=== PATIENT | female | born 1935 | race Caucasian/White ===

== ENCOUNTER 2016-06-07 12:58 | Observation (INO) ==
[2016-06-07] MEDS ORDERED: ONDANSETRON 4 MG/2 ML VIAL IV PRN (13:47)
[2016-06-07] MEDS ORDERED: POTASSIUM CHLORIDE 20 MEQ PACKET PO PRN (13:47)
[2016-06-07] MEDS ORDERED: ACETAMINOPHEN 325 MG TABLET PO PRN (13:47)
[2016-06-07] MEDS ORDERED: MAGNESIUM SULFATE 2 GM/50 ML BAG IV PRN (13:47)
[2016-06-07] MEDS: FUROSEMIDE 40 MG/4 ML VIAL IV SCH ×2 (14:49→21:28)
[2016-06-07] MEDS: 0.9 % SODIUM CHLORIDE 10 ML SYRINGE IV SCH ×2 (14:50→21:29)
--- NOTE | 2016-06-07 15:00 | History and Physical Report ---
DATE OF ADMISSION: 06/07/2016 REASON FOR ADMISSION: Shortness of breath, congestive heart failure. HISTORY OF CHIEF COMPLAINT: The patient is an 80-year-old with known history of chronic kidney disease managed by donor recruitment manager, and history of diastolic heart failure with last known EF 61% and recurrent CHF who comes in to donor recruitment manager's office today with worsening shortness of breath with dyspnea on exertion along with orthopnea that has progressed over the last few days. She denies recent NSAID intake or changes in medications. She denies recent URI symptoms, diarrhea, dysuria and has not missed her regular home medications. She further denies chest pain, lightheadedness, dizziness, dysuria, abdominal pain, nausea. She endorses to lower extremity lymphedema which has progressed over the last couple of days. Initial workup in the donor recruitment manager's office with chest imaging revealed CHF with normal biochemical profile except for chronic kidney disease with creatinine at baseline 2.5. Hospitalist Service was consulted by Nephrology for direct admission. At the time of examination, the patient is alert, was able to provide most of the history. She is orthopneic and unable to talk in full sentences, but very cooperative and pleasant. I have known her from 2015 when I saw her for similar CHF exacerbation at [facility]. In the interim, the patient has been followed by Dr. Chilo Hassan and Dr. Rubén Galarza, Cardiology at [place]. REVIEW OF SYSTEMS: Ten-point review of system was performed and negative except the ones discussed above. PAST MEDICAL HISTORY: 1. History of atrial fibrillation. 2. Chronic interstitial lung disease. 3. Diastolic heart failure. 4. Coronary artery disease. 5. GERD. 6. Hypothyroidism. 7. History of Parkinson's disease. 8. Iron deficiency anemia, likely anemia of chronic disease. 9. Degenerative joint disease. 10. Hypothyroidism. 11. Hyperlipidemia. 12. Hypertension. 13. Reactive airway disease. 14. Interstitial lung disease. CURRENT MEDICATIONS: 1. Prednisone 5 mg. 2. Amlodipine 5 mg. 3. Tiotropium inhaled. 4. Pravastatin 20 mg. 5. Nitroglycerin 0.4 mg as needed. 6. Montelukast 10 mg. 7. Metoprolol 25 mg. 8. Magnesium 200 mg. 9. Levothyroxine 150. 10. Hydroxychloroquine 200 mg b.i.d. 11. Hydrocodone 5/325 mg q.6h. p.r.n. 12. Furosemide 20 mg daily. 13. Esomeprazole 40 mg b.i.d. 14. Aspirin 81 mg. 15. Allopurinol 150 mg. 16. Humira subq every 2 weeks. 17. 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 18. Obstructive sleep apnea. 19. Rheumatoid arthritis, currently on Humira and hydroxychloroquine. FAMILY HISTORY: Significant for father with congestive heart failure, sister with breast cancer, mother CVA. SOCIAL HISTORY: The patient is a former smoker. No history of alcoholism. The patient is and retired. FULL CODE STATUS. PHYSICAL EXAMINATION: GENERAL: The patient is alert and oriented. She denies distress except for shortness of breath. 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 Height 5 feet 5 inches. BMI 25. VITAL SIGNS: Blood pressure 182/83, respiration rate 20, temperature 96.2, pulse 82, sats 92% on room air. HEENT: Pupils symmetric and reactive. Oral cavity is dry. No ear or nose discharge. Head is normocephalic and atraumatic. NECK: No lymphadenopathy. CHEST: S1, S2 irregular rhythm. ESM grade 1. Diminished breath sounds at bases, late inspiratory crackles, bilateral posterior lower chest. ABDOMEN: Soft and nontender. LOWER EXTREMITIES: Minimal edema, but no cyanosis or clubbing. No joint swelling. SKIN: No suspicious lesions. PSYCHIATRIC: Alert, mild anxiety, but cooperative. NEURO: Nonfocal, moving all four extremities. LABS AND IMAGING: Prior echo 61% EF-await further records from Dr. Rubén Galarza's office. Echo as of July 2014 EF 50%, grade III diastolic dysfunction, moderate MR along with mild AST, elevated pulmonary artery pressure between 52 to 54 signifying moderate pulmonary hypertension. Hemoglobin 9, white count 6.8, platelets 179. ESR 25. Sodium 144, potassium 24.5, creatinine 2.5, and BUN 44. LFTs unremarkable. UA pending. Procalcitonin pending. X-ray chest: Congestive heart failure. ASSESSMENT AND PLAN: An 80-year-old with known history of chronic kidney disease admitted with acute decompensated heart failure, likely diastolic. 1. Acute decompensated heart failure. Repeat echocardiogram, start aggressive diuresis. Admit in telemetry, no exact precipitant, likely secondary to gradual fluid overload from underlying chronic kidney disease. 2. Chronic kidney disease, will be managed by Nephrology. 3. Anemia of chronic disease, will be managed by Nephrology. 5. Other prior medical issues, including : a. History of rheumatoid arthritis, on Humira and hydroxychloroquine. b. Hypothyroidism, on thyroxine. c. Hypertension/coronary artery disease, on metoprolol/amlodipine/aspirin. d. History of asthma/COPD. Continue fluticasone, salmeterol. e. Degenerative joint disease. Continue hydrocodone. 7. History of gout, continue allopurinol. 8. Hyperlipidemia. Continue statin. PLAN FOR TODAY: 1. Admit as observation. 2. Telemetry monitoring 3. Diuresis. 4. Nephrology consultation. 5. Preexisting medical condition management as above. AA:yeimy Job ID: [id number] Doc ID: [id number] Dennis Kitchen MD
[2016-06-07] MEDS ORDERED: HYDROcodone/APAP 5/325MG TABLET PO PRN (15:25)
[2016-06-07] MEDS ORDERED: NITROGLYCERIN 0.4 MG TAB.SUBL SL PRN (15:25)
[2016-06-07 15:49] LABS: Appearance,Urine CLEAR; Bacteria,Urine MANY /hpf (0); Bilirubin,Urine NEG (NEG); Color,Urine YELLOW; Glucose,Urine (UA) NEGATIVE (NEG); Leukocyte Esterase,Urine NEG /uL (NEG); Nitrate,Urine NEG (NEG); Protein,Urine 30 mg/dL (NEG); Specific Gravity,Urine 1.011 (1.000-1.035); Urine Blood NEG mg/dL (<0.03); Urine Hyaline Cast 7 /lpf (0-2); Urine RBC < 1 /hpf (0-1); Urine Squamous Epithelial Cell 1 /hpf (0-4); Urine WBC 5 /hpf (0-4); Urobilinogen,Urine NEG (NEG)
[2016-06-07] MEDS ORDERED: ESOMEPRAZOLE MAGNESIUM PO SCH (21:00)
[2016-06-07] MEDS: SODIUM BICARBONATE 650 MG TABLET PO SCH (21:24)
[2016-06-07] MEDS: MAGNESIUM OXIDE 400 MG TABLET PO SCH (21:25)
[2016-06-07] MEDS: DOCUSATE SODIUM 100 MG CAPSULE PO SCH (21:26)
[2016-06-07] MEDS: METOPROLOL TARTRATE 25 MG TABLET PO SCH (21:26)
[2016-06-07] MEDS: HYDROXYCHLOROQUINE 200 MG TABLET PO SCH (21:26)
[2016-06-07] MEDS: traZODone HCL 50 MG TABLET PO PRN (21:26)
[2016-06-07] MEDS: ASPIRIN 81 MG TAB.CHEW PO SCH (21:27)
[2016-06-07] MEDS: SENNOSIDES/DOCUSATE SODIUM 1 TAB TABLET PO SCH (21:27)
[2016-06-07] MEDS: SIMVASTATIN 10 MG TABLET PO SCH (21:28)
[2016-06-07] MEDS: HEPARIN 5,000 UNIT/ML VIAL SQ SCH (21:28)
[2016-06-08 06:28] LABS: Mean Cell Volume 101.5 fL (80.0-100.0); Mean Corpuscular HGB Conc 31.7 g/dL (31.0-36.0); Mean Corpuscular Hemoglobin 32.2 pg (26.0-34.0); Platelet Count 165 K/mcL (140-440); RBC 2.69 M/mcL (4.00-5.20); Red Cell Distribution Width 17.4 % (11.5-14.5)
[2016-06-08] MEDS: 0.9 % SODIUM CHLORIDE 10 ML SYRINGE IV SCH ×3 (06:55→22:02)
[2016-06-08] MEDS: PANTOPRAZOLE 40 MG TABLET PO SCH (07:18)
[2016-06-08] MEDS: LEVOTHYROXINE 150 MCG TABLET PO SCH (07:18)
[2016-06-08 07:26] LABS: Anisocytosis 1+ (NONE SEEN); Band Neutrophils % 2 % (0-10); Basophils % (Manual) 1 % (0-2); Eosinophils % (Manual) 4 % (0-7); Lymphocytes % 27 % (15-49); Macrocytosis 1+ (NONE SEEN); Monocytes % (Manual) 6 % (1-9); Platelet Estimate NORMAL (NORMAL); RBC Morphology ABNORM (NORMAL); Segmented Neutrophils % 60 % (38-78)
[2016-06-08 07:30] LABS: ALT/SGPT 12 U/l (0-40); Albumin 3.8 gm/dL (3.2-5.2); Albumin/Globulin Ratio 1.8 (1.0-2.3); Alkaline Phosphatase 54 U/L (39-117); Bilirubin,Direct < 0.2 mg/dL (0.0-0.3); Blood Urea Nitrogen 49 mg/dl (8-23); Gamma Glutamyl Transpeptidase 15 U/L (5-36); Magnesium 1.9 mg/dL (1.6-2.5); Uric Acid 7.5 mg/dL (2.5-8.0)
--- NOTE | 2016-06-08 07:50 | Echocardiogram Report ---
ECHOCARDIOGRAM: 2-D and M-mode echocardiography with cardiac Doppler and color flow imaging were performed with a [employer] MX. Indication is congestive heart failure. Both atria appeared mildly enlarged. RV and LV cavity size appeared normal. LV wall thickness appeared mildly increased. Systolic performance appeared normal. Estimated ejection fraction is 60%. Aortic root diameter appeared normal. The aortic valve appeared trileaflet and normal. There was no evidence for aortic stenosis by Doppler interrogation. Aortic regurgitation, probably mild (1+), was demonstrated. The mitral and tricuspid valves appeared unremarkable. Doppler interrogation of LV inflow disclosed the so-called restrictive pattern as can be seen with heart failure. Mitral regurgitation, probably moderate to moderately severe (2-3+), was demonstrated. Pulmonary venous interrogation disclosed ''d'' wave dominance indicating elevated pulmonary wedge pressure. The pulmonic valve showed absent ''a'' wave in the absence of AV synchrony. Pulmonary artery acceleration time appeared shortened. There was no evidence for pulmonic stenosis. Pulmonic regurgitation, probably moderate (2+), was demonstrated. Tricuspid regurgitation, probably moderate to moderately severe (2-3+) was noted. No intracardiac shunting was appreciated. There was no evidence for pericardial effusion. The IVC was dilated and did not vary with the respiratory cycle indicating raised CVP. Calculated estimated PA pressure is moderately to severely elevated at 60/35 mmHg. Atrial fibrillation with a moderate response was present. CONCLUSION:Aortic regurgitation, probably mild (1+). Mild concentric LVH with normal systolic performance. Mitral regurgitation, probably moderate to moderately severe, with mild LA enlargement, elevated pulmonary wedge pressure/moderate to severe and probably passive pulmonary hypertension, mild RA enlargement, and raised CVP. (See accompanying M-mode and Doppler reports for quantitation.) ECHOCARDIOGRAPHY M-MODE CALCULATIONS: HT: 65'' WT: 217 BSA: 2.05 m2 NORMALS AORTA: AORTIC ROOT 3.1 2.0-3.7 cm LEFT ATRIUM 4.4 1.9-4.0 cm MITRAL VALVE: EXCURSION 1.9 1.9-2.7 cm EPSS 0.2 <0.5 cm LT VENTRICLE: LVID (ED) 5.0 3.5-5.7 cm LVID (ES) 3.3 SEPTAL THICKNESS 1.2 0.6-1.1 cm SEPTAL EXCURSION 0.3 0.3-0.8 cm LVPW THICKNESS 1.2 0.6-1.1 cm LVPW EXCURSION 1.3 0.9-1.4 cm MINOR AXIS FS 3.4 25%-40% RT VENTRICLE: RVID (ED) 0.9 0.9-2.6 cm(up to 3cm if LLD) QUALITATIVE DOPPLER FLOW STUDIES MITRAL VALVE MR, probably moderate to moderately severe (2-3+). AORTIC VALVE AR, probably mild (1+) TRICUSPID VALVE TR, probably moderate to moderately severe (2-3+) PULMONIC VALVE GA, probably moderate (2+) QUANTITATIVE DOPPLER FLOW STUDIES SAMPLE SITES VELOCITIES PEAK PRESSURE VALVE AREA and/or VALVE WINDOW (PEAK,M/SEC) DROP (GRADIENT) PRESSURE HALF-TIME MV (Diastole) 1.5 -- -- MV (Systole) 6.5 -- -- AO (Diastole) 4.0 -- 518 msec AO (Systole) 1.3 -- -- TV (Systole) 3.2 -- -- PV (Systole) 1.1 -- -- PV (Diastole) 3.2 LWG:yeimy Job ID: [id number] Doc ID: [id number] Robert Garcia MD
[2016-06-08] MEDS: amLODIPine 5 MG TABLET PO SCH (09:00)
[2016-06-08] MEDS: HEPARIN 5,000 UNIT/ML VIAL SQ SCH ×2 (09:00→21:57)
[2016-06-08] MEDS: ALLOPURINOL 100 MG TABLET PO SCH (09:00)
[2016-06-08] MEDS: MAGNESIUM OXIDE 400 MG TABLET PO SCH ×2 (09:00→21:57)
[2016-06-08] MEDS: FUROSEMIDE 40 MG/4 ML VIAL IV SCH ×2 (09:00→15:43)
[2016-06-08] MEDS: HYDROXYCHLOROQUINE 200 MG TABLET PO SCH ×2 (09:01→21:57)
[2016-06-08] MEDS: MONTELUKAST 10 MG TABLET PO SCH (09:01)
[2016-06-08] MEDS: METOPROLOL TARTRATE 25 MG TABLET PO SCH ×2 (09:01→21:56)
[2016-06-08] MEDS: MULTIVIT,THER IRON,CA,FA & MIN 1 TABLET PO SCH (09:01)
[2016-06-08] MEDS: SODIUM BICARBONATE 650 MG TABLET PO SCH ×2 (09:01→22:01)
[2016-06-08] MEDS: CALCITRIOL 0.25 MCG CAPSULE PO SCH (09:01)
[2016-06-08] MEDS: predniSONE 5 MG TABLET PO SCH (09:02)
[2016-06-08] MEDS: DOCUSATE SODIUM 100 MG CAPSULE PO SCH ×2 (09:02→21:56)
--- NOTE | 2016-06-08 12:03 | Internal Med Progress Note ---
Medical - PN: Subj Patient information: Note initiated : 06/08/16 at 12:01 pm Service Date, if different from initiated Date: [] Patient: Kathy Carvalho 80 y/o F admitted on 06/07/16 for CHF, Chronic Renal Failure. Chief Complaint: [] Interval history: 06/07- 80-year-old with history of chronic kidney disease/diastolic heart failure admitted with severe shortness of breath/anasarca. Patient started on aggressive diuresis as per nephrology. admitted as observation 06/08- remarkable response to diuretics Over 1500 cc net negative diuresis over 24 hours. Improving orthopnea. Able to talk in full sentences. No overnight fever chills nausea vomiting or concerns per staff. Intermittent cramping. creatinine 2.6. Electrolytes stable. - Constitutional Vitals: Vital Signs Temp Pulse Resp BP Pulse Ox 97.6 F 60 18 147/80 94 06/08/16 07:23 06/08/16 07:23 06/08/16 07:23 06/08/16 07:23 06/08/16 08:03 Period Temp Pulse Resp BP Sys/Nova Pulse Ox Last 24 Hr 96.2 F-97.9 F 60-85 18-28 108-190/60-83 90-96 Intake and Output 06/07/16 06/08/16 06/08/16 21:59 05:59 13:59 Intake Total 480 / 480 800 / 800 1000 / 1000 Output Total 851 / 851 2100 / 2100 300 / 300 Balance -371 / -371 -1300 / -1300 700 / 700 Weight 158 lb 8 oz Intake & Output: Intake & Output 06/07/16 06/08/16 06/08/16 21:59 05:59 13:59 Intake Total 480 / 480 800 / 800 1000 / 1000 Output Total 851 / 851 2100 / 2100 300 / 300 Balance -371 / -371 -1300 / -1300 700 / 700 Weight 158 lb 8 oz Intake: Oral 480 / 480 800 / 800 1000 / 1000 Output: Urine Catheter Amount 650 / 650 1600 / 1600 300 / 300 Void Amount 200 / 200 # of times incontinent of 1 / 1 urine Stool 500 / 500 Other: Meal Dinner Breakfast Percent of Meal Consumed 100% 100% Feeding Ability Independent General appearance: cooperative, no acute distress Exam: mprove lymphedema Nonlabored breathing minimal anxiety nontender abdomen Medical - PN: Obj Da - Labs CBC & Chem 7: 06/08/16 04:10 06/08/16 04:10 Labs: Abnormal Lab Results 06/08/16 06/08/16 06/07/16 04:10 04:10 15:25 RBC 2.69 L Hgb 8.7 L Hct 27.3 L MCV 101.5 H RDW 17.4 H RBC Morphology Abnorm A Anisocytosis 1+ A Macrocytosis 1+ A Carbon Dioxide 21 L Anion Gap 19.0 H BUN 49 H Creatinine 2.6 H Globulin 2.1 L Triglycerides 165 H Urine Protein 30 A Urine WBC 5 H Urine Bacteria Many A Hyaline Casts 7 H Meds: Medications Acetaminophen (Tylenol) 650 mg PO Q4-6HP PRN PRN Reason: PAIN/FEVER > 101 Last Admin: 06/08/16 09:23 Dose: 650 mg Acetaminophen/Hydrocodone Bitart (Thorpe 5/325mg) 1 - 2 tab PO Q6HP PRN PRN Reason: Pain Allopurinol (Zyloprim) 150 mg PO QDAY REPLACED BY [facility] Last Admin: 06/08/16 09:00 Dose: 150 mg Amlodipine Besylate (Norvasc) 5 mg PO QDAY REPLACED BY [facility] Last Admin: 06/08/16 09:00 Dose: 5 mg Aspirin (Aspirin) 81 mg PO HS REPLACED BY [facility] Last Admin: 06/07/16 21:27 Dose: 81 mg Calcitriol (Rocaltrol) 0.25 mcg PO QDAY REPLACED BY [facility] Last Admin: 06/08/16 09:01 Dose: 0.25 mcg Docusate Sodium (Colace) 100 mg PO BID REPLACED BY [facility] Last Admin: 06/08/16 09:02 Dose: 100 mg Furosemide (Lasix) 40 mg IV BIDD REPLACED BY [facility] Last Admin: 06/08/16 09:00 Dose: 40 mg Heparin Sodium (Porcine) (Heparin) 5,000 unit SQ Q12 REPLACED BY [facility] Last Admin: 06/08/16 09:00 Dose: 5,000 unit Hydroxychloroquine Sulfate (Plaquenil) 200 mg PO BID REPLACED BY [facility] Last Admin: 06/08/16 09:01 Dose: 200 mg Magnesium Sulfate (Magnesium Sulfate) 2 gm in 50 mls @ 50 mls/hr IV UD PRN PRN Reason: MG = or < 1.7 Iron Carb/Multivit/[place]/Folic Acid (Multivitamin W/Minerals) 1 tab PO DAILY REPLACED BY [facility] Last Admin: 06/08/16 09:01 Dose: 1 tab Levothyroxine Sodium (Synthroid) 150 mcg PO ACB REPLACED BY [facility] Last Admin: 06/08/16 07:18 Dose: 150 mcg Magnesium Oxide (Magnesium Oxide) 400 mg PO BID REPLACED BY [facility] Last Admin: 06/08/16 09:00 Dose: 400 mg Metoprolol Tartrate (Lopressor) 50 mg PO BID REPLACED BY [facility] Last Admin: 06/08/16 09:01 Dose: 50 mg Montelukast Sodium (Singular) 10 mg PO QAM REPLACED BY [facility] Last Admin: 06/08/16 09:01 Dose: 10 mg Nitroglycerin (Nitrostat) 0.4 mg SL Q5-15MIN PRN PRN Reason: Chest Pain Ondansetron HCl (Zofran) 4 mg IV Q4-6HP PRN PRN Reason: Nausea And Vomiting Pantoprazole Sodium (Protonix) 40 mg PO QAMAC REPLACED BY [facility] Last Admin: 06/08/16 07:18 Dose: 40 mg Potassium Chloride (Klor-Con) 40 meq PO DAILYP PRN PRN Reason: K+ < 3.5 Prednisone (Prednisone) 5 mg PO QDAY REPLACED BY [facility] Last Admin: 06/08/16 09:02 Dose: 5 mg Senna/Docusate Sodium (Senna Plus Tablet) 1 tab PO HS REPLACED BY [facility] Last Admin: 06/07/16 21:27 Dose: 1 tab Simvastatin (Zocor) 10 mg PO HS REPLACED BY [facility] Last Admin: 06/07/16 21:28 Dose: 10 mg Sodium Bicarbonate (Sodium Bicarbonate) 325 mg PO BID REPLACED BY [facility] Last Admin: 06/08/16 09:01 Dose: 325 mg Sodium Chloride (Saline Flush) 10 ml IV Q8 REPLACED BY [facility] Last Admin: 06/08/16 06:55 Dose: 10 ml Trazodone HCl (Desyrel) 50 mg PO HSP PRN PRN Reason: Insomnia Last Admin: 06/07/16 21:26 Dose: 50 mg Medical - PN: A/P - Time Spent With Patient Total time spent is greater than 50% in coordination of care (as documented) at patient's floor/unit and/or counseling patient: 25 - 35 minutes (1) Acute decompensated heart failure Status: Acute Assessment and plan: * Acute decompensated heart failure- diastolic with preserved EF at 61%. Continue aggressive diuresis. responding adequately to treatment. * History of chronic kidney disease with anasarca-managed by nephrology * Hypertension on amlodipinemetoprolol * Hyperlipidemia on statin * History of arthritis on hydroxychloroquine/Prednisone and Humira as outpatient * Hypothyroidism on thyroxine * gERD on PPI * history of hyperuricemia on allopurinol * DVT prophylaxis on heparin Plan * Continue aggressive diuresis * renal function monitoring * Pre-existing medical condition management as above * possible discharge in 24 hours once clinically improved with outpatient follow -up with nephrology/cardiology Current Visit: No Medical - PN: Qual - VTE Deep Vein Thrombosis/Pulmonary Embolism Present on Admission: No
[2016-06-08] MEDS ORDERED: CYANOCOBALAMIN 1,000 MCG/ML VIAL IM ONE (13:42)
[2016-06-08] MEDS ORDERED: 0.9 % SODIUM CHLORIDE 250 ML IV SCH (13:45)
--- NOTE | 2016-06-08 15:19 | Nephrology Consult Note ---
History of Present Illness - Reason for Consult Patient information: Note initiated : 06/08/16 at 3:16 pm Service Date, if different from initiated Date: [] Patient: Kathy Carvalho 80 y/o F admitted on 06/07/16 for CHF, Chronic Renal Failure. Chief Complaint: [] Consult date: 06/08/16 chronic renal failure Requesting physician: Dennis Kitchen - Chief Complaint SOB - History of Present Illness Ms Carvalho is a 80 y/o pleasant white female with PMH of HTN, Afib, CKD, CHF, anemia and other medical issues who is hospitalised with CHF Patient presented to my clinic yesterday with c/o worsening SOB for a week, she denied orthopnea, she did c/o chest tightness She has no fever, cough She has no h/o LE edema She denies any GI symptoms Patient has h/o CHF with anemia, her Hb has been trending down recently She was evaluated in the clinic, work up significant for elevated BNP with CXR s /o pul edema and hence she was hospitalised She is feeling much better with IV diuretics Review of Systems All systems PM: reviewed and no additional remarkable complaints except as stated (as in HPI) Past History Past medical history: htn CKD stage IV/V Anemia recurrent UTI renal osteodystrophy Afib, CHF Dyslipidemia Past surgical history: h/o cholecystectomy, hysterectomy, intestinal bypass Past family history: father had h/o CHF, mother had h/o CVA Past social history: Lives alone former smoker, no h/o alcohol use Medications and Allergies Home Medications Medication Instructions Recorded Confirmed Type aspirin 81 mg tablet,delayed 81 mg PO HS tab 09/24/14 06/07/16 History release calcitriol 0.25 mcg capsule 0.25 mcg PO QDAY cap 09/24/14 06/07/16 History esomeprazole magnesium 40 mg 40 mg PO BID cap 09/24/14 06/07/16 History capsule,delayed release levothyroxine 150 mcg tablet 150 mcg PO QDAY tab 09/24/14 06/07/16 History montelukast 10 mg tablet 10 mg PO QAM tab 09/24/14 06/07/16 History pravastatin 20 mg tablet 20 mg PO HS tab 09/24/14 06/07/16 History coenzyme Q10 100 mg capsule 100 mg PO HS cap 11/29/14 06/07/16 History omega-3 fatty acids 1,000 mg 1,000 mg PO HS cap 11/29/14 06/07/16 History capsule cyanocobalamin (vit B-12) 1,000 1,000 mcg IM QMONTH ml 01/11/15 06/07/16 History mcg/mL injection solution ferrous sulfate 325 mg (65 mg 65 mg PO BID tab 06/15/15 06/07/16 History iron) tablet nitroglycerin 0.4 mg sublingual 0.4 mg SUBLINGUAL Q5-15MIN PRN 06/15/15 History tablet Ascorbic Acid [Vitamin C] 1,000 mg PO BID 07/13/15 06/07/16 History Cranberry Conc/Ascorbic Acid 4,200 mg PO QDAY 07/13/15 06/07/16 History [Cranberry 6,000 mg Softgel] Furosemide [Lasix] 20 mg PO DAILY 07/13/15 06/07/16 History HYDROcodone/APAP 5/325MG [[place] 1 - 2 tab PO Q6HP PRN #20 tab 07/14/15 06/07/16 Rx 5/325Mg] magnesium 200 mg tablet 200 mg PO BID 08/02/15 06/07/16 History metoprolol tartrate 25 mg tablet 50 mg PO BID tab 09/20/15 06/07/16 History amlodipine 5 mg tablet 5 mg PO QDAY 90 Days 03/05/16 06/07/16 History adalimumab 40 mg/0.8 mL 40 mg SUB-Q Q14D #1.6 ml 04/16/16 06/07/16 Rx subcutaneous syringe kit hydroxychloroquine 200 mg tablet 200 mg PO BID #60 tab 05/22/16 06/07/16 Rx prednisone 5 mg tablet 5 mg PO QDAY #90 tab 05/22/16 06/07/16 Rx allopurinol 100 mg tablet 150 mg PO QDAY #135 tab 05/24/16 06/07/16 Rx Calcium (Oyster Shell) [Oscal] 1 tab PO DAILY 06/07/16 06/07/16 History Sodium Bicarbonate 1 tab PO BID 06/07/16 06/07/16 History Allergies Allergy/AdvReac Type Severity Reaction Status Date / Time dofetilide [From Tikosyn] Allergy Mild Unknown Verified 06/07/16 15:20 Penicillins Allergy Unknown Hives Verified 06/07/16 11:02 Warfarin Allergy Unknown Unknown Verified 06/07/16 15:20 adhesive tape Allergy Rash Verified 06/07/16 14:11 Erythromycin Base AdvReac Itching Verified 06/07/16 14:11 doxycycline calcium Allergy Unknown Unknown Uncoded 06/07/16 15:20 Exam - Vital Signs Vital signs: Temp Pulse Resp BP Pulse Ox 98.0 F 61 20 146/65 96 06/08/16 12:00 06/08/16 12:00 06/08/16 12:00 06/08/16 12:00 06/08/16 12:00 - General Appearance General appearance: appears started age, obese EENT: mucous membranes moist Neck: JVD Respiratory: clear Cardiology: no rub, no edema, irregular rhythm Gastrointestinal: no tenderness, no guarding Integumentary: no rash, warm and dry Neurologic: alert and oriented x3 Musculoskeletal: no erythema, no cyanosis Psychiatric: mood/affect appropriate Results - Lab Results 06/08/16 04:10 06/08/16 04:10 Most recent lab results Calcium 8.9 mg/dl (8.6-10.4) 06/08/16 04:10 Phosphorus 4.0 mg/dL (2.7-4.5) 06/08/16 04:10 Magnesium 1.9 mg/dL (1.6-2.5) 06/08/16 04:10 Assessment and Plan (1) Anemia patient developed CHF with minimal anemia, given this will give one PRBC transfusion, she has received aranesp as Tsat was 22% and will also give b12 injection, she is mthly b12, her level was 266 Status: Acute (2) Acute decompensated heart failure ct IV diuresis for another day, much improved symptoms if continues to get better may discharge on lasix 40mg po daily Status: Acute (3) Chronic kidney disease, stage IV (severe) renal function worse as compared to recent baseline this is likely sec to cardiac issues will monitor no indication for dialysis Status: Chronic Comment: Most recent s.creatinine is 2.8 from 3.0 which equals to egfr of 17ml/min per MDRD equation (pt known to have a stable s.Creat of around 2.0 which suddenly increased this year to mid 3's) She has overt proteinuria on her UA She has h/o nephritis in the remote past and HTN and renal stones as risk factor for renal disease renal US does not show renal stones but does show medical renal disease renal function stable for now will monitor she has been educated in the past will pursue AVF if renal function gets any worse
[2016-06-08] MEDS: SIMVASTATIN 10 MG TABLET PO SCH (21:56)
[2016-06-08] MEDS: traZODone HCL 50 MG TABLET PO PRN (21:56)
[2016-06-08] MEDS: SENNOSIDES/DOCUSATE SODIUM 1 TAB TABLET PO SCH (21:56)
[2016-06-08] MEDS: ASPIRIN 81 MG TAB.CHEW PO SCH (21:58)
[2016-06-09] MEDS: 0.9 % SODIUM CHLORIDE 10 ML SYRINGE IV SCH ×2 (04:27→14:37)
[2016-06-09 05:08] LABS: Mean Corpuscular Hemoglobin 31.7 pg (26.0-34.0); Platelet Count 173 K/mcL (140-440)
[2016-06-09 05:31] LABS: ALT/SGPT 12 U/l (0-40); Albumin/Globulin Ratio 2.1 (1.0-2.3); Alkaline Phosphatase 58 U/L (39-117); Bilirubin,Direct < 0.2 mg/dL (0.0-0.3); Blood Urea Nitrogen 49 mg/dl (8-23); Gamma Glutamyl Transpeptidase 15 U/L (5-36); Magnesium 1.9 mg/dL (1.6-2.5); Phosphorous 4.9 mg/dL (2.7-4.5); Uric Acid 7.9 mg/dL (2.5-8.0)
[2016-06-09 07:23] LABS: Anisocytosis 1+ (NONE SEEN); Band Neutrophils % 2 % (0-10); Basophils % (Manual) 1 % (0-2); Eosinophils % (Manual) 7 % (0-7); Lymphocytes % 30 % (15-49); Monocytes % (Manual) 2 % (1-9); Platelet Estimate NORMAL (NORMAL); RBC Morphology ABNORM (NORMAL); Segmented Neutrophils % 58 % (38-78)
[2016-06-09] MEDS: LEVOTHYROXINE 150 MCG TABLET PO SCH (07:35)
[2016-06-09] MEDS: PANTOPRAZOLE 40 MG TABLET PO SCH (07:35)
--- NOTE | 2016-06-09 08:53 | XRay Report ---
HISTORY: Reason for Exam:Interval Change Cardiomegaly and congestive heart failure FINDINGS: The heart remains mildly enlarged. The pulmonary vascular congestion has improved since 06-22. There is minor blunting of the right costophrenic sulcus. No lobar consolidation is present. IMPRESSION: Improving congestive heart failure with stable cardiomegaly Interpreted and Authenticated by: Valentin Guan 06/09/16
[2016-06-09] MEDS: MULTIVIT,THER IRON,CA,FA & MIN 1 TABLET PO SCH (09:15)
[2016-06-09] MEDS: SODIUM BICARBONATE 650 MG TABLET PO SCH (09:16)
[2016-06-09] MEDS: amLODIPine 5 MG TABLET PO SCH (09:16)
[2016-06-09] MEDS: METOPROLOL TARTRATE 25 MG TABLET PO SCH (09:16)
[2016-06-09] MEDS: ALLOPURINOL 100 MG TABLET PO SCH (09:16)
[2016-06-09] MEDS: predniSONE 5 MG TABLET PO SCH (09:16)
[2016-06-09] MEDS: MONTELUKAST 10 MG TABLET PO SCH (09:17)
[2016-06-09] MEDS: CALCITRIOL 0.25 MCG CAPSULE PO SCH (09:17)
[2016-06-09] MEDS: DOCUSATE SODIUM 100 MG CAPSULE PO SCH ×2 (09:18→09:35)
[2016-06-09] MEDS: HEPARIN 5,000 UNIT/ML VIAL SQ SCH (09:18)
[2016-06-09] MEDS: FUROSEMIDE 40 MG/4 ML VIAL IV SCH ×2 (09:18→16:48)
[2016-06-09] MEDS: HYDROXYCHLOROQUINE 200 MG TABLET PO SCH (09:34)
[2016-06-09] MEDS: MAGNESIUM OXIDE 400 MG TABLET PO SCH (09:34)
[2016-06-09] MEDS ORDERED: cefTRIAXone 2 GM in DEXTROSE 5% IN WATER 50 ML IV ONE (10:00)
[2016-06-09] MEDS ORDERED: ERTAPENEM 1 GM in 0.9 % SODIUM CHLORIDE 50 ML IV SCH (11:00)
--- NOTE | 2016-06-09 11:38 | Discharge Plan ---
Discharge Plan - Patient/Caregiver Discharge Instructions Discharge Summary: DISCHARGE DIAGNOSIS * Acute decompensated heart failure- diastolic with preserved EF at 61%. adequate response to Lasix.discharging and advised to continue higher dose of Lasix as per nephrology-40 mg a day. * Enterobacter [id number]. However in light of patient the immunosuppressed very high risk for subsequent systemic infection and hence treatment started on Invanz. Continue additional 4 days IV Invanz followed by repeat UA to be coordinated by primary care physician. * History of chronic kidney disease with anasarca-managed by nephrology. Continue outpatient follow-up with nephrology as advised * Hypertension remained stable on amlodipine metoprolol * Hyperlipidemia on statin * History of rheumatoid arthritis on hydroxychloroquine/Prednisone and Humira as outpatient * Hypothyroidism on thyroxine * gERD on PPI * history of hyperuricemia on allopurinol * DVT prophylaxis on heparin BRIEF HOSPITAL COURSE 06/07- 80-year-old with history of chronic kidney disease/diastolic heart failure admitted with severe shortness of breath/anasarca. Patient started on aggressive diuresis as per nephrology. admitted as observation 06/08- remarkable response to diuretics Over 1500 cc net negative diuresis over 24 hours. Improving orthopnea. Able to talk in full sentences. No overnight fever chills nausea vomiting or concerns per staff. Intermittent cramping. creatinine 2.6. Electrolytes stable. 06/09- patient doing well. No overnight events. No concerns per staff. Adequate diuresis with resolution of shortness of breath. Ambulating and tolerating physical therapy. Nephrology recommends higher dose of Lasix at 40 mg a day. Asymptomatic bacteriuria with multidrug resistant Enterobacter. Given underlying rheumatoid arthritis on Humira with Immunosuppression, patient started on Invanz for total of 5 days to prevent subsequent systemic infection. Patient will need IV outpatient Invanz on discharge. Detailed discharge instructions as below Activity: as per physical therapy Diet: Renal/Consistent Carbs Additional Instructions: Follow-up PCP in 5 days follow-up with nephrology as outpatient I recommend primary care physician to check CBC BMP UA as a posthospital follow -up in 1 week Antibiotics for additional 4 days in light of multidrug-resistant Enterobacter bacteriuria continue increased dose of Lasix as per nephrology recommendation-40 mg daily Continue aggressive bowel regimen to prevent constipation Continue fall precautions daily weights measurements and take additional 40 mg Lasix for 3 days if weight gain over 4 pounds over baseline or worsening shortness of breath and call primary care physician/nephrology office if inadequate response to Lasix Return to ER if worsening generalized edema, shortness of breath Review risk and side effect profile of medications including antibiotics. Side effect may include mild to severe reaction including rash, diarrhea, cdiff and even which can be prevented by close follow-up with PCP and monitoring for side effects Continue renal diet and activity as advised Discussed importance of medication adherence Please review medication list with patient prior to discharge Please schedule follow-up with PCP/Providers prior to discharge and provide printouts CC- PCP Prescriptions: Ertapenem [Invanz] 1 gm IV DAILY #4 vial Furosemide [Lasix] 40 mg PO DAILY #30 tablet - Follow up Plan Disposition: Home, Self-Care Prognosis: Fair Rehab Potential: Good I certify that the patient requires SNF services.: No Overall status at discharge: patient is back to baseline
--- NOTE | 2016-06-09 15:18 | Nephrology Progress Note ---
Subjective Patient information: Note initiated : 06/09/16 at 3:16 pm Service Date, if different from initiated Date: [] Patient: Kathy Carvalho 80 y/o F admitted on 06/07/16 for CHF, Chronic Renal Failure. Chief Complaint: [] Principal diagnosis: CHF Interval history: No new issues been treated with ertapenem for cephalosporin resistant enterobacter UTI SOB much improved, CXR shows improving CHF patient did receive ne unit prbc, Hb now upto 9.8 will be discharged today Pertinent ROS: as above Objective - Vital Signs Vital signs: Vital Signs Temp Pulse Resp BP BP Pulse Ox 06/09/16 12:30 97.2 F L 65 18 127/61 96 06/09/16 07:54 62 16 97 06/09/16 07:39 97.5 F L 62 16 145/66 97 06/09/16 04:00 97.8 F 63 14 125/55 96 06/09/16 00:00 97.7 F 57 L 20 116/57 92 06/08/16 20:00 97.5 F L 88 20 163/79 93 06/08/16 16:30 71 06/08/16 16:00 97.0 F L 70 20 162/74 90 Intake and Output 06/09/16 06/09/16 06/09/16 05:59 13:59 21:59 Intake Total 1100 / 1100 990 / 990 Output Total 1100 / 1100 1350 / 1350 Balance 0 / 0 -360 / -360 Intake: IV 100 / 100 Sodium Chloride 0.9% 50 50 / 50 ml @ 100 mls/hr IV DAILY CASIE with INVanz 1 GM Rx#: [id number] Dextrose 5% in Water 50 50 / 50 ml @ 100 mls/hr IV ONCE ONE with Rocephin 2 gm Rx #:[id number] Oral 400 / 400 890 / 890 Blood Product 350 / 350 Packed Cells 350 / 350 Output: Urine Catheter Amount 1100 / 1100 1350 / 1350 Other: Meal Lunch Percent of Meal Consumed 100% Feeding Ability Independent # Bowel Movements 1 Intake & Output: Intake & Output 06/09/16 06/09/16 06/09/16 05:59 13:59 21:59 Intake Total 1100 / 1100 990 / 990 Output Total 1100 / 1100 1350 / 1350 Balance 0 / 0 -360 / -360 Intake: IV 100 / 100 Sodium Chloride 0.9% 50 50 / 50 ml @ 100 mls/hr IV DAILY ACSIE with INVanz 1 GM Rx#: [id number] Dextrose 5% in Water 50 50 / 50 ml @ 100 mls/hr IV ONCE ONE with Rocephin 2 gm Rx #:[id number] Oral 400 / 400 890 / 890 Blood Product 350 / 350 Packed Cells 350 / 350 Output: Urine Catheter Amount 1100 / 1100 1350 / 1350 Other: Meal Lunch Percent of Meal Consumed 100% Feeding Ability Independent # Bowel Movements 1 - General Appearance General appearance: appears started age, obese EENT: mucous membranes moist Neck: JVD Respiratory: clear Gastrointestinal: no tenderness Integumentary: no rash, warm and dry Neurologic: no focal deficit, alert and oriented x3 Musculoskeletal: no erythema, no cyanosis Psychiatric: mood/affect appropriate - Lab 06/09/16 03:30 06/09/16 03:30 Most recent lab results Calcium 8.9 mg/dl (8.6-10.4) 06/09/16 03:30 Phosphorus 4.9 mg/dL (2.7-4.5) H 06/09/16 03:30 Magnesium 1.9 mg/dL (1.6-2.5) 06/09/16 03:30 Assessment and Plan (1) Anemia hb improved to 9.8 received one unit of prbc transfusion will ct aranesp as outpt also pt needs to continue mthly b12 injections ct oral ferrous sulphate Status: Acute (2) Acute decompensated heart failure muh improved precipitated by anemia please discharge on lasix 40mg po daily she will take an additional 40mg for weight gain of 2-3lbs ct metoprolol also needs to follow with cardiology Status: Acute (3) Chronic kidney disease, stage IV (severe) renal function declinign again will monitor likely from acute events will follow as outpatient in 10 days Status: Chronic Comment: Most recent s.creatinine is 2.8 from 3.0 which equals to egfr of 17ml/min per MDRD equation (pt known to have a stable s.Creat of around 2.0 which suddenly increased this year to mid 3's) She has overt proteinuria on her UA She has h/o nephritis in the remote past and HTN and renal stones as risk factor for renal disease renal US does not show renal stones but does show medical renal disease renal function stable for now will monitor she has been educated in the past will pursue AVF if renal function gets any worse
== END 2016-06-09 17:05 | disposition home or self-care (01) ==
LOC: ICU
PROVIDERS: ADMIT Internal Medicine; ATTEND Internal Medicine

== ENCOUNTER 2017-03-25 06:04 | Observation (INO) ==
[2017-03-22 12:34] LABS: Basophils # (Auto) 0 K/mcL (0.0-0.3); Basophils % (Auto) 0.4 % (0.0-2.0); Eosinophils # (Auto) 0.2 K/mcL (0.0-0.7); Eosinophils % (Auto) 2.2 % (0.0-7.0); Granulocytes % (Auto) 55.7 % (38.0-78.0); Lymphocytes # (Auto) 3.5 K/mcL (1.5-4.8); Lymphocytes % (Auto) 35.9 % (15.5-49.0); Mean Cell Volume 92.1 fL (80.0-100.0); Mean Corpuscular HGB Conc 32.1 g/dL (31.0-36.0); Mean Corpuscular Hemoglobin 29.6 pg (26.0-34.0); Monocytes # (Auto) 0.6 K/mcL (0.1-0.9); Monocytes % (Auto) 5.8 % (1.0-12.0); Platelet Count 158 K/mcL (140-440); RBC 3.55 M/mcL (4.00-5.20); Red Cell Distribution Width 17.1 % (11.5-14.5)
[~2017-03-25 06:04] MED LIST: IPRATROPIUM/ALBUTEROL 3 ML AMPUL.NEB NEB PRN
[2017-03-25] MEDS ORDERED: CLINDAMYCIN 600 MG in DEXTROSE 5% IN WATER 50 ML IV SCH (06:30)
[2017-03-25] MEDS ORDERED: MIDAZOLAM 2 MG/2 ML VIAL IV ONE (08:00)
[2017-03-25] MEDS ORDERED: fentaNYL 100 MCG/2 ML VIAL IV ONE (08:00)
[2017-03-25] MEDS ORDERED: 0.9 % SODIUM CHLORIDE 10 ML SYRINGE IV ONE (08:28)
[2017-03-25] MEDS ORDERED: BUPIVACAINE 0.5% 50 ML VIAL IJ ONE (08:31)
[2017-03-25] MEDS ORDERED: LIDOCAINE W/EPI 2% 20 ML VIAL INJ ONE (08:32)
[2017-03-25] MEDS ORDERED: HEPARIN 10,000 UNIT/ML VIAL IR ONE (08:33)
[2017-03-25] MEDS ORDERED: FLUMAZENIL 0.1 MG/ML ML IV PRN (08:48)
[2017-03-25] MEDS ORDERED: fentaNYL 100 MCG/2 ML VIAL IV PRN (08:48)
[2017-03-25] MEDS ORDERED: LACTATED RINGERS 250 ML IV PRN (08:48)
[2017-03-25] MEDS ORDERED: PROMETHAZINE 25 MG/ML VIAL IV PRN (08:48)
[2017-03-25] MEDS ORDERED: IPRATROPIUM/ALBUTEROL 3 ML AMPUL.NEB NEB PRN (08:48)
[2017-03-25] MEDS ORDERED: ePHEDrine 50 MG/ML AMPUL IV PRN (08:48)
[2017-03-25] MEDS ORDERED: NALOXONE HCL 0.4 MG/ML VIAL IV PRN (08:48)
[2017-03-25] MEDS ORDERED: ONDANSETRON 4 MG/2 ML VIAL IV PRN ×2 (08:48→09:24)
[2017-03-25] MEDS ORDERED: LACTATED RINGERS 1,000 ML IV SCH (09:00)
[2017-03-25] MEDS ORDERED: traMADol 50 MG TABLET PO PRN (09:29)
--- NOTE | 2017-03-25 12:31 | XRay Report ---
CLINICAL INFORMATION: Post line placement COMPARISON: None. FINDINGS: ] Right IJ Double-lumen catheter tip overlies the SVC/ right atrial junction. No pneumothorax or other complication from line placement. The heart is mildly enlarged, but stable. Mediastinum and pulmonary vessels are normal. Lungs are clear. No effusions. IMPRESSION: Right IJ double-lumen catheter in satisfactory position. A combination line placement. No acute disease Interpreted and Authenticated by: Naldo Fitch 03/25/17
--- NOTE | 2017-03-25 12:31 | Brief Operative Note ---
Date of procedure: 03/25/17 Pre-op diagnosis: Need for Hemodialysis Post-op diagnosis: same Procedure: Right IJ tunneled hemodialysis catheter placement Grafts/Implants: Yes (Tunneled hemodialysis catheter.) Anesthesia: conscious sedation Complications: none Surgeon: Veda Pritchard Estimated blood loss (cc): 30 Specimens Removed/Pathology: none sent Condition: stable Disposition: PACU
--- NOTE | 2017-03-25 14:54 | Operative Note ---
DATE OF OPERATION: 03/25/2017 PREOPERATIVE DIAGNOSIS: Need for hemodialysis. POSTOPERATIVE DIAGNOSIS: Need for hemodialysis. PROCEDURE PERFORMED: Right IJ tunneled hemodialysis catheter. SURGEON: Veda Pritchard MD ANESTHETIC: Conscious sedation. INDICATIONS FOR PROCEDURE: The patient is an 81-year-old woman who had been followed by Dr. Ureña in Nephrology and is at a point in need of hemodialysis. She is in need of access for hemodialysis to be done. She presents today for catheter placement. DESCRIPTION OF PROCEDURE: After obtaining informed consent, the patient was taken to the operating room where a time-out was taken to confirm that she was here for the above-stated procedure. She was given antibiotics preoperatively and SCDs were placed for DVT prophylaxis. She was placed in the supine position on the operating table and conscious sedation was induced. The chest and neck were prepped and draped in sterile fashion bilaterally. Ultrasound guidance was used for locating the right internal jugular vein. The ultrasound probe was draped with a sterile drape and then using this probe the vein was identified. The vein was cannulated using a micropuncture needle kit and was cannulated on the first stick. Guidewire was placed into the vein and the needle removed after confirming the guidewire was in proper position using fluoroscopy. Next, a small incision was made in the skin at the entrance site of the guidewire and the guidewire was exchanged for a larger guidewire using the Seldinger technique and introducer catheters provided with the kit. Next, the pre-flushed hemodialysis catheter was tunneled subcutaneously from the chest wall skin at a site where it was thought to be appropriate to allow adequate length for the internal portion of the catheter. The skin incision at the neck was incised just a little bit more and then using the dilators provided with the kit the entrance site in the neck was dilated until the introducer sheath could be inserted into the vein. These maneuvers all done under visualization with the fluoroscope. The introducer sheath was left in the vein and the guidewire removed. The dialysis catheter was then inserted into the vein via the introducer sheath and the introducer sheath was removed from around the catheter while holding it in place. Fluoroscopy was performed to identify the tip of catheter. The tip of the catheter was further into the heart than initially estimated that it would be and it was pulled back. This resulted in exposure of the cuff on the chest wall. Due to the need to pull the catheter back some and exposure of the cuff, the chest wall was injected with local anesthetic in the area to be incised. An additional longitudinal incision was made along the distance of the tract where the catheter would need to go to maintain subcutaneous coverage and tunneling of the catheter. This incision was then made and subcutaneously dissected down with electrocautery. The catheter was inserted along into this tract and then the skin closed over the catheter including closure of skin over the area of the cuff of the catheter. Closure of the skin was performed in two layers with interrupted 4-0 Monocryl sutures followed by 4-0 Monocryl suture in a running intracuticular fashion. The catheter tip was rechecked with fluoroscopy and its position was found to be adequate as reported verbally from the radiologist. They catheter was tested for flow and found to be adequate on flushing and withdrawal. The ports were sealed with sterile saline. The catheter was then subsequently secured to the skin in 2 points, one at the exit site with Monocryl suture and additionally with 2 nylon sutures through the holes on the catheter flange. The entrance site at the base of the neck was closed with 4-0 Monocryl suture. Each of the catheter ports was then sealed with concentrated heparinized saline solution. Sterile dressings were applied. The patient tolerated the procedure well and there were no immediate complications. ESTIMATED BLOOD LOSS: 30 mL RC:sabrina Job ID: [id number] Doc ID: [id number] Veda Pritchard MD
[2017-03-25] MEDS ORDERED: NITROGLYCERIN 0.4 MG TAB.SUBL SL PRN (14:58)
[2017-03-25 16:01] LABS: Hepatitis B Surface Antibody NEGATIVE (NEGATIVE); Hepatitis B Surface Antigen NEGATIVE (NEGATIVE)
--- NOTE | 2017-03-25 17:54 | General Surgery Progress Note ---
Surgical - Auxillary Note - Subjective Patient Information: Note initiated : 03/25/17 at 5:53 pm Service Date, if different from initiated Date: [] Patient: Kathy Carvalho 81 y/o F admitted on for Hemodialysis Catheter Placement. Chief Complaint: [] POV Catheter site with bruising as expected. Wound intact and no active bleeding. No hematoma at entrance site on neck or along subcutaneous tract.
--- NOTE | 2017-03-25 18:49 | XRay Report ---
CLINICAL INFORMATION: HEMODIALYSIS CATHETER PLACEMENT COMPARISON: None. FINDINGS: Three digital images from the OR show right IJ double-lumen hemodialysis catheter tip overlies the SVC right atrial junction. No pneumothorax or other complication from line placement IMPRESSION: Dialysis catheter in satisfactory position Interpreted and Authenticated by: Naldo Fitch 03/25/17
[2017-03-25] MEDS: ACETAMINOPHEN 500 MG TABLET PO PRN (21:40)
[2017-03-25] MEDS: ASPIRIN 81 MG TAB.CHEW PO SCH (21:41)
[2017-03-25] MEDS: METOPROLOL TARTRATE 50 MG TABLET PO SCH (21:41)
[2017-03-25] MEDS: MONTELUKAST 10 MG TABLET PO SCH (21:41)
[2017-03-25] MEDS: FAMOTIDINE 20 MG TABLET PO SCH (21:41)
[2017-03-25] MEDS: SIMVASTATIN 10 MG TABLET PO SCH (21:41)
[2017-03-25] MEDS: PANTOPRAZOLE 40 MG TABLET PO SCH (21:41)
[2017-03-26] MEDS: FUROSEMIDE 80 MG TABLET PO SCH (08:46)
[2017-03-26] MEDS: ALLOPURINOL 300 MG TABLET PO SCH (08:46)
[2017-03-26] MEDS: FISH OIL 1,000 MG CAPSULE PO SCH (08:47)
[2017-03-26] MEDS: amLODIPine 5 MG TABLET PO SCH (08:47)
[2017-03-26] MEDS: METOPROLOL TARTRATE 50 MG TABLET PO SCH ×2 (08:47→20:54)
[2017-03-26] MEDS: ACETAMINOPHEN 500 MG TABLET PO PRN ×2 (10:10→17:03)
[2017-03-26 11:10] LABS: Basophils # (Auto) 0 K/mcL (0.0-0.3); Basophils % (Auto) 0.3 % (0.0-2.0); Eosinophils # (Auto) 0 K/mcL (0.0-0.7); Eosinophils % (Auto) 0.1 % (0.0-7.0); Granulocytes % (Auto) 85.5 % (38.0-78.0); Lymphocytes # (Auto) 1.6 K/mcL (1.5-4.8); Lymphocytes % (Auto) 11.7 % (15.5-49.0); Mean Cell Volume 92.4 fL (80.0-100.0); Mean Corpuscular HGB Conc 31.6 g/dL (31.0-36.0); Mean Corpuscular Hemoglobin 29.2 pg (26.0-34.0); Monocytes # (Auto) 0.3 K/mcL (0.1-0.9); Monocytes % (Auto) 2.4 % (1.0-12.0); Platelet Count 136 K/mcL (140-440); RBC 3.38 M/mcL (4.00-5.20); Red Cell Distribution Width 17.8 % (11.5-14.5)
[2017-03-26 11:32] LABS: ALT/SGPT < 5 U/l (0-40); Albumin 3.8 gm/dL (3.2-5.2); Alkaline Phosphatase 74 U/L (39-117); Blood Urea Nitrogen 27 mg/dl (8-23)
--- NOTE | 2017-03-26 16:36 | Nephrology History & Physical ---
History of Present Illness Patient information: Note initiated : 03/26/17 at 4:33 pm Service Date, if different from initiated Date: [] Patient: Kathy Carvalho a 81 y/o F admitted on 03/26/17 for Hemodialysis Catheter Placement. Chief Complaint: [diarrhea, chills, fever HPI: Ms. Carvalho is a 81 year old F with PMH of HTN, AFib, CHF, CKD stage V, RA and other multiple medical issues who was in extended recovery post TCC placement for initiation of dialysis Patient his morning c/o diarrhea multiple episodes, watery with subjective chills and nausea She was weak and unable to move around, c/o dizziness on and off no vomiting also c/o cloudy urine denies LE edema, SOB continues to have poor appetite no other concerns she also had a fall at home and is c/o pain right lower rib cage, CXR was negative but we will obtain rib xray to r/o fracture Given patient's general medical condition with severe MR, CHF, ESRD and general condition and given that she was somewhat dehydrated patient was admitted for observation until we could diagnosed and treat her diarrhea and dizziness improved Review of Systems All systems PM: reviewed and no additional remarkable complaints except as stated (as in HPI) Past History Past medical history: CKD stage V, now on dialysis HTN CHF, Afib, severe MR, planned for cardiac interventions next week anemia of CKD renal osteodystrophy RA on plaquenil and adalimumab metabolic acidosis recurrent UTI Parkinson's disease hypothyroidism Past surgical history: s/p hip surgery s/p TCC placement Gets botox shots for vocal palsy Past family history: not pertinent Past social history: lives alone, no current addictions Medications and Allergies Home Medications Medication Instructions Recorded Confirmed Type aspirin 81 mg tablet,delayed 81 mg PO HS tab 09/24/14 03/22/17 History release levothyroxine 150 mcg tablet 150 mcg PO QDAY tab 09/24/14 03/22/17 History montelukast 10 mg tablet 10 mg PO QAM tab 09/24/14 03/22/17 History pravastatin 20 mg tablet 20 mg PO HS tab 09/24/14 03/22/17 History coenzyme Q10 100 mg capsule 100 mg PO HS cap 11/29/14 03/22/17 History omega-3 fatty acids 1,000 mg 1,000 mg PO HS cap 11/29/14 03/22/17 History capsule cyanocobalamin (vit B-12) 1,000 1,000 mcg IM QMONTH ml 01/11/15 03/22/17 History mcg/mL injection solution ferrous sulfate 325 mg (65 mg 65 mg PO BID tab 06/15/15 03/22/17 History iron) tablet nitroglycerin 0.4 mg sublingual 0.4 mg SUBLINGUAL Q5-15MIN PRN 06/15/15 History tablet RX: Ascorbic Acid [Vitamin C] 1,000 mg PO BID 07/13/15 03/22/17 History RX: Cranberry Conc/Ascorbic Acid 4,200 mg PO QDAY 07/13/15 03/22/17 History [Cranberry 6,000 mg Softgel] RX: HYDROcodone/APAP 5/325MG 1 - 2 tab PO Q6HP PRN #20 tab 07/14/15 03/22/17 Rx [[place] 5/325Mg] magnesium 200 mg tablet 200 mg PO BID 08/02/15 03/22/17 History metoprolol tartrate 25 mg tablet 50 mg PO BID tab 09/20/15 03/22/17 History RX: Calcium (Oyster Shell) [Oscal] 1 tab PO DAILY 06/07/16 03/22/17 History RX: Sodium Bicarbonate 1 tab PO BID 06/07/16 03/22/17 History carbidopa ER 50 mg-levodopa 200 mg 1 tab PO BID 90 Days #270 tab 09/11/16 History tablet,extended release allopurinol 100 mg tablet 150 mg PO QDAY #135 tab 12/19/16 03/22/17 Rx adalimumab 40 mg/0.8 mL 40 mg SUB-Q Q14D #3.2 ml 01/14/17 03/22/17 Rx subcutaneous syringe kit cimetidine 1 tab PO DAILY 01/14/17 03/22/17 History hydralazine 10 mg tablet 20 mg PO QDAY 90 Days #180 tab 01/14/17 03/22/17 History metolazone 2.5 mg tablet 2.5 mg PO QOD PRN #20 tab 01/17/17 03/22/17 Rx pantoprazole 40 mg tablet,delayed 40 mg PO QDAY 01/17/17 03/22/17 History release hydroxychloroquine 200 mg tablet 200 mg PO BID #180 tab 01/21/17 03/22/17 Rx amlodipine 5 mg tablet 2.5 mg PO QDAY 90 Days #45 tab 02/11/17 03/22/17 History calcitriol 1 tab PO DAILY 03/15/17 03/22/17 History furosemide 40 mg tablet 60 mg PO QDAY tab 03/15/17 03/22/17 History ciprofloxacin 250 mg tablet 250 mg PO Q24H #7 tab 03/19/17 03/22/17 Rx Allergies Allergy/AdvReac Type Severity Reaction Status Date / Time dofetilide [From Tikosyn] Allergy Mild Unknown Verified 03/22/17 08:42 Penicillins Allergy Unknown Hives Verified 03/22/17 08:42 Warfarin Allergy Unknown Unknown Verified 03/22/17 08:42 adhesive tape Allergy Rash Verified 03/22/17 08:42 Erythromycin Base AdvReac Itching Verified 03/22/17 08:42 doxycycline calcium Allergy Unknown Unknown Uncoded 03/22/17 08:42 Exam - Vital Signs Vital signs: Temp Pulse Resp BP Pulse Ox 100 F H 62 20 139/77 93 03/26/17 15:51 03/26/17 04:58 03/26/17 15:51 03/26/17 15:51 03/26/17 15:51 - General Appearance General appearance: appears started age, frail EENT: mucous membranes dry Neck: no JVD Respiratory: clear Cardiology: no rub, no edema, irregular rhythm Gastrointestinal: no tenderness, no guarding Integumentary: no rash, warm and dry Neurologic: no focal deficit (tremors ) Musculoskeletal: no erythema, no cyanosis Psychiatric: mood/affect appropriate Results - Lab Results 03/26/17 10:23 03/26/17 10:23 Most recent lab results Calcium 8.5 mg/dl (8.6-10.4) L 03/26/17 10:23 Phosphorus 3.5 mg/dL (2.7-4.5) 03/26/17 10:23 Assessment and Plan (1) Diarrhea elevated white count, fever, chills, patient too weak to be discharged home, would be very unsafe discharge given her age and medical issues and ongoing profuse diarrhea so admitted for observation c diff test pending will empirically start on metronidazole will follow the test she may need IV fluids but given cardiac issues will monitor, may give fluids with HD tomorrow s/p TCC placement on empiric antibiotics to prevent surgical site infection per surgery ESRD HD tomorrow anemia of CKD will continue aranesp on dialysis home meds continued DVT prophylaxis with heparin will follow along appreciate Dr Pritchard help with cath placement Status: Acute (2) Chronic kidney disease (CKD), stage V Status: Chronic
[2017-03-26] MEDS: HEPARIN 5,000 UNIT/ML VIAL SQ SCH (20:54)
[2017-03-26] MEDS: metroNIDAZOLE 500 MG TABLET PO SCH (20:55)
[2017-03-26] MEDS: PANTOPRAZOLE 40 MG TABLET PO SCH (20:55)
[2017-03-26] MEDS: FAMOTIDINE 20 MG TABLET PO SCH (20:55)
[2017-03-26] MEDS: CARBIDOPA/LEVODOPA CR 25/100 TABLET PO SCH (20:55)
[2017-03-26] MEDS: ASPIRIN 81 MG TAB.CHEW PO SCH (20:56)
[2017-03-26] MEDS: SIMVASTATIN 10 MG TABLET PO SCH (20:56)
[2017-03-26] MEDS: MONTELUKAST 10 MG TABLET PO SCH (20:56)
[2017-03-27] MEDS: metroNIDAZOLE 500 MG TABLET PO SCH ×2 (05:54→14:50)
[2017-03-27] MEDS: ACETAMINOPHEN 500 MG TABLET PO PRN (05:58)
[2017-03-27] MEDS ORDERED: LEVOTHYROXINE 150 MCG TABLET PO SCH (07:30)
[2017-03-27] MEDS ORDERED: SULFAMETHOXAZOLE/TRIMETHOPRIM 1 TABLET PO SCH (09:00)
[2017-03-27 09:21] LABS: Basophils # (Auto) 0 K/mcL (0.0-0.3); Basophils % (Auto) 0.3 % (0.0-2.0); Eosinophils # (Auto) 0 K/mcL (0.0-0.7); Eosinophils % (Auto) 0 % (0.0-7.0); Granulocytes % (Auto) 76.3 % (38.0-78.0); Lymphocytes # (Auto) 2.7 K/mcL (1.5-4.8); Lymphocytes % (Auto) 19.7 % (15.5-49.0); Mean Cell Volume 91.5 fL (80.0-100.0); Mean Corpuscular HGB Conc 32.1 g/dL (31.0-36.0); Mean Corpuscular Hemoglobin 29.4 pg (26.0-34.0); Monocytes # (Auto) 0.5 K/mcL (0.1-0.9); Monocytes % (Auto) 3.7 % (1.0-12.0); Platelet Count 113 K/mcL (140-440); RBC 3.12 M/mcL (4.00-5.20); Red Cell Distribution Width 17.6 % (11.5-14.5)
[2017-03-27] MEDS: FISH OIL 1,000 MG CAPSULE PO SCH (09:47)
[2017-03-27] MEDS: ALLOPURINOL 300 MG TABLET PO SCH (09:47)
[2017-03-27] MEDS: CARBIDOPA/LEVODOPA CR 25/100 TABLET PO SCH (09:47)
[2017-03-27] MEDS: amLODIPine 5 MG TABLET PO SCH (09:47)
[2017-03-27] MEDS: VANCOMYCIN ORAL SOL 1,000 MG/10 ML BOTTLE PO SCH ×2 (09:48→14:24)
[2017-03-27] MEDS: METOPROLOL TARTRATE 50 MG TABLET PO SCH (09:48)
[2017-03-27] MEDS: FUROSEMIDE 80 MG TABLET PO SCH (09:48)
[2017-03-27] MEDS: HEPARIN 5,000 UNIT/ML VIAL SQ SCH (09:48)
[2017-03-27 09:49] LABS: ALT/SGPT < 5 U/l (0-40); Albumin 3.4 gm/dL (3.2-5.2); Albumin/Globulin Ratio 1.6 (1.0-2.3); Alkaline Phosphatase 70 U/L (39-117); Bilirubin,Direct < 0.2 mg/dL (0.0-0.3); Blood Urea Nitrogen 13 mg/dl (8-23); Gamma Glutamyl Transpeptidase 12 U/L (5-36); Magnesium 1.6 mg/dL (1.6-2.5); Uric Acid 1.6 mg/dL (2.5-8.0)
[2017-03-27] MEDS ORDERED: POTASSIUM CHLORIDE 10 MEQ TABLET PO ONE (10:31)
--- NOTE | 2017-03-27 11:44 | General Surgery Progress Note ---
Surgical - Auxillary Note - Subjective Patient Information: Note initiated : 03/27/17 at 11:33 am Service Date, if different from initiated Date: [] Patient: Kathy Carvalho 81 y/o F admitted on 03/26/17 for Hemodialysis Catheter Placement. Chief Complaint: [] Patient seen while receiving dialysis. Nurse reports catheter working well for dialysis. Patient reports soreness at catheter site on chest wall. Vital Signs Temp Pulse Resp BP Pulse Ox 97.6 F 56 L 16 125/70 93 03/27/17 09:40 03/27/17 04:00 03/27/17 09:40 03/27/17 09:40 03/27/17 04:00 Period Temp Pulse Resp BP Sys/Nova Pulse Ox Last 24 Hr 97.6 F-100.2 F 56-91 16-20 94-139/40-77 91-93 Intake and Output 03/26/17 03/27/17 03/27/17 21:59 05:59 13:59 Intake Total 300 / 300 100 / 100 Output Total 300 / 300 50 / 50 150 / 150 Balance 0 / 0 50 / 50 -150 / -150 Weight 179 lb PE: Right chest wall with bruising along the course of the catheter but no hematoma. Incision intact without drainage. Catheter secure in place. No hematoma or bruising at neck entrance site. A/P: s/p hemodialysis catheter placement Catheter functioning well. recommend Bactrim for 5 days total from insertion then stop
[2017-03-27 13:04] LABS: Appearance,Urine HAZY; Bacteria,Urine FEW /hpf (0); Bilirubin,Urine NEG (NEG); Color,Urine YELLOW; Glucose,Urine (UA) NEGATIVE (NEG); Leukocyte Esterase,Urine NEG /uL (NEG); Mucus,Urine FEW /hpf (0); Nitrate,Urine NEG (NEG); Protein,Urine NEG (NEG); Urine Blood 0.03 mg/dL (<0.03); Urine Hyaline Cast 1 /lpf (0-2); Urine RBC 1 /hpf (0-1); Urine Squamous Epithelial Cell 9 /hpf (0-4); Urine WBC 4 /hpf (0-4); Urobilinogen,Urine NEG (NEG)
--- NOTE | 2017-03-27 14:10 | XRay Report ---
CLINICAL INFORMATION: Chest pain - trauma COMPARISON: Chest x-ray from 03/25/2017 FINDINGS: Moderate cardiomegaly is unchanged. Right IJ double-lumen catheter stable satisfactory position. Mediastinum and pulmonary vessels are normal. Minor scattered scarring both lungs similar to previous study. There is no evidence of pneumo or hemothorax. Right ribs are unremarkable IMPRESSION: Moderate cardiomegaly - stable. No acute disease. No rib fracture identified Interpreted and Authenticated by: Naldo Fitch 03/27/17
--- NOTE | 2017-03-27 14:53 | Discharge Summary ---
Providers - Providers Patient information: Note initiated : 03/27/17 at 2:47 pm Service Date, if different from initiated Date: [] Patient: Kathy Carvalho 81 y/o F admitted on 03/26/17 for Hemodialysis Catheter Placement. Chief Complaint: [] Date of admission: 03/26/17 Discharge date: 03/27/17 Attending physician: Sury Ureña Primary care physician: Chilo Hassan Hospitalization Hospital course: Patient was in extended recovery in the hospital s/p TCC placement for initiation of dialysis after she had recent worsening of her renal function in the setting of CHF She did fine with dialysis, no issues tolerating the same,. She does have a rather big incision at the TCC insertion site and she will be discharged on prophylactic antibiotic per surgery recommendation Patient developed acute onset profuse watery diarrhea and abdominal pain, subjective fever and chills. Given she was on antibiotic for UTI as outpt, stool was checked for C diff infection and it did come back positive Given her age and fact she is immunosuppressed as she is on humira I am treating her with oral vancomycin and metronidazole her diarrhea improved somewhat the next day she was eating well with resolution of her nausea and did not have any dizziness , hence she was discharged home per her request However given her age and multiple medical issues I have and so has case management and her kids requested she start living in assisted living facility Patient will continue her home meds, I have stopped her calcitriol, sodium bicarb at this time She will continue outpatient dialysis MWF, she will receive aranesp in the dialysis unit I have requested she follow with Dr Hassan I will continue to follow her on dialysis Discharge diagnosis: c diff diarrhea Reason for admission: Diarrhea, dehydration Procedures: she had TCC for dialysis but pre admission Pertinent studies/significant findings: xray done to r/o rib fracture was negative stool test for positive for C diff Complications: none Exam - Vital Signs Vital signs: Temp Pulse Resp BP Pulse Ox 98.5 F 56 L 16 115/68 95 03/27/17 12:00 03/27/17 04:00 03/27/17 12:00 03/27/17 12:00 03/27/17 12:00 - General Appearance General appearance: appears started age, chronically ill EENT: mucous membranes moist Neck: no JVD Respiratory: clear Cardiology: no rub, no edema, irregular rhythm Gastrointestinal: no tenderness, no guarding Integumentary: no rash, warm and dry Neurologic: no asterixis, alert and oriented x3 Musculoskeletal: no erythema, no cyanosis Psychiatric: mood/affect appropriate Discharge Plan - Patient/Caregiver Discharge Instructions Activity: ambulate only with your walker Diet: Renal Additional Instructions: Your next hemodialysis treatment will be Saturday with an on-time of 6: 50 am. Please arrive 10-15 minutes early. You are being sent home with 3 different antibiotics. You will need to pick them up at [facility]. Take the full course of antibiotics. - Follow up Plan Follow up with: Veda Pritchard MD [Physician] - Chilo Hassan MD [Primary Care Provider] - Disposition: Home, Self-Care Prognosis: Fair Rehab Potential: Good I certify that the patient requires SNF services.: No (she is stable and will go home ) Pending Studies Diet Renal Diet Start SatMar 25 1449 Acetaminophen (Tylenol) 500 mg PO Q6HP PRN PRN Reason: PAIN/FEVER > 101 Last Admin: 03/27/17 05:58 Dose: 500 mg Admin: 03/26/17 17:03 Dose: 500 mg Admin: 03/26/17 10:10 Dose: 500 mg Admin: 03/25/17 21:40 Dose: 500 mg Allopurinol (Zylopriim) 150 mg PO DAILY [facility] Last Admin: 03/27/17 09:47 Dose: 150 mg Admin: 03/26/17 08:46 Dose: 150 mg Amlodipine Besylate (Norvasc) 2.5 mg PO DAILY [facility] Last Admin: 03/27/17 09:47 Dose: 2.5 mg Admin: 03/26/17 08:47 Dose: 2.5 mg Aspirin (Aspirin) 81 mg PO HS [facility] Last Admin: 03/26/17 20:56 Dose: 81 mg Admin: 03/25/17 21:41 Dose: 81 mg Carbidopa/Levodopa (Sinemet Cr 25/100) 2 tab PO BID [facility] Last Admin: 03/27/17 09:47 Dose: 2 tab Admin: 03/26/17 20:55 Dose: 2 tab Famotidine (Pepcid) 20 mg PO HS [facility] Last Admin: 03/26/17 20:55 Dose: 20 mg Admin: 03/25/17 21:41 Dose: 20 mg Fish Oil (Fish Oil) 1,000 mg PO DAILY [facility] Last Admin: 03/27/17 09:47 Dose: 1,000 mg Admin: 03/26/17 08:47 Dose: 1,000 mg Furosemide (Lasix) 80 mg PO DAILY [facility] Last Admin: 03/27/17 09:48 Dose: 80 mg Admin: 03/26/17 08:46 Dose: 80 mg Heparin Sodium (Porcine) (Heparin) 5,000 unit SQ Q12 [facility] Last Admin: 03/27/17 09:48 Dose: 5,000 unit Admin: 03/26/17 20:54 Dose: 5,000 unit Levothyroxine Sodium (Synthroid) 150 mcg PO QAMAC [facility] Last Admin: 03/27/17 09:55 Dose: 150 mcg Metoprolol Tartrate (Lopressor) 50 mg PO BID [facility] Last Admin: 03/27/17 09:48 Dose: 50 mg Admin: 03/26/17 20:54 Dose: 50 mg Admin: 03/26/17 08:47 Dose: 50 mg Admin: 03/25/17 21:41 Dose: 50 mg Metronidazole (Flagyl) 500 mg PO Q8 [facility] Last Admin: 03/27/17 05:54 Dose: 500 mg Admin: 03/26/17 20:55 Dose: 500 mg Montelukast Sodium (Singular) 10 mg PO HS [facility] Last Admin: 03/26/17 20:56 Dose: 10 mg Admin: 03/25/17 21:41 Dose: 10 mg Pantoprazole Sodium (Protonix) 40 mg PO HS [facility] Last Admin: 03/26/17 20:55 Dose: 40 mg Admin: 03/25/17 21:41 Dose: 40 mg Simvastatin (Zocor) 10 mg PO HS [facility] Last Admin: 03/26/17 20:56 Dose: 10 mg Admin: 03/25/17 21:41 Dose: 10 mg Trimethoprim/Sulfamethoxazole (Bactrim Ds) 0.5 tab PO DAILY [facility] Last Admin: 03/27/17 09:46 Dose: 0.5 tab Vancomycin HCl (Vancomycin Oral Fern) 125 mg PO QID [facility] Last Admin: 03/27/17 14:24 Dose: 125 mg Admin: 03/27/17 09:48 Dose: 125 mg Shift Summary 03/27/17 03:55 Shift Summary by Susana Winters Patient slept most of the night. She did not c/o pain and none was noted. She did have a slight temp, but refuses to remove her blankest. She has positive C Diff and on contact precautions. She did not have an AEs related to her Flagyl. Patient is able to ambulate without difficulty. Her dialysis port dressing is clean, dry and intact. Initialized on 03/27/17 03:55 - END OF NOTE
== END 2017-03-27 14:55 | disposition home or self-care (01) ==
LOC: SUR 06:04 → MEDSUR 06:04
PROVIDERS: ADMIT Surgery; ATTEND Internal Medicine Nephrology

== ENCOUNTER 2017-06-04 11:07 | Observation (INO) ==
[2017-06-04 12:03] LABS: Basophils # (Auto) 0 K/mcL (0.0-0.3); Basophils % (Auto) 0.3 % (0.0-2.0); Eosinophils # (Auto) 0.4 K/mcL (0.0-0.7); Eosinophils % (Auto) 3.7 % (0.0-7.0); Granulocytes % (Auto) 58.7 % (38.0-78.0); Lymphocytes % (Auto) 30.7 % (15.5-49.0); Mean Cell Volume 93.2 fL (80.0-100.0); Mean Corpuscular HGB Conc 32.9 g/dL (31.0-36.0); Mean Corpuscular Hemoglobin 30.6 pg (26.0-34.0); Monocytes # (Auto) 0.6 K/mcL (0.1-0.9); Monocytes % (Auto) 6.6 % (1.0-12.0); Platelet Count 229 K/mcL (140-440); RBC 2.66 M/mcL (4.00-5.20); Red Cell Distribution Width 18.2 % (11.5-14.5)
--- NOTE | 2017-06-04 12:15 | XRay Report ---
CLINICAL INFORMATION: Trauma shortness of breath COMPARISON: 03/27/2017 FINDINGS: Moderate cardiomegaly is stable. Sternotomy changes again noted. Mediastinum and pulmonary vessels are normal for technique. Right IJ double-lumen catheter tip overlies the right atrium. Lungs are clear. No evidence of pneumo or hemothorax. Acute minimally displaced lateral left fifth sixth seventh and eighth ninth rib fractures noted IMPRESSION: Acute, minimally displaced left fifth through ninth rib fractures. Moderate cardiomegaly - stable Interpreted and Authenticated by: Naldo Fitch 06/04/17
--- NOTE | 2017-06-04 12:20 | XRay Report ---
CLINICAL INFORMATION: Trauma COMPARISON: None. FINDINGS: No fracture identified. 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 Mild diffuse soft tissue pulmonary appreciated IMPRESSION: No evidence of fracture Moderate patellofemoral and tibiofemoral degenerative change Interpreted and Authenticated by: Naldo Fitch 06/04/17
[2017-06-04 12:22] LABS: ALT/SGPT < 5 U/l (0-40); Albumin 3.7 gm/dL (3.2-5.2); Albumin/Globulin Ratio 1.9 (1.0-2.3); Alkaline Phosphatase 87 U/L (39-117); Blood Urea Nitrogen 18 mg/dl (8-23)
--- NOTE | 2017-06-04 12:23 | XRay Report ---
CLINICAL INFORMATION: Trauma COMPARISON: None. FINDINGS: There is an 8 mm ossification adjacent to the medial malleolus which may represent an avulsion fracture. There are also small avulsion fracture, age-indeterminate, off the lateral process of the talus. There is thickening of the dorsal cortex of the talar neck which predispose to anterior impingement on dorsiflexion. Moderate ossification of the Achilles and plantar tendon insertion on the calcaneus. Ankle mortise and talocalcaneal joints are normal in width and alignment. IMPRESSION: 1. No definite acute fracture. Small remote avulsion fractures off the medial malleolus and the lateral process of the talus. 2. Enlargement of the dorsal cortex of the talar neck predisposing to anterior impingement on ankle dorsiflexion Interpreted and Authenticated by: Naldo Fitch 06/04/17
[2017-06-04] MEDS: HYDROmorphone 2 MG/ML VIAL IV PRN ×2 (12:41→13:52)
--- NOTE | 2017-06-04 12:51 | Emergency Department Note ---
SOB HPI - General Chief Complaint: Shortness of Breath/Dyspnea Stated Complaint: Shortness of breath Time Seen by Provider: 06/04/17 11:17 Source: patient Mode of arrival: wheelchair Limitations: no limitations - History of Present Illness 81-year-old female presents with shortness of breath, left-sided rib pain, left knee pain, and left ankle pain. States yesterday she tripped over something and fell. She did not hit her head. No loss of consciousness. No head, neck, or back pain. [facility] to [facility] to be evaluated this morning and they sent her here for further evaluation. States she feels short of breath when she tries to take a deep breath but really cannot take a deep breath due to the pain in the left-sided anterior ribs. States she landed on the left anterior chest. Is very tender to touch or move at all. She also has swelling and tenderness to left knee and left ankle. She can walk on it but it is extremely painful so she has been trying not to. No nausea, vomiting, or diarrhea. No cough. She is a dialysis patient in follow-up after dialysis yesterday after tripping on something on the ground. She does tell me that she was just discharged about a week ago from [facility] after having ischemic colitis. They did put her back on her blood thinners. She feels much weaker and is pale compared to normal. - Related Data Home Medications Medication Instructions Recorded Confirmed pravastatin 20 mg tablet 20 mg PO HS tab 09/24/14 06/04/17 nitroglycerin 0.4 mg sublingual 0.4 mg SUBLINGUAL Q5-15MIN PRN 06/15/15 06/04/17 tablet magnesium 200 mg tablet 200 mg PO BID 08/02/15 06/04/17 pantoprazole 40 mg tablet,delayed 40 mg PO QDAY 01/17/17 06/04/17 release ascorbic acid (vitamin C) 1,000 mg 500 mg PO QDAY tab 05/31/17 06/04/17 tablet carbidopa ER 50 mg-levodopa 200 mg 1 tab PO TID 90 Days #270 tab 05/31/17 tablet,extended release coenzyme Q10 100 mg capsule 300 mg PO HS cap 05/31/17 06/04/17 cranberry extract 300 mg tablet 300 mg PO QDAY 05/31/17 06/04/17 ferrous sulfate 325 mg (65 mg 325 mg PO QDAY tab 05/31/17 06/04/17 iron) tablet furosemide 40 mg tablet 100 mg PO QDAY tab 05/31/17 06/04/17 warfarin 2.5 mg tablet 2.5 mg PO .COMPLEX 05/31/17 06/04/17 Previous Rx's Medication Instructions Recorded Acetaminophen [Tylenol] 500 mg PO Q6HP PRN tab 03/27/17 Allopurinol [Zylopriim] 150 mg PO DAILY tab 03/27/17 Aspirin 81 mg PO HS tab.chew 03/27/17 Levothyroxine [Synthroid] 150 mcg PO QAMAC tab 03/27/17 Metoprolol Tartrate [Lopressor] 50 mg PO BID tab 03/27/17 Montelukast [Singular] 10 mg PO HS tab 03/27/17 Nitroglycerin [Nitrostat] 0.4 mg SL ONCE PRN tab.subl 03/27/17 adalimumab 40 mg/0.8 mL 40 mg SUB-Q Q14D #3.2 ml 05/15/17 subcutaneous syringe kit hydroxychloroquine 200 mg tablet 200 mg PO BID #180 tab 05/15/17 sevelamer carbonate 800 mg tablet 800 mg PO TID #90 tab 05/28/17 Allergies Allergy/AdvReac Type Severity Reaction Status Date / Time Penicillins Allergy Mild Hives Verified 06/04/17 11:10 dofetilide [From Tikosyn] Allergy Unknown Unknown Verified 06/04/17 11:10 doxycycline Allergy Unknown Unknown Verified 06/04/17 11:10 adhesive tape AdvReac Mild Rash Verified 06/04/17 11:10 Erythromycin Base AdvReac Mild Itching Verified 06/04/17 11:10 Review of Systems All systems ED: reviewed and negative except as stated. Past Medical History - Past Medical History [facility] Narrative: Medical History (Last Reviewed 05/15/17 @ 15:32 by Cheryl Dupree RN) Anemia (Acute) Multiple skin nodules (Chronic) Elevated C-reactive protein (CRP) (Chronic) Encounter for long-term (current) use of high-risk medication (Chronic) Rheumatoid arthritis (Chronic) Fibromyalgia (Chronic) Thrombocytopenia (Acute) Long-term current use of steroids (Chronic) Long-term use of immunosuppressant medication (Chronic) Neck Pain (Chronic) Hyperuricemia (Chronic) Inflammatory arthritis (Chronic) Hyperparathyroidism due to renal insufficiency (Chronic) Chronic kidney disease (CKD), stage V (Chronic) Gout (Chronic) Overactive bladder (Chronic) Recurrent urinary tract infection (Chronic) Hypomagnesemia (Acute) Anemia in chronic renal disease (Chronic) Hypertensive renal disease (Chronic) Proteinuria (Chronic) Secondary hyperparathyroidism of renal origin (Chronic) Calcium nephrolithiasis (Chronic) Metabolic acidosis (Chronic) Chronic kidney disease, stage IV (severe) (Chronic) Vitamin B 12 deficiency (Acute) History of urinary tract infection (Acute) Urinary incontinence (Acute) Sleep apnea (Acute) Shortness of breath (Acute) Short bowel syndrome (Acute) Renal insufficiency (Acute) Reactive airway disease (Acute) Parkinson's disease (Acute) Neuropathy (Acute) Mitral regurgitation (Acute) Chronic interstitial lung disease (Acute) Hypothyroidism (Acute) GERD (gastroesophageal reflux disease) (Acute) Gastrointestinal bleed (Chronic) Dysphonia (Acute) Degenerative joint disease (Chronic) Coronary artery disease (Acute) Chronic kidney disease, stage III (moderate) (Acute) Cardiomegaly (Acute) Atrial fibrillation (Acute) Anemia (Chronic) Acute decompensated heart failure (Acute) Past Surgical History (Last Reviewed 05/15/17 @ 15:32 by Cheryl Dupree RN) Status post wrist surgery (Acute) History of shoulder surgery (Acute) History of knee surgery (Acute) History of intestinal bypass (Acute) History of hysterectomy (Acute) History of cholecystectomy (Acute) Medical history: Reports: atrial fibrillation, GERD, renal disease (dialysis) Psychiatric history: Reports: no psych history 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 Absent: conjunctival injection ENT: normal exam, normal oropharynx, mucous membranes moist, normal external ear exam Neck: Present: normal inspection, full ROM, trachea midline. Absent: tenderness , lymphadenopathy Chest: Present: normal inspection, symmetric chest wall rise, tenderness ( Tender over the left anterior chest wall. No crepitus or deformity.). Absent: rash (Rash. No edema or ecchymosis) Respiratory: Present: other (Lung sounds diminished bases bilaterally otherwise clear throughout). Absent: respiratory distress, wheezes, accessory muscle use Cardiovascular: Present: regular rate, normal heart sounds Extremities: Present: normal capillary refill. Absent: normal inspection (The left knee has diffuse edema in his very tender diffusely anterior. Negative bulge sign. Sensation intact. Greatly limited active range of motion the left knee related to pain. The left ankle over the lateral malleolus has diffuse edema and tenderness. Decreased active range of motion left ankle related pain. Sensation intact) Back: Present: normal inspection. Absent: tenderness Neurological: Present: alert, oriented X3. Absent: motor sensory deficit Psychiatric: Present: normal affect, normal mood Skin: Present: warm, dry, intact, normal color. Absent: rash, cyanosis, diaphoresis, erythema Course Course Narrative: Spoke with Dr. Good, hospitalist who agreed to admit the patient at 1250. Vital Signs Temperature 97.9 F 06/04/17 11:07 Pulse Rate 96 H 06/04/17 11:07 Respiratory Rate 18 06/04/17 11:07 Blood Pressure 123/78 06/04/17 11:07 Pulse Oximetry (%) 96 06/04/17 11:07 Temperature 97.9 F 06/04/17 11:07 Pulse Rate 82 06/04/17 13:01 Respiratory Rate 14 06/04/17 13:01 Blood Pressure 137/56 06/04/17 13:01 Pulse Oximetry (%) 100 06/04/17 13:01 Shortness of Breath/Dyspnea - Lab Data Lab results reviewed: Yes I reviewed the patient's lab results. Result diagrams: 06/04/17 11:27 06/04/17 11:27 Lab Results 06/04/17 06/04/17 06/04/17 Range/Units 11:27 11:27 11:27 WBC 9.8 (4.5-11.0) K/mcL RBC 2.66 L (4.00-5.20) M/mcL Hgb 8.2 L (12.0-15.0) g/dL Hct 24.8 L (36.0-48.0) % POC Hct 24.0 L (36.0-48.0) % MCV 93.2 (80.0-100.0) fL MCH 30.6 (26.0-34.0) pg MCHC 32.9 (31.0-36.0) g/dL RDW 18.2 H (11.5-14.5) % Plt Count 229 (140-440) K/mcL MPV 8.0 (7.4-10.4) fL Gran % 58.7 (38.0-78.0) % Lymph % (Auto) 30.7 (15.5-49.0) % [place] % (Auto) 6.6 (1.0-12.0) % Eos % (Auto) 3.7 (0.0-7.0) % Baso % (Auto) 0.3 (0.0-2.0) % Gran # 5.7 (1.8-8.0) K/mcL Lymph # (Auto) 3.0 (1.5-4.8) K/mcL [place] # (Auto) 0.6 (0.1-0.9) K/mcL Eos # (Auto) 0.4 (0.0-0.7) K/mcL Baso # (Auto) 0 (0.0-0.3) K/mcL PT 22.2 H (11.9-14.5) sec INR 1.9 H (0.9-1.1) POC Sodium 136 (133-145) mmol/L Sodium 137 (133-145) mmol/L POC Potassium 3.5 (3.3-5.1) mmol/L Potassium 3.7 (3.3-5.1) mmol/L POC Chloride 96 (96-108) mmol/L Chloride 97 (96-108) mmol/L Carbon Dioxide 27 (22-30) mmol/L POC Total CO2 29 (22-30) mmol/L Anion Gap 13.0 (8-16) POC BUN 18 (8-23) mg/dl BUN 18 (8-23) mg/dl Creatinine 2.3 H (0.6-1.1) mg/dl POC Creatinine 2.6 H (0.6-1.1) mg/dl GFR Calculation 19 Glucose 85 (70-105) mg/dL POC Glucose 84 (70-105) mg/dL Calcium 8.1 L (8.6-10.4) mg/dl POC WB Ioniz Calcium 1.05 L (1.16-1.32) mmol/L Total Bilirubin 0.3 (0.0-1.0) mg/dL AST 13 (0-37) U/l ALT < 5 (0-40) U/l Alkaline Phosphatase 87 (39-117) U/L Total Protein 5.6 L (5.9-8.4) gm/dL Albumin 3.7 (3.2-5.2) gm/dL Globulin 1.9 L (2.2-3.7) gm/dL Albumin/Globulin Ratio 1.9 (1.0-2.3) - Radiology Data Radiology results reviewed: Yes I reviewed the patient's radiology results. Disposition Pt seen by STEEPING PRESS TENDER/PA only: No Clinical Impression: Multiple rib fractures, SOB (shortness of breath), Avulsion fracture of ankle, Fall, Anemia, Stool guaiac positive Disposition: Xfer As Inpt ([facility]) Condition: Fair Referrals: Chilo Hassan MD [Primary Care Provider] - Sury Ureña MD [Physician] - Time of Disposition: 13:07
--- NOTE | 2017-06-04 12:57 | Emergency Department Note ---
ED Note Addendum Note Addendum: Patient was referred over from [facility] and I have evaluated the patient with Leticia and agree with the diagnosis of rib fractures and ankle fracture. She is scheduled for dialysis tomorrow. Patient admitted for pain control. She was recently started on a blood thinner. Globin is running in the eights. Previously was 9. stools are guaiac positive
[2017-06-04] MEDS ORDERED: MAGNESIUM HYDROXIDE 30 ML ORAL.SUSP PO PRN ×2 (13:42→15:34)
[2017-06-04] MEDS ORDERED: ONDANSETRON 4 MG/2 ML VIAL IV PRN ×2 (13:42→15:34)
[2017-06-04] MEDS ORDERED: ACETAMINOPHEN 325 MG TABLET PO PRN (13:42)
[2017-06-04] MEDS ORDERED: HYDROmorphone 2 MG/ML VIAL IV PRN ×2 (13:42→15:34)
[2017-06-04] MEDS ORDERED: oxyCODONE HCL 5 MG TABLET PO PRN (13:54)
[2017-06-04] MEDS ORDERED: 0.9 % SODIUM CHLORIDE 10 ML SYRINGE IV SCH (14:00)
--- NOTE | 2017-06-04 15:25 | Internal Med History&Physical ---
Medical - H&P: HPI Patient information: Note initiated : 06/04/17 at 3:14 pm Service Date, if different from initiated Date: [] Patient: Kathy Carvalho a 81 y/o F admitted on for Shortness of breath. Chief Complaint: pain left chest wall, falling History of present illness: Ms. Carvalho is a 81 year old F, with pmh of ESRD, ischemic colitis, and Parkinson disease, who presented to the ED with left-sided rib cage pain following a fall yesterday morning. Patient fell yesterday after she got up from the chair and 'walked too fast', causing her to trip over her feet. Patient is a resident of [facility] and lives alone. She ambulates with a walker. This is her second fall within the last two months. After her fall yesterday, she was able to get up with help and go the her hemodialysis appointment. No heparin was given due to the recent fall and a ' blood clot' was noted in the tubing. Patient was concerned that she would develop other clots causing her to have a stroke. Patient was recently (05/26) discharged from [facility] where she was diagnosed with ischemic colitis due to clots. She has a known history of chronic atrial fibrillation, but was not on anticoagulation. She is now on Coumadin 2.5 mg daily. Patient denies any lost of consciousness, or lightheadedness. Following the fall she c/o left sided chest wall pain and left ankle pain and swelling. - Constitutional Constitutional: Present: other (falls due to tripping. Twice in 2 months) - Cardiovascular Cardiovascular: Absent: chest pain, dyspnea, dyspnea on exertion, orthopnea, rapid heart rate, slow heart rate - Respiratory Respiratory: Absent: cough, dyspnea - Gastrointestinal Gastrointestinal: Present: abdominal pain. Absent: bloating, change in bowel habits, dysphagia, melena - Genitourinary Genitourinary: Absent: dysuria - Musculoskeletal Musculoskeletal: Present: joint swelling (left ankle) - Integumentary Integumentary: Absent: rash - Neurological Neurological: Present: frequent falls, weakness. 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) Chronic kidney disease (CKD), stage V (Chronic) started on dialysis for uremic symptoms and also in preparation for cardiac interventions tolerated dialysis with no issues continue dialysis MWF stop oral sodium bicarb, home dose of calcitriol Gout (Chronic) Uric acid is at 7.1 tolerating allopurinol with no issues increase allopurinol to 150mg po daily, to see if this helps achieve level less than 6.0 Overactive bladder (Chronic) was on myrbetriq - CI in GFR < 15, so has been d/c currently not on any meds Recurrent urinary tract infection (Chronic) start probiotic and cranberry extract if continues to have recurrent UTI, will start cipro in prophylactic dose to prevent recurrent UTI Hypomagnesemia (Acute) Mg was down to 1.3 and pt was started on Mg supplement 250 mg 2 tabs bid Ma on recent labs is 2.5 Pt will hold supplement until (3 days) and restart at 1 tab daily there on monitor levels Anemia in chronic renal disease (Chronic) Hypertensive renal disease (Chronic) Proteinuria (Chronic) UPCR was 665mg/dl cannot use ACEI/ARB given considerable decline in renal function hepatitis panel and serum Immunofixation are negative monitor Secondary hyperparathyroidism of renal origin (Chronic) Ca at goal iPTH is 105- at goal and Vit D [address] ct calcitriol 4 times a week will monitor Calcium nephrolithiasis (Chronic) states that she was told she had renal stones on renal imaging in the past Hx of jejunal bypass is possible risk factor no renal stones identified on renal US Metabolic acidosis (Chronic) Chronic kidney disease, stage IV (severe) (Chronic) Vitamin B 12 deficiency (Acute) History of urinary tract infection (Acute) Urinary incontinence (Acute) Sleep apnea (Acute) Shortness of breath (Acute) Short bowel syndrome (Acute) Renal insufficiency (Acute) Reactive airway disease (Acute) Parkinson's disease (Acute) Primary Neuropathy (Acute) Mitral regurgitation (Acute) Chronic interstitial lung disease (Acute) Hypothyroidism (Acute) GERD (gastroesophageal reflux disease) (Acute) Gastrointestinal bleed (Chronic) Dysphonia (Acute) Degenerative joint disease (Chronic) Coronary artery disease (Acute) Chronic kidney disease, stage III (moderate) (Acute) Cardiomegaly (Acute) Atrial fibrillation (Acute) Anemia (Chronic) Acute decompensated heart failure (Acute)Ane Surgical history: CABG Status post wrist surgery (Acute) History of shoulder surgery (Acute) History of knee surgery (Acute) Multiple History of intestinal bypass (Acute) 1970's With a short bowel syndrome History of hysterectomy (Acute) History of cholecystectomy (Acute) Social history: Lives alone. Daughter Lorena is POC Functional capacity: uses cane/walker Smoking status: Former smoker Have you smoked in the last 12 months: No Drug use: none Alcohol use: none Medical - H&P: Meds Home Medications Medication Instructions Recorded Confirmed Type pravastatin 20 mg tablet 20 mg PO HS tab 09/24/14 06/04/17 History nitroglycerin 0.4 mg sublingual 0.4 mg SUBLINGUAL Q5-15MIN PRN 06/15/15 History tablet magnesium 200 mg tablet 200 mg PO BID 08/02/15 06/04/17 History pantoprazole 40 mg tablet,delayed 40 mg PO HS 01/17/17 06/04/17 History release Acetaminophen [Tylenol] 500 mg PO Q6HP PRN tab 03/27/17 06/04/17 Rx Allopurinol [Zylopriim] 150 mg PO DAILY tab 03/27/17 06/04/17 Rx Aspirin 81 mg PO HS tab.chew 03/27/17 06/04/17 Rx Levothyroxine [Synthroid] 150 mcg PO QAMAC tab 03/27/17 06/04/17 Rx Metoprolol Tartrate [Lopressor] 50 mg PO BID tab 03/27/17 06/04/17 Rx Montelukast [Singular] 10 mg PO HS tab 03/27/17 06/04/17 Rx Nitroglycerin [Nitrostat] 0.4 mg SL ONCE PRN tab.subl 03/27/17 06/04/17 Rx hydroxychloroquine 200 mg tablet 200 mg PO BID #180 tab 05/15/17 06/04/17 Rx sevelamer carbonate 800 mg tablet 800 mg PO TID #90 tab 05/28/17 06/04/17 Rx ascorbic acid (vitamin C) 1,000 mg 1,000 mg PO BID tab 05/31/17 06/04/17 History tablet carbidopa ER 50 mg-levodopa 200 mg 1 tab PO BID 90 Days #270 tab 05/31/17 History tablet,extended release coenzyme Q10 100 mg capsule 100 mg PO HS cap 05/31/17 06/04/17 History ferrous sulfate 325 mg (65 mg 325 mg PO BID tab 05/31/17 06/04/17 History iron) tablet furosemide 40 mg tablet 80 mg PO QDAY tab 05/31/17 06/04/17 History warfarin 2.5 mg tablet 2.5 mg PO .COMPLEX 05/31/17 06/04/17 History Adalimumab [Humira] 40 mg SQ Q2W 06/04/17 06/04/17 History Calcium Carbonate [Tums] 500 mg CHEWED DAILY 06/04/17 06/04/17 History Cranberry Conc/Ascorbic Acid 1 each PO DAILY 06/04/17 06/04/17 History [Cranberry Urinary Comf Sftg] Cyanocobalamin [Vitamin B12] 1,000 mcg IM MONTHLY 06/04/17 06/04/17 History Famotidine [Pepcid] 20 mg PO HS 06/04/17 06/04/17 History Fish Oil 1,000 mg PO DAILY 06/04/17 06/04/17 History amLODIPine [Norvasc] 2.5 mg PO DAILY 06/04/17 06/04/17 History Allergies Allergy/AdvReac Type Severity Reaction Status Date / Time Penicillins Allergy Mild Hives Verified 06/04/17 11:10 dofetilide [From Tikosyn] Allergy Unknown Unknown Verified 06/04/17 11:10 doxycycline Allergy Unknown Unknown Verified 06/04/17 11:10 adhesive tape AdvReac Mild Rash Verified 06/04/17 11:10 Erythromycin Base AdvReac Mild Itching Verified 06/04/17 11:10 Medical - H&P: Exam - Constitutional Vitals: Temp Pulse Resp BP Pulse Ox 97.9 F 74 18 122/45 100 06/04/17 11:07 06/04/17 15:02 06/04/17 15:02 06/04/17 15:02 06/04/17 15:02 General appearance: average body habitus, no acute distress - Head Head exam: Present: atraumatic - Eye Eye exam: Present: EOMI, PERRL - Neck Neck exam: Present: full ROM, normal inspection - Respiratory Respiratory exam: Present: normal respiratory exam - Cardiovascular Cardiovascular exam: Present: irregular rhythm, systolic murmur - GI/Abdominal GI/Abdominal exam: Present: normal bowel sounds, soft - Rectal Rectal exam: Present: deferred - Expanded Lower Extremities Exam Ankle exam: Present: swelling (Left ankle) - Neurological Exam Neurological exam: Present: alert, CN II-XII intact, oriented X3 - Skin Skin exam: Present: intact Medical - H&P: Reslt - Labs CBC & Chem 7: 06/04/17 11:27 06/04/17 11:27 Labs: Short CBC 06/04/17 Range/Units 11:27 WBC 9.8 (4.5-11.0) K/mcL Hgb 8.2 L (12.0-15.0) g/dL Hct 24.8 L (36.0-48.0) % Plt Count 229 (140-440) K/mcL BMP 06/04/17 11:27 Sodium 137 Potassium 3.7 Chloride 97 Carbon Dioxide 27 BUN 18 Creatinine 2.3 H Glucose 85 Calcium 8.1 L Liver Function 06/04/17 Range/Units 11:27 Total Bilirubin 0.3 (0.0-1.0) mg/dL AST 13 (0-37) U/l ALT < 5 (0-40) U/l Alkaline Phosphatase 87 (39-117) U/L Albumin 3.7 (3.2-5.2) gm/dL - Imaging and Cardiology Chest x-ray Additional comments: CLINICAL INFORMATION: Trauma shortness of breath COMPARISON: 03/27/2017 FINDINGS: Moderate cardiomegaly is stable. Sternotomy changes again noted. Mediastinum and pulmonary vessels are normal for technique. Right IJ double-lumen catheter tip overlies the right atrium. Lungs are clear. No evidence of pneumo or hemothorax. Acute minimally displaced lateral left fifth sixth seventh and eighth ninth rib fractures noted IMPRESSION: Acute, minimally displaced left fifth through ninth rib fractures. Moderate cardiomegaly - stable Interpreted and Authenticated by: Naldo Fitch 06/04/17 Medical - H&P: A/P - Narrative A/P Narrative: 81-year-old female, presented 06/04 with following problems: + History of mechanical falls, due to tripping over feet. Has history of Parkinson's disease. Ambulating with walker. No known history of CVA. + Rib fractures, left, minimally displaced 5 thru 9 th. due to fall 06/03 Admitted for pain control + Left small avulsion fracture left ankle (probably old) + Ischemic colitis (recent diagnosis). probably due to embolic disease Will obtain records from [facility]. + Chronic atrial fibrillation Continue coumadin + ESRD, on HD x 2 months Last treatment 06/03 Continue + Anemia of chronic disease Last RBC about one month ago + CAD history of CABG Stable + Hs of CHF Known with MR had recent ECHo done at [facility]. Will obtain result PLAN: Pain control Physical therapy Code status: full code. D/w patient at bedside Time spent: 50 min, of which more than 50% on [id number] encounter and physical exam, coordination of care and review of studies and record.
[2017-06-04] MEDS ORDERED: ACETAMINOPHEN 500 MG TABLET PO PRN (17:19)
[2017-06-04] MEDS ORDERED: NITROGLYCERIN 0.4 MG TAB.SUBL SL PRN (17:19)
[2017-06-04] MEDS ORDERED: METOLAZONE 2.5 MG TABLET PO PRN (18:07)
[2017-06-04] MEDS ORDERED: WARFARIN 2.5 MG TABLET PO ONE (19:00)
[2017-06-04] MEDS: ASPIRIN 81 MG TAB.CHEW PO SCH (20:06)
[2017-06-04] MEDS: PANTOPRAZOLE 40 MG TABLET PO SCH (20:06)
[2017-06-04] MEDS: CARBIDOPA/LEVODOPA CR 25/100 TABLET PO SCH (20:06)
[2017-06-04] MEDS: SIMVASTATIN 20 MG TABLET PO SCH (20:06)
[2017-06-04] MEDS: FERROUS SULFATE 325 MG TABLET PO SCH (20:06)
[2017-06-04] MEDS: SENNOSIDES 1 TABLET PO SCH (20:06)
[2017-06-04] MEDS: HYDROXYCHLOROQUINE 200 MG TABLET PO SCH (20:07)
[2017-06-04] MEDS: 0.9 % SODIUM CHLORIDE 10 ML SYRINGE IV SCH (20:07)
[2017-06-04] MEDS: METOPROLOL TARTRATE 50 MG TABLET PO SCH (20:13)
[2017-06-04] MEDS: oxyCODONE HCL 5 MG TABLET PO PRN (20:36)
[2017-06-04] MEDS ORDERED: SENNOSIDES 1 TABLET PO SCH (21:00)
[2017-06-04] MEDS: hydrALAZINE 10 MG TABLET PO SCH (22:16)
[2017-06-05] MEDS: oxyCODONE HCL 5 MG TABLET PO PRN ×4 (05:36→21:47)
[2017-06-05] MEDS: 0.9 % SODIUM CHLORIDE 10 ML SYRINGE IV SCH ×3 (05:36→21:38)
[2017-06-05 06:54] LABS: Albumin 2.9 gm/dL (3.2-5.2)
[2017-06-05] MEDS: LEVOTHYROXINE 150 MCG TABLET PO SCH (07:29)
[2017-06-05] MEDS: amLODIPine 5 MG TABLET PO SCH (07:31)
[2017-06-05] MEDS: FISH OIL 1,000 MG CAPSULE PO SCH (08:47)
[2017-06-05] MEDS: FUROSEMIDE 40 MG TABLET PO SCH (08:47)
[2017-06-05] MEDS: POTASSIUM CHLORIDE 10 MEQ TABLET PO SCH (08:47)
[2017-06-05] MEDS: ALLOPURINOL 300 MG TABLET PO SCH (08:47)
[2017-06-05] MEDS: HYDROXYCHLOROQUINE 200 MG TABLET PO SCH ×2 (08:47→21:36)
[2017-06-05] MEDS: CARBIDOPA/LEVODOPA CR 25/100 TABLET PO SCH ×2 (08:48→21:37)
[2017-06-05] MEDS: FERROUS SULFATE 325 MG TABLET PO SCH ×2 (08:48→19:34)
[2017-06-05] MEDS: SEVELAMER 800 MG TABLET PO SCH ×3 (08:48→19:34)
[2017-06-05] MEDS: ACETAMINOPHEN 325 MG TABLET PO PRN (08:48)
[2017-06-05] MEDS: CALCIUM CARBONATE 500 MG TAB.CHEW CHEWED SCH (08:48)
[2017-06-05] MEDS: METOPROLOL TARTRATE 50 MG TABLET PO SCH ×2 (08:49→21:35)
[2017-06-05] MEDS ORDERED: CYANOCOBALAMIN 1,000 MCG/ML VIAL IM SCH (09:00)
[2017-06-05] MEDS: hydrALAZINE 10 MG TABLET PO SCH ×2 (09:01→21:35)
[2017-06-05] MEDS ORDERED: WARFARIN 2.5 MG TABLET PO ONE (14:00)
--- NOTE | 2017-06-05 15:06 | Internal Med Progress Note ---
Medical - PN: Subj Patient information: Note initiated : 06/05/17 at 3:02 pm Service Date, if different from initiated Date: [] Patient: Kathy Carvalho a 81 y/o F admitted on 06/04/17 for SOB/Rib Fractures , Lt Ankle Fracture, Fall. Chief Complaint: left chest wall pain Interval history: 06/04: Ms. Carvalho is a 81 year old F, with pmh of ESRD, ischemic colitis, and Parkinson disease, who presented to the ED with left-sided rib cage pain following a fall yesterday morning. Patient fell yesterday after she got up from the chair and 'walked too fast', causing her to trip over her feet. Patient is a resident of [facility] and lives alone. She ambulates with a walker. This is her second fall within the last two months. After her fall yesterday, she was able to get up with help and go the her hemodialysis appointment. No heparin was given due to the recent fall and a ' blood clot' was noted in the tubing. Patient was concerned that she would develop other clots causing her to have a stroke. Patient was recently (05/26) discharged from [facility] where she was diagnosed with ischemic colitis due to clots. She has a known history of chronic atrial fibrillation, but was not on anticoagulation. She is now on Coumadin 2.5 mg daily. Patient denies any lost of consciousness, or lightheadedness. Following the fall she c/o left sided chest wall pain and left ankle pain and swelling. Admitted for pain control following fall during which patient sustained multiple rib fx on L. Also, at high risk for falling and sustaining more and serious injuries. 06/05: States pain not well controlled on current regimen. Requesting slightly higher dose of oxycodone. - Constitutional Vitals: Vital Signs Temp Pulse Resp BP Pulse Ox 97.3 F 97 H 16 129/69 92 06/05/17 07:56 06/05/17 07:56 06/05/17 07:56 06/05/17 07:56 06/05/17 07:56 Period Temp Pulse Resp BP Sys/Nova Pulse Ox Last 24 Hr 96.8 F-97.8 F 68-97 14-20 114-129/45-71 92-100 Intake and Output 06/05/17 06/05/1718 05:59 13:59 21:59 Intake Total 0 / 0 1200 / 1200 Output Total 250 / 250 300 / 300 Balance -250 / -250 900 / 900 Weight 174 lb Patient Weight 06/06/17 05:59 Weight 174 lb Intake & Output: Intake & Output 06/05/17 06/05/17 06/05/17 05:59 13:59 21:59 Intake Total 0 / 0 1200 / 1200 Output Total 250 / 250 300 / 300 Balance -250 / -250 900 / 900 Weight 174 lb Intake: Oral 0 / 0 1200 / 1200 Output: Void Amount 250 / 250 300 / 300 Other: Meal Breakfast Percent of Meal Consumed 100% # Voids 1 # Bowel Movements 2 General appearance: average body habitus, no acute distress - Respiratory Respiratory exam: Present: decreased breath sounds. Absent: accessory muscle use - Cardiovascular Cardiovascular exam: Present: irregular rhythm - GI/Abdominal GI/Abdominal exam: Present: normal bowel sounds - Extremities Exam Extremities exam: Present: normal inspection Medical - PN: Obj Da - Labs CBC & Chem 7: 06/04/17 11:27 06/05/17 05:00 Labs: Abnormal Lab Results 06/05/17 06/05/17 06/04/17 05:00 05:00 11:27 RBC Hgb Hct POC Hct RDW PT 22.2 H 22.2 H INR 1.9 H 1.9 H BUN 25 H Creatinine 2.9 H POC Creatinine Glucose 68 L Calcium 8.1 L POC WB Ioniz Calcium Total Protein Globulin Albumin 2.9 L 06/04/17 06/04/17 11:27 11:27 RBC 2.66 L Hgb 8.2 L Hct 24.8 L POC Hct 24.0 L RDW 18.2 H PT INR BUN Creatinine 2.3 H POC Creatinine 2.6 H Glucose Calcium 8.1 L POC WB Ioniz Calcium 1.05 L Total Protein 5.6 L Globulin 1.9 L Albumin Meds: Medications Acetaminophen (Tylenol) 650 mg PO Q6HP PRN PRN Reason: PAIN/FEVER > 101 Last Admin: 06/05/17 08:48 Dose: 650 mg Allopurinol (Zylopriim) 150 mg PO DAILY [facility] Last Admin: 06/05/17 08:47 Dose: 150 mg Amlodipine Besylate (Norvasc) 2.5 mg PO DAILY [facility] Last Admin: 06/05/17 07:31 Dose: Not Given Aspirin (Aspirin) 81 mg PO HS [facility] Last Admin: 06/04/17 20:06 Dose: 81 mg Calcium Carbonate/Glycine (Tums) 500 mg CHEWED DAILY [facility] Last Admin: 06/05/17 08:48 Dose: 500 mg Carbidopa/Levodopa (Sinemet Cr 25/100) 2 tab PO BID [facility] Last Admin: 06/05/17 08:48 Dose: 2 tab Ferrous Sulfate (Ferrous Sulfate) 325 mg PO BIDCC [facility] Last Admin: 06/05/17 08:48 Dose: 325 mg Fish Oil (Fish Oil) 1,000 mg PO DAILY [facility] Last Admin: 06/05/17 08:47 Dose: 1,000 mg Furosemide (Lasix) 80 mg PO QDAY [facility] Last Admin: 06/05/17 08:47 Dose: 80 mg Hydralazine HCl (Apresoline) 10 mg PO BID [facility] Last Admin: 06/05/17 09:01 Dose: Not Given Hydromorphone HCl (Dilaudid) 0.5 mg IV Q6HP PRN PRN Reason: PAIN LEVEL > 6 Last Admin: 06/05/17 14:33 Dose: 0.5 mg Hydroxychloroquine Sulfate (Plaquenil) 200 mg PO BID [facility] Last Admin: 06/05/17 08:47 Dose: 200 mg Levothyroxine Sodium (Synthroid) 150 mcg PO QAMAC [facility] Last Admin: 06/05/17 07:29 Dose: 150 mcg Magnesium Hydroxide (Milk Of Magnesia) 30 ml PO DAILYP PRN PRN Reason: Constipation Metolazone (Zaroxolyn) 2.5 mg PO DAILYP PRN PRN Reason: SOB/Edema Metoprolol Tartrate (Lopressor) 50 mg PO BID [facility] Last Admin: 06/05/17 08:49 Dose: 50 mg Nitroglycerin (Nitrostat) 0.4 mg SL Q5M PRN PRN Reason: CHEST PAIN Ondansetron HCl (Zofran) 4 mg IV Q6HP PRN PRN Reason: Nausea And Vomiting Last Admin: 06/05/17 14:41 Dose: 4 mg Oxycodone HCl (Roxicodone) 10 mg PO Q4HP PRN PRN Reason: PAIN LEVEL 3-6 Last Admin: 06/05/17 13:18 Dose: 10 mg Pantoprazole Sodium (Protonix) 40 mg PO [facility] Last Admin: 06/04/17 20:06 Dose: 40 mg Potassium Chloride (Kdur) 10 meq PO QAMCC [facility] Last Admin: 06/05/17 08:47 Dose: 10 meq Senna (Senokot) 2 tab PO [facility] Last Admin: 06/04/17 20:06 Dose: 2 tab Sevelamer Carbonate (Renvela) 800 mg PO TIDCC [facility] Last Admin: 06/05/17 12:21 Dose: 800 mg Simvastatin (Zocor) 20 mg PO [facility] Last Admin: 06/04/17 20:06 Dose: 20 mg Sodium Chloride (Saline Flush) 10 ml IV Q8 [facility] Last Admin: 06/05/17 14:27 Dose: 10 ml Warfarin Sodium (Coumadin Per Pharmacy) 1 order PO [facility] Medical - PN: A/P - Time Spent With Patient Total time spent is greater than 50% in coordination of care (as documented) at patient's floor/unit and/or counseling patient: less than 15 minutes - Narrative A/P Narrative: 81-year-old female, presented 06/04 with following problems: + History of mechanical falls, due to tripping over feet. Has history of Parkinson's disease. Ambulating with walker. No known history of CVA. + Rib fractures, left, minimally displaced 5 thru 9 th. due to fall 06/03 Admitted for pain control + Left small avulsion fracture left ankle (probably old) + Ischemic colitis (recent diagnosis). probably due to embolic disease Will obtain records from [facility]. + Chronic atrial fibrillation Continue coumadin + ESRD, on HD x 2 months Last treatment 06/03 Continue + Anemia of chronic disease Last RBC about one month ago + CAD history of CABG Stable + Hs of CHF Known with MR had recent ECHo done at [facility]. Will obtain result Plan: Tx to observation status. Cont pain control regimen. Needs PT eval and treat. Medical - PN: Qual - VTE Deep Vein Thrombosis/Pulmonary Embolism Present on Admission: No
--- NOTE | 2017-06-05 16:47 | Nephrology Progress Note ---
Subjective Patient information: Note initiated : 06/05/17 at 4:44 pm Service Date, if different from initiated Date: [] Patient: Kathy Carvalho 81 y/o F admitted on 06/04/17 for SOB/Rib Fractures , Lt Ankle Fracture, Fall. Chief Complaint: [] Principal diagnosis: fall, rib fracture Interval history: Patent follows with me for dialysis needs she had a fall saturday morning she presented to ER on Saturday with c./o severe pain, multiple xrays taken show rib fracture and avulsion fracture of ankle she i hospitalised for pain management pain control fair with dilaudid no SOB, CP, dizziness denae freya did PT this am due for HD today Pertinent ROS: as above Objective - Vital Signs Vital signs: Vital Signs Temp Pulse Resp BP Pulse Ox 06/05/17 12:00 98.5 F 85 124/65 92 06/05/17 07:56 97.3 F 97 H 16 129/69 92 06/05/17 04:00 97.7 F 76 14 116/71 96 06/05/17 00:00 97.8 F 68 14 122/60 98 06/04/17 20:00 97.8 F 89 14 123/66 97 Intake and Output 06/05/17 06/05/17 06/05/17 05:59 13:59 21:59 Intake Total 0 / 0 1400 / 1400 Output Total 250 / 250 300 / 300 Balance -250 / -250 1100 / 1100 Intake: Oral 0 / 0 1400 / 1400 Output: Void Amount 250 / 250 300 / 300 Other: Meal Lunch Percent of Meal Consumed 100% # Voids 1 # Bowel Movements 1 Weight 174 lb Patient Weight 06/06/17 05:59 Weight 174 lb Intake & Output: Intake & Output 06/05/17 06/05/17 06/05/17 05:59 13:59 21:59 Intake Total 0 / 0 1400 / 1400 Output Total 250 / 250 300 / 300 Balance -250 / -250 1100 / 1100 Weight 174 lb Intake: Oral 0 / 0 1400 / 1400 Output: Void Amount 250 / 250 300 / 300 Other: Meal Lunch Percent of Meal Consumed 100% # Voids 1 # Bowel Movements 1 - General Appearance General appearance: appears started age, chronically ill EENT: mucous membranes moist Neck: no JVD Respiratory: clear Cardiology: no edema, irregular rhythm Gastrointestinal: no tenderness, no guarding Integumentary: no rash, warm and dry Neurologic: alert and oriented x3 - Lab 06/04/17 11:27 06/05/17 05:00 Most recent lab results Calcium 8.1 mg/dl (8.6-10.4) L 06/05/17 05:00 Phosphorus 4.5 mg/dL (2.7-4.5) 06/05/17 05:00 Magnesium 2.1 mg/dL (1.6-2.5) 06/05/17 05:00 Assessment and Plan (1) ESRD (end stage renal disease) on dialysis Patient will be dialysed today for 3 hrs with her chronic outpt prescription she will get aranesp as well given anemia she has recurrent falls and she is in need of PT,will benefit from outpt PT anemia as above rib fracture: on pain meds, spirometry will follow appreciate hospitalist help in managing this pt Status: Acute
[2017-06-05] MEDS: ASPIRIN 81 MG TAB.CHEW PO SCH (21:35)
[2017-06-05] MEDS: PANTOPRAZOLE 40 MG TABLET PO SCH (21:36)
[2017-06-05] MEDS: SENNOSIDES 1 TABLET PO SCH (21:37)
[2017-06-05] MEDS: SIMVASTATIN 20 MG TABLET PO SCH (21:37)
[2017-06-06] MEDS: 0.9 % SODIUM CHLORIDE 10 ML SYRINGE IV SCH (04:56)
[2017-06-06 05:50] LABS: Appearance,Urine CLEAR; Bacteria,Urine FEW /hpf (0); Bilirubin,Urine NEG (NEG); Color,Urine YELLOW; Glucose,Urine (UA) NEGATIVE (NEG); Leukocyte Esterase,Urine 250 /uL (NEG); Mucus,Urine FEW /hpf (0); Protein,Urine NEG (NEG); Specific Gravity,Urine 1.006 (1.000-1.035); Urine Blood NEG mg/dL (<0.03); Urine RBC < 1 /hpf (0-1); Urine Squamous Epithelial Cell 2 /hpf (0-4); Urine WBC 31 /hpf (0-4); Urobilinogen,Urine NEG (NEG)
[2017-06-06] MEDS: LEVOTHYROXINE 150 MCG TABLET PO SCH (07:03)
[2017-06-06] MEDS: POTASSIUM CHLORIDE 10 MEQ TABLET PO SCH (08:22)
[2017-06-06] MEDS: FERROUS SULFATE 325 MG TABLET PO SCH (08:22)
[2017-06-06] MEDS: HYDROXYCHLOROQUINE 200 MG TABLET PO SCH (08:22)
[2017-06-06] MEDS: FUROSEMIDE 40 MG TABLET PO SCH (08:22)
[2017-06-06] MEDS: ALLOPURINOL 300 MG TABLET PO SCH (08:22)
[2017-06-06] MEDS: METOPROLOL TARTRATE 50 MG TABLET PO SCH (08:22)
[2017-06-06] MEDS: CARBIDOPA/LEVODOPA CR 25/100 TABLET PO SCH (08:22)
[2017-06-06] MEDS: CALCIUM CARBONATE 500 MG TAB.CHEW CHEWED SCH (08:23)
[2017-06-06] MEDS: FISH OIL 1,000 MG CAPSULE PO SCH (08:23)
[2017-06-06] MEDS: SEVELAMER 800 MG TABLET PO SCH ×2 (08:23→12:06)
[2017-06-06] MEDS: amLODIPine 5 MG TABLET PO SCH (08:26)
[2017-06-06] MEDS: hydrALAZINE 10 MG TABLET PO SCH (08:26)
[2017-06-06] MEDS: oxyCODONE HCL 5 MG TABLET PO PRN (08:30)
[2017-06-06] MEDS: ACETAMINOPHEN 325 MG TABLET PO PRN (08:30)
[2017-06-06] MEDS ORDERED: LIDOCAINE PATCH TOPICAL SCH ×2 (10:00→22:00)
--- NOTE | 2017-06-06 11:27 | Discharge Summary ---
Medical - DS: Prov Patient information: Note initiated : 06/06/17 at 11:15 am Service Date, if different from initiated Date: [] Patient: Kathy Carvalho 81 y/o F admitted on 06/04/17 for SOB/Rib Fractures , Lt Ankle Fracture, Fall. Chief Complaint: [] Date of admission: 06/04/17 15:21 Discharge date: 06/06/17 Primary care physician: Chilo Hassan Consults: 06/04/17 12:41 Consult to Physician [CONS] Stat Comment: mult rib fx, hemodialysis Consulting Provider: Agnes Silverman Reason For Exam: Physician to Consult 06/04/17 13:35 Consult to Physician [CONS] Stat Comment: Consulting Provider: Alisson Good Reason For Exam: Physician to Consult Medical - DS: Meds - Discharge Medications Prescriptions: Lidocaine [Lidoderm] 1 patch TOPICAL DAILY@1000 30 Days #30 patch oxyCODONE HCL [Roxicodone] 10 mg PO Q4HP PRN #60 tab PRN Reason: Pain Level 3-6 Active and Home Medications: Home Medications nitroglycerin 0.4 mg sublingual tablet 0.4 mg SUBLINGUAL Q5-15MIN PRN 06/15/15 [ History Confirmed 06/04/17 Last Taken Unknown] magnesium 200 mg tablet 200 mg PO BID 08/02/15 [History Confirmed 06/04/17 Last Taken 06/07/16] pantoprazole 40 mg tablet,delayed release 40 mg PO HS 01/17/17 [History Confirmed 06/04/17 Last Taken Unknown] Acetaminophen [Tylenol] 500 mg PO Q6HP PRN tab 03/27/17 [Rx Confirmed 06/04/17 Last Taken Unknown] Allopurinol [Zylopriim] 150 mg PO DAILY tab 03/27/17 [Rx Confirmed 06/04/17 Last Taken Unknown] Aspirin 81 mg PO HS tab.chew 03/27/17 [Rx Confirmed 06/04/17 Last Taken Unknown ] Levothyroxine [Synthroid] 150 mcg PO QAMAC tab 03/27/17 [Rx Confirmed 06/04/17 Last Taken Unknown] Montelukast [Singular] 10 mg PO HS tab 03/27/17 [Rx Confirmed 06/04/17 Last Taken Unknown] hydroxychloroquine 200 mg tablet 200 mg PO BID #180 tab 05/15/17 [Rx Confirmed 06/04/17 Last Taken Unknown] ascorbic acid (vitamin C) 1,000 mg tablet 1,000 mg PO BID tab 05/31/17 [ History Confirmed 06/04/17 Last Taken Unknown] carbidopa ER 50 mg-levodopa 200 mg tablet,extended release 1 tab PO BID 90 Days #270 tab 05/31/17 [History Confirmed 06/04/17 Last Taken Unknown] coenzyme Q10 100 mg capsule 100 mg PO HS cap 05/31/17 [History Confirmed Last Taken Unknown] ferrous sulfate 325 mg (65 mg iron) tablet 325 mg PO BIDCC tab 05/31/17 [ History Confirmed 06/04/17 Last Taken Unknown] furosemide 40 mg tablet 80 mg PO QDAY tab 05/31/17 [History Confirmed 06/04/17 Last Taken Unknown] warfarin 2.5 mg tablet 2.5 mg PO Q48H 05/31/17 [History Confirmed 06/04/17 Last Taken Unknown] Adalimumab [Humira] 40 mg SQ Q2W 06/04/17 [History Confirmed 06/04/17 Last Taken Unknown] Calcium Carbonate [Tums] 500 mg CHEWED DAILY 06/04/17 [History Confirmed Last Taken Unknown] Cranberry Conc/Ascorbic Acid [Cranberry Urinary Comf Sftg] 1 cap PO DAILY [History Confirmed 06/04/17 Last Taken Unknown] Cyanocobalamin [Vitamin B12] 1,000 mcg IM MONTHLY 06/04/17 [History Confirmed Last Taken Unknown] Famotidine [Pepcid] 20 mg PO HS 06/04/17 [History Confirmed 06/04/17 Last Taken Unknown] Fish Oil 1,000 mg PO DAILY 06/04/17 [History Confirmed 06/04/17 Last Taken Unknown] Metolazone [Zaroxolyn] 2.5 mg PO DAILYP PRN 06/04/17 [History Confirmed Last Taken Unknown] Metoprolol Succinate [Toprol Xl] 50 mg PO BID 06/04/17 [History Confirmed Last Taken Unknown] Potassium Chloride [Kdur] 10 meq PO QAMCC 06/04/17 [History Confirmed 06/04/17 Last Taken Unknown] Sevelamer Carbonate 800 mg PO TIDCC 06/04/17 [History Confirmed 06/04/17 Last Taken Unknown] Simvastatin [Zocor] 20 mg PO HS 06/04/17 [History Confirmed 06/04/17 Last Taken Unknown] Warfarin [Coumadin] 1.25 mg PO Q48H 06/04/17 [History Confirmed 06/04/17 Last Taken Unknown] amLODIPine [Norvasc] 2.5 mg PO DAILY 06/04/17 [History Confirmed 06/04/17 Last Taken Unknown] hydrALAZINE [Apresoline] 10 mg PO BID 06/04/17 [History Confirmed 06/04/17 Last Taken Unknown] Medical - DS: Hosp Hospital course: Patient: Kathy Carvalho a 81 y/o F admitted on 06/04/17 for SOB/Rib Fractures , Lt Ankle Fracture, Fall. Chief Complaint: left chest wall pain Interval history: 06/04: Ms. Carvalho is a 81 year old F, with pmh of ESRD, ischemic colitis, and Parkinson disease, who presented to the ED with left-sided rib cage pain following a fall yesterday morning. Patient fell yesterday after she got up from the chair and 'walked too fast', causing her to trip over her feet. Patient is a resident of [facility] and lives alone. She ambulates with a walker. This is her second fall within the last two months. After her fall yesterday, she was able to get up with help and go the her hemodialysis appointment. No heparin was given due to the recent fall and a ' blood clot' was noted in the tubing. Patient was concerned that she would develop other clots causing her to have a stroke. Patient was recently (05/26) discharged from [facility] where she was diagnosed with ischemic colitis due to clots. She has a known history of chronic atrial fibrillation, but was not on anticoagulation. She is now on Coumadin 2.5 mg daily. Patient denies any lost of consciousness, or lightheadedness. Following the fall she c/o left sided chest wall pain and left ankle pain and swelling. Admitted for pain control following fall during which patient sustained multiple rib fx on L. Also, at high risk for falling and sustaining more and serious injuries. 06/05: States pain not well controlled on current regimen. Requesting slightly higher dose of oxycodone. 06/06: Pain controlled. For tx to facility for rehab Discharge diagnosis: Rib fracture, falls Secondary discharge diagnosis: ESRD, ischemic colitis, and Parkinson disease Reason for admission: Pain chest wall, falls Pertinent studies/significant findings: XR-ribs: Acute, minimally displaced left fifth through ninth rib fractures. Complications: none - Time Spent with Patient Total time spent providing and/or coordinating discharge services: Less than 30 minutes Medical - DS: Exam - Constitutional Vitals: Vital Signs Temp Pulse Resp BP Pulse Ox 06/06/17 07:14 97.6 F 76 100 06/06/17 07:07 20 124/68 06/06/17 04:39 97.9 F 78 12 132/76 96 06/06/17 00:00 97.8 F 75 12 100/56 93 06/05/17 19:17 97.2 F 73 12 111/58 97 06/05/17 12:00 98.5 F 85 124/65 92 Intake and Output 06/05/17 06/06/17 06/06/17 21:59 05:59 13:59 Intake Total 450 / 450 800 / 800 Output Total 250 / 250 150 / 150 200 / 200 Balance 200 / 200 -150 / -150 600 / 600 Intake: Oral 450 / 450 800 / 800 Output: Void Amount 250 / 250 150 / 150 200 / 200 Other: Meal Applesauce and tanesha crackers Breakfast Percent of Meal Consumed 100% 75% Feeding Ability Independent # Voids 1 Weight 171 lb 8 oz Medical - DS: Data Labs on day of discharge: Labs from last 24 hours 06/06/17 06/05/17 05:16 21:50 PT 22.3 H INR 1.9 H Urine Color Yellow Urine Appearance Clear Urine pH 6.0 Ur Specific [place] 1.006 Urine Protein Neg Urine Glucose (UA) Negative Urine Ketones Neg Urine Occult Blood Neg Urine Nitrate Neg Urine Bilirubin Neg Urine Urobilinogen Neg Ur Leukocyte Esterase 250 A Urine RBC < 1 Urine WBC 31 H Ur Squamous Epith Cells 2 Urine Bacteria Few A Urine Mucus Few Ur Culture Indicated? Yes Medical - DS: A/P - Patient/Caregiver Discharge Instructions Activity: as per physical therapy, increase activity as tolerated Diet: Renal - Follow up Plan Follow up with: Sury Ureña MD [Physician] - Chilo Hassan MD [Primary Care Provider] - Disposition: Xfer Other Prognosis: Fair Rehab Potential: Fair I certify that the patient requires SNF services: Yes Overall status at discharge: patient is progressing back to baseline Medical - DS: Qual - VTE Deep Vein Thrombosis/Pulmonary Embolism Present on Admission: No
[2017-06-06] MEDS ORDERED: WARFARIN 4 MG TABLET PO ONE (14:00)
[2017-06-18] MEDS ORDERED: ADALIMUMAB 40 MG SQ SCH (09:00)
== END 2017-06-06 12:36 | disposition other institution (70) ==
LOC: ED 11:07 → MEDSUR 15:20 → INTOOBSV 15:21
PROVIDERS: ADMIT Specialist; ATTEND Specialist

== ENCOUNTER 2017-08-22 08:12 | Inpatient (IN) ==
--- NOTE | 2017-08-22 08:36 | Emergency Department Note ---
GI Bleed HPI - General Chief complaint: Rectal Bleed Stated complaint: Rectal bleeding Time Seen by Provider: 08/22/17 08:30 Source: patient Mode of arrival: wheelchair Limitations: no limitations - History of Present Illness HPI Narrative: 81-year-old female with 3 episodes of rectal bleeding last night. Dark red blood. She is on Coumadin for atrial fibrillation and history of thrombosis. Recently had blood transfusion on Saturday for anemia secondary to chronic kidney disease and hemoglobin below 8. Has had bleeding before secondary to Coumadin. Currently on bronchitis antibiotic medicine from Dr. Ureña, kidney doctor - Related Data Home Medications Medication Instructions Recorded Confirmed nitroglycerin 0.4 mg sublingual 0.4 mg SUBLINGUAL Q5-15MIN PRN 06/15/15 06/04/17 tablet magnesium 200 mg tablet 200 mg PO BID 08/02/15 06/04/17 pantoprazole 40 mg tablet,delayed 40 mg PO HS 01/17/17 06/04/17 release ascorbic acid (vitamin C) 1,000 mg 1,000 mg PO BID tab 05/31/17 06/04/17 tablet carbidopa ER 50 mg-levodopa 200 mg 1 tab PO BID 90 Days #270 tab 05/31/17 tablet,extended release coenzyme Q10 100 mg capsule 100 mg PO HS cap 05/31/17 06/04/17 ferrous sulfate 325 mg (65 mg 325 mg PO BIDCC tab 05/31/17 06/04/17 iron) tablet furosemide 40 mg tablet 80 mg PO QDAY tab 05/31/17 06/04/17 warfarin 2.5 mg tablet 2.5 mg PO Q48H 05/31/17 06/04/17 Adalimumab [Humira] 40 mg SQ Q2W 06/04/17 06/04/17 Calcium Carbonate [Tums] 500 mg CHEWED DAILY 06/04/17 06/04/17 Cranberry Conc/Ascorbic Acid 1 cap PO DAILY 06/04/17 06/04/17 [Cranberry Urinary Comfort Sfgl] Cyanocobalamin [Vitamin B12] 1,000 mcg IM MONTHLY 06/04/17 06/04/17 Famotidine [Pepcid] 20 mg PO HS 06/04/17 06/04/17 Fish Oil 1,000 mg PO DAILY 06/04/17 06/04/17 Metolazone [Zaroxolyn] 2.5 mg PO DAILYP PRN 06/04/17 06/04/17 Metoprolol Succinate [Toprol Xl] 50 mg PO BID 06/04/17 06/04/17 Potassium Chloride [Kdur] 10 meq PO QAMCC 06/04/17 06/04/17 Sevelamer Carbonate 800 mg PO TIDCC 06/04/17 06/04/17 Simvastatin [Zocor] 20 mg PO HS 06/04/17 06/04/17 Previous Rx's Medication Instructions Recorded Allopurinol [Zylopriim] 150 mg PO DAILY tab 03/27/17 Aspirin 81 mg PO HS tab.chew 03/27/17 Levothyroxine [Synthroid] 150 mcg PO QAMAC tab 03/27/17 Montelukast [Singular] 10 mg PO HS tab 03/27/17 hydroxychloroquine 200 mg tablet 200 mg PO BID #180 tab 05/15/17 Acetaminophen [Tylenol] 650 mg PO Q6HP PRN tablet 06/06/17 Lidocaine [Lidoderm] 1 patch TOPICAL DAILY@1000 30 Days 06/06/17 #30 patch oxyCODONE HCL [Roxicodone] 10 mg PO Q4HP PRN #60 tab 06/06/17 ciprofloxacin 250 mg tablet 250 mg PO QDAY #7 tab 06/27/17 cephalexin 250 mg capsule 250 mg PO BID #14 cap 08/02/17 cefpodoxime 200 mg tablet See Label Instructions PO ONCE #5 08/21/17 tab vitamin B complex-vitamin C 100 1 tab PO QDAY #90 tab 08/21/17 mg-folic acid 1 mg tablet Allergies Allergy/AdvReac Type Severity Reaction Status Date / Time Penicillins Allergy Mild Hives Verified 08/22/17 08:17 dofetilide [From Tikosyn] Allergy Unknown Unknown Verified 08/22/17 08:17 doxycycline Allergy Unknown Unknown Verified 08/22/17 08:17 adhesive tape AdvReac Mild Rash Verified 08/22/17 08:17 Erythromycin Base AdvReac Mild Itching Verified 08/22/17 08:17 Review of Systems All systems ED: reviewed and negative except as stated. Past Medical History - Past Medical History Attestation: Yes: The following information was validated with the patient. Medical history: Reports: arthritis (Rheumatoid), atrial fibrillation, COPD, coronary artery disease, GERD, hyperlipidemia, hypertension, kidney stones, renal disease (dialysis), thyroid disease, other (Gout, C. 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 Able to answer questions appropriately. Normocephalic atraumatic. Conjunctive are clear sclerae nonicteric. No nasal discharge or congestion. Oropharynx is pink and moist. Edentulous. Neck is supple without lymphadenopathy or thyromegaly. Heart is irregularly irregular rhythm no murmur appreciated. Lungs with rales and wheezes in all ricardo. Abdomen is soft nontender nondistended. No peritoneal signs or guarding. No pedal edema. I note that she is got some significant purpura on her arms secondary to warfarin usage. Alert and oriented Limitations: no limitations Course Vital Signs Temperature 96.9 F L 08/22/17 08:13 Pulse Rate 110 H 08/22/17 08:13 Respiratory Rate 22 08/22/17 08:13 Blood Pressure 108/48 08/22/17 08:13 Pulse Oximetry (%) 97 08/22/17 08:13 Temperature 96.9 F L 08/22/17 08:13 Pulse Rate 110 H 08/22/17 08:13 Respiratory Rate 22 08/22/17 08:13 Blood Pressure 108/48 08/22/17 08:13 Pulse Oximetry (%) 97 08/22/17 08:13 GI Bleed - EKG Data EKG attestation: Yes I reviewed and interpreted this EKG. EKG results narrative: EKG shows atrial fibrillation with a rate of 109 ST depression is seen in V3 nonspecific. Long QT. Disposition Pt seen by COMMUNITY SPECIALIST/PA only: No Summary: Workup initiated after interview and exam, with laboratory and imaging. Small amount of IV fluids started with concern for kidney function. I did not do her rectal exam as I ran out of time shift change is coming up. CARE will be turned over to Dr. Cricket perea at shift change Disposition: Still a Patient Referrals: Chilo Hassan MD [Primary Care Provider] -
[2017-08-22] MEDS ORDERED: 0.9 % SODIUM CHLORIDE 500 ML IV ONE (08:39)
[2017-08-22 09:39] LABS: Basophils # (Auto) 0 K/mcL (0.0-0.3); Basophils % (Auto) 0.3 % (0.0-2.0); Eosinophils # (Auto) 0 K/mcL (0.0-0.7); Eosinophils % (Auto) 0.2 % (0.0-7.0); Granulocytes % (Auto) 67.2 % (38.0-78.0); Lymphocytes # (Auto) 2.9 K/mcL (1.5-4.8); Lymphocytes % (Auto) 27.7 % (15.5-49.0); Mean Cell Volume 94.9 fL (80.0-100.0); Mean Corpuscular HGB Conc 33.7 g/dL (31.0-36.0); Monocytes # (Auto) 0.5 K/mcL (0.1-0.9); Monocytes % (Auto) 4.6 % (1.0-12.0); Platelet Count 195 K/mcL (140-440); RBC 2.22 M/mcL (4.00-5.20); Red Cell Distribution Width 17.2 % (11.5-14.5)
--- NOTE | 2017-08-22 09:59 | XRay Report ---
INDICATION: Cough TECHNIQUE: AP and lateral upright chest x-ray COMPARISON: 08/16/2017 03/25/2017 01/10/2017 FINDINGS:Previous median sternotomy. No change in large caliber right central venous catheter position. No acute pulmonary parenchymal infiltrate. No focal mass. Lungs are negative. Mild cardiomegaly is stable. No pulmonary edema or pulmonary congestion. No pleural effusion. IMPRESSION: 1. Mild cardiomegaly. No pulmonary edema 2. No acute infiltrate. No interval change Interpreted and Authenticated by: Naldo Light 08/22/17
--- NOTE | 2017-08-22 10:01 | XRay Report ---
CLINICAL INFORMATION: Rectal bleeding TECHNIQUE: Supine and left lateral decubitus abdomen COMPARISON: CT scan dated 04/03/2015 FINDINGS: Multiple surgical sutures in the lower abdomen. There are surgical clips in the right upper abdominal quadrant and at the thoracic abdominal junction. Bowel gas pattern is unremarkable. There is gas within the colon. No dilatation. No dilated gas-filled small bowel. No air-fluid levels. No pneumoperitoneum. No biliary or portal venous gas. No pneumatosis. IMPRESSION: 1. Unremarkable bowel gas pattern 2. No acute or focal abnormality. Interpreted and Authenticated by: Naldo Light 08/22/17
[2017-08-22 10:10] LABS: ALT/SGPT < 5 U/l (0-40); Albumin 3.1 gm/dL (3.2-5.2); Albumin/Globulin Ratio 1.6 (1.0-2.3); Alkaline Phosphatase 82 U/L (39-117); Blood Urea Nitrogen 50 mg/dl (8-23)
[2017-08-22] MEDS ORDERED: PHYTONADIONE 1 MG in 0.9 % SODIUM CHLORIDE 50 ML PO ONE ×2 (10:17→12:00)
[2017-08-22] MEDS ORDERED: 0.9 % SODIUM CHLORIDE 250 ML IV SCH ×2 (10:30→11:50)
[2017-08-22] MEDS ORDERED: ONDANSETRON 4 MG/2 ML VIAL IV PRN (11:50)
[2017-08-22] MEDS: LEVOFLOXACIN 250 MG/50 ML BAG IV SCH (14:11)
[2017-08-22] MEDS: 0.9 % SODIUM CHLORIDE 10 ML SYRINGE IV SCH ×2 (14:14→22:26)
[2017-08-22] MEDS: methylPREDNISolone SOD SUCC 125 MG/2 ML VIAL IV SCH ×3 (15:00→22:25)
[2017-08-22] MEDS ORDERED: FUROSEMIDE 40 MG/4 ML VIAL IV ONE ×3 (15:15→21:00)
[2017-08-22] MEDS: IPRATROPIUM/ALBUTEROL 3 ML AMPUL.NEB NEB SCH ×3 (15:34→23:32)
[2017-08-22] MEDS: CARBIDOPA/LEVODOPA CR 25/100 TABLET PO SCH ×2 (16:42→22:26)
--- NOTE | 2017-08-22 17:19 | Nephrology Consult Note ---
History of Present Illness - Reason for Consult Patient information: Note initiated : 08/22/17 at 5:16 pm Service Date, if different from initiated Date: [] Patient: Kathy Carvalho 81 y/o F admitted on 08/22/17 for Rectal Bleed. Chief Complaint: [] Consult date: 08/22/17 chronic renal failure Requesting physician: Cricket Bingham - Chief Complaint rectal bleeding - History of Present Illness Ms Carvalho is a 81 y/o pleasant white female with PMH of HTN, Afib, esrd on HD and other medical issues who present to the ER with 3 episodes of rectal bleeding over night Patient is noted to have decline in Hb recently despite use of aranesp, she was given prbc transfusion on saturday, she denied any GI bleed or scooby then and before we could check stool for occult blood (she was out of town for cardiology appointment) she presented to ER with 3 episodes of rectal bleeding over night she was on evaluation found to have elevated INR at 8.0 she c/o fatigue, feels very weak she also has been having acute bronchitis with progressive worsening of symptoms , and was started on vantin she denies LE edema she does have SOB related to her bronchitis she denies CP no dizziness no other issues Review of Systems All systems PM: reviewed and no additional remarkable complaints except as stated (as in HPI) Past History Past medical history: esrd on HD HTN anemia secondary hyperparathyroidism RA recurrent UTI GERD dysphonia Afib, H/O ISCHEMIC colitis recently, coumadin resumed, now with GI bleed from elevated INR CHF, severe MR, intervention planned for end of August oa Past surgical history: Status post wrist surgery Acute History of shoulder surgery Acute History of knee surgery Acute History of intestinal bypass Acute History of hysterectomy Acute History of cholecystectomy Past family history: father had CHF and mother had CVA Past social history: LIVES IN assisted living facility, former smoker does not drink alcohol Medications and Allergies Home Medications Medication Instructions Recorded Confirmed Type Adalimumab [Humira] 40 mg SQ MONTHLY 08/22/17 08/22/17 History Albuterol Sulfate [Ventolin] 1 puff INH Q4HP PRN 08/22/17 08/22/17 History Allopurinol [Zyloprim] 100 mg PO DAILY 08/22/17 08/22/17 History Aspirin [Jayme Chewable Aspirin] 81 mg PO DAILY 08/22/17 08/22/17 History Carbidopa/Levodopa Cr 50/200 1 tab PO TID 08/22/17 08/22/17 History [Sinemet Cr 50/200] Fluticasone/Salmeterol [Advair Hfa 0 gm IH PRN PRN 08/22/17 08/22/17 History 115-21 Mcg Inhaler] Furosemide [Lasix] 80 mg PO DAILY 08/22/17 08/22/17 History Hydroxychloroquine [Plaquenil] 200 mg PO BID 08/22/17 08/22/17 History Metoprolol Tartrate [Lopressor] 50 mg PO HS 08/22/17 08/22/17 History Montelukast [Singular] 10 mg PO HS 08/22/17 08/22/17 History Pantoprazole [Protonix] 40 mg PO QAMAC 08/22/17 08/22/17 History Pravastatin [Pravachol] 20 mg PO HS 08/22/17 08/22/17 History RX: Cranberry Fruit Extract 1 gm MC DAILY 08/22/17 08/22/17 History [Cranberry Extract] RX: Ferrous Sulfate 325 mg PO QAMCC 08/22/17 08/22/17 History RX: Magnesium 250 mg PO DAILY 08/22/17 08/22/17 History RX: Metoprolol Tartrate 75 mg PO AC 08/22/17 08/22/17 History Sevelamer [Renvela] 800 mg PO TIDCC 08/22/17 08/22/17 History Tiotropium [place] [Spiriva] 18 mcg INH PRN PRN 08/22/17 08/22/17 History Ubidecarenone [Coq-10] 100 mg PO DAILY 08/22/17 08/22/17 History Warfarin [Coumadin] 0 mg PO DAILY 08/22/17 08/22/17 History Allergies Allergy/AdvReac Type Severity Reaction Status Date / Time Penicillins Allergy Mild Hives Verified 08/22/17 08:17 dofetilide [From Tikosyn] Allergy Unknown Unknown Verified 08/22/17 08:17 doxycycline Allergy Unknown Unknown Verified 08/22/17 08:17 adhesive tape AdvReac Mild Rash Verified 08/22/17 08:17 Erythromycin Base AdvReac Mild Itching Verified 08/22/17 08:17 Exam - Vital Signs Vital signs: Temp Pulse Resp BP Pulse Ox 99.5 F H 96 H 20 134/47 91 08/22/17 14:00 08/22/17 15:36 08/22/17 15:36 08/22/17 14:00 08/22/17 15:36 - General Appearance General appearance: appears started age, chronically ill, frail EENT: mucous membranes moist Neck: no JVD Respiratory: wheezing, rales Cardiology: holosystolic murmur, no rub, no edema, irregular rhythm Gastrointestinal: no tenderness, no guarding Integumentary: warm and dry Neurologic: alert and oriented x3 Musculoskeletal: no erythema, no cyanosis Psychiatric: mood/affect appropriate Results - Lab Results 08/22/17 08:50 08/22/17 08:50 Most recent lab results Calcium 8.1 mg/dl (8.6-10.4) L 08/22/17 08:50 Magnesium 1.9 mg/dL (1.6-2.5) 08/22/17 08:50 Assessment and Plan (1) Anemia Status: Acute (2) ESRD (end stage renal disease) on dialysis no emergent need for dialysis she has some renal reserve and makes urine so will give IV lasix 40mg bid if any concern of fluid excess please call will dialyse will plan for dialysis tomorrow management of anemia, gi bleed and elevated INR per hospitalist, appreciate his help Status: Acute
[2017-08-22] MEDS: SEVELAMER 800 MG TABLET PO SCH (17:51)
--- NOTE | 2017-08-22 19:15 | Internal Med History&Physical ---
Medical - H&P: HPI Patient information: Note initiated : 08/22/17 at 7:12 pm Service Date, if different from initiated Date: [] Patient: Kathy Carvalho a 81 y/o F admitted on 08/22/17 for Rectal Bleed. Chief Complaint: [] History of present illness: Ms. Carvalho is a 81 year old F with h/o afib on coumadin, h/o ischemic colitis in 05/26, presents to the ER this AM with complaints of fatigue and bright red blood in the stools multiple times since morning. She denies any abdominal pain. carlos stools mixed with blood is intermittently present. The patient had no other complaints, she denied any chest pain palpitations nausea vomiting diarrhea. She denied any headache difficulty in swallowing any bleeding anywhere else. She is on Coumadin for atrial fibrillation. She has had a history of GI bleed in the past, with an unknown source, she was recently diagnosed with ischemic colitis which was thought to be embolic in nature secondary to atrial fibrillation and therefore Coumadin was resumed. The patient has not been feeling well for the last 2 weeks. She has been struggling with cough shortness of breath and wheezing. She was started on antibiotics yesterday by her outpatient physician. The patient was seen in the ED, was tired and fatigued, hemodynamically stable. Hemoglobin was 7.1, hematocrit 21, WC count 10 platelet 195, INR was 8.4, lactic acid 1.2, sodium 139 potassium 4.0, BUN 50 creatinine 2.2 glucose 88. Chest x-ray showed mild cardiomegaly no pulmonary edema no infiltrate. X-ray abdomen interpreted as unremarkable bowel gas pattern. EKG showed atrial fibrillation with nonspecific ST-T wave changes in the anterior leads GI was consulted, 2 units of PRBC ordered by the ER physician and patient was admitted to the hospital for further management. I ordered 2 units of FFP as well as vitamin K in addition. Patient will be admitted to PCU status for intense monitoring. Recycling Specialist also consulted All systems: reviewed and no additional remarkable complaints except as stated ( 10 point ROS done negative except as per HPI) Medical - H&P: PMH Medical history: Medical History (Last Reviewed 05/15/17 @ 15:32 by Cheryl Dupree RN) Anemia (Acute) Multiple skin nodules (Chronic) Elevated C-reactive protein (CRP) (Chronic) Encounter for long-term (current) use of high-risk medication (Chronic) Rheumatoid arthritis (Chronic) Fibromyalgia (Chronic) Thrombocytopenia (Acute) Long-term current use of steroids (Chronic) Long-term use of immunosuppressant medication (Chronic) Neck Pain (Chronic) Hyperuricemia (Chronic) Inflammatory arthritis (Chronic) Hyperparathyroidism due to renal insufficiency (Chronic) Chronic kidney disease (CKD), stage V (Chronic) Gout (Chronic) Overactive bladder (Chronic) Recurrent urinary tract infection (Chronic) Hypomagnesemia (Acute) Anemia in chronic renal disease (Chronic) Hypertensive renal disease (Chronic) Proteinuria (Chronic) Secondary hyperparathyroidism of renal origin (Chronic) Calcium nephrolithiasis (Chronic) Metabolic acidosis (Chronic) Chronic kidney disease, stage IV (severe) (Chronic) Vitamin B 12 deficiency (Acute) History of urinary tract infection (Acute) Urinary incontinence (Acute) Sleep apnea (Acute) Shortness of breath (Acute) Short bowel syndrome (Acute) Renal insufficiency (Acute) Reactive airway disease (Acute) Parkinson's disease (Acute) Neuropathy (Acute) Mitral regurgitation (Acute) Chronic interstitial lung disease (Acute) Hypothyroidism (Acute) GERD (gastroesophageal reflux disease) (Acute) Gastrointestinal bleed (Chronic) Dysphonia (Acute) Degenerative joint disease (Chronic) Coronary artery disease (Acute) Chronic kidney disease, stage III (moderate) (Acute) Cardiomegaly (Acute) Atrial fibrillation (Acute) Anemia (Chronic) Acute decompensated heart failure (Acute) Surgical history: Past Surgical History (Last Reviewed 05/15/17 @ 15:32 by Cheryl Dupree RN) Status post wrist surgery (Acute) History of shoulder surgery (Acute) History of knee surgery (Acute) History of intestinal bypass (Acute) History of hysterectomy (Acute) History of cholecystectomy (Acute) Pertinent family history: Family History (Last Reviewed 05/15/17 @ 15:32 by Cheryl Dupree RN) Father Congestive heart failure Sister Family history of malignant neoplasm of breast Mother Cerebrovascular accident Medical - H&P: Meds Home Medications Medication Instructions Recorded Confirmed Type Adalimumab [Humira] 40 mg SQ MONTHLY 08/22/17 08/22/17 History Albuterol Sulfate [Ventolin] 1 puff INH Q4HP PRN 08/22/17 08/22/17 History Allopurinol [Zyloprim] 100 mg PO DAILY 08/22/17 08/22/17 History Aspirin [Jayme Chewable Aspirin] 81 mg PO DAILY 08/22/17 08/22/17 History Carbidopa/Levodopa Cr 50/200 1 tab PO TID 08/22/17 08/22/17 History [Sinemet Cr 50/200] Cranberry Fruit Extract [Cranberry 1 gm MC DAILY 08/22/17 08/22/17 History Extract] Ferrous Sulfate 325 mg PO QAMCC 08/22/17 08/22/17 History Fluticasone/Salmeterol [Advair Hfa 0 gm IH PRN PRN 08/22/17 08/22/17 History 115-21 Mcg Inhaler] Furosemide [Lasix] 80 mg PO DAILY 08/22/17 08/22/17 History Hydroxychloroquine [Plaquenil] 200 mg PO BID 08/22/17 08/22/17 History Magnesium 250 mg PO DAILY 08/22/17 08/22/17 History Metoprolol Tartrate 75 mg PO AC 08/22/17 08/22/17 History Metoprolol Tartrate [Lopressor] 50 mg PO HS 08/22/17 08/22/17 History Montelukast [Singular] 10 mg PO HS 08/22/17 08/22/17 History Pantoprazole [Protonix] 40 mg PO QAMAC 08/22/17 08/22/17 History Pravastatin [Pravachol] 20 mg PO HS 08/22/17 08/22/17 History Sevelamer [Renvela] 800 mg PO TIDCC 08/22/17 08/22/17 History Tiotropium Ephraim [Spiriva] 18 mcg INH PRN PRN 08/22/17 08/22/17 History Ubidecarenone [Coq-10] 100 mg PO DAILY 08/22/17 08/22/17 History Warfarin [Coumadin] 0 mg PO DAILY 08/22/17 08/22/17 History Allergies Allergy/AdvReac Type Severity Reaction Status Date / Time Penicillins Allergy Mild Hives Verified 08/22/17 08:17 dofetilide [From Tikosyn] Allergy Unknown Unknown Verified 08/22/17 08:17 doxycycline Allergy Unknown Unknown Verified 08/22/17 08:17 adhesive tape AdvReac Mild Rash Verified 08/22/17 08:17 Erythromycin Base AdvReac Mild Itching Verified 08/22/17 08:17 Medical - H&P: Exam - Constitutional Vitals: Temp Pulse Resp BP Pulse Ox 99.0 F H 96 H 18 136/57 100 08/22/17 15:53 08/22/17 15:36 08/22/17 17:54 08/22/17 17:29 08/22/17 15:53 Exam: GENERAL: The patient is a well-developed, well-nourished in no apparent distress. Is alert and oriented x2. VITAL SIGNS: Reviewed and as noted elsewhere. HEENT: Head is normocephalic and atraumatic. Extraocular muscles are intact. Pupils are equal, round, and reactive to light. Nares appeared normal. Mouth appears any without lesions. Mucous membranes are moist. NECK: Normal to inspection, Supple, No lymphadenopathy or thyromegaly. LUNGS: Air entry equal on both sides, no wheezing, crackles or rhonchi noted. No accessory muscles of respiration HEART: Regular rate and rhythm irregular S1 and S2 heard, no Gallop, S3 or Rub Noted, systolic murmur, mitral region ABDOMEN: Soft, nontender, and nondistended. Positive bowel sounds. No hepatosplenomegaly was noted. EXTREMITIES: No cyanosis, clubbing, rash, lesions or edema. NEUROLOGIC: Cranial nerves II through XII are grossly intact. Motor and Sensory System Grossly Intact PSYCHIATRIC: Normal affect, Normal Mood. Appropriate Behavior. SKIN: No ulceration or wounds noted, No jaundice, No rash noted. Medical - H&P: Reslt - Labs CBC & Chem 7: 08/22/17 08:50 08/22/17 08:50 Labs: Short CBC 08/22/17 Range/Units 08:50 WBC 10.6 (4.5-11.0) K/mcL Hgb 7.1 L (12.0-15.0) g/dL Hct 21.1 L (36.0-48.0) % Plt Count 195 (140-440) K/mcL BMP 08/22/17 08:50 Sodium 139 Potassium 4.0 Chloride 97 Carbon Dioxide 29 BUN 50 H Creatinine 2.2 H Glucose 88 Calcium 8.1 L Liver Function 08/22/17 Range/Units 08:50 Total Bilirubin 0.6 (0.0-1.0) mg/dL AST < 5 (0-37) U/l ALT < 5 (0-40) U/l Alkaline Phosphatase 82 (39-117) U/L Albumin 3.1 L (3.2-5.2) gm/dL Medical - H&P: A/P - Narrative A/P Narrative: a/p Acute GI bleed Supratherapeutic INR/ warfarin induced coagulopathy Acute blood loss Anemia Chronic renal failure/ ESRD on HD atrial fibrillation Congestive heart failure Fibromyalgia Diverticulosis h/o ischemic colitis Infalmmatory arthritis, CAD HTN HLD Parkinsons Plan Admit to pcu status monitor closely 2 units ffp, 2 units prbc and 1mg vit k to reverse coagulopathy GI consult for GI bleed, Nephrology for esrd HOld bp meds for now IV lasix during xfusion to avoid fluid overload hold asa for now continue carbidopa, levodopa, DVT SCD FULL code NPO diet. Medical - H&P: Qual - Stroke Symptom Onset Unknown: No - VTE Deep Vein Thrombosis/Pulmonary Embolism Present on Admission: No Social History - Tobacco smoking status: Former smoker - Alcohol alcohol intake frequency: does not drink
[2017-08-22 19:37] LABS: Basophils # (Auto) 0 K/mcL (0.0-0.3); Basophils % (Auto) 0.1 % (0.0-2.0); Eosinophils # (Auto) 0 K/mcL (0.0-0.7); Eosinophils % (Auto) 0.1 % (0.0-7.0); Granulocytes % (Auto) 88.2 % (38.0-78.0); Lymphocytes # (Auto) 0.7 K/mcL (1.5-4.8); Lymphocytes % (Auto) 10.3 % (15.5-49.0); Mean Cell Volume 93.4 fL (80.0-100.0); Mean Corpuscular HGB Conc 33.9 g/dL (31.0-36.0); Mean Corpuscular Hemoglobin 31.6 pg (26.0-34.0); Monocytes # (Auto) 0.1 K/mcL (0.1-0.9); Monocytes % (Auto) 1.3 % (1.0-12.0); Platelet Count 165 K/mcL (140-440); RBC 2.74 M/mcL (4.00-5.20)
[2017-08-22] MEDS ORDERED: PROPOFOL 20 ML IV ONE (20:44)
[2017-08-22] MEDS ORDERED: KETAMINE 10 MG/ML ML IV PRN (20:44)
[2017-08-22] MEDS ORDERED: PROPOFOL 0 ML IV ONE (20:44)
[2017-08-22] MEDS ORDERED: MIDAZOLAM 2 MG/2 ML VIAL ONE (20:44)
[2017-08-22] MEDS ORDERED: MIDAZOLAM 2 MG/2 ML VIAL IV SCH (20:45)
[2017-08-22] MEDS ORDERED: PROPOFOL 200 MG/20 ML VIAL IV SCH (20:45)
[2017-08-22] MEDS: SIMVASTATIN 10 MG TABLET PO SCH (22:26)
[2017-08-22] MEDS: HYDROXYCHLOROQUINE 200 MG TABLET PO SCH (22:26)
[2017-08-23] MEDS: IPRATROPIUM/ALBUTEROL 3 ML AMPUL.NEB NEB SCH ×6 (02:57→23:47)
--- NOTE | 2017-08-23 07:12 | Nephrology Progress Note ---
Subjective Patient information: Note initiated : 08/23/17 at 7:11 am Kathy Carvalho is an [id number] female with end stage renal disease on chronic hemodialysis (through tunneled hemodialysis catheter, at [facility], on MWF, followed by Dr Ureña), chronic anemia due to chronic kidney disease, secondary hyperparathyroidism, coronary artery disease, chronic atrial fibrillation on Coumadin anticoagulation (Echo on 06/07/16: LVEF 60%, no segmental wall motion abnormalities), history of ischemic colitis, hypertension, hyperlipidemia, hypothyroidism, history of CVA with residual right hemiparesis, Parkinson disease, admitted on 08/22/17. Chief Complaint: Weakness. Principal diagnosis: End Stage Renal Disease Interval history: EGD did not show active bleeding on 08/22/17. Dark red diarrhea overnight. Pertinent ROS: Diarrhea. Weakness. Objective - Vital Signs Vital signs: Vital Signs Temp Pulse Pulse Resp BP BP BP 08/23/17 06:02 13 108/50 08/23/17 05:36 99 H 12 08/23/17 05:01 101 H 12 116/50 08/23/17 04:27 104 H 14 08/23/17 04:01 97.1 F 109 H 18 131/51 08/23/17 03:02 14 120/69 08/23/17 02:01 18 134/55 08/23/17 01:01 16 125/48 08/23/17 00:40 116 H 17 08/23/17 00:02 97.1 F 110 H 13 124/54 08/23/17 00:00 08/22/17 23:36 24 H 08/22/17 23:32 102 H 24 H 08/22/17 23:01 18 113/94 08/22/17 22:32 17 117/64 08/22/17 22:16 23 H 123/108 08/22/17 22:15 17 131/62 08/22/17 22:01 15 120/55 08/22/17 21:54 19 120/55 08/22/17 21:43 113 H 14 130/45 08/22/17 21:42 112 H 14 130/45 08/22/17 21:37 109 H 14 118/46 08/22/17 21:32 114 H 14 117/41 08/22/17 21:27 110 H 14 145/63 05/17/18 21:02 112 H 16 123/54 0518 20:14 102 H 13 18 20:01 14 118/55 0518 20:00 97.3 F 102 H 18 118/55 0518 19:02 14 131/60 05/18 18:30 0518 18:01 20 139/59 0518 17:54 18 0518 17:29 18 136/57 05 17:00 99.5 F H 100 H 18 123/106 05 15:53 99.0 F H 26 H 123/106 18 15:46 21 109/71 08/22/17 15:36 96 H 20 08/22/17 15:32 20 135/62 08/22/17 15:16 19 139/57 18 15:04 19 124/85 08/22/17 15:01 20 152/122 08/22/17 14:46 18 139/90 08/22/17 14:42 19 131/57 18 14:31 20 131/59 18 14:17 15 131/54 18 14:01 21 130/47 08/22/17 14:00 99.5 F H 100 H 16 134/47 08/22/17 13:52 17 119/74 08/22/17 13:46 18 128/74 18 13:32 20 128/54 18 13:16 19 128/98 08/22/17 13:15 98.2 F 97 H 20 121/62 125/48 08/22/17 13:09 18 125/48 08/22/17 13:02 24 H 08/22/17 11:46 22 129/43 08/22/17 11:35 98.2 F 103 H 20 132/71 08/22/17 11:31 96.9 F L 90 16 108/48 08/22/17 11:22 96.9 F L 97 H 16 125/48 08/22/17 11:12 90 16 124/90 08/22/17 09:27 100/52 05 08:13 96.9 F L 110 H 22 108/48 Pulse Ox 08/23/17 06:02 96 05/18/18 05:36 95 05/18/18 05:01 94 05/18/18 04:27 92 05/18/18 04:01 95 05/18/18 03:02 100 05/18/18 02:01 91 05/18/18 01:01 93 05/18/18 00:40 95 05/18/18 00:02 95 05/18/18 00:00 98 05/17/18 23:36 100 05/17/18 23:32 98 05/17/18 23:01 96 05/17/18 22:32 96 05/17/18 22:16 94 05/17/18 22:15 95 05/17/18 22:01 93 05/17/18 21:54 96 05/17/18 21:43 98 05/17/18 21:42 98 05/17/18 21:37 97 05/17/18 21:32 96 05/17/18 21:27 98 05/17/18 21:02 96 0517/18 20:14 97 0517/18 20:01 0517/18 20:00 96 0517/18 19:02 96 05/17/18 18:30 98 05/17/18 18:01 95 0517/18 17:54 05/17/18 17:29 0517/18 17:00 93 0517/18 15:53 100 05/17/18 15:46 05/17/18 15:36 91 0517/18 15:32 05/17/18 15:16 05/17/18 15:04 0517/18 15:01 05/17/18 14:46 05/17/18 14:42 05/17/18 14:31 05/17/18 14:17 05/17/18 14:01 05/17/18 14:00 93 05/17/18 13:52 05/17/18 13:46 05/17/18 13:32 05/17/18 13:16 05/17/18 13:15 98 05/17/18 13:09 05/17/18 13:02 0517/18 11:46 05/17/18 11:35 98 05/17/18 11:31 95 05/17/18 11:22 95 05/17/18 11:12 95 05/17/18 09:27 96 08/22/17 08:13 97 Intake and Output 08/22/17 08/23/17 08/23/17 21:59 05:59 13:59 Intake Total 1082 / 1082 560 / 560 Output Total 776 / 776 101 / 101 250 / 250 Balance 306 / 306 459 / 459 -250 / -250 Intake: Oral 0 / 0 560 / 560 Blood Product 1082 / 1082 Output: Void Amount 525 / 525 # of times incontinent of urine Urine/Stool Mix 250 / 250 250 / 250 Stool 100 / 100 Other: Meal jello Percent of Meal Consumed 100% Feeding Ability Independent Stool Size Small Stool Color Dark Red Blood Dark Red Blood Dark Red Blood Stool Consistency Liquid Liquid Liquid # Bowel Movements 1 Weight 162 lb 6.4 oz Intake & Output: Intake & Output 08/22/17 08/23/17 08/23/17 21:59 05:59 13:59 Intake Total 1082 / 1082 560 / 560 Output Total 776 / 776 101 / 101 250 / 250 Balance 306 / 306 459 / 459 -250 / -250 Weight 162 lb 6.4 oz Intake: Oral 0 / 0 560 / 560 Blood Product 1082 / 1082 Output: Void Amount 525 / 525 # of times incontinent of urine Urine/Stool Mix 250 / 250 250 / 250 Stool 100 / 100 Other: Meal jello Percent of Meal Consumed 100% Feeding Ability Independent Stool Size Small Stool Color Dark Red Blood Dark Red Blood Dark Red Blood Stool Consistency Liquid Liquid Liquid # Bowel Movements 1 - General Appearance General appearance: appears started age, frail EENT: mucous membranes dry Neck: supple Respiratory: clear Cardiology: no edema Gastrointestinal: no tenderness Integumentary: warm and dry Neurologic: alert and oriented x3 Musculoskeletal: no erythema Psychiatric: mood/affect appropriate, cooperative - Lab 08/23/17 07:00 08/23/17 07:00 Most recent lab results Calcium 8.1 mg/dl (8.6-10.4) L 08/22/17 08:50 Magnesium 1.9 mg/dL (1.6-2.5) 08/22/17 08:50 Assessment and Plan (1) ESRD (end stage renal disease) on dialysis Plan: Hemodialysis today and MWF. The patient seen and evaluated during dialysis at 10:30. Status: Chronic Priority: Medium (2) Anemia due to blood loss, acute 2 units PRBC to be given during hemodialysis. Status: Acute Priority: High (3) Anemia due to end stage renal disease Status: Chronic Priority: Medium
--- NOTE | 2017-08-23 07:23 | Operative Note ---
DATE OF OPERATION: 08/22/2017 PREOPERATIVE DIAGNOSIS: Melena occurring in a patient who has been over anticoagulated with Coumadin, presenting with an INR of 8.4. POSTOPERATIVE DIAGNOSIS: Normal EGD. DECORATOR MANNEQUIN AND NOZZLEMAN: Naldo Warren MD ANESTHETIC USED: Versed 1 mg IV, propofol 70 mg IV. INFORMED CONSENT: Prior to the procedure the patient provided her own informed consent. The patient was evaluated and considered medically fit for endoscopy. DESCRIPTION OF PROCEDURE: With the patient in the left lateral decubitus position, a gastroscope was advanced via the mouth to the esophagus under direct vision. The esophagus appears normal throughout its length without ulcer, stricture, mass, or hiatal hernia. Stomach was endoscopically normal including retroflexed view. No gastric or esophageal varices seen. No blood or clot seen anywhere in the upper GI tract. Exam was completed to the third portion of the duodenum which appears endoscopically normal. COMPLICATIONS: None immediate. RECOMMENDATIONS AND FOLLOWUP: I would recommend bringing the INR into the therapeutic range. I have reviewed the patient's records maintained in our GI office. Specifically, I reviewed Dr. Sharpe's records from 2013. According to those records, the patient has had problems with intermittent gross rectal bleeding going back to about 2004. Workup has included EGD and colonoscopies back in 2013 and also earlier in 2018 in [place]. It seems most likely that the patient's bleeding is from small bowel, possibly from small bowel varices. In 1976 she underwent a jejunoileal bypass surgery. This surgery is no longer performed since about 1979 because it was found to be complicated by renal failure and cirrhosis. Dr. Sharpe's workup included EGD and colonoscopy showing a normal EGD and only a few diverticula in the colon. A pill camera study was done and unfortunately the pill camera did not carry all the way through the small bowel to the colon. However, when it reached the anastomosis from the jejunoileal bypass, there was an extensive vascular lesions seen just beyond the anastomosis with the pill camera. Dr. Sharpe speculated that that was the source of the recurring bleeding. A referral was made to the [facility] in [place] for consideration of surgery to reverse the jejunoileal bypass and/or at least to perform balloon enteroscopy. However, around that time the patient tells me that she was taken off Coumadin and she had no further bleeding. More recently as of, I believe about 2 months ago, the patient had ischemic colitis possibly thought to be on the basis of atrial fibrillation with embolization, if I understand correctly. At that point she was resumed on Coumadin as of about 6 or 8 weeks ago. She presented this morning with rectal bleeding and INR of 8.4. She has received some reversal of the Coumadin and as of this evening the INR is down to 1.9. At this point, any further workup would have to be through the tertiary facility such as [facility]. Of course simply keeping the INR within the therapeutic range would be helpful so as to avoid the supratherapeutic INRs. JCM:sabrina Job ID: [id number] Doc ID: [id number] Naldo Garcia MD
[2017-08-23] MEDS: PANTOPRAZOLE 40 MG TABLET PO SCH (07:51)
[2017-08-23] MEDS: methylPREDNISolone SOD SUCC 125 MG/2 ML VIAL IV SCH ×3 (07:51→20:31)
[2017-08-23] MEDS: 0.9 % SODIUM CHLORIDE 10 ML SYRINGE IV SCH ×3 (07:52→21:22)
[2017-08-23] MEDS: SEVELAMER 800 MG TABLET PO SCH ×3 (07:53→17:41)
--- NOTE | 2017-08-23 08:00 | Emergency Department Note ---
GI Bleed HPI - General Chief complaint: Rectal Bleed Stated complaint: Rectal bleeding Time Seen by Provider: 08/22/17 08:30 Source: patient Mode of arrival: wheelchair Limitations: no limitations - Related Data Home Medications Medication Instructions Recorded Confirmed Adalimumab [Humira] 40 mg SQ MONTHLY 08/22/17 08/22/17 Albuterol Sulfate [Ventolin] 1 puff INH Q4HP PRN 08/22/17 08/22/17 Allopurinol [Zyloprim] 100 mg PO DAILY 08/22/17 08/22/17 Aspirin [Jayme Chewable Aspirin] 81 mg PO DAILY 08/22/17 08/22/17 Carbidopa/Levodopa Cr 50/200 1 tab PO TID 08/22/17 08/22/17 [Sinemet Cr 50/200] Cranberry Fruit Extract [Cranberry 1 gm MC DAILY 08/22/17 08/22/17 Extract] Ferrous Sulfate 325 mg PO QAMCC 08/22/17 08/22/17 Fluticasone/Salmeterol [Advair Hfa 0 gm IH PRN PRN 08/22/17 08/22/17 115-21 Mcg Inhaler] Furosemide [Lasix] 80 mg PO DAILY 08/22/17 08/22/17 Hydroxychloroquine [Plaquenil] 200 mg PO BID 08/22/17 08/22/17 Magnesium 250 mg PO DAILY 08/22/17 08/22/17 Metoprolol Tartrate 75 mg PO AC 08/22/17 08/22/17 Metoprolol Tartrate [Lopressor] 50 mg PO HS 08/22/17 08/22/17 Montelukast [Singular] 10 mg PO HS 08/22/17 08/22/17 Pantoprazole [Protonix] 40 mg PO QAMAC 08/22/17 08/22/17 Pravastatin [Pravachol] 20 mg PO HS 08/22/17 08/22/17 Sevelamer [Renvela] 800 mg PO TIDCC 08/22/17 08/22/17 Tiotropium [place] [Spiriva] 18 mcg INH PRN PRN 08/22/17 08/22/17 Ubidecarenone [Coq-10] 100 mg PO DAILY 08/22/17 08/22/17 Warfarin [Coumadin] 0 mg PO DAILY 08/22/17 08/22/17 Allergies Allergy/AdvReac Type Severity Reaction Status Date / Time Penicillins Allergy Mild Hives Verified 08/22/17 08:17 dofetilide [From Tikosyn] Allergy Unknown Unknown Verified 08/22/17 08:17 doxycycline Allergy Unknown Unknown Verified 08/22/17 08:17 adhesive tape AdvReac Mild Rash Verified 08/22/17 08:17 Erythromycin Base AdvReac Mild Itching Verified 08/22/17 08:17 Past Medical History - Past Medical History Medical history: Reports: arthritis (Rheumatoid), atrial fibrillation, COPD, coronary artery disease, GERD, hyperlipidemia, hypertension, kidney stones, renal disease (dialysis), thyroid disease, other (Gout, C. 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: non-contributory Surgical history ED: Reports: cholecystectomy, hysterectomy, orthopedic, other ( Knee, shoulder), vascular surgery - Social History smoking status: Former smoker Alcohol use: Reports: None Drug use: Reports: none Physical Exam Limitations: no limitations Course Vital Signs Temperature 96.9 F L 08/22/17 08:13 Pulse Rate 110 H 08/22/17 08:13 Respiratory Rate 22 08/22/17 08:13 Blood Pressure 108/48 08/22/17 08:13 Pulse Oximetry (%) 97 08/22/17 08:13 Temperature 97.6 F 08/23/17 07:32 Pulse Rate 97 H 08/23/17 07:28 Respiratory Rate 17 08/23/17 07:32 Blood Pressure 125/52 08/23/17 07:32 Pulse Oximetry (%) 96 08/23/17 07:32 GI Bleed - [facility] Narrative Medical decision making narrative: This patient's INR was 8.4 rectal exam shows some blackish maroon stool. Patient will be admitted to the hospital by Dr. Silverman and I did consult with Dr. Adrian. - Lab Data Lab results reviewed: Yes I reviewed the patient's lab results. Result diagrams: 08/22/17 18:58 08/22/17 08:50 Lab Results 08/22/17 08/22/17 08/22/17 Range/Units 08:50 08:50 08:50 WBC 10.6 (4.5-11.0) K/mcL RBC 2.22 L (4.00-5.20) M/mcL Hgb 7.1 L (12.0-15.0) g/dL Hct 21.1 L (36.0-48.0) % POC Hct 17.0 L* (36.0-48.0) % MCV 94.9 (80.0-100.0) fL MCH 32.0 (26.0-34.0) pg MCHC 33.7 (31.0-36.0) g/dL RDW 17.2 H (11.5-14.5) % Plt Count 195 (140-440) K/mcL MPV 8.5 (7.4-10.4) fL Gran % 67.2 (38.0-78.0) % Lymph % (Auto) 27.7 (15.5-49.0) % Barber % (Auto) 4.6 (1.0-12.0) % Eos % (Auto) 0.2 (0.0-7.0) % Baso % (Auto) 0.3 (0.0-2.0) % Gran # 7.1 (1.8-8.0) K/mcL Lymph # (Auto) 2.9 (1.5-4.8) K/mcL Barber # (Auto) 0.5 (0.1-0.9) K/mcL Eos # (Auto) 0 (0.0-0.7) K/mcL Baso # (Auto) 0 (0.0-0.3) K/mcL POC PT PT (11.9-14.5) sec POC INR INR (0.9-1.1) VBG Lactic Acid 1.2 (0.5-2.2) mmol/L POC Sodium 136 (133-145) mmol/L Sodium 139 (133-145) mmol/L POC Potassium 3.8 (3.3-5.1) mmol/L Potassium 4.0 (3.3-5.1) mmol/L POC Chloride 96 (96-108) mmol/L Chloride 97 (96-108) mmol/L Carbon Dioxide 29 (22-30) mmol/L POC Total CO2 29 (22-30) mmol/L Anion Gap 13.0 (8-16) POC BUN 45 H (8-23) mg/dl BUN 50 H (8-23) mg/dl Creatinine 2.2 H (0.6-1.1) mg/dl POC Creatinine 2.5 H (0.6-1.1) mg/dl GFR Calculation 20 Glucose 88 (70-105) mg/dL POC Glucose 88 (70-105) mg/dL Calcium 8.1 L (8.6-10.4) mg/dl POC WB Ioniz Calcium 1.07 L (1.16-1.32) mmol/L Magnesium 1.9 (1.6-2.5) mg/dL Total Bilirubin 0.6 (0.0-1.0) mg/dL AST < 5 (0-37) U/l ALT < 5 (0-40) U/l Alkaline Phosphatase 82 (39-117) U/L Total Protein 5.1 L (5.9-8.4) gm/dL Albumin 3.1 L (3.2-5.2) gm/dL Globulin 2.0 L (2.2-3.7) gm/dL Albumin/Globulin Ratio 1.6 (1.0-2.3) 08/22/17 08/22/17 Range/Units 08:51 08:51 WBC (4.5-11.0) K/mcL RBC (4.00-5.20) M/mcL Hgb (12.0-15.0) g/dL Hct (36.0-48.0) % POC Hct (36.0-48.0) % MCV (80.0-100.0) fL MCH (26.0-34.0) pg MCHC (31.0-36.0) g/dL RDW (11.5-14.5) % Plt Count (140-440) K/mcL MPV (7.4-10.4) fL Gran % (38.0-78.0) % Lymph % (Auto) (15.5-49.0) % Barber % (Auto) (1.0-12.0) % Eos % (Auto) (0.0-7.0) % Baso % (Auto) (0.0-2.0) % Gran # (1.8-8.0) K/mcL Lymph # (Auto) (1.5-4.8) K/mcL Barber # (Auto) (0.1-0.9) K/mcL Eos # (Auto) (0.0-0.7) K/mcL Baso # (Auto) (0.0-0.3) K/mcL POC PT TNP PT 71.3 H (11.9-14.5) sec POC INR TNP INR 8.4 H* (0.9-1.1) VBG Lactic Acid (0.5-2.2) mmol/L POC Sodium (133-145) mmol/L Sodium (133-145) mmol/L POC Potassium (3.3-5.1) mmol/L Potassium (3.3-5.1) mmol/L POC Chloride (96-108) mmol/L Chloride (96-108) mmol/L Carbon Dioxide (22-30) mmol/L POC Total CO2 (22-30) mmol/L Anion Gap (8-16) POC BUN (8-23) mg/dl BUN (8-23) mg/dl Creatinine (0.6-1.1) mg/dl POC Creatinine (0.6-1.1) mg/dl GFR Calculation Glucose (70-105) mg/dL POC Glucose (70-105) mg/dL Calcium (8.6-10.4) mg/dl POC WB Ioniz Calcium (1.16-1.32) mmol/L Magnesium (1.6-2.5) mg/dL Total Bilirubin (0.0-1.0) mg/dL AST (0-37) U/l ALT (0-40) U/l Alkaline Phosphatase (39-117) U/L Total Protein (5.9-8.4) gm/dL Albumin (3.2-5.2) gm/dL Globulin (2.2-3.7) gm/dL Albumin/Globulin Ratio (1.0-2.3) Disposition Pt seen by DIRECTOR OF SALES MARKETING/PA only: No Clinical Impression: Lower gastrointestinal hemorrhage Disposition: Xfer As Inpt ([facility])
[2017-08-23] MEDS ORDERED: TIOTROPIUM BROMIDE 18 MCG INHALANT INH PRN (08:16)
[2017-08-23 08:21] LABS: Basophils # (Auto) 0 K/mcL (0.0-0.3); Basophils % (Auto) 0 % (0.0-2.0); Eosinophils # (Auto) 0 K/mcL (0.0-0.7); Eosinophils % (Auto) 0 % (0.0-7.0); Granulocytes % (Auto) 88.1 % (38.0-78.0); Lymphocytes # (Auto) 0.8 K/mcL (1.5-4.8); Lymphocytes % (Auto) 10.5 % (15.5-49.0); Mean Cell Volume 96.8 fL (80.0-100.0); Mean Corpuscular HGB Conc 35.2 g/dL (31.0-36.0); Mean Corpuscular Hemoglobin 34.1 pg (26.0-34.0); Monocytes # (Auto) 0.1 K/mcL (0.1-0.9); Monocytes % (Auto) 1.4 % (1.0-12.0); Platelet Count 187 K/mcL (140-440); RBC 2.38 M/mcL (4.00-5.20); Red Cell Distribution Width 16.1 % (11.5-14.5)
[2017-08-23 08:45] LABS: ALT/SGPT < 5 U/l (0-40); Albumin 3.3 gm/dL (3.2-5.2); Albumin/Globulin Ratio 1.5 (1.0-2.3); Alkaline Phosphatase 81 U/L (39-117); Bilirubin,Direct < 0.2 mg/dL (0.0-0.3); Blood Urea Nitrogen 62 mg/dl (8-23); Gamma Glutamyl Transpeptidase 14 U/L (5-36); Uric Acid 4.9 mg/dL (2.5-8.0)
[2017-08-23] MEDS: UBIDECARENONE 100 MG PO SCH (08:49)
[2017-08-23] MEDS ORDERED: CARBIDOPA/LEVODOPA CR 50/200 TABLET PO SCH (09:00)
[2017-08-23] MEDS ORDERED: 0.9 % SODIUM CHLORIDE 250 ML IV SCH (09:30)
[2017-08-23] MEDS ORDERED: SEVELAMER 800 MG TABLET PO SCH (12:00)
--- NOTE | 2017-08-23 13:32 | Internal Med Progress Note ---
Medical - PN: Subj Patient information: Note initiated : 08/23/17 at 1:27 pm Service Date, if different from initiated Date: [] Patient: Kathy Carvalho a 81 y/o F admitted on 08/22/17 for Rectal Bleed. Chief Complaint: [] Interval history: Ms. Carvalho is a 81 year old F with h/o afib on coumadin, h/o ischemic colitis in 05/26, presents to the ER this AM with complaints of fatigue and bright red blood in the stools multiple times since morning. She denies any abdominal pain. carlos stools mixed with blood is intermittently present. The patient had no other complaints, she denied any chest pain palpitations nausea vomiting diarrhea. She denied any headache difficulty in swallowing any bleeding anywhere else. She is on Coumadin for atrial fibrillation. She has had a history of GI bleed in the past, with an unknown source, she was recently diagnosed with ischemic colitis which was thought to be embolic in nature secondary to atrial fibrillation and therefore Coumadin was resumed. The patient has not been feeling well for the last 2 weeks. She has been struggling with cough shortness of breath and wheezing. She was started on antibiotics yesterday by her outpatient physician. The patient was seen in the ED, was tired and fatigued, hemodynamically stable. Hemoglobin was 7.1, hematocrit 21, WC count 10 platelet 195, INR was 8.4, lactic acid 1.2, sodium 139 potassium 4.0, BUN 50 creatinine 2.2 glucose 88. Chest x-ray showed mild cardiomegaly no pulmonary edema no infiltrate. X-ray abdomen interpreted as unremarkable bowel gas pattern. EKG showed atrial fibrillation with nonspecific ST-T wave changes in the anterior leads GI was consulted, 2 units of PRBC ordered by the ER physician and patient was admitted to the hospital for further management. I ordered 2 units of FFP as well as vitamin K in addition. Patient will be admitted to PCU status for intense monitoring. Handicraft Or Hobby Shop Manager also consulted 08/23 Pt seen examined, no acute overnight events, pt had neg egd, GI consult appreciated, if pt experinces ongoing blood loss, she needs to be at a tertiary facility, presnlty she still has blood in the stools, not sure if this is new bleeding or just old which is clearing up, hb is low, will transfuse 2 units today GI has cleared using coumadin, but they want it to be in the therapeutic levl and avoid over anticoagulation. today INR is 1.7, she is not yet back on coumadin, as today her blood still was mixed with red stools. if the stools appear normal, she can be started back on coumadin and her hb and stools monitored. if she does well, we could continue coumadin with very close monitoring of her therapeutic range. Should she continue to bleed, then she will need alternatives to coumadin. Its my understanding that DR espino her heat treat technician in [place] is considering placement of a watchmans device after mitral valve replacement. Pertinent ROS: Denies headache, dizziness Denies chest pain, palpitations Denies cough or shortness of breath Denies abdominal pain, nausea or vomiting. - Constitutional Vitals: Vital Signs Temp Pulse Resp BP Pulse Ox 97.6 F 94 H 18 138/65 97 08/23/17 12:40 08/23/17 12:40 08/23/17 13:13 08/23/17 13:13 08/23/17 12:08 Period Temp Pulse Resp BP Sys/Nova Pulse Ox Last 24 Hr 97.1 F-99.5 F 92-116 12-26 108-152/41-122 91-100 Intake and Output 08/22/17 08/23/17 08/23/17 21:59 05:59 13:59 Intake Total 1132 / 1132 560 / 560 0 / 0 Output Total 776 / 776 101 / 101 250 / 250 Balance 356 / 356 459 / 459 -250 / -250 Weight 162 lb 6.4 oz Intake & Output: Intake & Output 08/22/17 08/23/17 08/23/17 21:59 05:59 13:59 Intake Total 1132 / 1132 560 / 560 0 / 0 Output Total 776 / 776 101 / 101 250 / 250 Balance 356 / 356 459 / 459 -250 / -250 Weight 162 lb 6.4 oz Intake: IV 50 / 50 Oral 0 / 0 560 / 560 0 / 0 Blood Product 1082 / 1082 Output: Void Amount 525 / 525 0 / 0 # of times incontinent of urine 1 / 1 1 / 1 Urine/Stool Mix 250 / 250 250 / 250 Stool 100 / 100 Other: Meal jello Breakfast Percent of Meal Consumed 100% 100% Feeding Ability Independent Stool Size Small Stool Color Dark Red Blood Dark Red Blood Dark Red Blood Stool Consistency Liquid Liquid Liquid # Bowel Movements 1 Exam: Constitutional; Afebrile, cooperative, alert, not in distress. Eyes- No icterus, , No periorbital swelling Ears- Ext ear normal, hearing normal to conversation. Neck- Midline trachea, supple Respiratory system: Air Entry equal on both sides, No crackles or wheezing, no rhonchi. CVS- Rate tachycardic rhythm irregular, S1,S2 heard, no gallop, no rub. significant systolic murmur Abdomen- Soft nontender abdomen, no organomegaly, no tenderness, no guarding or rigidity, MANAGER CHANGE- AOOx3, moving all extremities, no gross focal deficit noted. Medical - PN: Obj Da - Labs CBC & Chem 7: 08/23/17 07:00 08/23/17 07:00 Labs: Abnormal Lab Results 08/23/17 08/23/17 08/23/17 07:00 07:00 07:00 RBC 2.38 L Hgb 8.1 L Hct 23.0 L POC Hct MCH 34.1 H RDW 16.1 H Gran % 88.1 H Lymph % (Auto) 10.5 L Lymph # (Auto) 0.8 L PT 19.8 H INR 1.7 H Potassium 3.1 L Anion Gap 20.0 H POC BUN BUN 62 H Creatinine 2.8 H POC Creatinine Glucose 141 H Calcium 8.2 L POC WB Ioniz Calcium Total Protein 5.5 L Albumin Globulin 08/22/17 08/22/17 08/22/17 18:58 17:33 08:51 RBC 2.74 L Hgb 8.7 L Hct 25.6 L POC Hct MCH RDW 16.0 H Gran % 88.2 H Lymph % (Auto) 10.3 L Lymph # (Auto) 0.7 L PT 22.3 H 71.3 H INR 1.9 H 8.4 H* Potassium Anion Gap POC BUN BUN Creatinine POC Creatinine Glucose Calcium POC WB Ioniz Calcium Total Protein Albumin Globulin 08/22/17 08/22/17 08:50 08:50 RBC 2.22 L Hgb 7.1 L Hct 21.1 L POC Hct 17.0 L* MCH RDW 17.2 H Gran % Lymph % (Auto) Lymph # (Auto) PT INR Potassium Anion Gap POC BUN 45 H BUN 50 H Creatinine 2.2 H POC Creatinine 2.5 H Glucose Calcium 8.1 L POC WB Ioniz Calcium 1.07 L Total Protein 5.1 L Albumin 3.1 L Globulin 2.0 L Meds: Medications Acetaminophen (Tylenol) 650 mg PO Q4-6HP PRN PRN Reason: PAIN/FEVER > 101 Albuterol/Ipratropium (Duoneb) 3 ml NEB Q4HRT [facility] Last Admin: 08/23/17 12:23 Dose: Not Given Allopurinol (Zyloprim) 100 mg PO DAILY [facility] Carbidopa/Levodopa (Sinemet Cr 25/100) 2 tab PO TID [facility] Last Admin: 08/22/17 22:26 Dose: 2 tab Ferrous Sulfate (Ferrous Sulfate) 325 mg PO QAMCC [facility] Furosemide (Lasix) 80 mg PO DAILY [facility] Hydroxychloroquine Sulfate (Plaquenil) 200 mg PO BID [facility] Last Admin: 08/22/17 22:26 Dose: 200 mg Levofloxacin (Levaquin) 250 mg in 50 mls @ 50 mls/hr IV Q24H [facility] Last Infusion: 08/22/17 15:15 Dose: Infused Sodium Chloride (Sodium Chloride 0.9%) 250 mls @ 20 mls/hr IV .[id number] [facility] Stop: 08/23/17 21:59 Last Admin: 08/23/17 11:05 Dose: 20 mls/hr Magnesium Oxide (Magnesium Oxide) 400 mg PO DAILY [facility] Methylprednisolone Sodium Succinate (Solu-Medrol) 62.5 mg IV Q8 [facility] Last Admin: 08/23/17 07:51 Dose: 62.5 mg Metoprolol Tartrate (Lopressor) 75 mg PO DAILY [facility] Metoprolol Tartrate (Lopressor) 50 mg PO HS [facility] Montelukast Sodium (Singular) 10 mg PO DAILY [facility] Ondansetron HCl (Zofran) 4 mg IV Q4-6HP PRN PRN Reason: Nausea And Vomiting Pantoprazole Sodium (Protonix) 40 mg PO QAMAC [facility] Last Admin: 08/23/17 07:51 Dose: 40 mg Ubidecarenone [Coq- (10] 100 Mg Cap) 1 dose PO DAILY [facility] Last Admin: 08/23/17 08:49 Dose: Not Given Sevelamer Carbonate (Renvela) 800 mg PO TIDCC [facility] Last Admin: 08/23/17 07:53 Dose: Not Given Simvastatin (Zocor) 10 mg PO HS [facility] Last Admin: 08/22/17 22:26 Dose: 10 mg Sodium Chloride (Saline Flush) 10 ml IV Q8 [facility] Last Admin: 08/23/17 07:52 Dose: Not Given Tiotropium [place] (Spiriva) 18 mcg INH DAILYP PRN PRN Reason: Wheezing Medical - PN: A/P - Time Spent With Patient Total time spent is greater than 50% in coordination of care (as documented) at patient's floor/unit and/or counseling patient: - Narrative A/P Narrative: a/p Acute GI bleed: due to vascular lesino in the small bowel, if pt continues to bleed, she may need to go to a higher center. should her bleeding stop, then she can be resumed on coumadin with very close monitoring of her INR. 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 Supratherapeutic INR/ warfarin induced coagulopathy: Improved INR is 1.7 today monitor Acute blood loss Anemia: xfuse hb, 2 units today, given her cardiovascular status, and past history of decompensation, will try to keep hb around 9-10 Chronic renal failure/ ESRD on HD: management as per nephrology atrial fibrillation: tachyhcardic, resume beta blockers, montor heart rate Congestive heart failure/ severe mitral reguritation : no e/o same, continue home meds monitor, planned procedure for MR in a couple of weeks Fibromyalgia: continue home meds, stable no complaints h/o ischemic colitis: in 05/26, stable now, thought as a complication of afib Infalmmatory arthritis, on humira, hold for now, CAD: no cp, sob, mointor. HTN: stable resume home meds Parkinsons: continue carbidopa, levodopa. DVT SCD FULL code Medical - PN: Qual - Stroke Symptom Onset Unknown: No - VTE Deep Vein Thrombosis/Pulmonary Embolism Present on Admission: No
[2017-08-23] MEDS: HYDROXYCHLOROQUINE 200 MG TABLET PO SCH ×2 (14:45→20:32)
[2017-08-23] MEDS: FUROSEMIDE 80 MG TABLET PO SCH (14:45)
[2017-08-23] MEDS: ALLOPURINOL 100 MG TABLET PO SCH (14:46)
[2017-08-23] MEDS: FERROUS SULFATE 325 MG TABLET PO SCH (14:46)
[2017-08-23] MEDS: MAGNESIUM OXIDE 400 MG TABLET PO SCH (14:47)
[2017-08-23] MEDS: MONTELUKAST 10 MG TABLET PO SCH (14:47)
[2017-08-23] MEDS: ACETAMINOPHEN 325 MG TABLET PO PRN ×2 (14:47→21:24)
[2017-08-23] MEDS: METOPROLOL TARTRATE 50 MG TABLET PO SCH (14:52)
[2017-08-23] MEDS: LEVOFLOXACIN 250 MG/50 ML BAG IV SCH (14:54)
[2017-08-23] MEDS: CARBIDOPA/LEVODOPA CR 25/100 TABLET PO SCH ×3 (14:57→20:32)
[2017-08-23] MEDS ORDERED: POTASSIUM CHLORIDE 20 MEQ TABLET PO SCH (17:30)
[2017-08-23] MEDS: POTASSIUM CHLORIDE 20 MEQ PACKET PO SCH (17:46)
[2017-08-23] MEDS: SIMVASTATIN 10 MG TABLET PO SCH (20:32)
[2017-08-23] MEDS ORDERED: METOPROLOL TARTRATE 50 MG TABLET PO SCH (21:00)
[2017-08-24] MEDS: IPRATROPIUM/ALBUTEROL 3 ML AMPUL.NEB NEB SCH ×4 (04:54→16:32)
[2017-08-24] MEDS: 0.9 % SODIUM CHLORIDE 10 ML SYRINGE IV SCH ×3 (05:38→22:00)
[2017-08-24] MEDS: methylPREDNISolone SOD SUCC 125 MG/2 ML VIAL IV SCH (05:38)
[2017-08-24] MEDS: ACETAMINOPHEN 325 MG TABLET PO PRN ×4 (07:06→21:36)
[2017-08-24] MEDS: PANTOPRAZOLE 40 MG TABLET PO SCH (07:06)
[2017-08-24 07:41] LABS: Basophils # (Auto) 0 K/mcL (0.0-0.3); Basophils % (Auto) 0 % (0.0-2.0); Eosinophils # (Auto) 0 K/mcL (0.0-0.7); Eosinophils % (Auto) 0 % (0.0-7.0); Granulocytes % (Auto) 87.6 % (38.0-78.0); Lymphocytes # (Auto) 1.2 K/mcL (1.5-4.8); Lymphocytes % (Auto) 8.8 % (15.5-49.0); Mean Cell Volume 93.7 fL (80.0-100.0); Mean Corpuscular HGB Conc 34.2 g/dL (31.0-36.0); Monocytes # (Auto) 0.5 K/mcL (0.1-0.9); Monocytes % (Auto) 3.6 % (1.0-12.0); Platelet Count 193 K/mcL (140-440); RBC 3.52 M/mcL (4.00-5.20); Red Cell Distribution Width 15.7 % (11.5-14.5)
[2017-08-24 08:28] LABS: ALT/SGPT < 5 U/l (0-40); Albumin 3.5 gm/dL (3.2-5.2); Albumin/Globulin Ratio 1.5 (1.0-2.3); Alkaline Phosphatase 95 U/L (39-117); Bilirubin,Direct < 0.2 mg/dL (0.0-0.3); Blood Urea Nitrogen 28 mg/dl (8-23); Gamma Glutamyl Transpeptidase 16 U/L (5-36); Uric Acid 2.7 mg/dL (2.5-8.0)
--- NOTE | 2017-08-24 08:32 | Internal Med Progress Note ---
Medical - PN: Subj Patient information: Note initiated : 08/24/17 at 8:18 am Service Date, if different from initiated Date: [] Patient: Kathy Carvalho 81 y/o F admitted on 08/22/17 for Rectal Bleed. Chief Complaint: Patient feels weak. Patient denies SOB or cough. - Constitutional Vitals: Vital Signs Temp Pulse Resp BP Pulse Ox 97.3 F 88 20 121/63 94 08/24/17 07:24 08/24/17 07:00 08/24/17 07:24 08/24/17 07:24 08/24/17 07:24 Period Temp Pulse Resp BP Sys/Nova Pulse Ox Last 24 Hr 97.3 F-98.7 F 64-109 11-22 103-138/44-98 90-100 Intake and Output 08/23/17 08/24/17 08/24/17 21:59 05:59 13:59 Intake Total 570 / 570 100 / 100 Output Total 350 / 350 Balance 570 / 570 -250 / -250 Weight 162 lb 6.4 oz 159 lb 6.4 oz Intake & Output: Intake & Output 08/23/17 08/24/17 08/24/17 21:59 05:59 13:59 Intake Total 570 / 570 100 / 100 Output Total 350 / 350 Balance 570 / 570 -250 / -250 Weight 162 lb 6.4 oz 159 lb 6.4 oz Intake: IV 50 / 50 Oral 520 / 520 GI Tube Flush 100 / 100 Output: Urine/Stool Mix 350 / 350 Other: Meal Dinner Percent of Meal Consumed 50% Feeding Ability Assist with Tray Set Up Stool Size Small Smear Stool Color Dark Red Blood Brown Stool Consistency Liquid # Voids 1 # Bowel Movements 1 General appearance: average body habitus, no acute distress, thin - Respiratory Respiratory exam: Present: normal respiratory exam - Cardiovascular Cardiovascular exam: Present: irregular rhythm - GI/Abdominal GI/Abdominal exam: Present: normal bowel sounds - Neurological Exam Neurological exam: Present: alert, oriented X3 - Skin Skin exam: Present: warm Medical - PN: Obj Da - Labs CBC & Chem 7: 08/24/17 04:00 08/23/17 07:00 Labs: Abnormal Lab Results 08/24/17 08/24/17 08/23/17 04:00 04:00 07:00 WBC 13.3 H RBC 3.52 L Hgb 11.3 L Hct 33.0 L POC Hct MCH RDW 15.7 H Gran % 87.6 H Lymph % (Auto) 8.8 L Gran # 11.7 H Lymph # (Auto) 1.2 L PT 22.9 H INR 2.0 H Potassium 3.1 L Anion Gap 20.0 H POC BUN BUN 62 H Creatinine 2.8 H POC Creatinine Glucose 141 H Calcium 8.2 L POC WB Ioniz Calcium Total Protein 5.5 L Albumin Globulin 08/23/17 08/23/17 08/22/17 07:00 07:00 18:58 WBC RBC 2.38 L 2.74 L Hgb 8.1 L 8.7 L Hct 23.0 L 25.6 L POC Hct MCH 34.1 H RDW 16.1 H 16.0 H Gran % 88.1 H 88.2 H Lymph % (Auto) 10.5 L 10.3 L Gran # Lymph # (Auto) 0.8 L 0.7 L PT 19.8 H INR 1.7 H Potassium Anion Gap POC BUN BUN Creatinine POC Creatinine Glucose Calcium POC WB Ioniz Calcium Total Protein Albumin Globulin 08/22/17 08/22/17 08/22/17 17:33 08:51 08:50 WBC RBC Hgb Hct POC Hct 17.0 L* MCH RDW Gran % Lymph % (Auto) Gran # Lymph # (Auto) PT 22.3 H 71.3 H INR 1.9 H 8.4 H* Potassium Anion Gap POC BUN 45 H BUN 50 H Creatinine 2.2 H POC Creatinine 2.5 H Glucose Calcium 8.1 L POC WB Ioniz Calcium 1.07 L Total Protein 5.1 L Albumin 3.1 L Globulin 2.0 L 08/22/17 08:50 WBC RBC 2.22 L Hgb 7.1 L Hct 21.1 L POC Hct MCH RDW 17.2 H Gran % Lymph % (Auto) Gran # Lymph # (Auto) PT INR Potassium Anion Gap POC BUN BUN Creatinine POC Creatinine Glucose Calcium POC WB Ioniz Calcium Total Protein Albumin Globulin Meds: Medications Acetaminophen (Tylenol) 650 mg PO Q4-6HP PRN PRN Reason: PAIN/FEVER > 101 Last Admin: 08/24/17 07:06 Dose: 650 mg Albuterol/Ipratropium (Duoneb) 3 ml NEB Q4HRT [facility] Last Admin: 08/24/17 07:00 Dose: 3 ml Allopurinol (Zyloprim) 100 mg PO DAILY [facility] Last Admin: 08/23/17 14:46 Dose: 100 mg Carbidopa/Levodopa (Sinemet Cr 25/100) 2 tab PO TID [facility] Last Admin: 08/23/17 20:32 Dose: 2 tab Ferrous Sulfate (Ferrous Sulfate) 325 mg PO [facility] Last Admin: 08/23/17 14:46 Dose: 325 mg Furosemide (Lasix) 80 mg PO DAILY [facility] Last Admin: 08/23/17 14:45 Dose: 80 mg Hydroxychloroquine Sulfate (Plaquenil) 200 mg PO BID [facility] Last Admin: 08/23/17 20:32 Dose: 200 mg Magnesium Oxide (Magnesium Oxide) 400 mg PO DAILY [facility] Last Admin: 08/23/17 14:47 Dose: 400 mg Metoprolol Tartrate (Lopressor) 75 mg PO DAILY [facility] Last Admin: 08/23/17 14:52 Dose: 75 mg Metoprolol Tartrate (Lopressor) 50 mg PO [facility] Last Admin: 08/23/17 20:33 Dose: 50 mg Montelukast Sodium (Singular) 10 mg PO DAILY [facility] Last Admin: 08/23/17 14:47 Dose: 10 mg Pantoprazole [facility] ([facility]ix) [facility] Last Admin: 08/24/17 07:06 Dose: 40 mg Ubidecarenone [Coq- (10] 100 Mg Cap) 1 dose PO DAILY [facility] Last Admin: 08/23/17 08:49 Dose: Not Given Potassium Chloride (Klor-Con) 20 meq PO [facility] Last Admin: 08/23/17 17:46 Dose: 20 meq Prednisone (Prednisone) 20 mg PO [facility] Se[facility]amer [facility] ([facility]a) [facility] Last Admin: 08/23/17 17:41 Dose: Not Given Simvastatin (Zocor) 10 mg PO [facility] Last Admin: 08/23/17 20:32 Dose: 10 mg Sodium Chloride (Saline Flush) 10 ml IV Q8 [facility] Last Admin: 08/24/17 05:38 Dose: Not Given Tiotropium [place] (Spiriva) 18 mcg INH DAILYP PRN PRN Reason: Wheezing Medical - PN: A/P - Time Spent With Patient Total time spent is greater than 50% in coordination of care (as documented) at patient's floor/unit and/or counseling patient: - Narrative A/P Narrative: Acute gastrointestinal bleed complicating coumadin toxicity, ESRD, recent pneumonia?, RA and MVR with planned valvuloplasty - Transfer to Med/Surg status - Stop antibiotics - PO steroids - Trend labs - Home post HD 08/26/17? Medical - PN: Qual - Stroke Symptom Onset Unknown: No - VTE Deep Vein Thrombosis/Pulmonary Embolism Present on Admission: No
[2017-08-24] MEDS: SEVELAMER 800 MG TABLET PO SCH ×3 (09:41→17:35)
[2017-08-24] MEDS: FERROUS SULFATE 325 MG TABLET PO SCH (10:02)
[2017-08-24] MEDS: MAGNESIUM OXIDE 400 MG TABLET PO SCH (10:02)
[2017-08-24] MEDS: POTASSIUM CHLORIDE 20 MEQ PACKET PO SCH ×3 (10:03→17:34)
[2017-08-24] MEDS: METOPROLOL TARTRATE 50 MG TABLET PO SCH ×2 (10:03→21:00)
[2017-08-24] MEDS: ALLOPURINOL 100 MG TABLET PO SCH (10:03)
[2017-08-24] MEDS: MONTELUKAST 10 MG TABLET PO SCH (10:03)
[2017-08-24] MEDS: UBIDECARENONE 100 MG PO SCH (10:04)
[2017-08-24] MEDS: FUROSEMIDE 80 MG TABLET PO SCH (10:08)
[2017-08-24] MEDS: HYDROXYCHLOROQUINE 200 MG TABLET PO SCH ×2 (10:08→21:00)
[2017-08-24] MEDS: CARBIDOPA/LEVODOPA CR 25/100 TABLET PO SCH ×3 (10:08→21:00)
[2017-08-24] MEDS ORDERED: TIOTROPIUM BROMIDE 18 MCG INHALANT INH PRN (10:11)
--- NOTE | 2017-08-24 12:30 | Nephrology Progress Note ---
Subjective Patient information: Note initiated : 08/24/17 at 12:28 pm Kathy Carvalho is an 88-zhvny-acl female with end stage renal disease on chronic hemodialysis (through tunneled hemodialysis catheter, at [facility], on MWF, followed by Dr Ureña), chronic anemia due to chronic kidney disease, secondary hyperparathyroidism, coronary artery disease, chronic atrial fibrillation on Coumadin anticoagulation (Echo on 06/07/16: LVEF 60%, no segmental wall motion abnormalities), history of ischemic colitis, hypertension, hyperlipidemia, hypothyroidism, history of CVA with residual right hemiparesis, Parkinson disease, admitted on 08/22/17. Chief Complaint: Weakness. Principal diagnosis: End Stage Renal Disease Interval history: No symptom or sign of active bleeding. Pertinent ROS: Brown colored diarrhea. Weakness. No edema. Objective - Vital Signs Vital signs: Vital Signs Temp Pulse Pulse Resp BP Pulse Ox 08/24/17 11:35 98.1 F 90 18 132/65 96 08/24/17 11:14 132/65 08/24/17 08:00 101 H 18 114/66 96 08/24/17 07:24 97.3 F 20 121/63 94 08/24/17 07:00 98.1 F 88 13 141/63 100 08/24/17 06:44 20 121/63 97 08/24/17 06:01 15 134/72 100 08/24/17 05:42 80 16 100 08/24/17 05:01 79 15 130/61 100 08/24/17 04:29 79 15 97 08/24/17 04:01 98.1 F 80 15 124/54 97 08/24/17 03:40 69 11 L 99 08/24/17 03:01 81 13 103/84 98 08/24/17 02:17 14 90 08/24/17 02:02 73 13 122/44 99 08/24/17 01:01 64 11 L 118/51 98 08/24/17 00:02 78 13 109/52 94 08/24/17 00:01 98.3 F 79 13 109/52 94 08/23/17 23:47 87 17 08/23/17 23:33 80 13 100 08/23/17 23:02 82 16 126/62 98 08/23/17 22:07 77 12 95 08/23/17 22:02 72 12 124/50 95 08/23/17 21:02 88 14 130/65 97 08/23/17 21:01 87 16 98 08/23/17 20:47 98.0 F 79 18 130/56 98 08/23/17 19:17 78 100 08/23/17 19:09 79 17 120/49 97 08/23/17 17:58 85 19 99 08/23/17 17:01 22 104/66 95 08/23/17 16:01 98.0 F 18 133/57 98 08/23/17 15:36 98.7 F 14 129/51 97 08/23/17 15:28 96 H 18 08/23/17 15:01 20 129/51 100 08/23/17 14:11 15 115/54 95 08/23/17 14:02 18 92 08/23/17 14:00 106 H 18 92 08/23/17 13:29 97.3 F 99 H 138/65 08/23/17 13:13 18 138/65 08/23/17 13:02 16 135/59 08/23/17 12:40 97.6 F 94 H 122/98 08/23/17 12:38 19 122/98 Intake and Output 08/23/17 08/24/17 08/24/17 21:59 05:59 13:59 Intake Total 570 / 570 100 / 100 120 / 120 Output Total 350 / 350 400 / 400 Balance 570 / 570 -250 / -250 -280 / -280 Intake: IV 50 / 50 Oral 520 / 520 120 / 120 GI Tube Flush 100 / 100 Output: Void Amount 200 / 200 # of times incontinent of urine 0 / 0 Urine/Stool Mix 350 / 350 Stool 200 / 200 Other: Meal Dinner Breakfast Percent of Meal Consumed 50% 25% Feeding Ability Assist with Tray Set Up Assist with Tray Set Up Stool Size Small Smear Moderate Stool Color Dark Red Blood Brown Brown Stool Consistency Liquid Liquid # Voids 1 1 # Bowel Movements 1 1 # of times incontinent of 0 Bowels Weight 162 lb 6.4 oz 159 lb 6.4 oz Intake & Output: Intake & Output 08/23/17 08/24/17 08/24/17 21:59 05:59 13:59 Intake Total 570 / 570 100 / 100 120 / 120 Output Total 350 / 350 400 / 400 Balance 570 / 570 -250 / -250 -280 / -280 Weight 162 lb 6.4 oz 159 lb 6.4 oz Intake: IV 50 / 50 Oral 520 / 520 120 / 120 GI Tube Flush 100 / 100 Output: Void Amount 200 / 200 # of times incontinent of urine 0 / 0 Urine/Stool Mix 350 / 350 Stool 200 / 200 Other: Meal Dinner Breakfast Percent of Meal Consumed 50% 25% Feeding Ability Assist with Tray Set Up Assist with Tray Set Up Stool Size Small Smear Moderate Stool Color Dark Red Blood Brown Brown Stool Consistency Liquid Liquid # Voids 1 1 # Bowel Movements 1 1 # of times incontinent of 0 Bowels - General Appearance General appearance: appears started age, frail EENT: mucous membranes moist Neck: supple Respiratory: clear Cardiology: no edema Gastrointestinal: no tenderness Integumentary: ecchymotic Neurologic: alert and oriented x3 Musculoskeletal: no erythema Psychiatric: mood/affect appropriate, cooperative - Lab 08/24/17 04:00 08/24/17 04:00 Most recent lab results Calcium 8.5 mg/dl (8.6-10.4) L 08/24/17 04:00 Phosphorus 3.4 mg/dL (2.7-4.5) 08/24/17 04:00 Magnesium 1.8 mg/dL (1.6-2.5) 08/24/17 04:00 Assessment and Plan (1) ESRD (end stage renal disease) on dialysis Plan: Hemodialysis today and MW. Status: Chronic Priority: Medium (2) Anemia due to blood loss, acute 2 units PRBC to be given during hemodialysis on 08/23/17. Status: Acute Priority: High (3) Anemia due to end stage renal disease Status: Chronic Priority: Medium
[2017-08-24] MEDS ORDERED: ONDANSETRON (PP) 4 MG TABLET SL PRN (17:30)
[2017-08-24] MEDS ORDERED: ONDANSETRON ODT 4 MG TABLET ONE (17:44)
[2017-08-24] MEDS ORDERED: ONDANSETRON ODT 4 MG TABLET SL PRN (18:45)
[2017-08-24] MEDS: SIMVASTATIN 10 MG TABLET PO SCH (21:00)
[2017-08-25] MEDS: 0.9 % SODIUM CHLORIDE 10 ML SYRINGE IV SCH ×5 (06:00→22:00)
[2017-08-25] MEDS ORDERED: predniSONE 20 MG TABLET PO SCH (08:00)
[2017-08-25] MEDS: MONTELUKAST 10 MG TABLET PO SCH (11:17)
[2017-08-25] MEDS: FUROSEMIDE 80 MG TABLET PO SCH (11:17)
[2017-08-25] MEDS: METOPROLOL TARTRATE 50 MG TABLET PO SCH ×2 (11:17→20:07)
[2017-08-25] MEDS: predniSONE 20 MG TABLET PO SCH (11:18)
[2017-08-25] MEDS: CARBIDOPA/LEVODOPA CR 25/100 TABLET PO SCH ×3 (11:18→20:07)
[2017-08-25] MEDS: PANTOPRAZOLE 40 MG TABLET PO SCH (11:18)
[2017-08-25] MEDS: HYDROXYCHLOROQUINE 200 MG TABLET PO SCH ×2 (11:18→20:07)
[2017-08-25] MEDS: UBIDECARENONE 100 MG PO SCH (11:19)
[2017-08-25] MEDS: SEVELAMER 800 MG TABLET PO SCH ×3 (11:19→16:34)
[2017-08-25] MEDS: MAGNESIUM OXIDE 400 MG TABLET PO SCH (11:19)
[2017-08-25] MEDS: ALLOPURINOL 100 MG TABLET PO SCH (11:19)
[2017-08-25] MEDS: FERROUS SULFATE 325 MG TABLET PO SCH (11:19)
[2017-08-25] MEDS: POTASSIUM CHLORIDE 20 MEQ PACKET PO SCH ×2 (11:20→13:31)
--- NOTE | 2017-08-25 13:41 | Internal Med Progress Note ---
Medical - PN: Subj Patient information: Note initiated : 08/25/17 at 11:30 am Service Date, if different from initiated Date: [] Patient: Kathy Carvalho 81 y/o F admitted on 08/22/17 for Rectal Bleed. Chief Complaint: Patient is frustrated by her diet texture and flavor. Patient denies fever or chills and has no respiratory complaints. - Constitutional Vitals: Vital Signs Temp Pulse Resp BP Pulse Ox 98.4 F 85 16 119/58 94 08/24/17 18:50 08/24/17 18:37 08/24/17 18:50 08/24/17 18:50 08/24/17 18:50 Period Temp Pulse Resp BP Sys/Nova Pulse Ox Last 24 Hr 98.1 F-98.4 F 74-90 16-18 119-132/58-65 93-96 Intake and Output 08/24/17 08/25/17 08/25/17 21:59 05:59 13:59 Output Total 50 / 50 Balance -50 / -50 Weight 160 lb 14.4 oz Intake & Output: Intake & Output 08/24/17 08/25/17 08/25/17 21:59 05:59 13:59 Output Total 50 / 50 Balance -50 / -50 Weight 160 lb 14.4 oz Output: Void Amount 50 / 50 General appearance: average body habitus, no acute distress - Respiratory Respiratory exam: Present: decreased breath sounds - Cardiovascular Cardiovascular exam: Present: irregular rhythm - GI/Abdominal GI/Abdominal exam: Present: normal bowel sounds - Neurological Exam Neurological exam: Present: alert, oriented X3 - Skin Skin exam: Present: dry Medical - PN: Obj Da - Labs CBC & Chem 7: 08/24/17 04:00 08/24/17 04:00 Labs: Abnormal Lab Results 08/24/17 08/24/17 08/24/17 04:00 04:00 04:00 WBC 13.3 H RBC 3.52 L Hgb 11.3 L Hct 33.0 L MCH RDW 15.7 H Gran % 87.6 H Lymph % (Auto) 8.8 L Gran # 11.7 H Lymph # (Auto) 1.2 L PT 22.9 H INR 2.0 H Potassium Chloride 93 L Anion Gap BUN 28 H Creatinine 2.1 H Glucose 113 H Calcium 8.5 L Lactate Dehydrogenase 280 H Total Protein 08/23/17 08/23/17 08/23/17 07:00 07:00 07:00 WBC RBC 2.38 L Hgb 8.1 L Hct 23.0 L MCH 34.1 H RDW 16.1 H Gran % 88.1 H Lymph % (Auto) 10.5 L Gran # Lymph # (Auto) 0.8 L PT 19.8 H INR 1.7 H Potassium 3.1 L Chloride Anion Gap 20.0 H BUN 62 H Creatinine 2.8 H Glucose 141 H Calcium 8.2 L Lactate Dehydrogenase Total Protein 5.5 L 08/22/17 08/22/17 18:58 17:33 WBC RBC 2.74 L Hgb 8.7 L Hct 25.6 L MCH RDW 16.0 H Gran % 88.2 H Lymph % (Auto) 10.3 L Gran # Lymph # (Auto) 0.7 L PT 22.3 H INR 1.9 H Potassium Chloride Anion Gap BUN Creatinine Glucose Calcium Lactate Dehydrogenase Total Protein Meds: Medications Acetaminophen (Tylenol) 650 mg PO Q4-6HP PRN PRN Reason: PAIN/FEVER > 101 Last Admin: 08/24/17 16:08 Dose: 650 mg Allopurinol (Zyloprim) 100 mg PO DAILY [facility] Last Admin: 08/25/17 11:19 Dose: 100 mg Carbidopa/Levodopa (Sinemet Cr 25/100) 2 tab PO TID [facility] Last Admin: 08/25/17 11:18 Dose: 2 tab Ferrous Sulfate (Ferrous Sulfate) 325 mg PO [facility] Last Admin: 08/25/17 11:19 Dose: 325 mg Furosemide (Lasix) 80 mg PO DAILY [facility] Last Admin: 08/25/17 11:17 Dose: 80 mg Hydroxychloroquine Sulfate (Plaquenil) 200 mg PO BID [facility] Last Admin: 08/25/17 11:18 Dose: 200 mg Magnesium Oxide (Magnesium Oxide) 400 mg PO DAILY [facility] Last Admin: 08/25/17 11:19 Dose: 400 mg Metoprolol Tartrate (Lopressor) 75 mg PO DAILY [facility] Last Admin: 08/25/17 11:17 Dose: 75 mg Metoprolol Tartrate (Lopressor) 50 mg PO [facility] Montelukast Sodium (Singular) 10 mg PO DAILY [facility] Last Admin: 08/25/17 11:17 Dose: 10 mg Ondansetron HCl (Zofran Odt) 4 mg SL Q4HP PRN PRN Reason: Nausea Pantoprazole Sodium (Protonix) 40 mg PO QAMAC [facility] Last Admin: 08/25/17 11:18 Dose: 40 mg Ubidecarenone [Coq- (10] 100 Mg Cap) 1 dose PO DAILY [facility] Last Admin: 08/25/17 11:19 Dose: Not Given Potassium Chloride (Klor-Con) 20 meq PO TIDCC [facility] Last Admin: 08/25/17 11:20 Dose: Not Given Prednisone (Prednisone) 20 mg PO QAC [facility] Last Admin: 08/25/17 11:18 Dose: 20 mg Sevelamer Carbonate (Renvela) 800 mg PO TIDCC [facility] Last Admin: 08/25/17 11:22 Dose: Not Given Simvastatin (Zocor) 10 mg PO [facility] Sodium Chloride (Saline Flush) 10 ml IV Q8 [facility] Last Admin: 08/25/17 11:22 Dose: Not Given Tiotropium [place] (Spiriva) 18 mcg INH DAILYP PRN PRN Reason: Wheezing Medical - PN: A/P - Time Spent With Patient Total time spent is greater than 50% in coordination of care (as documented) at patient's floor/unit and/or counseling patient: - Narrative A/P Narrative: Acute blood loss anemia secondary to coumadin toxicity (recurrent) s/p transfusion therapy and negative EGD. Patient has increasing wbc count but negative CXR. - Restart oral antibiotics (diagnosed with pneumonia prehospital) - Trend labs - Hold coumadin until antibiotics are complete - Discharge to home post HD 08/26/17? - Outpt follow up to restart coumadin and with [facility] for possible [facility] Medical - PN: Qual - Stroke Symptom Onset Unknown: No - VTE Deep Vein Thrombosis/Pulmonary Embolism Present on Admission: No
[2017-08-25] MEDS: ACETAMINOPHEN 325 MG TABLET PO PRN (19:13)
[2017-08-25] MEDS: SIMVASTATIN 10 MG TABLET PO SCH (20:07)
[2017-08-26] MEDS: ACETAMINOPHEN 325 MG TABLET PO PRN ×2 (02:07→10:15)
[2017-08-26] MEDS: 0.9 % SODIUM CHLORIDE 10 ML SYRINGE IV SCH ×2 (06:00→14:43)
[2017-08-26 06:06] LABS: Basophils # (Auto) 0 K/mcL (0.0-0.3); Basophils % (Auto) 0.1 % (0.0-2.0); Eosinophils # (Auto) 0 K/mcL (0.0-0.7); Eosinophils % (Auto) 0 % (0.0-7.0); Granulocytes % (Auto) 78.3 % (38.0-78.0); Lymphocytes # (Auto) 2.6 K/mcL (1.5-4.8); Lymphocytes % (Auto) 15.8 % (15.5-49.0); Mean Cell Volume 96.5 fL (80.0-100.0); Mean Corpuscular Hemoglobin 32.8 pg (26.0-34.0); Monocytes # (Auto) 0.9 K/mcL (0.1-0.9); Monocytes % (Auto) 5.8 % (1.0-12.0); Platelet Count 229 K/mcL (140-440); Red Cell Distribution Width 15.5 % (11.5-14.5)
[2017-08-26 06:15] LABS: ALT/SGPT < 5 U/l (0-40); Albumin 3.2 gm/dL (3.2-5.2); Albumin/Globulin Ratio 1.5 (1.0-2.3); Alkaline Phosphatase 91 U/L (39-117); Bilirubin,Direct < 0.2 mg/dL (0.0-0.3); Blood Urea Nitrogen 48 mg/dl (8-23); Gamma Glutamyl Transpeptidase 14 U/L (5-36); Uric Acid 4.7 mg/dL (2.5-8.0)
--- NOTE | 2017-08-26 08:21 | Nephrology Progress Note ---
Subjective Patient information: Note initiated : 08/26/17 at 8:19 am Service Date, if different from initiated Date: 08/25/17. Kathy Carvalho is an [id number] female with end stage renal disease on chronic hemodialysis (through tunneled hemodialysis catheter, at [facility], on MWF, followed by Dr Ureña), chronic anemia due to chronic kidney disease, secondary hyperparathyroidism, coronary artery disease, chronic atrial fibrillation on Coumadin anticoagulation (Echo on 06/07/16: LVEF 60%, no segmental wall motion abnormalities), history of ischemic colitis, hypertension, hyperlipidemia, hypothyroidism, history of CVA with residual right hemiparesis, Parkinson disease, admitted on 08/22/17. Chief Complaint: Weakness. Principal diagnosis: End Stage Renal Disease Interval history: No active bleeding. Pertinent ROS: Weakness. No shortness of breath. Objective - Vital Signs Vital signs: Vital Signs Temp Resp BP Pulse Ox 08/26/17 04:00 98.8 F 16 119/60 93 08/26/17 00:00 97.6 F 16 126/57 96 08/25/17 19:30 92 08/25/17 18:41 97.5 F 16 123/68 93 08/25/17 15:44 97.1 F 16 116/97 96 08/25/17 12:00 97.2 F 16 133/66 98 Intake and Output 08/25/17 08/26/17 08/26/17 21:59 05:59 13:59 Intake Total 170 / 170 250 / 250 Output Total 250 / 250 525 / 525 450 / 450 Balance -80 / -80 -275 / -275 -450 / -450 Intake: Oral 170 / 170 250 / 250 Output: Void Amount 250 / 250 525 / 525 450 / 450 Other: Meal Dinner Percent of Meal Consumed 50% Feeding Ability Independent # Voids 1 Weight 161 lb 12.8 oz Intake & Output: Intake & Output 08/25/17 08/26/17 08/26/17 21:59 05:59 13:59 Intake Total 170 / 170 250 / 250 Output Total 250 / 250 525 / 525 450 / 450 Balance -80 / -80 -275 / -275 -450 / -450 Weight 161 lb 12.8 oz Intake: Oral 170 / 170 250 / 250 Output: Void Amount 250 / 250 525 / 525 450 / 450 Other: Meal Dinner Percent of Meal Consumed 50% Feeding Ability Independent # Voids 1 - General Appearance General appearance: appears started age, frail EENT: mucous membranes moist Neck: no JVD, supple Respiratory: clear Cardiology: no murmurs Gastrointestinal: no tenderness Integumentary: no rash, ecchymotic Neurologic: no focal deficit, alert and oriented x3 Musculoskeletal: no erythema Psychiatric: mood/affect appropriate, cooperative - Lab 08/26/17 03:53 08/26/17 03:53 Most recent lab results Calcium 8.2 mg/dl (8.6-10.4) L 08/26/17 03:53 Phosphorus 3.2 mg/dL (2.7-4.5) 08/26/17 03:53 Magnesium 2.0 mg/dL (1.6-2.5) 08/26/17 03:53 Assessment and Plan (1) ESRD (end stage renal disease) on dialysis Plan: Hemodialysis on [facility]. Status: Chronic Priority: Medium (2) Anemia due to blood loss, acute 2 units PRBC to be given during hemodialysis on 08/23/17. Status: Acute Priority: High (3) Anemia due to end stage renal disease Status: Chronic Priority: Medium
--- NOTE | 2017-08-26 08:24 | Nephrology Progress Note ---
Subjective Patient information: Note initiated : 08/26/17 at 8:22 am Kathy Carvalho is an [id number] female with end stage renal disease on chronic hemodialysis (through tunneled hemodialysis catheter, at [facility], on MWF, followed by Dr Ureña), chronic anemia due to chronic kidney disease, secondary hyperparathyroidism, coronary artery disease, chronic atrial fibrillation on Coumadin anticoagulation (Echo on 06/07/16: LVEF 60%, no segmental wall motion abnormalities), history of ischemic colitis, hypertension, hyperlipidemia, hypothyroidism, history of CVA with residual right hemiparesis, Parkinson disease, admitted on 08/22/17. Chief Complaint: Weakness. Principal diagnosis: End Stage Renal Disease Interval history: No active bleeding. Pertinent ROS: Weakness. Diarrhea. Objective - Vital Signs Vital signs: Vital Signs Temp Resp BP Pulse Ox 08/26/17 04:00 98.8 F 16 119/60 93 08/26/17 00:00 97.6 F 16 126/57 96 08/25/17 19:30 92 08/25/17 18:41 97.5 F 16 123/68 93 08/25/17 15:44 97.1 F 16 116/97 96 08/25/17 12:00 97.2 F 16 133/66 98 Intake and Output 08/25/17 08/26/17 08/26/17 21:59 05:59 13:59 Intake Total 170 / 170 250 / 250 Output Total 250 / 250 525 / 525 450 / 450 Balance -80 / -80 -275 / -275 -450 / -450 Intake: Oral 170 / 170 250 / 250 Output: Void Amount 250 / 250 525 / 525 450 / 450 Other: Meal Dinner Percent of Meal Consumed 50% Feeding Ability Independent # Voids 1 Weight 161 lb 12.8 oz Intake & Output: Intake & Output 08/25/17 08/26/17 08/26/17 21:59 05:59 13:59 Intake Total 170 / 170 250 / 250 Output Total 250 / 250 525 / 525 450 / 450 Balance -80 / -80 -275 / -275 -450 / -450 Weight 161 lb 12.8 oz Intake: Oral 170 / 170 250 / 250 Output: Void Amount 250 / 250 525 / 525 450 / 450 Other: Meal Dinner Percent of Meal Consumed 50% Feeding Ability Independent # Voids 1 - General Appearance General appearance: appears started age, frail EENT: mucous membranes moist Neck: supple Respiratory: clear Cardiology: no murmurs Gastrointestinal: normoactive bowel sounds Integumentary: warm and dry, ecchymotic Neurologic: no focal deficit, alert and oriented x3 Musculoskeletal: no erythema Psychiatric: mood/affect appropriate, cooperative - Lab 08/26/17 03:53 08/26/17 03:53 Most recent lab results Calcium 8.2 mg/dl (8.6-10.4) L 08/26/17 03:53 Phosphorus 3.2 mg/dL (2.7-4.5) 08/26/17 03:53 Magnesium 2.0 mg/dL (1.6-2.5) 08/26/17 03:53 Assessment and Plan (1) ESRD (end stage renal disease) on dialysis Plan: Hemodialysis today without IV Heparin and continue on MWF. The patient seen and evaluated during dialysis at 15:45. Status: Chronic Priority: Medium (2) Anemia due to blood loss, acute 2 units PRBC to be given during hemodialysis on 08/23/17. Stable. Status: Acute Priority: High (3) Anemia due to end stage renal disease Status: Chronic Priority: Medium
[2017-08-26] MEDS ORDERED: AZITHROMYCIN 250 MG TABLET PO SCH (09:00)
--- NOTE | 2017-08-26 09:29 | Discharge Summary ---
Medical - DS: Prov Patient information: Note initiated : 08/26/17 at 9:27 am Service Date, if different from initiated Date: [] Patient: Kathy Carvalho 81 y/o F admitted on 08/22/17 for Rectal Bleed. Chief Complaint: Patient is without complaints and is up ambulating and taking PO nutrition. Patient denies dyspnea, cough or dysuria. Patient does make a modest amount of urine. Patient anticipates discharge to home today post HD and wants to follow up with her PCP tomorrow. Date of admission: 08/22/17 11:22 Discharge date: 08/26/17 Primary care physician: Chilo Hassan Consults: 08/22/17 10:06 Consult to Physician [CONS] Stat Comment: Consulting Provider: Sury Ureña Reason For Exam: Physician to Consult 08/22/17 10:09 Consult to Physician [CONS] Stat Comment: Consulting Provider: Agnes Silverman Reason For Exam: Physician to Consult 08/22/17 19:18 Consult to Physician [CONS] Routine Comment: Consulting Provider: Naldo Warren Reason For Exam: Physician to Consult Medical - DS: Meds - Discharge Medications Active and Home Medications: Home Medications Adalimumab [Humira] 40 mg SQ MONTHLY 08/22/17 [History Confirmed 08/22/17 Last Taken Unknown] Albuterol Sulfate [Ventolin] 1 puff INH Q4HP PRN 08/22/17 [History Confirmed Last Taken Unknown] Allopurinol [Zyloprim] 100 mg PO DAILY 08/22/17 [History Confirmed 08/22/17 Last Taken Unknown] Aspirin [Jayme Chewable Aspirin] 81 mg PO DAILY 08/22/17 [History Confirmed Last Taken Unknown] Carbidopa/Levodopa Cr 50/200 [Sinemet Cr 50/200] 1 tab PO TID 08/22/17 [History Confirmed 08/22/17 Last Taken Unknown] Cranberry Fruit Extract [Cranberry Extract] 1 gm MC DAILY 08/22/17 [History Confirmed 08/22/17 Last Taken Unknown] Ferrous Sulfate 325 mg PO QAMCC 08/22/17 [History Confirmed 08/22/17 Last Taken Unknown] Fluticasone/Salmeterol [Advair Hfa 115-21 Mcg Inhaler] 0 gm IH PRN PRN 08/22/17 [History Confirmed 08/22/17 Last Taken Unknown] Furosemide [Lasix] 80 mg PO DAILY 08/22/17 [History Confirmed 08/22/17 Last Taken Unknown] Hydroxychloroquine [Plaquenil] 200 mg PO BID 08/22/17 [History Confirmed Last Taken Unknown] Magnesium 250 mg PO DAILY 08/22/17 [History Confirmed 08/22/17 Last Taken Unknown] Metoprolol Tartrate 75 mg PO AC 08/22/17 [History Confirmed 08/22/17 Last Taken Unknown] Metoprolol Tartrate [Lopressor] 50 mg PO HS 08/22/17 [History Confirmed Last Taken Unknown] Montelukast [Singular] 10 mg PO HS 08/22/17 [History Confirmed 08/22/17 Last Taken Unknown] Pantoprazole [Protonix] 40 mg PO QAMAC 08/22/17 [History Confirmed 08/22/17 Last Taken Unknown] Pravastatin [Pravachol] 20 mg PO HS 08/22/17 [History Confirmed 08/22/17 Last Taken Unknown] Sevelamer [Renvela] 800 mg PO TIDCC 08/22/17 [History Confirmed 08/22/17 Last Taken Unknown] Tiotropium [place] [Spiriva] 18 mcg INH PRN PRN 08/22/17 [History Confirmed Last Taken Unknown] Ubidecarenone [Coq-10] 100 mg PO DAILY 08/22/17 [History Confirmed 08/22/17 Last Taken Unknown] Warfarin [Coumadin] 0 mg PO DAILY 08/22/17 [History Confirmed 08/22/17 Last Taken Unknown] Medical - DS: Hosp Hospital course: Mr. Carvalho is a 81 year old F admitted with acute blood loss anemia secondary to coumadin toxicity. Patient required transfusion therapy. Patient had negative EGD. Patient's blood loss resolved with discontinuance of coumadin. Patient was treated with empiric antibiotics for prehospital diagnosed pneumonia. Patient had no pulmonary symptoms. Patient's cultures were negative and leukocytosis worsened. Patient received HD serially during her hospital stay , including on the day of discharge. Patient is being discharged to home with plans to follow up with her PCP the day post discharge. Patient will follow up with cardiology and cardiovascular surgery as scheduled. Patient is not on coumadin (and did not receive coumadin during her stay) at the point of discharge with a therapeutic INR of 2.9. Discharge diagnosis: Acute blood loss anemia - Time Spent with Patient Total time spent providing and/or coordinating discharge services: Medical - DS: Exam - Constitutional Vitals: Vital Signs Temp Pulse Resp BP Pulse Ox 08/26/17 08:00 98.1 F 72 17 121/72 97 08/26/17 04:00 98.8 F 16 119/60 93 08/26/17 00:00 97.6 F 16 126/57 96 08/25/17 19:30 92 08/25/17 18:41 97.5 F 16 123/68 93 08/25/17 15:44 97.1 F 16 116/97 96 08/25/17 12:00 97.2 F 16 133/66 98 Intake and Output 08/25/17 08/26/17 08/26/17 21:59 05:59 13:59 Intake Total 170 / 170 250 / 250 Output Total 250 / 250 525 / 525 450 / 450 Balance -80 / -80 -275 / -275 -450 / -450 Intake: Oral 170 / 170 250 / 250 Output: Void Amount 250 / 250 525 / 525 450 / 450 Other: Meal Dinner Percent of Meal Consumed 50% Feeding Ability Independent Stool Size Moderate Stool Color Brown Stool Consistency Loose # Voids 1 Weight 161 lb 12.8 oz General appearance: average body habitus, no acute distress - Respiratory Respiratory exam: Present: normal respiratory exam Additional comments: Right chest wall port is clean and dry - Cardiovascular Cardiovascular exam: Present: normal rate and rhythm - GI/Abdominal GI/Abdominal exam: Present: normal bowel sounds - Extremities Exam Extremities exam: Present: normal capillary refill - Neurological Exam Neurological exam: Present: alert, oriented X3 Medical - DS: Data Labs on day of discharge: Labs from last 24 hours 08/26/17 08/26/17 08/26/17 03:53 03:53 03:53 WBC 16.4 H RBC 3.40 L Hgb 11.1 L Hct 32.8 L MCV 96.5 MCH 32.8 MCHC 34.0 RDW 15.5 H Plt Count 229 MPV 8.7 Gran % 78.3 H Lymph % (Auto) 15.8 [place] % (Auto) 5.8 Eos % (Auto) 0 Baso % (Auto) 0.1 Gran # 12.8 H Lymph # (Auto) 2.6 [place] # (Auto) 0.9 Eos # (Auto) 0 Baso # (Auto) 0 PT 30.8 H INR 2.9 H Sodium 133 Potassium 4.9 Chloride 93 L Carbon Dioxide 27 Anion Gap 13.0 BUN 48 H Creatinine 3.2 H GFR Calculation 13 Glucose 81 Uric Acid 4.7 Calcium 8.2 L Phosphorus 3.2 Magnesium 2.0 Total Bilirubin 0.5 Direct Bilirubin < 0.2 GGT 14 AST < 5 ALT < 5 Alkaline Phosphatase 91 Lactate Dehydrogenase 214 Total Protein 5.4 L Albumin 3.2 Globulin 2.2 Albumin/Globulin Ratio 1.5 Triglycerides 109 08/25/17 08/25/17 08/25/17 04:00 04:00 04:00 WBC Pending RBC Pending Hgb Pending Hct Pending MCV Pending MCH Pending MCHC Pending RDW Pending Plt Count Pending MPV Pending Gran % Lymph % (Auto) [place] % (Auto) Eos % (Auto) Baso % (Auto) Gran # Lymph # (Auto) [place] # (Auto) Eos # (Auto) Baso # (Auto) PT Pending INR Pending Sodium Pending Potassium Pending Chloride Pending Carbon Dioxide Pending Anion Gap Pending BUN Pending Creatinine Pending GFR Calculation Pending Glucose Pending Uric Acid Pending Calcium Pending Phosphorus Pending Magnesium Pending Total Bilirubin Pending Direct Bilirubin Pending GGT Pending AST Pending ALT Pending Alkaline Phosphatase Pending Lactate Dehydrogenase Pending Total Protein Pending Albumin Pending Globulin Pending Albumin/Globulin Ratio Pending Triglycerides Pending Medical - DS: A/P - Patient/Caregiver Discharge Instructions Activity: increase activity as tolerated Diet: Low Sodium (2gm) - Follow up Plan Follow up with: Chilo Hassan MD [Primary Care Provider] - Disposition: Home, Self-Care Prognosis: Fair Rehab Potential: Undetermined I certify that the patient requires SNF services: No Overall status at discharge: patient is progressing back to baseline Medical - DS: Qual - VTE Deep Vein Thrombosis/Pulmonary Embolism Present on Admission: No
[2017-08-26] MEDS: ALLOPURINOL 100 MG TABLET PO SCH (10:13)
[2017-08-26] MEDS: MAGNESIUM OXIDE 400 MG TABLET PO SCH (10:14)
[2017-08-26] MEDS: PANTOPRAZOLE 40 MG TABLET PO SCH (10:14)
[2017-08-26] MEDS: SEVELAMER 800 MG TABLET PO SCH ×3 (10:14→18:33)
[2017-08-26] MEDS: predniSONE 20 MG TABLET PO SCH (10:14)
[2017-08-26] MEDS: FERROUS SULFATE 325 MG TABLET PO SCH (10:14)
[2017-08-26] MEDS: HYDROXYCHLOROQUINE 200 MG TABLET PO SCH (10:14)
[2017-08-26] MEDS: FUROSEMIDE 80 MG TABLET PO SCH (10:14)
[2017-08-26] MEDS: MONTELUKAST 10 MG TABLET PO SCH (10:15)
[2017-08-26] MEDS: METOPROLOL TARTRATE 50 MG TABLET PO SCH (10:15)
[2017-08-26] MEDS: CARBIDOPA/LEVODOPA CR 25/100 TABLET PO SCH ×2 (10:15→14:43)
[2017-08-26] MEDS: UBIDECARENONE 100 MG PO SCH (10:22)
[2017-08-26 13:45] LABS: Appearance,Urine CLEAR; Bacteria,Urine 0 /hpf (0); Bilirubin,Urine NEG (NEG); Color,Urine STRAW; Glucose,Urine (UA) NEGATIVE (NEG); Leukocyte Esterase,Urine NEG /uL (NEG); Mucus,Urine FEW /hpf (0); Protein,Urine NEG (NEG); Specific Gravity,Urine 1.009 (1.000-1.035); Urine Blood NEG mg/dL (<0.03); Urine RBC 0 /hpf (0-1); Urine Squamous Epithelial Cell 2 /hpf (0-4); Urine WBC 1 /hpf (0-4); Urobilinogen,Urine NEG (NEG)
[2017-08-27 14:58] LABS: ALT/SGPT < 5; Bilirubin,Direct < 0.2; Blood Urea Nitrogen 39; Gamma Glutamyl Transpeptidase 14; Uric Acid 3.9
[2017-08-27 14:59] LABS: Albumin 3.3; Albumin/Globulin Ratio 1.5; Alkaline Phosphatase 90 U/L
[2017-08-27 15:05] LABS: Basophils % (Auto) 0.1; Eosinophils # (Auto) 0; Eosinophils % (Auto) 0; Granulocytes % (Auto) 82.4; Lymphocytes % (Auto) 12.9; Mean Cell Volume 94.6; Mean Corpuscular HGB Conc 34.4; Mean Corpuscular Hemoglobin 32.6; Monocytes # (Auto) 0.7; Monocytes % (Auto) 4.6; Platelet Count 215; Red Cell Distribution Width 15.7
[2017-08-27 15:06] LABS: Basophils # (Auto) 0
== END 2017-08-26 19:58 | disposition home or self-care (01) | DRG 813 ==
LOC: ED 08:12 → ICU 11:22 → MEDSUR 08-26 08:26
PROVIDERS: ADMIT Internal Medicine; ATTEND Internal Medicine

== ENCOUNTER 2017-08-28 09:09 | Inpatient (IN) ==
[2017-08-28] MEDS ORDERED: BISACODYL 10 MG SUPP.RECT PR PRN (12:41)
--- NOTE | 2017-08-28 15:59 | Internal Med History&Physical ---
Medical - H&P: [facility] Patient information: Note initiated : 08/28/17 at 3:47 pm Service Date, if different from initiated Date: [] Patient: Kathy Carvalho a 81 y/o F admitted on 08/28/17 for Weakness. Chief Complaint: [] Chief complaint: weakness, swing bed admission History of present illness: Ms. Carvalho is a 81 year old F with h/o afib on coumadin, h/o ischemic colitis in 05/26, was admitted on 08/22 for rectal bleed. She takes Coumadin for atrial fibrillation. Patient was discharged 08/26 after she was managed with blood transfusion, upper endoscopy along with reversal of Coumadin with FFP and vitamin K. Post discharge patient was started on Coumadin by primary care physician in light of recent ischemic colitis secondary to embolism. Goal is to maintain patient in narrow therapeutic zone to prevent future incidence of bleeding while she will remain high risk clot. Patient since discharge to home has been feeling weak and concerns were raised by patient, her family and her home economist consumer service about severe deconditioning and scheduled Mitral valve repair on the at [place]. Patient would likely benefit from aggressive rehabilitation in preparation for valve repair along with close monitoring of INR due to recent GI bleed and anemia. After discussion with family and patient was felt by home economist consumer service that the patient would benefit from swing bed admission. Hospitalist service was subsequently requested for admission to facilitate close INR monitoring along with rehab. The time of evaluation patient is accompanied with her daughter. She is able to answer most of the questions. She endorses to generalized weakness along with degenerative knee and elbow pain. She denies fever or palpitation, headache, lightheadedness or dizziness. She denies loss of appetite or diarrhea. She undergoes hemodialysis 3 times a week. She follows up with primary care physician Chilo Hassan at [facility] Review of systems 10 point review of system was performed and is negative except for what is discussed above Medical - H&P: [facility] Medical history: Anemia (Acute) Multiple skin nodules (Chronic) Elevated C-reactive protein (CRP) (Chronic) Encounter for long-term (current) use of high-risk medication (Chronic) Rheumatoid arthritis (Chronic) Fibromyalgia (Chronic) Thrombocytopenia (Acute) Long-term current use of steroids (Chronic) Long-term use of immunosuppressant medication (Chronic) Neck Pain (Chronic) Hyperuricemia (Chronic) Inflammatory arthritis (Chronic) Hyperparathyroidism due to renal insufficiency (Chronic) Chronic kidney disease (CKD), stage V (Chronic) Gout (Chronic) Overactive bladder (Chronic) Recurrent urinary tract infection (Chronic) Hypomagnesemia (Acute) Anemia in chronic renal disease (Chronic) Hypertensive renal disease (Chronic) Proteinuria (Chronic) Secondary hyperparathyroidism of renal origin (Chronic) Calcium nephrolithiasis (Chronic) Metabolic acidosis (Chronic) Chronic kidney disease, stage IV (severe) (Chronic) Vitamin B 12 deficiency (Acute) History of urinary tract infection (Acute) Urinary incontinence (Acute) Sleep apnea (Acute) Shortness of breath (Acute) Short bowel syndrome (Acute) Renal insufficiency (Acute) Reactive airway disease (Acute) Parkinson's disease (Acute) Neuropathy (Acute) Mitral regurgitation (Acute) Chronic interstitial lung disease (Acute) Hypothyroidism (Acute) GERD (gastroesophageal reflux disease) (Acute) Gastrointestinal bleed (Chronic) Dysphonia (Acute) Degenerative joint disease (Chronic) Coronary artery disease (Acute) Chronic kidney disease, stage III (moderate) (Acute) Cardiomegaly (Acute) Atrial fibrillation (Acute) Anemia (Chronic) Acute decompensated heart failure (Acute) Surgical history: Status post wrist surgery (Acute) History of shoulder surgery (Acute) History of knee surgery (Acute) History of intestinal bypass (Acute) History of hysterectomy (Acute) History of cholecystectomy (Acute) Pertinent family history: Family History (Last Reviewed 05/15/17 @ 15:32 by Cheryl Dupree RN) Father Congestive heart failure Sister Family history of malignant neoplasm of breast Mother Cerebrovascular accident Social history: No history smoking alcoholism Former smoker Retired Medical - H&P: Meds Home Medications Medication Instructions Recorded Confirmed Type Adalimumab [Humira] 40 mg SQ MONTHLY 08/22/17 08/28/17 History Allopurinol [Zyloprim] 100 mg PO DAILY 08/22/17 08/28/17 History Aspirin [Jayme Chewable Aspirin] 81 mg PO DAILY 08/22/17 08/28/17 History Cranberry Fruit Extract [Cranberry 1 gm MC DAILY 08/22/17 08/28/17 History Extract] Ferrous Sulfate 325 mg PO QAMCC 08/22/17 08/28/17 History Furosemide [Lasix] 80 mg PO DAILY 08/22/17 08/28/17 History Hydroxychloroquine [Plaquenil] 200 mg PO BID 08/22/17 08/28/17 History Metoprolol Tartrate 75 mg PO DAILY 08/22/17 08/28/17 History Metoprolol Tartrate [Lopressor] 50 mg PO HS 08/22/17 08/28/17 History Montelukast [Singular] 10 mg PO HS 08/22/17 08/28/17 History Pantoprazole [Protonix] 40 mg PO QAMAC 08/22/17 08/28/17 History Ubidecarenone [Coq-10] 100 mg PO DAILY 08/22/17 08/28/17 History Acetaminophen [Tylenol] 650 mg PO Q4-6HP PRN tablet 08/26/17 08/28/17 Rx Carbidopa/Levodopa Cr 25/100 2 tab PO TID tab.sr.12h 08/26/17 08/28/17 Rx [Sinemet Cr 25/100] Folic Acid/Vit Bcomp,C [Dialyvite 1 tab PO DAILY 08/28/17 08/28/17 History Tablet] Simvastatin [Zocor] 10 mg PO HS 08/28/17 08/28/17 History Warfarin [Coumadin] 5 mg PO DAILY 08/28/17 08/28/17 History Allergies Allergy/AdvReac Type Severity Reaction Status Date / Time Penicillins Allergy Mild Hives Verified 08/22/17 08:17 dofetilide [From Tikosyn] Allergy Unknown Unknown Verified 08/22/17 08:17 doxycycline Allergy Unknown Unknown Verified 08/22/17 08:17 adhesive tape AdvReac Mild Rash Verified 08/22/17 08:17 Erythromycin Base AdvReac Mild Itching Verified 08/22/17 08:17 Medical - H&P: Exam - Constitutional Vitals: Temp Pulse BP Pulse Ox 97.4 F 92 H 110/70 98 08/28/17 12:49 08/28/17 12:49 08/28/17 12:49 08/28/17 12:49 General appearance: average body habitus, no acute distress Exam: Alert oriented No anxiety Pupils symmetric Oral cavity dry no ear discharge Head normocephalic Neck no lymphadenopathy S1 and S2 irregular ESM grade 1 Diminished breath sounds bases Abdomen soft Lower extremity brawny induration no lymphedema Degenerative joint change Skin no suspicious lesion Psych alert cooperative Neuro nonfocal Medical - H&P: Reslt - Labs CBC & Chem 7: 08/29/17 04:12 Medical - H&P: A/P - Narrative A/P Narrative: * Recent GI bleed with blood loss anemia status post transfusion during hemodialysis. Continue monitoring hemoglobin * Anticoagulation on Coumadin -continue daily dosing based on INR * Deconditioning after recent hospitalization-continue aggressive PT OT * Severe MR-due for catheter valve repair September 03 at [facility]. * ESRD on HD management per nephrology * History of atrial fibrillation currently rate controlled * History of ischemic colitis-on Coumadin. * History of Parkinson's disease continue levodopa carbidopa * Hypertension on metoprolol * History of gout on allopurinol * Hyperlipidemia statin * Inflammatory arthritis on prednisone/hydroxychloroquine * Full code Plan * Swing bed admission for aggressive rehabilitation * Daily INR/Coumadin dosing * Nephrology consult for hemodialysis * Pre-existing medical condition management as above
[2017-08-28] MEDS: SEVELAMER 800 MG TABLET PO SCH (16:15)
[2017-08-28] MEDS: ACETAMINOPHEN 325 MG TABLET PO PRN (16:16)
[2017-08-28] MEDS: PANTOPRAZOLE 40 MG TABLET PO SCH (16:18)
[2017-08-28] MEDS: CARBIDOPA/LEVODOPA CR 25/100 TABLET PO SCH ×2 (16:18→21:57)
[2017-08-28] MEDS: FUROSEMIDE 80 MG TABLET PO SCH (16:18)
[2017-08-28] MEDS: ASPIRIN 81 MG TAB.CHEW PO SCH (16:18)
[2017-08-28] MEDS: 0.9 % SODIUM CHLORIDE 10 ML SYRINGE IV SCH ×2 (16:19→21:59)
[2017-08-28] MEDS: HYDROXYCHLOROQUINE 200 MG TABLET PO SCH ×2 (16:19→21:57)
[2017-08-28] MEDS: METOPROLOL TARTRATE 50 MG TABLET PO SCH ×2 (16:19→21:58)
[2017-08-28] MEDS: ALLOPURINOL 100 MG TABLET PO SCH (16:19)
[2017-08-28] MEDS: predniSONE 20 MG TABLET PO SCH (16:19)
[2017-08-28] MEDS ORDERED: WARFARIN 2 MG TABLET PO ONE (18:00)
[2017-08-28] MEDS ORDERED: HEPARIN 5,000 UNIT/ML VIAL SQ SCH (21:00)
[2017-08-28] MEDS: DOCUSATE SODIUM 100 MG CAPSULE PO SCH (21:57)
[2017-08-28] MEDS: MONTELUKAST 10 MG TABLET PO SCH (21:57)
[2017-08-28] MEDS: SIMVASTATIN 10 MG TABLET PO SCH (21:57)
[2017-08-29] MEDS: 0.9 % SODIUM CHLORIDE 10 ML SYRINGE IV SCH ×4 (05:18→21:27)
[2017-08-29 06:12] LABS: ALT/SGPT < 5 U/l (0-40); Albumin 2.7 gm/dL (3.2-5.2); Alkaline Phosphatase 115 U/L (39-117); Bilirubin,Direct < 0.2 mg/dL (0.0-0.3); Blood Urea Nitrogen 19 mg/dl (8-23); Gamma Glutamyl Transpeptidase 15 U/L (5-36); Uric Acid 2.6 mg/dL (2.5-8.0)
[2017-08-29] MEDS: SEVELAMER 800 MG TABLET PO SCH ×3 (08:26→17:02)
[2017-08-29] MEDS: METOPROLOL TARTRATE 50 MG TABLET PO SCH ×2 (08:26→21:25)
[2017-08-29] MEDS: PANTOPRAZOLE 40 MG TABLET PO SCH (08:26)
[2017-08-29] MEDS: DOCUSATE SODIUM 100 MG CAPSULE PO SCH (08:27)
[2017-08-29] MEDS: FOLIC ACID/VITAMIN B COMP W-C 1 TAB TABLET PO SCH (08:27)
[2017-08-29] MEDS: predniSONE 20 MG TABLET PO SCH (08:27)
[2017-08-29] MEDS: FUROSEMIDE 80 MG TABLET PO SCH (08:27)
[2017-08-29] MEDS: HYDROXYCHLOROQUINE 200 MG TABLET PO SCH ×2 (08:28→21:25)
[2017-08-29] MEDS: FERROUS SULFATE 325 MG TABLET PO SCH (08:28)
[2017-08-29] MEDS: ALLOPURINOL 100 MG TABLET PO SCH (08:28)
[2017-08-29] MEDS: ASPIRIN 81 MG TAB.CHEW PO SCH (08:28)
[2017-08-29] MEDS: CARBIDOPA/LEVODOPA CR 25/100 TABLET PO SCH ×3 (08:32→21:25)
[2017-08-29] MEDS: ACETAMINOPHEN 325 MG TABLET PO PRN ×3 (08:55→21:48)
[2017-08-29] MEDS ORDERED: ADALIMUMAB 40 MG SQ SCH (09:00)
[2017-08-29] MEDS: UBIDECARENONE 100 MG PO SCH (11:00)
--- NOTE | 2017-08-29 14:43 | Internal Med Progress Note ---
Medical - PN: Subj Patient information: Note initiated : 08/29/17 at 2:41 pm Service Date, if different from initiated Date: [] Patient: Kathy Carvalho a 81 y/o F admitted on 08/28/17 for Weakness/GI Bleed. Chief Complaint: [] Interval history: Ms. Carvalho is a 81 year old F with h/o afib on coumadin, h/o ischemic colitis in 05/26, was admitted on 08/22 for rectal bleed. She takes Coumadin for atrial fibrillation. Patient was discharged 08/26 after she was managed with blood transfusion, upper endoscopy along with reversal of Coumadin with FFP and vitamin K. Post discharge patient was started on Coumadin by primary care physician in light of recent ischemic colitis secondary to embolism. Goal is to maintain patient in narrow therapeutic zone to prevent future incidence of bleeding while she will remain high risk clot. Patient since discharge to home has been feeling weak and concerns were raised by patient, her family and her director digital strategy about severe deconditioning and scheduled Mitral valve repair on the at [place]. Patient would likely benefit from aggressive rehabilitation in preparation for valve repair along with close monitoring of INR due to recent GI bleed and anemia. After discussion with family and patient was felt by director digital strategy that the patient would benefit from swing bed admission. Hospitalist service was subsequently requested for admission to facilitate close INR monitoring along with rehab. The time of evaluation patient is accompanied with her daughter. She is able to answer most of the questions. She endorses to generalized weakness along with degenerative knee and elbow pain. She denies fever or palpitation, headache, lightheadedness or dizziness. She denies loss of appetite or diarrhea. She undergoes hemodialysis 3 times a week. She follows up with primary care physician Chilo Hassan at [facility] 08/29-no overnight events. Patient alert oriented and underwent physical therapy. INR 2.9. Creatinine 2.1. Continue Coumadin dosing/physical therapy. Discharge date anticipated 09/02 - Constitutional Vitals: Vital Signs Temp Pulse Resp BP Pulse Ox 97.3 F 74 16 121/70 95 08/29/17 07:36 08/29/17 07:36 08/29/17 07:36 08/29/17 07:36 08/29/17 07:36 Period Temp Pulse Resp BP Sys/Nova Pulse Ox Last 24 Hr 97.3 F-98.0 F 74-88 16-16 108-121/65-70 95-95 Intake and Output 08/29/17 08/29/17 08/29/17 05:59 13:59 21:59 Intake Total 150 / 150 480 / 480 Output Total 300 / 300 400 / 400 Balance -150 / -150 80 / 80 Intake & Output: Intake & Output 08/29/17 08/29/17 08/29/17 05:59 13:59 21:59 Intake Total 150 / 150 480 / 480 Output Total 300 / 300 400 / 400 Balance -150 / -150 80 / 80 Intake: Oral 150 / 150 480 / 480 Output: Void Amount 300 / 300 400 / 400 Other: Meal Lunch Percent of Meal Consumed 100% Feeding Ability Independent Stool Size Small Moderate Stool Color Brown Green Green Stool Consistency Loose Loose # Bowel Movements 1 General appearance: no acute distress Exam: Alert oriented nonlabored breathing Nondistended abdomen No anxiety Medical - PN: Obj Da - Labs CBC & Chem 7: 08/29/17 04:12 Labs: Abnormal Lab Results 08/29/17 08/29/17 08/28/17 04:12 04:12 16:22 PT 30.6 H 28.5 H INR 2.9 H 2.6 H Chloride 95 L Creatinine 2.1 H Calcium 8.1 L Total Protein 5.4 L Albumin 2.7 L Meds: Medications Acetaminophen (Tylenol) 650 mg PO Q4-6HP PRN PRN Reason: PAIN/FEVER > 101 Last Admin: 08/29/17 08:55 Dose: 650 mg Allopurinol (Zyloprim) 100 mg PO DAILY [facility] Last Admin: 08/29/17 08:28 Dose: 100 mg Aspirin (Aspirin) 81 mg PO DAILY [facility] Last Admin: 08/29/17 08:28 Dose: 81 mg Bisacodyl (Dulcolax) 10 mg [place] Q2-3DAYS PRN PRN Reason: Constipation Carbidopa/Levodopa (Sinemet Cr 25/100) 2 tab PO TID [facility] Last Admin: 08/29/17 08:32 Dose: 2 tab Docusate Sodium (Colace) 100 mg PO BID [facility] Last Admin: 08/29/17 08:27 Dose: 100 mg Ferrous Sulfate (Ferrous Sulfate) 325 mg PO [facility] Last Admin: 08/29/17 08:28 Dose: 325 mg Furosemide (Lasix) 80 mg PO DAILY [facility] Last Admin: 08/29/17 08:27 Dose: 80 mg Hydroxychloroquine Sulfate (Plaquenil) 200 mg PO BID [facility] Last Admin: 08/29/17 08:28 Dose: 200 mg Metoprolol Tartrate (Lopressor) 75 mg PO DAILY [facility] Last Admin: 08/29/17 08:26 Dose: 75 mg Metoprolol Tartrate (Lopressor) 50 mg PO [facility] Last Admin: 08/28/17 21:58 Dose: 50 mg Montelukast Sodium (Singular) 10 mg PO [facility] Last Admin: 08/28/17 21:57 Dose: 10 mg Multivit/Ca Carb/B Cmplx/FA/Prenat (Diatx) 1 tab PO DAILY [facility] Last Admin: 08/29/17 08:27 Dose: 1 tab Pantoprazole Sodium (Protonix) 40 mg PO [facility] Last Admin: 08/29/17 08:26 Dose: 40 mg Ubidecarenone [Coq- (10] 100 Mg Cap) 1 dose PO DAILY [facility] Last Admin: 08/29/17 11:00 Dose: Not Given [facility] Last Admin: 08/29/17 08:27 Dose: 20 mg Sevelamer Carbonate (Renvela) [facility] Last Admin: 08/29/17 13:00 Dose: Not Given Simvastatin (Zocor) 10 mg PO [facility] Last Admin: 08/28/17 21:57 Dose: 10 mg Sodium Chloride (Saline Flush) 10 ml IV Q8 [facility] Last Admin: 08/29/17 05:18 Dose: Not Given Warfarin Sodium (Coumadin Per Pharmacy) 1 order PO [facility] Medical - PN: A/P - Time Spent With Patient Total time spent is greater than 50% in coordination of care (as documented) at patient's floor/unit and/or counseling patient: 15 - 24 minutes - Narrative A/P Narrative: * Deconditioning after recent ongoing PT OT * Severe MR-due for catheter valve repair September 03 at [facility]. * ESRD on HD continue per nephrology * History of atrial fibrillation - rate controlled * History of ischemic colitis-on Coumadin. INR 2.9 * Recent GI bleed with blood loss anemia secondary to supratherapeutic INR. Stable * Anticoagulation on Coumadin -continue daily dosing based on INR * History of Parkinson's disease continue levodopa carbidopa * Hypertension on metoprolol * History of gout on allopurinol * Hyperlipidemia statin * Inflammatory arthritis on prednisone/hydroxychloroquine * Full code Plan * Continue physical therapy * Continue Daily INR/Coumadin dosing * HD per nephrology * Pre-existing medical condition management as above Medical - PN: Qual - VTE Deep Vein Thrombosis/Pulmonary Embolism Present on Admission: No
[2017-08-29] MEDS ORDERED: DOCUSATE SODIUM 100 MG CAPSULE PO PRN (17:44)
[2017-08-29] MEDS: SIMVASTATIN 10 MG TABLET PO SCH (21:26)
[2017-08-29] MEDS: MONTELUKAST 10 MG TABLET PO SCH (21:26)
[2017-08-30] MEDS: ACETAMINOPHEN 325 MG TABLET PO PRN ×2 (02:48→19:53)
[2017-08-30] MEDS: 0.9 % SODIUM CHLORIDE 10 ML SYRINGE IV SCH ×3 (05:39→20:25)
[2017-08-30] MEDS: SEVELAMER 800 MG TABLET PO SCH ×3 (06:22→16:28)
[2017-08-30 07:03] LABS: Basophils # (Auto) 0 K/mcL (0.0-0.3); Basophils % (Auto) 0.2 % (0.0-2.0); Eosinophils # (Auto) 0.1 K/mcL (0.0-0.7); Eosinophils % (Auto) 0.4 % (0.0-7.0); Granulocytes % (Auto) 82.1 % (38.0-78.0); Lymphocytes # (Auto) 2.9 K/mcL (1.5-4.8); Lymphocytes % (Auto) 14.4 % (15.5-49.0); Mean Cell Volume 90.6 fL (80.0-100.0); Mean Corpuscular HGB Conc 32.9 g/dL (31.0-36.0); Mean Corpuscular Hemoglobin 29.8 pg (26.0-34.0); Monocytes # (Auto) 0.6 K/mcL (0.1-0.9); Monocytes % (Auto) 2.9 % (1.0-12.0); Platelet Count 265 K/mcL (140-440); RBC 3.55 M/mcL (4.00-5.20); Red Cell Distribution Width 15.1 % (11.5-14.5)
[2017-08-30] MEDS: PANTOPRAZOLE 40 MG TABLET PO SCH (07:07)
--- NOTE | 2017-08-30 09:13 | Internal Med Progress Note ---
Medical - PN: Subj Patient information: Note initiated : 08/30/17 at 9:09 am Service Date, if different from initiated Date: [] Patient: Kathy Carvalho a 81 y/o F admitted on 08/28/17 for Weakness/GI Bleed. Chief Complaint: [] Interval history: Ms. Carvalho is a 81 year old F with h/o afib on coumadin, h/o ischemic colitis in 05/26, was admitted on 08/22 for rectal bleed. She takes Coumadin for atrial fibrillation. Patient was discharged 08/26 after she was managed with blood transfusion, upper endoscopy along with reversal of Coumadin with FFP and vitamin K. Post discharge patient was started on Coumadin by primary care physician in light of recent ischemic colitis secondary to embolism. Goal is to maintain patient in narrow therapeutic zone to prevent future incidence of bleeding while she will remain high risk clot. Patient since discharge to home has been feeling weak and concerns were raised by patient, her family and her supervisor slate splitting about severe deconditioning and scheduled Mitral valve repair on the at [place]. Patient would likely benefit from aggressive rehabilitation in preparation for valve repair along with close monitoring of INR due to recent GI bleed and anemia. After discussion with family and patient was felt by supervisor slate splitting that the patient would benefit from swing bed admission. Hospitalist service was subsequently requested for admission to facilitate close INR monitoring along with rehab. The time of evaluation patient is accompanied with her daughter. She is able to answer most of the questions. She endorses to generalized weakness along with degenerative knee and elbow pain. She denies fever or palpitation, headache, lightheadedness or dizziness. She denies loss of appetite or diarrhea. She undergoes hemodialysis 3 times a week. She follows up with primary care physician Chilo Hassan at [facility] 08/29-no overnight events. Patient alert oriented and underwent physical therapy. INR 2.9. Creatinine 2.1. Continue Coumadin dosing/physical therapy. Discharge date anticipated 09/02 08/30 - Pt doing well. No overnight events. Ongoing hemodialysis. Stable hemodynamics. No concerns expressed by patient or staff. White count elevated at 20.6. However no overt signs of infection including fever or diarrhea dysuria headache photophobia. Patient denies shortness of breath or cough. Await pro-calcitonin/UA/manual differential/blood cultures. It will be prudent to rule out infectious process prior to valve repair - Constitutional Vitals: Vital Signs Temp Pulse Resp BP Pulse Ox 98.5 F 78 16 109/67 96 08/30/17 07:02 08/29/17 20:00 08/30/17 07:02 08/30/17 07:02 08/30/17 07:02 Period Temp Pulse Resp BP Sys/Nova Pulse Ox Last 24 Hr 97.3 F-98.5 F 78 16-16 109-115/67-72 95-96 Intake and Output 08/29/17 08/30/17 08/30/17 21:59 05:59 13:59 Intake Total 720 / 720 150 / 150 Output Total 150 / 150 326 / 326 Balance 570 / 570 -176 / -176 Weight 159 lb Intake & Output: Intake & Output 08/29/17 08/30/17 08/30/17 21:59 05:59 13:59 Intake Total 720 / 720 150 / 150 Output Total 150 / 150 326 / 326 Balance 570 / 570 -176 / -176 Weight 159 lb Intake: Oral 720 / 720 150 / 150 Output: Void Amount 150 / 150 325 / 325 # of times incontinent of urine Other: Meal Dinner Percent of Meal Consumed 50% Stool Size Small Stool Color Brown Stool Consistency Loose # Bowel Movements 1 # of times incontinent of 1 Bowels General appearance: no acute distress Exam: Alert oriented nonlabored breathing No anxiety No dyspnea Medical - PN: Obj Da - Labs CBC & Chem 7: 08/30/17 04:42 08/29/17 04:12 Labs: Abnormal Lab Results 08/30/17 08/30/17 08/29/17 04:42 04:42 04:12 WBC 20.4 H RBC 3.55 L Hgb 10.6 L Hct 32.2 L RDW 15.1 H Gran % 82.1 H Lymph % (Auto) 14.4 L Gran # 16.7 H PT 31.9 H 30.6 H INR 3.0 H 2.9 H Chloride Creatinine Calcium Total Protein Albumin 08/29/17 08/28/17 04:12 16:22 WBC RBC Hgb Hct RDW Gran % Lymph % (Auto) Gran # PT 28.5 H INR 2.6 H Chloride 95 L Creatinine 2.1 H Calcium 8.1 L Total Protein 5.4 L Albumin 2.7 L Meds: Medications Acetaminophen (Tylenol) 650 mg PO Q4-6HP PRN PRN Reason: PAIN/FEVER > 101 Last Admin: 08/30/17 02:48 Dose: 650 mg Allopurinol (Zyloprim) 100 mg PO DAILY [facility] Last Admin: 08/29/17 08:28 Dose: 100 mg Aspirin (Aspirin) 81 mg PO DAILY [facility] Last Admin: 08/29/17 08:28 Dose: 81 mg Bisacodyl (Dulcolax) 10 mg [place] Q2-3DAYS PRN PRN Reason: Constipation Carbidopa/Levodopa (Sinemet Cr 25/100) 2 tab PO TID [facility] Last Admin: 08/29/17 21:25 Dose: 2 tab Docusate Sodium (Colace) 100 mg PO BIDP PRN PRN Reason: Constipation Ferrous Sulfate ([facility]ous Sulfate) [facility] Last Admin: 08/29/17 08:28 Dose: 325 mg Furosemide (Lasix) 80 mg PO DAILY [facility] Last Admin: 08/29/17 08:27 Dose: 80 mg Hydroxychloroquine Sulfate (Plaquenil) 200 mg PO BID [facility] Last Admin: 08/29/17 21:25 Dose: 200 mg Metoprolol Tartrate (Lopressor) 75 mg PO DAILY [facility] Last Admin: 08/29/17 08:26 Dose: 75 mg Metoprolol Tartrate (Lopressor) [address] [facility] Last Admin: 08/29/17 21:25 Dose: 50 mg Montelukast Sodium (Singular) [address] [facility] Last Admin: 08/29/17 21:26 Dose: 10 mg Multivit/Ca Carb/B Cmplx/FA/Prenat (Diatx) 1 tab PO DAILY [facility] Last Admin: 08/29/17 08:27 Dose: 1 tab [facility]op[facility]ole [facility]) [facility] Last Admin: 08/30/17 07:07 Dose: 40 mg Ubidecarenone [Coq- (10] 100 Mg Cap) 1 dose PO DAILY [facility] Last Admin: 08/29/17 11:00 Dose: Not Given Pred[facility]one (Prednisone) [facility] Last Admin: 08/29/17 08:27 Dose: 20 mg Sevelamer Carbonate (Renvela) 800 mg PO TIDCC [facility] Last Admin: 08/30/17 06:22 Dose: Not Given Simvastatin (Zocor) 10 mg PO HS [facility] Last Admin: 08/29/17 21:26 Dose: 10 mg Sodium Chloride (Saline Flush) 10 ml IV Q8 [facility] Last Admin: 08/30/17 05:39 Dose: Not Given Warfarin Sodium (Coumadin Per Pharmacy) 1 order PO UD [facility] Medical - PN: A/P - Time Spent With Patient Total time spent is greater than 50% in coordination of care (as documented) at patient's floor/unit and/or counseling patient: 15 - 24 minutes - Narrative A/P Narrative: * Deconditioning after recent hospitalization -continue daily PT OT * Leukocytosis-at 20.6. Previous white count 15,000 on 08/26 and discharge. No fever, shortness of breath, obvious source of infection. Check blood cultures/ pro calcitonin/manual differential. No diarrhea. Check UA * Severe MR-due for catheter valve repair September 03 at [facility]. * ESRD on HD continue per nephrology * History of atrial fibrillation - rate controlled * History of ischemic colitis-on Coumadin. INR 3 * Recent GI bleed with blood loss anemia secondary to supratherapeutic INR. Stable * Anticoagulation on Coumadin -continue daily dosing based on INR * History of Parkinson's disease continue levodopa carbidopa * Hypertension on metoprolol * History of gout on allopurinol * Hyperlipidemia statin * Inflammatory arthritis on prednisone/hydroxychloroquine * Full code Plan * Blood cultures/manual differential/pro calcitonin * Continue physical therapy * Continue Daily INR/Coumadin dosing * HD per nephrology * Pre-existing medical condition management as above Medical - PN: Qual - VTE Deep Vein Thrombosis/Pulmonary Embolism Present on Admission: No
[2017-08-30 09:47] LABS: Band Neutrophils % 1 % (0-10); Eosinophils % (Manual) 2 % (0-7); Lymphocytes % 25 % (15-49); Metamyelocytes % 1 % (0-0); Monocytes % (Manual) 3 % (1-12); Platelet Estimate NORMAL (NORMAL); RBC Morphology NORMAL (NORMAL); Segmented Neutrophils % 68 % (38-78)
[2017-08-30] MEDS: FUROSEMIDE 80 MG TABLET PO SCH (11:35)
[2017-08-30] MEDS: ALLOPURINOL 100 MG TABLET PO SCH (11:36)
[2017-08-30] MEDS: FOLIC ACID/VITAMIN B COMP W-C 1 TAB TABLET PO SCH (11:36)
[2017-08-30] MEDS: HYDROXYCHLOROQUINE 200 MG TABLET PO SCH ×2 (11:36→20:24)
[2017-08-30] MEDS: ASPIRIN 81 MG TAB.CHEW PO SCH (11:36)
[2017-08-30] MEDS: CARBIDOPA/LEVODOPA CR 25/100 TABLET PO SCH ×3 (11:36→20:24)
[2017-08-30] MEDS: FERROUS SULFATE 325 MG TABLET PO SCH (11:36)
[2017-08-30] MEDS: METOPROLOL TARTRATE 50 MG TABLET PO SCH ×2 (11:36→23:19)
[2017-08-30] MEDS: predniSONE 20 MG TABLET PO SCH (11:36)
[2017-08-30] MEDS: UBIDECARENONE 100 MG PO SCH (11:37)
[2017-08-30 12:27] LABS: Appearance,Urine HAZY; Bacteria,Urine MOD /hpf (0); Bilirubin,Urine NEG (NEG); Color,Urine YELLOW; Glucose,Urine (UA) NEGATIVE (NEG); Leukocyte Esterase,Urine NEG /uL (NEG); Mucus,Urine FEW /hpf (0); Protein,Urine NEG (NEG); Urine Blood NEG mg/dL (<0.03); Urine RBC < 1 /hpf (0-1); Urine Squamous Epithelial Cell 16 /hpf (0-4); Urine WBC 2 /hpf (0-4); Urobilinogen,Urine NEG (NEG)
--- NOTE | 2017-08-30 12:53 | Internal Med Progress Note ---
Medical - PN: Subj Patient information: Note initiated : 08/30/17 at 12:50 pm Service Date, if different from initiated Date: [] Patient: Kathy Carvalho 81 y/o F admitted on 08/28/17 for Weakness/GI Bleed. Chief Complaint: [Asked to follow up on elevated white count from this AM Patient also expresses concerns regarding mitral valve repair on the given new lab findings this AM. She denies any focal complaints; right shoulder pain is chronic, sometimes feels like she has a sore throat which she needs to clear - also not new.] Interval history: Reviewed all recent labs. Patient white count has been trending up since 24 August ; had been recently started on prednisone at time of pna dx. Nephrology stated prednisone should have been dc'd at last hospital discharge. Appears was restarted on 28 August with this admission. - Constitutional Vitals: Vital Signs Temp Pulse Resp BP Pulse Ox 98.5 F 78 16 109/67 96 08/30/17 07:02 08/29/17 20:00 08/30/17 07:02 08/30/17 07:02 08/30/17 07:02 Period Temp Pulse Resp BP Sys/Nova Pulse Ox Last 24 Hr 97.3 F-98.5 F 78 16-16 109-115/67-72 95-96 Intake and Output 08/29/17 08/30/17 08/30/17 21:59 05:59 13:59 Intake Total 720 / 720 150 / 150 Output Total 150 / 150 326 / 326 Balance 570 / 570 -176 / -176 Weight 159 lb Intake & Output: Intake & Output 08/29/17 08/30/17 08/30/17 21:59 05:59 13:59 Intake Total 720 / 720 150 / 150 Output Total 150 / 150 326 / 326 Balance 570 / 570 -176 / -176 Weight 159 lb Intake: Oral 720 / 720 150 / 150 Output: Void Amount 150 / 150 325 / 325 # of times incontinent of urine Other: Meal Dinner Percent of Meal Consumed 50% Stool Size Small Stool Color Brown Stool Consistency Loose # Bowel Movements 1 # of times incontinent of 1 Bowels Exam: Bright affect, no acute distress. Sometimes clears throat before speaking. Medical - PN: Obj Da - Labs CBC & Chem 7: 08/30/17 04:42 08/29/17 04:12 Labs: Abnormal Lab Results 08/30/17 08/30/17 08/30/17 11:15 04:42 04:42 WBC RBC Hgb Hct RDW Gran % Lymph % (Auto) Gran # Metamyelocytes % 1 H PT 31.9 H INR 3.0 H Chloride Creatinine Calcium Total Protein Albumin Ur Squamous Epith Cells 16 H Urine Bacteria Mod A 08/30/17 08/29/17 08/29/17 04:42 04:12 04:12 WBC 20.4 H RBC 3.55 L Hgb 10.6 L Hct 32.2 L RDW 15.1 H Gran % 82.1 H Lymph % (Auto) 14.4 L Gran # 16.7 H Metamyelocytes % PT 30.6 H INR 2.9 H Chloride 95 L Creatinine 2.1 H Calcium 8.1 L Total Protein 5.4 L Albumin 2.7 L Ur Squamous Epith Cells Urine Bacteria 08/28/17 16:22 WBC RBC Hgb Hct RDW Gran % Lymph % (Auto) Gran # Metamyelocytes % PT 28.5 H INR 2.6 H Chloride Creatinine Calcium Total Protein Albumin Ur Squamous Epith Cells Urine Bacteria Meds: Medications Acetaminophen (Tylenol) 650 mg PO Q4-6HP PRN PRN Reason: PAIN/FEVER > 101 Last Admin: 08/30/17 02:48 Dose: 650 mg Allopurinol (Zyloprim) 100 mg PO DAILY [facility] Last Admin: 08/30/17 11:36 Dose: 100 mg Aspirin (Aspirin) 81 mg PO DAILY [facility] Last Admin: 08/30/17 11:36 Dose: 81 mg Bisacodyl (Dulcolax) 10 mg [place] Q2-3DAYS PRN PRN Reason: Constipation Carbidopa/Levodopa (Sinemet Cr 25/100) 2 tab PO TID [facility] Last Admin: 08/30/17 11:36 Dose: 2 tab Docusate Sodium (Colace) 100 mg PO BIDP PRN PRN Reason: Constipation [facility]) [facility] Last Admin: 08/30/17 11:36 Dose: 325 mg Furosemide (Lasix) 80 mg PO DAILY [facility] Last Admin: 08/30/17 11:35 Dose: 80 mg Hydroxychloroquine Sulfate (Plaquenil) 200 mg PO BID [facility] Last Admin: 08/30/17 11:36 Dose: 200 mg Metoprolol Tartrate (Lopressor) 75 mg PO DAILY [facility] Last Admin: 08/30/17 11:36 Dose: 75 mg Metoprolol Tartrate (Lopressor) [address] [facility] Last Admin: 08/29/17 21:25 Dose: 50 mg Montelukast Sodium (Singular) 10 mg PO HS [facility] Last Admin: 08/29/17 21:26 Dose: 10 mg Multivit/Ca Carb/B Cmplx/FA/Prenat (Diatx) 1 tab PO DAILY [facility] Last Admin: 08/30/17 11:36 Dose: 1 tab Pantoprazole Sodium (Protonix) 40 mg PO QAMAC [facility] Last Admin: 08/30/17 07:07 Dose: 40 mg Ubidecarenone [Coq- (10] 100 Mg Cap) 1 dose PO DAILY [facility] Last Admin: 08/30/17 11:37 Dose: Not Given Sevelamer Carbonate (Renvela) 800 mg PO TIDCC [facility] Last Admin: 08/30/17 11:58 Dose: Not Given Simvastatin (Zocor) [address] [facility] Last Admin: 08/29/17 21:26 Dose: 10 mg Sodium Chloride (Saline Flush) 10 ml IV Q8 [facility] Last Admin: 08/30/17 05:39 Dose: Not Given Warfarin Sodium (Coumadin Per Pharmacy) 1 order PO UD [facility] Medical - PN: A/P - Time Spent With Patient Total time spent is greater than 50% in coordination of care (as documented) at patient's floor/unit and/or counseling patient: 15 minutes with patient; 25 minutes following up on labwork, reviewing chart, discussion with Dr. Cardona. less than 15 minutes - Narrative A/P Narrative: 1) Elevated white count: No significant left shift on manual diff. No fever. Looks good, vital signs okay. UA not suggestive of infection. White count has been trending up since 24 August; suspect may be related to prednisone. Discussed with Dr. Cardona who knows the patient; he states the prednisone should have been discontinued. Will d/c now; and continue to observe patient. I do not think she requires acute admission at this point for a lab value. 2) Elevated procalcitonin: No recent for comparison. 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 Will recheck tomorrow to see if trend or if stable. Will check lactate level to help support decision making. 3) Discussed with Dr Cardona - agrees with no antibiotics at present. Suspect lab findings may be combined prednisone, ESKD. I am available for any change in patient status. Medical - PN: Qual - VTE Deep Vein Thrombosis/Pulmonary Embolism Present on Admission: No
[2017-08-30] MEDS: MONTELUKAST 10 MG TABLET PO SCH (20:24)
[2017-08-30] MEDS: SIMVASTATIN 10 MG TABLET PO SCH (20:24)
[2017-08-31] MEDS: 0.9 % SODIUM CHLORIDE 10 ML SYRINGE IV SCH ×3 (05:28→21:04)
[2017-08-31] MEDS: ACETAMINOPHEN 325 MG TABLET PO PRN ×3 (06:34→21:03)
[2017-08-31] MEDS: PANTOPRAZOLE 40 MG TABLET PO SCH (06:34)
[2017-08-31 07:17] LABS: ALT/SGPT < 5 U/l (0-40); Albumin 2.7 gm/dL (3.2-5.2); Alkaline Phosphatase 115 U/L (39-117); Bilirubin,Direct < 0.2 mg/dL (0.0-0.3); Blood Urea Nitrogen 17 mg/dl (8-23); Gamma Glutamyl Transpeptidase 17 U/L (5-36); Uric Acid 2.8 mg/dL (2.5-8.0)
[2017-08-31 07:29] LABS: Basophils # (Auto) 0.1 K/mcL (0.0-0.3); Basophils % (Auto) 0.6 % (0.0-2.0); Eosinophils # (Auto) 0.1 K/mcL (0.0-0.7); Eosinophils % (Auto) 0.6 % (0.0-7.0); Lymphocytes # (Auto) 3.1 K/mcL (1.5-4.8); Lymphocytes % (Auto) 16.4 % (15.5-49.0); Mean Cell Volume 89.3 fL (80.0-100.0); Mean Corpuscular HGB Conc 33.5 g/dL (31.0-36.0); Mean Corpuscular Hemoglobin 29.9 pg (26.0-34.0); Monocytes # (Auto) 0.6 K/mcL (0.1-0.9); Monocytes % (Auto) 3.4 % (1.0-12.0); Platelet Count 301 K/mcL (140-440); RBC 3.58 M/mcL (4.00-5.20); Red Cell Distribution Width 14.1 % (11.5-14.5)
[2017-08-31] MEDS: SEVELAMER 800 MG TABLET PO SCH ×3 (07:54→17:01)
[2017-08-31] MEDS: UBIDECARENONE 100 MG PO SCH (07:55)
[2017-08-31] MEDS: FUROSEMIDE 80 MG TABLET PO SCH (08:20)
[2017-08-31] MEDS: HYDROXYCHLOROQUINE 200 MG TABLET PO SCH ×2 (08:20→21:03)
[2017-08-31] MEDS: FERROUS SULFATE 325 MG TABLET PO SCH (08:20)
[2017-08-31] MEDS: FOLIC ACID/VITAMIN B COMP W-C 1 TAB TABLET PO SCH (08:20)
[2017-08-31] MEDS: METOPROLOL TARTRATE 50 MG TABLET PO SCH ×2 (08:20→23:39)
[2017-08-31] MEDS: ALLOPURINOL 100 MG TABLET PO SCH (08:20)
[2017-08-31] MEDS: CARBIDOPA/LEVODOPA CR 25/100 TABLET PO SCH ×3 (08:20→17:37)
[2017-08-31] MEDS: ASPIRIN 81 MG TAB.CHEW PO SCH (08:20)
--- NOTE | 2017-08-31 11:07 | Internal Med Progress Note ---
Medical - PN: Subj Patient information: Note initiated : 08/31/17 at 11:05 am Service Date, if different from initiated Date: [] Patient: Kathy Carvalho 81 y/o F admitted on 08/28/17 for Weakness/GI Bleed. Interval history: 08/30: Reviewed all recent labs. Patient white count has been trending up since 24 August; had been recently started on prednisone at time of pna dx. Nephrology stated prednisone should have been dc'd at last hospital discharge. Appears was restarted on 28 August with this admission. 08/31: Patient without complaints. No fevers, no chills, no nighttime sweats. Denies cough. Feels little more energetic than yesterday. Ate breakfast, has some questions about discharge plan after her procedure in [place]. - Constitutional Vitals: Vital Signs Temp Pulse Resp BP Pulse Ox 97.6 F 68 18 119/72 97 08/31/17 06:30 08/30/17 23:12 08/31/17 06:30 08/31/17 06:30 08/31/17 06:30 Period Temp Pulse Resp BP Sys/Nova Pulse Ox Last 24 Hr 97.6 F-98.0 F 68-70 16-18 112-120/62-72 97-98 Intake and Output 08/30/17 08/31/17 08/31/17 21:59 05:59 13:59 Intake Total 360 / 360 120 / 120 Output Total 150 / 150 Balance 210 / 210 120 / 120 Weight 157 lb 8 oz Intake & Output: Intake & Output 08/30/17 08/31/17 08/31/17 21:59 05:59 13:59 Intake Total 360 / 360 120 / 120 Output Total 150 / 150 Balance 210 / 210 120 / 120 Weight 157 lb 8 oz Intake: Oral 360 / 360 120 / 120 Output: Void Amount 150 / 150 Other: Meal Breakfast Percent of Meal Consumed 100% Exam: Bright interactive affect, no distress. - Respiratory Additional comments: Air entry to the bases bilaterally no wheezes crackles or focally diminished breath sounds. - Cardiovascular Additional comments: Regular rate and rhythm, I do not appreciate her murmur. - Extremities Exam Additional comments: No edema, warm. - Skin Additional comments: No rashes, areas of erythema, or epithelial disruption. Medical - PN: Obj Da - Labs CBC & Chem 7: 08/31/17 04:27 08/31/17 04:27 Labs: Abnormal Lab Results 08/31/17 08/31/17 08/31/17 04:27 04:27 04:27 WBC 19.1 H RBC 3.58 L Hgb 10.7 L Hct 32.0 L RDW Gran % 79.0 H Lymph % (Auto) Gran # 15.2 H Metamyelocytes % PT 31.2 H INR 3.0 H Chloride 93 L Creatinine 2.0 H Calcium 8.2 L Total Protein 5.5 L Albumin 2.7 L Ur Squamous Epith Cells Urine Bacteria 08/30/17 08/30/17 08/30/17 11:15 04:42 04:42 WBC RBC Hgb Hct RDW Gran % Lymph % (Auto) Gran # Metamyelocytes % 1 H PT 31.9 H INR 3.0 H Chloride Creatinine Calcium Total Protein Albumin Ur Squamous Epith Cells 16 H Urine Bacteria Mod A 08/30/17 08/29/17 08/29/17 04:42 04:12 04:12 WBC 20.4 H RBC 3.55 L Hgb 10.6 L Hct 32.2 L RDW 15.1 H Gran % 82.1 H Lymph % (Auto) 14.4 L Gran # 16.7 H Metamyelocytes % PT 30.6 H INR 2.9 H Chloride 95 L Creatinine 2.1 H Calcium 8.1 L Total Protein 5.4 L Albumin 2.7 L Ur Squamous Epith Cells Urine Bacteria 08/28/17 16:22 WBC RBC Hgb Hct RDW Gran % Lymph % (Auto) Gran # Metamyelocytes % PT 28.5 H INR 2.6 H Chloride Creatinine Calcium Total Protein Albumin Ur Squamous Epith Cells Urine Bacteria Meds: Medications Acetaminophen (Tylenol) 650 mg PO Q4-6HP PRN PRN Reason: PAIN/FEVER > 101 Last Admin: 08/31/17 06:34 Dose: 650 mg Allopurinol (Zyloprim) 100 mg PO DAILY [facility] Last Admin: 08/31/17 08:20 Dose: 100 mg Aspirin (Aspirin) 81 mg PO DAILY [facility] Last Admin: 08/31/17 08:20 Dose: 81 mg Bisacodyl (Dulcolax) 10 mg [place] Q2-3DAYS PRN PRN Reason: Constipation Carbidopa/Levodopa (Sinemet Cr 25/100) 2 tab PO TID [facility] Last Admin: 08/31/17 08:20 Dose: 2 tab Docusate Sodium (Colace) 100 mg PO BIDP PRN PRN Reason: Constipation Ferrous Sulfate (Ferrous Sulfate) 325 mg PO QAMCC [facility] Last Admin: 08/31/17 08:20 Dose: 325 mg Furosemide (Lasix) 80 mg PO DAILY [facility] Last Admin: 08/31/17 08:20 Dose: 80 mg Hydroxychloroquine Sulfate (Plaquenil) 200 mg PO BID [facility] Last Admin: 08/31/17 08:20 Dose: 200 mg Metoprolol Tartrate (Lopressor) 75 mg PO DAILY [facility] Last Admin: 08/31/17 08:20 Dose: 75 mg Metoprolol Tartrate (Lopressor) 50 mg PO [facility] Last Admin: 08/30/17 23:19 Dose: 50 mg Montelukast Sodium (Singular) 10 mg PO [facility] Last Admin: 08/30/17 20:24 Dose: 10 mg Multivit/Ca Carb/B Cmplx/FA/Prenat (Diatx) 1 tab PO DAILY [facility] Last Admin: 08/31/17 08:20 Dose: 1 tab [facility]oprazole [facility] (Pro[facility]ix) [facility] Last Admin: 08/31/17 06:34 Dose: 40 mg Ubidecarenone [Coq- (10] 100 Mg Cap) 1 dose PO DAILY [facility] Last Admin: 08/31/17 07:55 Dose: Not Given Sevelamer Carbonate (Renvela) 800 mg PO TIDCC [facility] Last Admin: 08/31/17 10:47 Dose: Not Given Simvastatin (Zocor) 10 mg PO [facility] Last Admin: 08/30/17 20:24 Dose: 10 mg Sodium Chloride (Saline Flush) 10 ml IV Q8 [facility] Last Admin: 08/31/17 05:28 Dose: Not Given Warfarin Sodium (Coumadin Per Pharmacy) 1 order PO UD [facility] Medical - PN: A/P - Time Spent With Patient Total time spent is greater than 50% in coordination of care (as documented) at patient's floor/unit and/or counseling patient: 15 - 24 minutes - Narrative A/P Narrative: #1 leukocytosis-she has remained afebrile, white count has come down some, prednisone has been discontinued. Again doubt that this is related to an infectious source, will recheck in the morning continue to hold prednisone. 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 INR today is upper limits of normal will continue to work with pharmacy to adjust as appropriate. #4 rheumatoid arthritis-patient is states she is due for her Humira on Saturday I noted this would be held given the setting of her mitral valve repair on Saturday and that physicians at that time when advise her when to take her next dose. #5 planned mitral valve repair-her family will be taking her to [place] on Saturday for clipping. Medical - PN: Qual - VTE Deep Vein Thrombosis/Pulmonary Embolism Present on Admission: No
[2017-08-31] MEDS: SIMVASTATIN 10 MG TABLET PO SCH (21:03)
[2017-08-31] MEDS: MONTELUKAST 10 MG TABLET PO SCH (21:03)
[2017-09-01] MEDS: 0.9 % SODIUM CHLORIDE 10 ML SYRINGE IV SCH ×3 (05:34→20:33)
[2017-09-01] MEDS: CARBIDOPA/LEVODOPA CR 25/100 TABLET PO SCH ×3 (05:45→17:57)
[2017-09-01 06:06] LABS: Basophils # (Auto) 0 K/mcL (0.0-0.3); Basophils % (Auto) 0.1 % (0.0-2.0); Eosinophils # (Auto) 0.1 K/mcL (0.0-0.7); Eosinophils % (Auto) 0.4 % (0.0-7.0); Lymphocytes # (Auto) 3.9 K/mcL (1.5-4.8); Lymphocytes % (Auto) 23.4 % (15.5-49.0); Mean Cell Volume 90.4 fL (80.0-100.0); Mean Corpuscular HGB Conc 33.4 g/dL (31.0-36.0); Mean Corpuscular Hemoglobin 30.2 pg (26.0-34.0); Monocytes # (Auto) 0.4 K/mcL (0.1-0.9); Monocytes % (Auto) 2.1 % (1.0-12.0); Platelet Count 313 K/mcL (140-440); RBC 3.61 M/mcL (4.00-5.20)
[2017-09-01] MEDS: ACETAMINOPHEN 325 MG TABLET PO PRN ×3 (07:18→17:57)
[2017-09-01] MEDS: PANTOPRAZOLE 40 MG TABLET PO SCH (07:18)
[2017-09-01] MEDS: SEVELAMER 800 MG TABLET PO SCH ×3 (07:33→15:47)
[2017-09-01] MEDS: FERROUS SULFATE 325 MG TABLET PO SCH (08:08)
[2017-09-01] MEDS: ASPIRIN 81 MG TAB.CHEW PO SCH (08:08)
[2017-09-01] MEDS: ALLOPURINOL 100 MG TABLET PO SCH (08:08)
[2017-09-01] MEDS: FUROSEMIDE 80 MG TABLET PO SCH (08:08)
[2017-09-01] MEDS: FOLIC ACID/VITAMIN B COMP W-C 1 TAB TABLET PO SCH (08:08)
[2017-09-01] MEDS: HYDROXYCHLOROQUINE 200 MG TABLET PO SCH ×2 (08:08→20:33)
[2017-09-01] MEDS: METOPROLOL TARTRATE 50 MG TABLET PO SCH ×2 (08:09→23:33)
[2017-09-01] MEDS: UBIDECARENONE 100 MG PO SCH (08:10)
--- NOTE | 2017-09-01 10:45 | Internal Med Progress Note ---
Medical - PN: Subj Patient information: Note initiated : 09/01/17 at 10:42 am Patient: Kathy Carvalho 81 y/o F admitted on 08/28/17 for Weakness/GI Bleed. Interval history: Expresses no complaints today except for baseline joint discomfort. Feels good , just had a bath, watching [employer] ("It's Nay Diaz's last race, she's retiring") - Constitutional Vitals: Vital Signs Temp Pulse Resp BP Pulse Ox 98.1 F 73 20 114/63 98 09/01/17 07:17 08/31/17 23:38 09/01/17 07:17 09/01/17 07:17 09/01/17 07:17 Period Temp Pulse Resp BP Sys/Nova Pulse Ox Last 24 Hr 97.5 F-98.1 F 70-73 18-20 101-116/61-64 96-98 Intake and Output 08/31/17 09/01/17 09/01/17 21:59 05:59 13:59 Intake Total 480 / 480 Output Total 125 / 125 551 / 551 Balance 355 / 355 -551 / -551 Weight 158 lb Intake & Output: Intake & Output 08/31/17 09/01/17 09/01/17 21:59 05:59 13:59 Intake Total 480 / 480 Output Total 125 / 125 551 / 551 Balance 355 / 355 -551 / -551 Weight 158 lb Intake: Oral 480 / 480 Output: Void Amount 125 / 125 550 / 550 # of times incontinent of urine 1 / 1 Other: Meal Dinner Percent of Meal Consumed 75% Stool Consistency Watery Loose # Bowel Movements 1 1 # of times incontinent of 1 Bowels - Additional findings Additional findings: Bright affect, animated, no acute distress. Dysphonia at baseline. Respirations unlabored. Lungs clear to bases, heart regular rate and rhythm. Extremities warm. Medical - PN: Obj Da - Labs CBC & Chem 7: 09/01/17 04:09 08/31/17 04:27 Labs: Abnormal Lab Results 09/01/17 09/01/17 08/31/17 04:09 04:09 04:27 WBC 16.8 H 19.1 H RBC 3.61 L 3.58 L Hgb 10.9 L 10.7 L Hct 32.6 L 32.0 L RDW 15.0 H Gran % 79.0 H Lymph % (Auto) Gran # 12.4 H 15.2 H Metamyelocytes % PT 26.9 H INR 2.5 H Chloride Creatinine Calcium Total Protein Albumin Ur Squamous Epith Cells Urine Bacteria 08/31/17 08/31/17 08/30/17 04:27 04:27 11:15 WBC RBC Hgb Hct RDW Gran % Lymph % (Auto) Gran # Metamyelocytes % PT 31.2 H INR 3.0 H Chloride 93 L Creatinine 2.0 H Calcium 8.2 L Total Protein 5.5 L Albumin 2.7 L Ur Squamous Epith Cells 16 H Urine Bacteria Mod A 08/30/17 08/30/17 08/30/17 04:42 04:42 04:42 WBC 20.4 H RBC 3.55 L Hgb 10.6 L Hct 32.2 L RDW 15.1 H Gran % 82.1 H Lymph % (Auto) 14.4 L Gran # 16.7 H Metamyelocytes % 1 H PT 31.9 H INR 3.0 H Chloride Creatinine Calcium Total Protein Albumin Ur Squamous Epith Cells Urine Bacteria Meds: Medications Acetaminophen (Tylenol) 650 mg PO Q4-6HP PRN PRN Reason: PAIN/FEVER > 101 Last Admin: 09/01/17 07:18 Dose: 650 mg Allopurinol (Zyloprim) 100 mg PO DAILY [facility] Last Admin: 09/01/17 08:08 Dose: 100 mg Aspirin (Aspirin) 81 mg PO DAILY [facility] Last Admin: 09/01/17 08:08 Dose: 81 mg Bisacodyl (Dulcolax) 10 mg [place] Q2-3DAYS PRN PRN Reason: Constipation Carbidopa/Levodopa (Sinemet Cr 25/100) 2 tab PO TID@0600,1200,1800 [facility] Last Admin: 09/01/17 05:45 Dose: 2 tab Docusate Sodium (Colace) 100 mg PO BIDP PRN PRN Reason: Constipation [facility]) [facility] Admin: 09/01/17 08:08 Dose: 325 mg Furosemide (Lasix) 80 mg PO DAILY [facility] Last Admin: 09/01/17 08:08 Dose: 80 mg Hydroxychloroquine Sulfate (Plaquenil) 200 mg PO BID [facility] Last Admin: 09/01/17 08:08 Dose: 200 mg Metoprolol Tartrate (Lopressor) 75 mg PO DAILY [facility] Last Admin: 09/01/17 08:09 Dose: 75 mg Metoprolol Tartrate (Lopressor) 50 mg PO [facility] Last Admin: 08/31/17 23:39 Dose: Not Given Montelukast Sodium (Singular) 10 mg PO [facility] Last Admin: 08/31/17 21:03 Dose: 10 mg Multivit/Ca Carb/B Cmplx/FA/Prenat (Diatx) 1 tab PO DAILY [facility] Last Admin: 09/01/17 08:08 Dose: 1 tab Pantoprazole Sodium (Protonix) 40 mg PO QAMAC [facility] Last Admin: 09/01/17 07:18 Dose: 40 mg Ubidecarenone [Coq- (10] 100 Mg Cap) 1 dose PO DAILY [facility] Last Admin: 09/01/17 08:10 Dose: Not Given Sevelamer Carbonate (Renvela) 800 mg PO TIDCC [facility] Last Admin: 09/01/17 10:13 Dose: Not Given Simvastatin (Zocor) 10 mg PO [facility] Last Admin: 08/31/17 21:03 Dose: 10 mg Sodium Chloride (Saline Flush) 10 ml IV Q8 [facility] Last Admin: 09/01/17 05:34 Dose: Not Given Warfarin Sodium (Coumadin Per Pharmacy) 1 order PO [facility] Medical - PN: A/P - Time Spent With Patient Total time spent is greater than 50% in coordination of care (as documented) at patient's floor/unit and/or counseling patient: less than 15 minutes (SWING BED) - Narrative A/P Narrative: #1 leukocytosis-prednisone induced; continues to improve. No indication acute infection. Prednisone completely discontinued. 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 INR today is ideal at 2.5; will continue to work with pharmacy to adjust as appropriate. #3 rheumatoid arthritis-patient is states she is due for her Humira on Saturday I noted this would be held given the setting of her mitral valve repair on Saturday and that physicians at that time when advise her when to take her next dose. Although she notes vague joint discomfort today, she states she is not in pain. #4 planned mitral valve repair-her family will be taking her to [place] on Saturday for clipping. Medical - PN: Qual - VTE Deep Vein Thrombosis/Pulmonary Embolism Present on Admission: No
[2017-09-01] MEDS ORDERED: WARFARIN 1 MG TABLET PO ONE (16:00)
[2017-09-01] MEDS: MONTELUKAST 10 MG TABLET PO SCH (20:33)
[2017-09-01] MEDS: SIMVASTATIN 10 MG TABLET PO SCH (20:33)
[2017-09-02] MEDS: ACETAMINOPHEN 325 MG TABLET PO PRN ×3 (04:13→15:28)
[2017-09-02] MEDS: 0.9 % SODIUM CHLORIDE 10 ML SYRINGE IV SCH ×3 (05:26→20:56)
[2017-09-02] MEDS: CARBIDOPA/LEVODOPA CR 25/100 TABLET PO SCH ×3 (05:26→17:31)
[2017-09-02] MEDS: PANTOPRAZOLE 40 MG TABLET PO SCH (07:15)
[2017-09-02] MEDS: HYDROXYCHLOROQUINE 200 MG TABLET PO SCH ×2 (11:17→20:54)
[2017-09-02] MEDS: FOLIC ACID/VITAMIN B COMP W-C 1 TAB TABLET PO SCH (11:17)
[2017-09-02] MEDS: ALLOPURINOL 100 MG TABLET PO SCH (11:17)
[2017-09-02] MEDS: ASPIRIN 81 MG TAB.CHEW PO SCH (11:17)
[2017-09-02] MEDS: FUROSEMIDE 80 MG TABLET PO SCH (11:17)
[2017-09-02] MEDS: FERROUS SULFATE 325 MG TABLET PO SCH (11:17)
[2017-09-02] MEDS: METOPROLOL TARTRATE 50 MG TABLET PO SCH ×2 (11:17→20:55)
[2017-09-02] MEDS: SEVELAMER 800 MG TABLET PO SCH ×2 (11:20→16:13)
[2017-09-02] MEDS: UBIDECARENONE 100 MG PO SCH (11:20)
[2017-09-02] MEDS ORDERED: WARFARIN 2 MG TABLET PO ONE (14:00)
--- NOTE | 2017-09-02 14:29 | Internal Med Progress Note ---
Medical - PN: Subj Patient information: Note initiated : 09/02/17 at 2:26 pm Service Date, if different from initiated Date: [] Patient: Ktahy Carvalho 81 y/o F admitted on 08/28/17 for Weakness/GI Bleed. Interval history: States arthritis in left foot acting up a little today; she usually uses Tylenol with good results for this sort of pain - it is ordered for her. Would be due for usual Humira, but has procedure tomorrow. Will be delaying dose until after procedure. Has some questions about coordinating discharge tomorrow. - Constitutional Vitals: Vital Signs Temp Pulse Resp BP Pulse Ox 98.2 F 88 18 122/80 96 09/02/17 07:08 09/02/17 11:30 09/02/17 11:30 09/02/17 11:30 09/02/17 07:08 Period Temp Pulse Resp BP Sys/Nova Pulse Ox Last 24 Hr 97.8 F-98.2 F 65-88 14-18 107-132/63-80 96-97 Intake and Output 09/02/17 09/02/17 09/02/17 05:59 13:59 21:59 Intake Total 600 / 600 Output Total 800 / 800 Balance -800 / -800 600 / 600 Intake & Output: Intake & Output 09/02/17 09/02/17 09/02/17 05:59 13:59 21:59 Intake Total 600 / 600 Output Total 800 / 800 Balance -800 / -800 600 / 600 Intake: Oral 600 / 600 Output: Void Amount 800 / 800 Other: Meal Lunch Percent of Meal Consumed 100% Stool Size Moderate Stool Color Brown Yellow Green Stool Consistency Soft Loose # Bowel Movements 1 1 - Additional findings Additional findings: GENERAL: Bright affect, no acute distress, respirations unlabored. LUNGS: Clear bilaterally. COR: Regular rate and rhythm EXT: No edema, left foot without swelling or focal tenderness. No joint bogginess noted anywhere. Arthritic changes in toes and fingers. Medical - PN: Obj Da - Labs CBC & Chem 7: 09/01/17 04:09 08/31/17 04:27 Labs: Abnormal Lab Results 09/02/17 09/01/17 09/01/17 04:19 04:09 04:09 WBC 16.8 H RBC 3.61 L Hgb 10.9 L Hct 32.6 L RDW 15.0 H Gran % Gran # 12.4 H PT 25.4 H 26.9 H INR 2.3 H 2.5 H Chloride Creatinine Calcium Total Protein Albumin 08/31/17 08/31/17 08/31/17 04:27 04:27 04:27 WBC 19.1 H RBC 3.58 L Hgb 10.7 L Hct 32.0 L RDW Gran % 79.0 H Gran # 15.2 H PT 31.2 H INR 3.0 H Chloride 93 L Creatinine 2.0 H Calcium 8.2 L Total Protein 5.5 L Albumin 2.7 L Meds: Medications Acetaminophen (Tylenol) 650 mg PO Q4-6HP PRN PRN Reason: PAIN/FEVER > 101 Last Admin: 09/02/17 11:17 Dose: 650 mg Allopurinol (Zyloprim) 100 mg PO DAILY [facility] Last Admin: 09/02/17 11:17 Dose: 100 mg Aspirin (Aspirin) 81 mg PO DAILY [facility] Last Admin: 09/02/17 11:17 Dose: 81 mg Bisacodyl (Dulcolax) 10 mg [place] Q2-3DAYS PRN PRN Reason: Constipation Carbidopa/Levodopa (Sinemet Cr 25/100) 2 tab PO TID@0600,1200,1800 [facility] Last Admin: 09/02/17 11:17 Dose: 2 tab Docusate Sodium (Colace) 100 mg PO BIDP PRN PRN Reason: Constipation Ferrous Sulfate (Ferrous Sulfate) 325 mg PO [facility] Last Admin: 09/02/17 11:17 Dose: 325 mg Furosemide (Lasix) 80 mg PO DAILY [facility] Last Admin: 09/02/17 11:17 Dose: 80 mg Hydroxychloroquine Sulfate (Plaquenil) 200 mg PO BID [facility] Last Admin: 09/02/17 11:17 Dose: 200 mg Metoprolol Tartrate (Lopressor) 75 mg PO DAILY [facility] Last Admin: 09/02/17 11:17 Dose: 75 mg Metoprolol Tartrate (Lopressor) 50 mg PO [facility] Last Admin: 09/01/17 23:33 Dose: 50 mg Montelukast Sodium (Singular) 10 mg PO [facility] Last Admin: 09/01/17 20:33 Dose: 10 mg Multivit/Ca Carb/B Cmplx/FA/Prenat (Diatx) 1 tab PO DAILY [facility] Last Admin: 09/02/17 11:17 Dose: 1 tab Pantoprazole Sodium (Protonix) 40 mg PO QAMAC [facility] Last Admin: 09/02/17 07:15 Dose: 40 mg Ubidecarenone [Coq- (10] 100 Mg Cap) 1 dose PO DAILY [facility] Last Admin: 09/02/17 11:20 Dose: Not Given Sevelamer Carbonate (Renvela) 800 mg PO TIDCC [facility] Last Admin: 09/02/17 11:20 Dose: Not Given Simvastatin (Zocor) 10 mg PO HS [facility] Last Admin: 09/01/17 20:33 Dose: 10 mg Sodium Chloride (Saline Flush) 10 ml IV Q8 [facility] Last Admin: 09/02/17 12:35 Dose: Not Given Warfarin Sodium (Coumadin Per Pharmacy) 1 order PO UD [facility] Medical - PN: A/P - Time Spent With Patient Total time spent is greater than 50% in coordination of care (as documented) at patient's floor/unit and/or counseling patient: less than 15 minutes - Narrative A/P Narrative: #1-chronic anticoagulation, 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 INR today is ideal at 2.3; will continue to work with pharmacy to adjust as appropriate. No change in dose for this afternoon. #2 rheumatoid arthritis-patient is states she is due for her Humira on Saturday I noted this would be held given the setting of her mitral valve repair on Saturday and that physicians at that time when advise her when to take her next dose. Using Tylenol prn, I also suggested warm packs for her foot, and we will try that. #3 planned mitral valve repair-her family will be taking her to [place] on Saturday for clipping. Medical - PN: Qual - VTE Deep Vein Thrombosis/Pulmonary Embolism Present on Admission: No
--- NOTE | 2017-09-02 18:15 | Discharge Summary ---
Medical - DS: Prov Patient information: Note initiated : 09/02/17 at 6:13 pm Service Date, if different from initiated Date: [09/03/2017; discharge planning and orders begun the day prior to discharge. Discharge exam and remainder of planning completed on day of discharge, 09/03/2017] Patient: Kathy Carvalho 81 y/o F admitted on 08/28/17 for Weakness/GI Bleed : History on admission - Ms. Carvalho is a 81 year old F with h/o afib on coumadin , h/o ischemic colitis in 05/26, was admitted on 08/22 for rectal bleed. She takes Coumadin for atrial fibrillation. Patient was discharged 08/26 after she was managed with blood transfusion, upper endoscopy along with reversal of Coumadin with FFP and vitamin K. Post discharge patient was started on Coumadin by primary care physician in light of recent ischemic colitis secondary to embolism. Goal is to maintain patient in narrow therapeutic zone to prevent future incidence of bleeding while she will remain high risk clot. Patient since discharge to home has been feeling weak and concerns were raised by patient, her family and her grazing examiner about severe deconditioning and scheduled Mitral valve repair on the at [place]. Patient would likely benefit from aggressive rehabilitation in preparation for valve repair along with close monitoring of INR due to recent GI bleed and anemia. After discussion with family and patient was felt by grazing examiner that the patient would benefit from swing bed admission. Hospitalist service was subsequently requested for admission to facilitate close INR monitoring along with rehab. The time of evaluation patient is accompanied with her daughter. She is able to answer most of the questions. She endorses to generalized weakness along with degenerative knee and elbow pain. She denies fever or palpitation, headache, lightheadedness or dizziness. She denies loss of appetite or diarrhea. She undergoes hemodialysis 3 times a week. She follows up with primary care physician Chilo Hassan at [facility] Review of systems . Date of admission: 08/28/17 12:36 Discharge date: 09/03/17 Primary care physician: Chilo Hassan Admitting clinician: Dennis Kitchen Attending physician on admission: Denins Kitchen Attending physician on discharge: Rita Young Discharging clinician: Rita Young Medical - DS: Meds - Discharge Medications Active and Home Medications: Home Medications Adalimumab [Humira] 40 mg SQ MONTHLY 08/22/17 [History Confirmed 08/28/17 Last Taken Unknown] Allopurinol [Zyloprim] 100 mg PO DAILY 08/22/17 [History Confirmed 08/28/17 Last Taken 08/27/17] Aspirin [Jayme Chewable Aspirin] 81 mg PO DAILY 08/22/17 [History Confirmed Last Taken 08/27/17] Cranberry Fruit Extract [Cranberry Extract] 1 gm MC DAILY 08/22/17 [History Confirmed 08/28/17 Last Taken 08/27/17] Ferrous Sulfate 325 [facility] 08/22/17 [History Confirmed 08/28/17 Last Taken 08/27/17] Furosemide [Lasix] 80 mg PO DAILY 08/22/17 [History Confirmed 08/28/17 Last Taken 08/27/17] Hydroxychloroquine [Plaquenil] 200 mg PO BID 08/22/17 [History Confirmed Last Taken 08/27/17] Metoprolol Tartrate 75 mg PO DAILY 08/22/17 [History Confirmed 08/28/17 Last Taken 08/27/17] Metoprolol Tartrate [Lopressor] 50 mg PO HS 08/22/17 [History Confirmed Last Taken 08/27/17] Montelukast [Singular] 10 mg PO HS 08/22/17 [History Confirmed 08/28/17 Last Taken 08/27/17] Pantoprazole [Protonix] 40 mg PO QAMAC 08/22/17 [History Confirmed 08/28/17 Last Taken 08/27/17] Ubidecarenone [Coq-10] 100 mg PO DAILY 08/22/17 [History Confirmed 08/28/17 Last Taken 08/27/17] Acetaminophen [Tylenol] 650 mg PO Q4-6HP PRN tablet 08/26/17 [Rx Confirmed Last Taken 08/27/17] Carbidopa/Levodopa Cr 25/100 [Sinemet Cr 25/100] 2 tab PO TID tab.sr.12h [Rx Confirmed 08/28/17 Last Taken 08/27/17] Folic Acid/Vit Bcomp,C [Dialyvite Tablet] 1 tab PO DAILY 08/28/17 [History Confirmed 08/28/17 Last Taken 08/27/17] Simvastatin [Zocor] 10 mg PO HS 08/28/17 [History Confirmed 08/28/17 Last Taken 08/27/17] Warfarin [Coumadin] 5 mg PO DAILY 08/28/17 [History Confirmed 08/28/17 Last Taken 08/27/17] Sevelamer [Renvela] 800 mg PO TIDCC tablet 09/02/17 [Rx Last Taken Unknown] Medical - DS: Hosp Hospital course: Mr. Carvalho is a 81 year old F initially admitted to [facility] bed for continued strengthening and PT. It was also felt she required intensive monitoring of her INR in preparation for a mitral valve procedure on 03 September. Ms. Carvalho is a 81 year old F with h/o afib on coumadin, h/o ischemic colitis in 05/26, was admitted on 08/22 for rectal bleed. She takes Coumadin for atrial fibrillation. Patient was discharged 08/26 after she was managed with blood transfusion, upper endoscopy along with reversal of Coumadin with FFP and vitamin K. Post discharge patient was started on Coumadin by primary care physician in light of recent ischemic colitis secondary to embolism. Goal is to maintain patient in narrow therapeutic zone to prevent future incidence of bleeding while she will remain high risk clot. Patient since discharge to home has been feeling weak and concerns were raised by patient, her family and her grazing examiner about severe deconditioning and scheduled Mitral valve repair on the at [place]. Patient would likely benefit from aggressive rehabilitation in preparation for valve repair along with close monitoring of INR due to recent GI bleed and anemia. After discussion with family and patient was felt by grazing examiner that the patient would benefit from swing bed admission. Hospitalist service was subsequently requested for admission to facilitate close INR monitoring along with rehab. The time of evaluation patient is accompanied with her daughter. She is able to answer most of the questions. She endorses to generalized weakness along with degenerative knee and elbow pain. She denies fever or palpitation, headache, lightheadedness or dizziness. She denies loss of appetite or diarrhea. She undergoes hemodialysis 3 times a week. She follows up with primary care physician Chilo Hassan at [facility] 08/29-no overnight events. Patient alert oriented and underwent physical therapy. INR 2.9. Creatinine 2.1. Continue Coumadin dosing/physical therapy. Discharge date anticipated 09/02 08/30 - Pt doing well. No overnight events. Ongoing hemodialysis. Stable hemodynamics. No concerns expressed by patient or staff. White count elevated at 20.6. However no overt signs of infection including fever or diarrhea dysuria headache photophobia. Patient denies shortness of breath or cough. Await pro-calcitonin/UA/manual differential/blood cultures. It will be prudent to rule out infectious process prior to valve repair 08/30: Reviewed all recent labs. Patient white count has been trending up since 24 August; had been recently started on prednisone at time of pna dx. Nephrology stated prednisone should have been dc'd at last hospital discharge. Appears was restarted on 28 August with this admission. Procalcitonin also up, possibly artifactual due to end stage kidney disease (on chronic dialysis through tunneled catheter). Patient looks well, completely non-septic. Will defer antibiotics at present, and reevaluate labs. INR upper limits of normal at 3.0 08/31: Patient without complaints. No fevers, no chills, no nighttime sweats. Denies cough. Feels little more energetic than yesterday. Ate breakfast, has some questions about discharge plan after her procedure in [place]. White count decreasing, afebrile. Procalcitonin also decreasing. Blood cultures are negative. INR therapeutic at 2.5 09/01: Continued to be afebrile, no complaints except for variable joint pain. White count continues to decrease, strongly suspect related to prednisone use, and review of chart suggests this is temporally consistent. Remains afebrile. Vital signs are stable. Blood cultures remain negative. INR therapeutic at 2.3. She continues to look completely nonseptic on exam. 09/02: Warm packs resolved foot pain. Cultures negative, final report remains pending. No new complaints, has been npo since midnight for procedure today. INR results are pending from this morning. Discharge diagnosis: Weakness due to deconditioning, improved. Secondary discharge diagnosis: Chronic anticoagulation; INR variable with some supratherapeutic INR and bleeding prior to Swing Bed stay. H/O ischemic bowel, felt to be secondary to embolism. H/O GI bleed Chronic atrial fibrillation Stage V kidney disease, on dialysis through tunneled catheter, followed by Dr. Ureña Rheumatoid Arthritis: On Humira Dysphonia - Time Spent with Patient Total time spent providing and/or coordinating discharge services: Medical - DS: Exam - Constitutional Vitals: Vital Signs Temp Pulse Pulse Pulse Resp BP Pulse Ox 09/02/17 11:30 88 18 122/80 09/02/17 07:08 98.2 F 18 126/69 96 09/01/17 23:30 76 132/68 09/01/17 19:12 97.8 F 65 14 107/63 97 Intake and Output 09/02/17 09/02/17 09/02/17 05:59 13:59 21:59 Intake Total 600 / 600 Output Total 800 / 800 300 / 300 Balance -800 / -800 600 / 600 -300 / -300 Intake: Oral 600 / 600 Output: Void Amount 800 / 800 300 / 300 Other: Meal Lunch Percent of Meal Consumed 100% Stool Size Moderate Stool Color Brown Yellow Green Stool Consistency Soft Loose # Bowel Movements 1 1 1 - Other Additional findings: GENERAL: Resting in bed. Breathing comfortable supine. Dysphonia at baseline. Thought content appropriate. LUNGS: On first inspiration, end insp squeaks, resolved on all repeat breaths. Clear to bases bilaterally. COR: Auscultates with regular rate and rhythm, (known history of chronic afib), no murmurs, rubs, or gallops. ABDOMEN: Bowel sounds present, nondistended, soft and nontender. EXT: No edema, pulses x4. Medical - DS: Data Labs on day of discharge: Labs from last 24 hours 09/02/17 04:19 PT 25.4 H INR 2.3 H Preliminary micro results at discharge 08/30/17 09:28 Blood Culture - Preliminary Blood 08/30/17 09:33 Blood Culture - Preliminary Blood Medical - DS: A/P - Patient/Caregiver Discharge Instructions Activity: increase activity as tolerated Diet: Renal Additional Instructions: Hold Humira until instructed to restart it by cardiologists doing procedure or by your straightening press operator helper. Go from here to [place] for your previously scheduled mitral valve repair procedure. Your INR should be in the 2.0-3.0 range. You will need close follow up with your primary or with a pharmacist who dose coumadin adjustment. Call if any nosebleeds, gastrointestinal bleeding, or other bleeding issues. Studies pending at the time of discharge: 1) INR from this morning; the physicians in [place] can call for results. 2) Final report on blood cultures; at discharge they were negative x 72 hours. - Follow up Plan Follow up with: Talya Villareal ARNP [Nurse Practitioner] - 09/13/17 (Contact your primary care doctor when you return from [place] to set up a hospital follow up.) Disposition: Home, Self-Care Prognosis: Good Rehab Potential: Good I certify that the patient requires SNF services: No Overall status at discharge: patient is progressing back to baseline Medical - DS: Qual - VTE Deep Vein Thrombosis/Pulmonary Embolism Present on Admission: No
[2017-09-02] MEDS: SIMVASTATIN 10 MG TABLET PO SCH (20:55)
[2017-09-02] MEDS: MONTELUKAST 10 MG TABLET PO SCH (20:55)
== END 2017-09-03 06:05 | disposition home or self-care (01) | DRG 813 ==
LOC: MEDSUR 12:36
PROVIDERS: ADMIT Internal Medicine; ATTEND Family Medicine

== ENCOUNTER 2017-10-28 10:51 | Inpatient (IN) ==
[2017-10-28] MEDS ORDERED: IOPAMIDOL 100 ML BOTTLE IV ONE (10:52)
[2017-10-28 12:11] LABS: Basophils # (Auto) 0 K/mcL (0.0-0.3); Basophils % (Auto) 0.1 % (0.0-2.0); Eosinophils # (Auto) 0 K/mcL (0.0-0.7); Eosinophils % (Auto) 0.3 % (0.0-7.0); Granulocytes % (Auto) 92.7 % (38.0-78.0); Lymphocytes % (Auto) 5.8 % (15.5-49.0); Mean Cell Volume 94.9 fL (80.0-100.0); Mean Corpuscular HGB Conc 32.8 g/dL (31.0-36.0); Mean Corpuscular Hemoglobin 31.2 pg (26.0-34.0); Monocytes # (Auto) 0.2 K/mcL (0.1-0.9); Monocytes % (Auto) 1.1 % (1.0-12.0); Platelet Count 229 K/mcL (140-440); RBC 3.86 M/mcL (4.00-5.20); Red Cell Distribution Width 19.4 % (11.5-14.5)
[2017-10-28 12:40] LABS: ALT/SGPT < 5 U/l (0-40); Albumin 3.8 gm/dL (3.2-5.2); Albumin/Globulin Ratio 1.4 (1.0-2.3); Alkaline Phosphatase 110 U/L (39-117); Blood Urea Nitrogen 10 mg/dl (8-23); Creatine Kinase 57 IU/L (24-170); Creatine Kinase MB 1.2 ng/ml (0-2.9); Myoglobin 40 ng/ml (25-58)
--- NOTE | 2017-10-28 12:53 | XRay Report ---
CLINICAL INFORMATION: Chest pain COMPARISON: 09/20/2017 FINDINGS: Sternotomy changes again noted. The heart is moderately enlarged - increased. Right IJ double-lumen catheter tip stable position within the right atrium. Mediastinum is unremarkable. Pulmonary vessels are, at least, mildly distended and there is moderate alveolar airspace disease bilaterally, but predominantly in the mid and upper lung ricardo. Small bilateral pleural effusions are noted IMPRESSION: Probable moderate CHF. Patient could also have bilateral infiltrates due to infection or aspiration. If there is clinical/serologic support for CHF, consider diuretic trial followed by two view upright chest x-ray to reevaluate airspace disease Interpreted and Authenticated by: Naldo Fitch 10/28/17
[2017-10-28] MEDS ORDERED: AZITHROMYCIN 500 MG in DEXTROSE 5% IN WATER 250 ML IV ONE (13:04)
[2017-10-28] MEDS ORDERED: 0.9 % SODIUM CHLORIDE 500 ML IV ONE (13:04)
[2017-10-28] MEDS: fentaNYL 100 MCG/2 ML VIAL IV PRN ×7 (13:25→16:57)
--- NOTE | 2017-10-28 13:34 | Emergency Department Note ---
Chest Pain HPI - General Chief Complaint: Chest Pain Stated Complaint: Chest Pain Time Seen by Provider: 10/28/17 10:54 Source: patient Mode of arrival: wheelchair Limitations: no limitations - History of Present Illness HPI Narrative: 81-year-old female presents with chest pain for the last 3 days or so. Worse today. It is worse with movement or deep breath but is constant. She describes it as being in the center of her chest and radiating to her back. Occasionally the pain is severe and takes her breath away. She does have a mild nonproductive cough and a mild sore throat. No ear pain. No fever or chills although she has not taken her temperature at home. No nausea, vomiting , or diarrhea. No home treatments. She is a dialysis patient and just - Related Data Home Medications Medication Instructions Recorded Confirmed Adalimumab [Humira] 40 mg SQ Q2W 08/22/17 10/23/17 Allopurinol [Zyloprim] 100 mg PO DAILY 08/22/17 10/23/17 Aspirin [Jayme Chewable Aspirin] 81 mg PO DAILY 08/22/17 10/23/17 Cranberry Fruit Extract [Cranberry 1 gm MC DAILY 08/22/17 10/23/17 Extract] Ferrous Sulfate 325 mg PO QAMCC 08/22/17 10/23/17 Furosemide [Lasix] 100 mg PO DAILY 08/22/17 10/23/17 Hydroxychloroquine [Plaquenil] 200 mg PO BID 08/22/17 10/23/17 Metoprolol Tartrate 75 mg PO DAILY 08/22/17 10/23/17 Metoprolol Tartrate [Lopressor] 50 mg PO HS 08/22/17 10/23/17 Montelukast [Singular] 10 mg PO HS 08/22/17 10/23/17 Pantoprazole [Protonix] 40 mg PO QAMAC 08/22/17 10/23/17 Ubidecarenone [Coq-10] 100 mg PO DAILY 08/22/17 10/23/17 Simvastatin [Zocor] 10 mg PO HS 08/28/17 10/23/17 Warfarin [Coumadin] 5 mg PO DAILY 08/28/17 10/23/17 HYDROcodone/APAP 5/325MG [[place] 1 - 2 tab PO Q4HP PRN 10/04/17 10/23/17 5-325Mg] Previous Rx's Medication Instructions Recorded Acetaminophen [Tylenol] 650 mg PO Q4-6HP PRN tab 08/26/17 Carbidopa/Levodopa Cr 25/100 2 tab PO TID tab.sr.12h 08/26/17 [Sinemet Cr 25/100] Sevelamer [Renvela] 800 mg PO TIDCC tab 09/02/17 cefpodoxime 100 mg tablet 100 mg PO .q48 hours #5 tab 10/17/17 Allergies Allergy/AdvReac Type Severity Reaction Status Date / Time Penicillins Allergy Mild Hives Verified 10/23/17 16:01 dofetilide [From Tikosyn] Allergy Unknown Unknown Verified 10/23/17 16:01 doxycycline Allergy Unknown Unknown Verified 10/23/17 16:01 adhesive tape AdvReac Mild Rash Verified 10/23/17 16:01 Erythromycin Base AdvReac Mild Itching Verified 10/23/17 16:01 Review of Systems All systems ED: reviewed and negative except as stated. 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) Restless leg syndrome (Chronic) Anxiety and depression (Chronic) Asthma (Chronic) Hyperlipidemia, mixed (Chronic) Essential hypertension (Chronic) Gastroparesis (Chronic) ISIAH (obstructive sleep apnea) (Chronic) High risk medication use (Chronic) Interstitial lung disease (Chronic) Actinic keratosis (Chronic) Melena (Chronic) Bronchitis (Chronic) UTI (urinary tract infection) (Chronic) Head trauma (Chronic) Sinus pain (Chronic) Sinusitis (Chronic) URI (upper respiratory infection) (Chronic) Right elbow pain (Chronic) Right shoulder pain (Chronic) Rib pain on right side (Chronic) Rotator cuff syndrome of right shoulder (Chronic) Chronic kidney disease, stage III (moderate) (Chronic) Left temporomandibular joint disorder, unspecified (Chronic) Septic arthritis of hip (Chronic) Arthritis (Chronic) CHF (congestive heart failure) (Chronic) Ischemic bowel disease (Chronic) Anemia (Acute) Diarrhea (Acute) Fall (Acute) Knee contusion (Acute) Anticoagulant effect (Acute) Skin ulceration (Acute) Multiple rib fractures (Acute) Avulsion fracture of ankle (Acute) Stool guaiac positive (Acute) ESRD (end stage renal disease) on dialysis (Chronic) Lower gastrointestinal hemorrhage (Acute) Anemia due to blood loss, acute (Acute) 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) Rib pain on left side (Acute) Chest pain (Acute) Left anterior knee pain (Acute) Pain in left ankle and joints of left foot (Acute) Multiple skin nodules (Chronic) Elevated C-reactive protein (CRP) (Chronic) Encounter for long-term (current) use of high-risk medication (Chronic) Rheumatoid arthritis (Chronic) Fibromyalgia (Chronic) Thrombocytopenia (Acute) Long-term current use of steroids (Chronic) Long-term use of immunosuppressant medication (Chronic) Neck Pain (Chronic) Hyperuricemia (Chronic) Inflammatory arthritis (Chronic) Hyperparathyroidism due to renal insufficiency (Chronic) Chronic kidney disease (CKD), stage V (Chronic) Gout (Chronic) Overactive bladder (Chronic) Recurrent urinary tract infection (Chronic) Hypomagnesemia (Acute) Anemia in chronic renal disease (Chronic) Hypertensive renal disease (Chronic) Proteinuria (Chronic) Secondary hyperparathyroidism of renal origin (Chronic) Calcium nephrolithiasis (Chronic) Metabolic acidosis (Chronic) Chronic kidney disease, stage IV (severe) (Chronic) Vitamin B 12 deficiency (Acute) History of urinary tract infection (Acute) Urinary incontinence (Acute) Sleep apnea (Acute) Shortness of breath (Acute) Short bowel syndrome (Acute) Renal insufficiency (Acute) Reactive airway disease (Acute) Parkinson's disease (Acute) Neuropathy (Acute) Mitral regurgitation (Acute) Chronic interstitial lung disease (Acute) Hypothyroidism (Acute) GERD (gastroesophageal reflux disease) (Acute) Gastrointestinal bleed (Chronic) Dysphonia (Acute) Degenerative joint disease (Chronic) Coronary artery disease (Acute) Chronic kidney disease, stage III (moderate) (Acute) Cardiomegaly (Acute) Atrial fibrillation (Acute) Anemia (Chronic) Acute decompensated heart failure (Acute) Past Surgical History (Last Reviewed 09/16/17 @ 13:12 by Ginette Sprague MD) Status post wrist surgery (Acute) History of shoulder surgery (Acute) History of knee surgery (Acute) History of intestinal bypass (Acute) History of hysterectomy (Acute) History of cholecystectomy (Acute) Medical history: Reports: arthritis (Rheumatoid), atrial fibrillation, COPD, coronary artery disease, GERD, hyperlipidemia, hypertension, kidney stones, renal disease (dialysis), thyroid disease, other (Gout, C. 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 Absent: conjunctival injection ENT: normal exam, normal oropharynx, TM's normal bilaterally, normal external ear exam, other (Mucous membranes slightly dry) Neck: Present: normal inspection, trachea midline. Absent: tenderness, lymphadenopathy Chest: Present: normal inspection, symmetric chest wall rise Respiratory: Present: wheezes (right mid expiratory wheezing). Absent: respiratory distress, accessory muscle use Cardiovascular: Present: tachycardia, normal heart sounds Abdominal: Present: soft, normal bowel sounds. Absent: distention, tenderness, guarding, mass Extremities: Present: normal inspection, normal capillary refill. Absent: pedal edema Neurological: Present: alert, oriented X3 Psychiatric: Present: normal affect, normal mood Skin: Present: warm, dry, intact, normal color Course Course Narrative: At 1600 I did speak with the hospitalist, Dr. Louis who agrees to admit the patient. Vital Signs Temperature 97.6 F 10/28/17 10:52 Pulse Rate 123 H 10/28/17 10:52 Respiratory Rate 26 H 10/28/17 10:52 Blood Pressure 152/71 10/28/17 10:52 Pulse Oximetry (%) 93 10/28/17 10:52 Temperature 97.6 F 10/28/17 10:52 Pulse Rate 105 H 10/28/17 14:17 Respiratory Rate 17 10/28/17 14:17 Blood Pressure 150/62 10/28/17 14:17 Pulse Oximetry (%) 97 10/28/17 14:17 Chest Pain - Lab Data Lab results reviewed: Yes I reviewed the patient's lab results. Result diagrams: 10/28/17 11:45 10/28/17 11:45 Lab Results 10/28/17 10/28/17 10/28/17 Range/Units 11:45 11:45 11:45 WBC 16.4 H (4.5-11.0) K/mcL RBC 3.86 L (4.00-5.20) M/mcL Hgb 12.0 (12.0-15.0) g/dL Hct 36.6 (36.0-48.0) % MCV 94.9 (80.0-100.0) fL MCH 31.2 (26.0-34.0) pg MCHC 32.8 (31.0-36.0) g/dL RDW 19.4 H (11.5-14.5) % Plt Count 229 (140-440) K/mcL MPV 7.7 (7.4-10.4) fL Gran % 92.7 H (38.0-78.0) % Lymph % (Auto) 5.8 L (15.5-49.0) % [place] % (Auto) 1.1 (1.0-12.0) % Eos % (Auto) 0.3 (0.0-7.0) % Baso % (Auto) 0.1 (0.0-2.0) % Gran # 15.2 H (1.8-8.0) K/mcL Lymph # (Auto) 1.0 L (1.5-4.8) K/mcL [facility] # (Auto) 0.2 (0.1-0.9) K/mcL Eos # (Auto) 0 (0.0-0.7) K/mcL Baso # (Auto) 0 (0.0-0.3) K/mcL D-Dimer VBG Lactic Acid (0.5-2.2) mmol/L Sodium 134 (133-145) mmol/L Potassium 4.0 (3.3-5.1) mmol/L Chloride 93 L (96-108) mmol/L Carbon Dioxide 26 (22-30) mmol/L Anion Gap 15.0 (8-16) BUN 10 (8-23) mg/dl Creatinine 1.3 H (0.6-1.1) mg/dl GFR Calculation 38 Glucose 75 (70-105) mg/dL Calcium 8.8 (8.6-10.4) mg/dl Total Bilirubin 0.8 (0.0-1.0) mg/dL AST 17 (0-37) U/l ALT < 5 (0-40) U/l Alkaline Phosphatase 110 (39-117) U/L Total Creatine Kinase 57 (24-170) IU/L CK-MB (CK-2) 1.2 (0-2.9) ng/ml Myoglobin 40 (25-58) ng/ml Troponin T < 0.01 (0-0.03) ng/ml NT-Pro-B Natriuret Pep (0-450) pg/ml Total Protein 6.6 (5.9-8.4) gm/dL Albumin 3.8 (3.2-5.2) gm/dL Globulin 2.8 (2.2-3.7) gm/dL Albumin/Globulin Ratio 1.4 (1.0-2.3) Urine Color Urine Appearance Urine pH (5.0-9.0) Ur Specific [place] (1.000-1.035) Urine Protein (NEG) mg/dL Urine Glucose (UA) (NEG) mg/dL Urine Ketones (NEG) mg/dL Urine Occult Blood (<0.03) mg/dL Urine Nitrate (NEG) Urine Bilirubin (NEG) mg/dL Urine Urobilinogen (NEG) mg/dL Ur Leukocyte Esterase (NEG) /uL Urine RBC (0-1) /hpf Urine WBC (0-4) /hpf Ur Squamous Epith Cells (0-4) /hpf Urine Bacteria (0) /hpf Hyaline Casts (0-2) /lpf Urine Mucus (0) /hpf Ur Culture Indicated? 10/28/17 10/28/17 10/28/17 Range/Units 11:45 11:45 12:29 WBC (4.5-11.0) K/mcL RBC (4.00-5.20) M/mcL Hgb (12.0-15.0) g/dL Hct (36.0-48.0) % MCV (80.0-100.0) fL MCH (26.0-34.0) pg MCHC (31.0-36.0) g/dL RDW (11.5-14.5) % Plt Count (140-440) K/mcL MPV (7.4-10.4) fL Gran % (38.0-78.0) % Lymph % (Auto) (15.5-49.0) % [place] % (Auto) (1.0-12.0) % Eos % (Auto) (0.0-7.0) % Baso % (Auto) (0.0-2.0) % Gran # (1.8-8.0) K/mcL Lymph # (Auto) (1.5-4.8) K/mcL [place] # (Auto) (0.1-0.9) K/mcL Eos # (Auto) (0.0-0.7) K/mcL Baso # (Auto) (0.0-0.3) K/mcL D-Dimer TNP 0.86 H VBG Lactic Acid (0.5-2.2) mmol/L Sodium (133-145) mmol/L Potassium (3.3-5.1) mmol/L Chloride (96-108) mmol/L Carbon Dioxide (22-30) mmol/L Anion Gap (8-16) BUN (8-23) mg/dl Creatinine (0.6-1.1) mg/dl GFR Calculation Glucose (70-105) mg/dL Calcium (8.6-10.4) mg/dl Total Bilirubin (0.0-1.0) mg/dL AST (0-37) U/l ALT (0-40) U/l Alkaline Phosphatase (39-117) U/L Total Creatine Kinase (24-170) IU/L CK-MB (CK-2) (0-2.9) ng/ml Myoglobin (25-58) ng/ml Troponin T (0-0.03) ng/ml NT-Pro-B Natriuret Pep 6778.0 H (0-450) pg/ml Total Protein (5.9-8.4) gm/dL Albumin (3.2-5.2) gm/dL Globulin (2.2-3.7) gm/dL Albumin/Globulin Ratio (1.0-2.3) Urine Color Urine Appearance Urine pH (5.0-9.0) Ur Specific [place] (1.000-1.035) Urine Protein (NEG) mg/dL Urine Glucose (UA) (NEG) mg/dL Urine Ketones (NEG) mg/dL Urine Occult Blood (<0.03) mg/dL Urine Nitrate (NEG) Urine Bilirubin (NEG) mg/dL Urine Urobilinogen (NEG) mg/dL Ur Leukocyte Esterase (NEG) /uL Urine RBC (0-1) /hpf Urine WBC (0-4) /hpf Ur Squamous Epith Cells (0-4) /hpf Urine Bacteria (0) /hpf Hyaline Casts (0-2) /lpf Urine Mucus (0) /hpf Ur Culture Indicated? 10/28/17 10/28/17 Range/Units 13:30 14:17 WBC (4.5-11.0) K/mcL RBC (4.00-5.20) M/mcL Hgb (12.0-15.0) g/dL Hct (36.0-48.0) % MCV (80.0-100.0) fL MCH (26.0-34.0) pg MCHC (31.0-36.0) g/dL RDW (11.5-14.5) % Plt Count (140-440) K/mcL MPV (7.4-10.4) fL Gran % (38.0-78.0) % Lymph % (Auto) (15.5-49.0) % [place] % (Auto) (1.0-12.0) % Eos % (Auto) (0.0-7.0) % Baso % (Auto) (0.0-2.0) % Gran # (1.8-8.0) K/mcL Lymph # (Auto) (1.5-4.8) K/mcL [place] # (Auto) (0.1-0.9) K/mcL Eos # (Auto) (0.0-0.7) K/mcL Baso # (Auto) (0.0-0.3) K/mcL D-Dimer VBG Lactic Acid 1.6 (0.5-2.2) mmol/L Sodium (133-145) mmol/L Potassium (3.3-5.1) mmol/L Chloride (96-108) mmol/L Carbon Dioxide (22-30) mmol/L Anion Gap (8-16) BUN (8-23) mg/dl Creatinine (0.6-1.1) mg/dl GFR Calculation Glucose (70-105) mg/dL Calcium (8.6-10.4) mg/dl Total Bilirubin (0.0-1.0) mg/dL AST (0-37) U/l ALT (0-40) U/l Alkaline Phosphatase (39-117) U/L Total Creatine Kinase (24-170) IU/L CK-MB (CK-2) (0-2.9) ng/ml Myoglobin (25-58) ng/ml Troponin T (0-0.03) ng/ml NT-Pro-B Natriuret Pep (0-450) pg/ml Total Protein (5.9-8.4) gm/dL Albumin (3.2-5.2) gm/dL Globulin (2.2-3.7) gm/dL Albumin/Globulin Ratio (1.0-2.3) Urine Color Yellow Urine Appearance Hazy Urine pH 7.0 (5.0-9.0) Ur Specific [place] 1.018 (1.000-1.035) Urine Protein 100 A (NEG) mg/dL Urine Glucose (UA) Negative (NEG) mg/dL Urine Ketones 5/tr A (NEG) mg/dL Urine Occult Blood 0.03 A (<0.03) mg/dL Urine Nitrate Neg (NEG) Urine Bilirubin Neg (NEG) mg/dL Urine Urobilinogen Neg (NEG) mg/dL Ur Leukocyte Esterase 75 A (NEG) /uL Urine RBC 17 H (0-1) /hpf Urine WBC 36 H (0-4) /hpf Ur Squamous Epith Cells 5 H (0-4) /hpf Urine Bacteria Mod A (0) /hpf Hyaline Casts 3 H (0-2) /lpf Urine Mucus Few (0) /hpf Ur Culture Indicated? No - Radiology Data Radiology results reviewed: Yes I reviewed the patient's radiology results. Disposition Pt seen by DUBBING MACHINE OPERATOR/PA only: Yes Clinical Impression: Chest pain, Urinary tract infection, Pneumonia, Chronic renal failure Disposition: Xfer As Inpt ([facility]) Condition: Fair Referrals: Chilo Hassan MD [Primary Care Provider] - Sury Ureña MD [Physician] -
[2017-10-28] MEDS ORDERED: CIPROFLOXACIN 400 MG/200 ML BAG IV ONE (13:48)
[2017-10-28 14:24] LABS: Appearance,Urine HAZY; Bacteria,Urine MOD /hpf (0); Bilirubin,Urine NEG (NEG); Color,Urine YELLOW; Glucose,Urine (UA) NEGATIVE (NEG); Leukocyte Esterase,Urine 75 /uL (NEG); Mucus,Urine FEW /hpf (0); Protein,Urine 100 mg/dL (NEG); Specific Gravity,Urine 1.018 (1.000-1.035); Urine Blood 0.03 mg/dL (<0.03); Urine Hyaline Cast 3 /lpf (0-2); Urine RBC 17 /hpf (0-1); Urine Squamous Epithelial Cell 5 /hpf (0-4); Urine WBC 36 /hpf (0-4); Urobilinogen,Urine NEG (NEG)
--- NOTE | 2017-10-28 15:45 | Cat Scan Report ---
CLINICAL INFORMATION: Elevated d-dimer and shortness of breath COMPARISON: Noncontrast chest CT 05/21/2012 TECHNIQUE: 80 cc of Isovue-300 were injected intravenously. Using SmartPrep to maximize pulmonary artery opacification, 2.5 mm helical slices were obtained from the lung apices through the lung bases. Following reconstruction, 2.5 mm sagittal, coronal, and axial reformations were processed. The exam was reviewed at mediastinal, lung, and bone windows. The exam was performed using radiation dose optimization techniques including, but not limited to, automated exposure control, adjustment of the mA and/or kV according to patient size and use of iterative reconstruction technique. FINDINGS: Mediastinal windows show enlargement of the central pulmonary arteries with the main pulmonary diameter spanning 3.5 cm palpable with pulmonary hypertension. Pulmonary arteries are well opacified - no evidence of embolus. The thoracic aorta is normal in contour and caliber with mild diffuse plaque. The heart is mildly enlarged and there is a mitral valve prostheses in stable position. There appears to be 3.3 m thrombus in the left atrial appendage. Possible moderately enlarged mediastinal lymph nodes including the paratracheal AP window and pericarinal region have developed since previous chest CT. They range up to 20 mm. The esophagus is normal. Pulmonary parenchymal windows show moderate patchy, predominantly peribronchovascular infiltrates or edema in the upper lobes and, to a lesser extent, the right middle lobe and lower lobes. These are new from the previous study, moderate left and mild/moderate pleural effusions are appreciated. Bone windows show sternotomy changes and old rib fractures IMPRESSION: 1. No evidence of pulmonary embolus 2. Enlargement of the central pulmonary arteries palpable with pulmonary hypertension. Peripheral pulmonary arteries are also enlarged and there is peribronchial vascular airspace disease compatible with edema and moderate bilateral pleural effusions suggesting CHF. 3. Kiran enlarged mediastinal lymph nodes new from previous exam likely cysts due to reactive adenopathy from prior inflammation or infection 4. Suspect thrombus filling the left atrial appendage: suggest transesophageal echocardiogram to confirm Interpreted and Authenticated by: Naldo Fitch 10/28/17
[2017-10-28] MEDS ORDERED: VANCOMYCIN PER PHARMACY IV ONE (16:01)
[2017-10-28] MEDS ORDERED: VANCOMYCIN 1,500 MG in 0.9 % SODIUM CHLORIDE 500 ML IV ONE (16:15)
--- NOTE | 2017-10-28 16:32 | Internal Med History&Physical ---
Medical - H&P: [facility] Patient information: Note initiated : 10/28/17 at 4:29 pm Service Date, if different from initiated Date: [] Patient: Kathy Carvalho a 81 y/o F admitted on for Chest Pain. Chief Complaint: [] Chief complaint: SOB History of present illness: Ms. Carvalho is a 81 year old F with a history of ESRD on HD, c/c anemia requiring transfusion along with atrial fibrillation comes from [place] with worsening shortness of breath along with weakness that has evolved over the last 1 week. Patient has associated yellow productive sputum. Also has endorses to right upper quadrant pleuritic chest pain 6 out of 10-8 out of 10. She denies sick contacts but risk factors include recent healthcare exposure/ hemodialysis. She was at the hemodialysis this morning and wasn't feeling well and subsequently was referred to the ER for further evaluation. Initial workup was significant for white count 16,000 along with chest infiltrates suggestive for pneumonia. Patient received first dose of antibiotics and subsequently hospitalist service was consulted. At the time of evaluation patient is accompanied with daughter. She was able to answer most of the questions. She appears quite distressed but able to talk in full sentences. She denies diarrhea, dysuria, rashes or itching but endorses to chest discomfort exacerbated by movement and deep breathing located in the right lower chest upper abdomen. She also endorses to drenching sweats but no shaking chills or fever. She has been getting blood transfusion @5 units in the last month due to significant anemia of chronic disease/underlying ESRD/chronic GI bleed Review of systems 10 point review systems was performed and is negative except as discussed above Medical - H&P: PMH Medical history: Anemia (Acute) Multiple skin nodules (Chronic) Elevated C-reactive protein (CRP) (Chronic) Encounter for long-term (current) use of high-risk medication (Chronic) Rheumatoid arthritis (Chronic) Fibromyalgia (Chronic) Thrombocytopenia (Acute) Long-term current use of steroids (Chronic) Long-term use of immunosuppressant medication (Chronic) Neck Pain (Chronic) Hyperuricemia (Chronic) Inflammatory arthritis (Chronic) Hyperparathyroidism due to renal insufficiency (Chronic) Chronic kidney disease (CKD), stage V (Chronic) Gout (Chronic) Overactive bladder (Chronic) Recurrent urinary tract infection (Chronic) Hypomagnesemia (Acute) Anemia in chronic renal disease (Chronic) Hypertensive renal disease (Chronic) Proteinuria (Chronic) Secondary hyperparathyroidism of renal origin (Chronic) Calcium nephrolithiasis (Chronic) Metabolic acidosis (Chronic) Chronic kidney disease, stage IV (severe) (Chronic) Vitamin B 12 deficiency (Acute) History of urinary tract infection (Acute) Urinary incontinence (Acute) Sleep apnea (Acute) Shortness of breath (Acute) Short bowel syndrome (Acute) Renal insufficiency (Acute) Reactive airway disease (Acute) Parkinson's disease (Acute) Neuropathy (Acute) Mitral regurgitation (Acute) Chronic interstitial lung disease (Acute) Hypothyroidism (Acute) GERD (gastroesophageal reflux disease) (Acute) Gastrointestinal bleed (Chronic) Dysphonia (Acute) Degenerative joint disease (Chronic) Coronary artery disease (Acute) Chronic kidney disease, stage III (moderate) (Acute) Cardiomegaly (Acute) Atrial fibrillation (Acute) Anemia (Chronic) Surgical history: Status post wrist surgery (Acute) History of shoulder surgery (Acute) History of knee surgery (Acute) History of intestinal bypass (Acute) History of hysterectomy (Acute) History of cholecystectomy (Acute) itral valve repair on 09/03/17 at [facility], Pertinent family history: Father Congestive heart failure Sister Family history of malignant neoplasm of breast Mother Cerebrovascular accident Social history: No history smoking alcoholism Former smoker Retired Medical - H&P: Meds Home Medications Medication Instructions Recorded Confirmed Type Adalimumab [Humira] 40 mg SQ Q2W 08/22/17 10/28/17 History Allopurinol [Zyloprim] 100 mg PO DAILY 08/22/17 10/28/17 History Aspirin [Jayme Chewable Aspirin] 81 mg PO DAILY 08/22/17 10/28/17 History Cranberry Fruit Extract [Cranberry 1 gm MC DAILY 08/22/17 10/28/17 History Extract] Ferrous Sulfate 325 mg PO [facility] 08/22/17 10/28/17 History Furosemide [Lasix] 100 mg PO DAILY 08/22/17 10/28/17 History Hydroxychloroquine [Plaquenil] 200 mg PO BID 08/22/17 10/28/17 History Metoprolol Tartrate 75 mg PO DAILY 08/22/17 10/28/17 History Metoprolol Tartrate [Lopressor] 50 mg PO HS 08/22/17 10/28/17 History Montelukast [Singular] 10 mg PO 08/22/17 10/28/17 History Pantoprazole [Protonix] 40 mg PO QAMAC 08/22/17 10/28/17 History Ubidecarenone [Coq-10] 100 mg PO DAILY 08/22/17 10/28/17 History Acetaminophen [Tylenol] 650 mg PO Q4-6HP PRN tab 08/26/17 10/28/17 Rx Carbidopa/Levodopa Cr 25/100 2 tab PO TID tab.sr.12h 08/26/17 10/28/17 Rx [Sinemet Cr 25/100] Simvastatin [Zocor] 10 mg PO HS 08/28/17 10/28/17 History Sevelamer [Renvela] 800 mg PO TIDCC tab 09/02/17 10/28/17 Rx HYDROcodone/APAP 5/325MG [[place] 1 - 2 tab PO Q4HP PRN 10/04/17 10/28/17 History 5-325Mg] cefpodoxime 100 mg tablet 100 mg PO .q48 hours #5 tab 10/17/17 10/28/17 Rx Warfarin [Coumadin] 2.5 mg PO SUMOTUWETHFR 10/29/17 10/29/17 History Warfarin [Coumadin] 5 mg PO SA 10/29/17 10/29/17 History Allergies Allergy/AdvReac Type Severity Reaction Status Date / Time Penicillins Allergy Mild Hives Verified 10/23/17 16:01 dofetilide [From Tikosyn] Allergy Unknown Unknown Verified 10/23/17 16:01 doxycycline Allergy Unknown Unknown Verified 10/23/17 16:01 adhesive tape AdvReac Mild Rash Verified 10/23/17 16:01 Erythromycin Base AdvReac Mild Itching Verified 10/23/17 16:01 Medical - H&P: Exam - Constitutional Vitals: Temp Pulse Resp BP Pulse Ox 97.6 F 105 H 17 150/62 97 10/28/17 10:52 10/28/17 14:17 10/28/17 14:17 10/28/17 14:17 10/28/17 14:17 General appearance: no acute distress Exam: Alert oriented \Eye movements symmetrical Oral cavity dry No eardischarge Head normocephalic Neck no lymphadenopathy S1 and S2 irregular rhythm. ESM grade 1 Bronchial breath sounds bilateral/posterior right chest Abdomen soft Lower extremity no edema cyanosis no joint swelling and erythema skin no suspicious lesion except for stasis changes Psych alert cooperative Neuro no acute change. Minimal residual deficits from previous CVA Medical - H&P: Reslt - Labs CBC & Chem 7: 10/30/17 03:30 10/30/17 03:30 Labs: Short CBC 10/28/17 Range/Units 11:45 WBC 16.4 H (4.5-11.0) K/mcL Hgb 12.0 (12.0-15.0) g/dL Hct 36.6 (36.0-48.0) % Plt Count 229 (140-440) K/mcL BMP 10/28/17 11:45 Sodium 134 Potassium 4.0 Chloride 93 L Carbon Dioxide 26 BUN 10 Creatinine 1.3 H Glucose 75 Calcium 8.8 Cardiac Enzymes 10/28/17 10/28/17 Range/Units 11:45 11:45 Total Creatine Kinase 57 (24-170) IU/L CK-MB (CK-2) 1.2 (0-2.9) ng/ml Troponin T < 0.01 (0-0.03) ng/ml Liver Function 10/28/17 Range/Units 11:45 Total Bilirubin 0.8 (0.0-1.0) mg/dL AST 17 (0-37) U/l ALT < 5 (0-40) U/l Alkaline Phosphatase 110 (39-117) U/L Albumin 3.8 (3.2-5.2) gm/dL Urine 10/28/17 Range/Units 13:30 Urine Color Yellow Urine Appearance Hazy Urine pH 7.0 (5.0-9.0) Ur Specific [place] 1.018 (1.000-1.035) Urine Protein 100 A (NEG) mg/dL Urine Glucose (UA) Negative (NEG) mg/dL Medical - H&P: A/P (1) Nosocomial pneumonia Status: Acute * HCAP- continue Abx for nosocomial pathogens. Immunocompromised state with underlying ESRD on HD and on Humira * SOB- start pulm toilette, will supplement oxygen * ESRD on hemodialysis managed per nephrology * History of chronic GI bleed- on frequent blood transfusion * Deconditioning after recent hospitalization-continue aggressive PT OT * Severe MR-status post mitral valve repair on 09/03/17 at [facility] (Dr Antonio) * History of atrial fibrillation currently rate controlled. On anticoagulation on Coumadin. * History of ischemic colitis May 2017. 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
--- NOTE | 2017-10-28 16:46 | Nephrology Consult Note ---
History of Present Illness - Reason for Consult Patient information: Note initiated : 10/28/17 at 4:41 pm Patient: Kathy Carvalho 81 y/o F admitted on for Chest Pain. Chief Complaint: Chest pain Consult date: 10/28/17 end stage renal disease Requesting physician: Dennis Kitchen - Chief Complaint Chest pain - History of Present Illness Kathy Carvalho is an [id number] female with end stage renal disease on chronic hemodialysis (through tunneled hemodialysis catheter, at [facility], on MWF, followed by Dr Ureña), chronic anemia due to chronic kidney disease, secondary hyperparathyroidism, coronary artery disease, chronic atrial fibrillation on Coumadin anticoagulation and mitral valve repair on 09/03/17 at [facility], history of ischemic colitis and recurrent gastrointestinal bleeding, hypertension, hyperlipidemia, hypothyroidism, history of CVA with residual right hemiparesis, Parkinson disease, and gout being admitted on 10/28/17. Review of Systems Constitutional: weakness, no weight loss Nose, mouth and throat: no nasal congestion, no sore throat Cardiovascular: chest pain, no palpatations Respiratory: cough, no hemoptysis Gastrointestinal: no abdominal pain, no diarrhea Genitourinary: no dysuria, no hematuria Musculoskeletal: no back pain, no neck pain Integumentary: no rash, no wounds Neurological: no confusion, no headache(s) Psychiatric: no anxiety, no panic attacks Endocrine: no cold intolerance, no heat intolerance Hematologic/Lymphatic: easy bleeding, easy bruising Allergic/Immunologic: no tongue swelling, no uticaria Past History Past medical history: Medical History (Last Updated 09/23/17 @ 10:26 by Cecilia Evans) Intestinal bypass present (Chronic) Arterial branch occlusion of retina (Chronic) Restless leg syndrome (Chronic) Anxiety and depression (Chronic) Asthma (Chronic) Hyperlipidemia, mixed (Chronic) Essential hypertension (Chronic) Gastroparesis (Chronic) ISIAH (obstructive sleep apnea) (Chronic) High risk medication use (Chronic) Interstitial lung disease (Chronic) Actinic keratosis (Chronic) Melena (Chronic) Bronchitis (Chronic) UTI (urinary tract infection) (Chronic) Head trauma (Chronic) Sinus pain (Chronic) Sinusitis (Chronic) URI (upper respiratory infection) (Chronic) Right elbow pain (Chronic) Right shoulder pain (Chronic) Rib pain on right side (Chronic) Rotator cuff syndrome of right shoulder (Chronic) Chronic kidney disease, stage III (moderate) (Chronic) Left temporomandibular joint disorder, unspecified (Chronic) Septic arthritis of hip (Chronic) Arthritis (Chronic) CHF (congestive heart failure) (Chronic) Ischemic bowel disease (Chronic) Anemia (Acute) Diarrhea (Acute) Fall (Acute) Knee contusion (Acute) Anticoagulant effect (Acute) Skin ulceration (Acute) Multiple rib fractures (Acute) Avulsion fracture of ankle (Acute) Stool guaiac positive (Acute) ESRD (end stage renal disease) on dialysis (Chronic) Lower gastrointestinal hemorrhage (Acute) Anemia due to blood loss, acute (Acute) 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) Rib pain on left side (Acute) Chest pain (Acute) Left anterior knee pain (Acute) Pain in left ankle and joints of left foot (Acute) Multiple skin nodules (Chronic) Elevated C-reactive protein (CRP) (Chronic) Encounter for long-term (current) use of high-risk medication (Chronic) Rheumatoid arthritis (Chronic) Fibromyalgia (Chronic) Thrombocytopenia (Acute) Long-term current use of steroids (Chronic) Long-term use of immunosuppressant medication (Chronic) Neck Pain (Chronic) Hyperuricemia (Chronic) Inflammatory arthritis (Chronic) Hyperparathyroidism due to renal insufficiency (Chronic) Chronic kidney disease (CKD), stage V (Chronic) Gout (Chronic) Overactive bladder (Chronic) Recurrent urinary tract infection (Chronic) Hypomagnesemia (Acute) Anemia in chronic renal disease (Chronic) Hypertensive renal disease (Chronic) Proteinuria (Chronic) Secondary hyperparathyroidism of renal origin (Chronic) Calcium nephrolithiasis (Chronic) Metabolic acidosis (Chronic) Chronic kidney disease, stage IV (severe) (Chronic) Vitamin B 12 deficiency (Acute) History of urinary tract infection (Acute) Urinary incontinence (Acute) Sleep apnea (Acute) Shortness of breath (Acute) Short bowel syndrome (Acute) Renal insufficiency (Acute) Reactive airway disease (Acute) Parkinson's disease (Acute) Neuropathy (Acute) Mitral regurgitation (Acute) Chronic interstitial lung disease (Acute) Hypothyroidism (Acute) GERD (gastroesophageal reflux disease) (Acute) Gastrointestinal bleed (Chronic) Dysphonia (Acute) Degenerative joint disease (Chronic) Coronary artery disease (Acute) Chronic kidney disease, stage III (moderate) (Acute) Cardiomegaly (Acute) Atrial fibrillation (Acute) Anemia (Chronic) Acute decompensated heart failure (Acute) Past surgical history: Past Surgical History (Last Reviewed 09/16/17 @ 13:12 by Ginette Sprague MD) Status post wrist surgery (Acute) History of shoulder surgery (Acute) History of knee surgery (Acute) History of intestinal bypass (Acute) History of hysterectomy (Acute) History of cholecystectomy (Acute) Past family history: Family History (Last Reviewed 09/16/17 @ 13:12 by Ginette Sprague MD) Father Congestive heart failure Sister Family history of malignant neoplasm of breast Mother Cerebrovascular accident Past social history: Social History (Last Updated 09/16/17 @ 13:26 by Ginette Sprague MD) No Social History Section defined Medications and Allergies Home Medications Medication Instructions Recorded Confirmed Type Adalimumab [Humira] 40 mg SQ Q2W 08/22/17 10/23/17 History Allopurinol [Zyloprim] 100 mg PO DAILY 08/22/17 10/23/17 History Aspirin [Jayme Chewable Aspirin] 81 mg PO DAILY 08/22/17 10/23/17 History Cranberry Fruit Extract [Cranberry 1 gm MC DAILY 08/22/17 10/23/17 History Extract] Ferrous Sulfate 325 mg PO QAMCC 08/22/17 10/23/17 History Furosemide [Lasix] 100 mg PO DAILY 08/22/17 10/23/17 History Hydroxychloroquine [Plaquenil] 200 mg PO BID 08/22/17 10/23/17 History Metoprolol Tartrate 75 mg PO DAILY 08/22/17 10/23/17 History Metoprolol Tartrate [Lopressor] 50 mg PO HS 08/22/17 10/23/17 History Montelukast [Singular] 10 mg PO HS 08/22/17 10/23/17 History Pantoprazole [Protonix] 40 mg PO QAMAC 08/22/17 10/23/17 History Ubidecarenone [Coq-10] 100 mg PO DAILY 08/22/17 10/23/17 History Acetaminophen [Tylenol] 650 mg PO Q4-6HP PRN tab 08/26/17 10/23/17 Rx Carbidopa/Levodopa Cr 25/100 2 tab PO TID tab.sr.12h 08/26/17 10/23/17 Rx [Sinemet Cr 25/100] Simvastatin [Zocor] 10 mg PO HS 08/28/17 10/23/17 History Warfarin [Coumadin] 5 mg PO DAILY 08/28/17 10/23/17 History Sevelamer [Renvela] 800 mg PO TIDCC tab 09/02/17 10/23/17 Rx HYDROcodone/APAP 5/325MG [[place] 1 - 2 tab PO Q4HP PRN 10/04/17 10/23/17 History 5-325Mg] cefpodoxime 100 mg tablet 100 mg PO .q48 hours #5 tab 10/17/17 10/23/17 Rx Allergies Allergy/AdvReac Type Severity Reaction Status Date / Time Penicillins Allergy Mild Hives Verified 10/23/17 16:01 dofetilide [From Tikosyn] Allergy Unknown Unknown Verified 10/23/17 16:01 doxycycline Allergy Unknown Unknown Verified 10/23/17 16:01 adhesive tape AdvReac Mild Rash Verified 10/23/17 16:01 Erythromycin Base AdvReac Mild Itching Verified 10/23/17 16:01 Exam - Vital Signs Vital signs: Temp Pulse Resp BP Pulse Ox 97.6 F 103 H 29 H 148/61 95 10/28/17 10:52 10/28/17 16:31 10/28/17 16:31 10/28/17 16:31 10/28/17 16:31 - General Appearance General appearance: chronically ill, fatigue, frail EENT: mucous membranes dry Neck: supple Respiratory: course breath sounds Cardiology: edema Gastrointestinal: no tenderness, no guarding Integumentary: warm and dry Neurologic: no focal deficit, alert and oriented x3 Musculoskeletal: no deformities Psychiatric: mood/affect appropriate, cooperative Results - Lab Results 10/28/17 11:45 10/28/17 11:45 Most recent lab results Calcium 8.8 mg/dl (8.6-10.4) 10/28/17 11:45 - Image Kidney/bladder ultrasound: report reviewed Assessment and Plan (1) ESRD (end stage renal disease) on dialysis End stage renal disease on chronic hemodialysis (through tunneled hemodialysis catheter, at [facility], on MWF, followed by Dr Ureña), chronic anemia due to chronic kidney disease, secondary hyperparathyroidism. Progress: Received hemodialysis today for 3 hours before presentation to ED Received IV contrast today for CT Suspected pulmonary edema on CT Plan: Hemodialysis tomorrow with Revaclear 400 dialyzer for 3 hours, QB/QD 400 /800, dialysate (Potassium sliding scale, Bicarbonate 35, Calcium 2.5, Sodium 139), UF target 3-4 kg. Status: Chronic Priority: Medium
[2017-10-28] MEDS ORDERED: ACETAMINOPHEN 325 MG TABLET PO PRN (17:23)
[2017-10-28] MEDS ORDERED: PIPERACILLIN SODIUM/TAZOBACTAM 3.375 GM in DEXTROSE 5% IN WATER 50 ML IV SCH (17:23)
[2017-10-28] MEDS ORDERED: VANCOMYCIN PER PHARMACY IV SCH (17:23)
[2017-10-28] MEDS ORDERED: ONDANSETRON 4 MG/2 ML VIAL IV PRN (17:23)
[2017-10-28] MEDS ORDERED: HYDROmorphone 2 MG/ML VIAL ONE (19:27)
[2017-10-28] MEDS: CEFEPIME 1 GM VIAL IV SCH (20:04)
[2017-10-28] MEDS: SENNOSIDES/DOCUSATE SODIUM 1 TAB TABLET PO SCH (20:07)
[2017-10-28] MEDS: DOCUSATE SODIUM 100 MG CAPSULE PO SCH (20:07)
[2017-10-28] MEDS ORDERED: HEPARIN 5,000 UNIT/ML VIAL SQ SCH (21:00)
[2017-10-28] MEDS: 0.9 % SODIUM CHLORIDE 10 ML SYRINGE IV SCH (21:00)
[2017-10-29] MEDS: HYDROmorphone 2 MG/ML VIAL IV PRN ×2 (01:05→21:05)
[2017-10-29] MEDS: IPRATROPIUM/ALBUTEROL 3 ML AMPUL.NEB NEB PRN (01:15)
[2017-10-29] MEDS: ACETAMINOPHEN 1,000 MG/100 ML BOTTLE IV PRN ×2 (01:50→23:49)
[2017-10-29] MEDS: 0.9 % SODIUM CHLORIDE 10 ML SYRINGE IV SCH ×3 (05:30→22:00)
--- NOTE | 2017-10-29 06:07 | Nephrology Progress Note ---
Subjective Patient information: Note initiated : 10/29/17 at 6:05 am Kathy Carvalho is an [id number] female with end stage renal disease on chronic hemodialysis (through tunneled hemodialysis catheter, at [facility], on MWF, followed by Dr Ureña), chronic anemia due to chronic kidney disease, secondary hyperparathyroidism, coronary artery disease, chronic atrial fibrillation on Coumadin anticoagulation and mitral valve repair on 09/03/17 at [facility], history of ischemic colitis and recurrent gastrointestinal bleeding, hypertension, hyperlipidemia, hypothyroidism, history of CVA with residual right hemiparesis, Parkinson disease, and gout being admitted on 10/28/17. Chief Complaint: Chest pain Principal diagnosis: End stage renal disease Pertinent ROS: Weakness Objective - Vital Signs Vital signs: Vital Signs Temp Pulse Pulse Resp BP BP Pulse Ox 10/29/17 05:01 126/51 10/29/17 04:30 112 H 100 10/29/17 04:02 110 H 98 10/29/17 04:01 97.9 F 110 H 113/52 98 10/29/17 03:20 123 H 99/66 88 L 10/29/17 02:53 125 H 101/42 100 10/29/17 02:01 99.0 F 125 H 110/59 93 10/29/17 01:44 122 H 123/67 98 10/29/17 01:30 113 H 18 10/29/17 00:01 98.3 F 102 H 142/61 99 10/28/17 23:01 109 H 14 133/58 99 10/28/17 22:30 112 H 133/61 100 10/28/17 20:01 110 H 15 136/82 97 10/28/17 20:00 98.1 F 113 H 16 136/82 96 10/28/17 19:14 18 97 10/28/17 19:13 18 10/28/17 18:00 110 H 98 10/28/17 17:23 98.8 F 107 H 20 160/86 98 10/28/17 17:05 98.8 F 94 10/28/17 16:31 103 H 29 H 148/61 95 10/28/17 16:01 99 H 21 144/65 97 10/28/17 15:40 99 H 140/65 89 L 10/28/17 14:17 105 H 17 150/62 97 10/28/17 13:48 117 H 21 98 07/23/18 10:52 97.6 F 123 H 26 H 152/71 93 Intake and Output 10/28/17 10/29/17 10/29/17 21:59 05:59 13:59 Intake Total 1595 / 1595 100 / 100 Output Total 100 / 100 30 / 30 Balance 1495 / 1495 70 / 70 Intake: IV 1450 / 1450 100 / 100 Sodium Chloride 0.9% 500 ml @ 500 / 500 Wide Open IV BOLUS ONE Rx#: [id number] Zithromax 500 mg In Dextrose 5% 250 / 250 in Water 250 ml @ 250 mls/hr IV ONCE ONE Rx#:[id number] Vancomycin 1,500 mg In Sodium 500 / 500 Chloride 0.9% 500 ml @ 333.3 mls/hr IV ONCE ONE Rx#: [id number] Oral 145 / 145 Output: Void Amount 100 / 100 30 / 30 Other: Meal Dinner Percent of Meal Consumed 50% Feeding Ability Assist with Tray Set Up # Voids 1 1 Weight 172 lb 3.2 oz Intake & Output: Intake & Output 10/28/17 10/29/17 10/29/17 21:59 05:59 13:59 Intake Total 1595 / 1595 100 / 100 Output Total 100 / 100 30 / 30 Balance 1495 / 1495 70 / 70 Weight 172 lb 3.2 oz Intake: IV 1450 / 1450 100 / 100 Sodium Chloride 0.9% 500 ml @ 500 / 500 Wide Open IV BOLUS ONE Rx#: [id number] Zithromax 500 mg In Dextrose 5% 250 / 250 in Water 250 ml @ 250 mls/hr IV ONCE ONE Rx#:[id number] Vancomycin 1,500 mg In Sodium 500 / 500 Chloride 0.9% 500 ml @ 333.3 mls/hr IV ONCE ONE Rx#: [id number] Oral 145 / 145 Output: Void Amount 100 / 100 30 / 30 Other: Meal Dinner Percent of Meal Consumed 50% Feeding Ability Assist with Tray Set Up # Voids 1 1 - General Appearance General appearance: chronically ill, fatigue, frail EENT: mucous membranes dry Neck: supple Respiratory: course breath sounds Cardiology: edema Gastrointestinal: no tenderness, no guarding Integumentary: warm and dry, ecchymotic Neurologic: no focal deficit, alert and oriented x3 Musculoskeletal: no deformities Psychiatric: mood/affect appropriate, cooperative - Lab 10/29/17 03:40 10/29/17 03:40 Most recent lab results Calcium 8.8 mg/dl (8.6-10.4) 10/28/17 11:45 Assessment and Plan (1) ESRD (end stage renal disease) on dialysis End stage renal disease on chronic hemodialysis (through tunneled hemodialysis catheter, at [facility], on MWF, followed by Dr Ureña), chronic anemia due to chronic kidney disease, secondary hyperparathyroidism. Progress: Last hemodialysis on 10/28/17 for 3 hours before presentation to ED Received IV contrast on 10/28/[address] Suspected pulmonary edema on CT Current weight 78 kg; dry weight 75.5 kg Plan: Hemodialysis today with Revaclear 400 dialyzer for 3 hours, QB/QD 400/ 800, dialysate (Potassium sliding scale, Bicarbonate 35, Calcium 2.5, Sodium 139 ), UF target 3-4 kg. The patient seen and evaluated during dialysis at 12:55. Status: Chronic Priority: Medium
[2017-10-29 06:41] LABS: Mean Cell Volume 95.7 fL (80.0-100.0); Mean Corpuscular HGB Conc 31.8 g/dL (31.0-36.0); Mean Corpuscular Hemoglobin 30.5 pg (26.0-34.0); Platelet Count 235 K/mcL (140-440); RBC 3.55 M/mcL (4.00-5.20); Red Cell Distribution Width 18.9 % (11.5-14.5)
[2017-10-29 06:57] LABS: ALT/SGPT < 5 U/l (0-40); Albumin 3.1 gm/dL (3.2-5.2); Albumin/Globulin Ratio 1.1 (1.0-2.3); Alkaline Phosphatase 105 U/L (39-117); Bilirubin,Direct < 0.2 mg/dL (0.0-0.3); Blood Urea Nitrogen 19 mg/dl (8-23); Gamma Glutamyl Transpeptidase 14 U/L (5-36); Uric Acid 2.9 mg/dL (2.5-8.0)
[2017-10-29] MEDS ORDERED: ADALIMUMAB 40 MG SQ SCH (09:00)
[2017-10-29] MEDS: FUROSEMIDE 40 MG TABLET PO SCH (09:37)
[2017-10-29] MEDS: CEFEPIME 1 GM VIAL IV SCH ×2 (09:37→10:36)
[2017-10-29] MEDS: METOPROLOL TARTRATE 25 MG TABLET PO SCH (09:37)
[2017-10-29] MEDS: DOCUSATE SODIUM 100 MG CAPSULE PO SCH ×2 (09:37→20:42)
[2017-10-29] MEDS: SEVELAMER 800 MG TABLET PO SCH ×3 (09:37→17:13)
[2017-10-29] MEDS: HYDROcodone/APAP 5/325MG TABLET PO PRN ×2 (09:38→17:13)
[2017-10-29] MEDS: ASPIRIN 81 MG TAB.CHEW PO SCH (09:38)
[2017-10-29] MEDS: HYDROXYCHLOROQUINE 200 MG TABLET PO SCH ×2 (09:38→20:41)
[2017-10-29] MEDS: CARBIDOPA/LEVODOPA CR 25/100 TABLET PO SCH ×3 (09:39→20:41)
[2017-10-29] MEDS: Ubidecarenone [Coq-10] 100 mg Tab PO SCH (09:39)
[2017-10-29] MEDS: ALLOPURINOL 100 MG TABLET PO SCH (09:39)
[2017-10-29] MEDS: VANCOMYCIN 1,000 MG in 0.9 % SODIUM CHLORIDE 250 ML IV SCH ×2 (09:40→10:37)
[2017-10-29 10:07] LABS: Anisocytosis 1+ (NONE SEEN); Band Neutrophils % 9 % (0-10); Lymphocytes % 8 % (15-49); Monocytes % (Manual) 1 % (1-12); Platelet Estimate NORMAL (NORMAL); RBC Morphology ABNORM (NORMAL); Segmented Neutrophils % 82 % (38-78)
--- NOTE | 2017-10-29 10:44 | Internal Med Progress Note ---
Medical - PN: Subj Patient information: Note initiated : 10/29/17 at 10:39 am Service Date, if different from initiated Date: [] Patient: Kathy Carvalho a 81 y/o F admitted on 10/28/17 for Chest Pain. Chief Complaint: [] Interval history: Ms. Carvalho is a 81 year old F with a history of ESRD on HD, c/c anemia requiring transfusion along with atrial fibrillation comes from [place] worsening shortness of breath along with weakness that has evolved over the last 1 week. Patient has associated yellow productive sputum. Also has endorses to right upper quadrant pleuritic chest pain 6 out of 10-8 out of 10. She denies sick contacts but risk factors include recent healthcare exposure/ hemodialysis. She was at the hemodialysis this morning and wasn't feeling well and subsequently was referred to the ER for further evaluation. Initial workup was significant for white count 16,000 along with chest infiltrates suggestive for pneumonia. Patient received first dose of antibiotics and subsequently hospitalist service was consulted. At the time of evaluation patient is accompanied with daughter. She was able to answer most of the questions. She appears quite distressed but able to talk in full sentences. She denies diarrhea, dysuria, rashes or itching but endorses to chest discomfort exacerbated by movement and deep breathing located in the right lower chest upper abdomen. She also endorses to's drenching sweats but no shaking chills or fever. She has been getting blood transfusion and 65 units in the last month significant anemia of chronic disease/underlying ESRD/chronic GI bleed 10/29-patient experienced significant right subcostal pain overnight. White count up at 17,000 with left shift and bandemia. Antibiotic change from cefepime to ertapenem. Urine culture Citrobacter sensitive to ertapenem. CT abdomen in light of subcostal pain and rule out hepatic/subhepatic process. Ongoing hemodialysis. UA 36 WBCs and bacteria. No overnight telemetry events. Stable hemodynamics. Tachycardia on 114 - Constitutional Vitals: Vital Signs Temp Pulse Resp BP Pulse Ox 97.9 F 112 H 18 126/51 100 10/29/17 04:01 10/29/17 04:30 10/29/17 01:30 10/29/17 05:01 10/29/17 04:30 Period Temp Pulse Resp BP Sys/Nova Pulse Ox Last 24 Hr 97.6 F-99.0 F 99-125 14-29 99-160/42-86 88-100 Intake and Output 10/28/17 10/29/17 10/29/17 21:59 05:59 13:59 Intake Total 1595 / 1595 100 / 100 Output Total 100 / 100 30 / 30 Balance 1495 / 1495 70 / 70 Weight 172 lb 3.2 oz Intake & Output: Intake & Output 10/28/17 10/29/17 10/29/17 21:59 05:59 13:59 Intake Total 1595 / 1595 100 / 100 Output Total 100 / 100 30 / 30 Balance 1495 / 1495 70 / 70 Weight 172 lb 3.2 oz Intake: IV 1450 / 1450 100 / 100 Sodium Chloride 0.9% 500 ml @ 500 / 500 Wide Open IV BOLUS ONE Rx#: [id number] Zithromax 500 mg In Dextrose 5% 250 / 250 in Water 250 ml @ 250 mls/hr IV ONCE ONE Rx#:[id number] Vancomycin 1,500 mg In Sodium 500 / 500 Chloride 0.9% 500 ml @ 333.3 mls/hr IV ONCE ONE Rx#: [id number] Oral 145 / 145 Output: Void Amount 100 / 100 30 / 30 Other: Meal Dinner Percent of Meal Consumed 50% Feeding Ability Assist with Tray Set Up # Voids 1 1 General appearance: no acute distress Exam: Alert Moderate right subcostal discomfort Nonlabored breathing Telemetry atrial fib Abdomen tender subcostal area without rebound Medical - PN: Obj Da - Labs CBC & Chem 7: 10/29/17 03:40 10/29/17 03:40 Labs: Abnormal Lab Results 10/29/17 10/29/17 10/29/17 09:02 03:40 03:40 WBC 17.6 H RBC 3.55 L Hgb 10.8 L Hct 33.9 L RDW 18.9 H Gran % Lymph % (Auto) Gran # Lymph # (Auto) Seg Neutrophils % 82 H Lymphocytes % 8 L RBC Morphology Abnorm A Polychromasia 1+ A Anisocytosis 1+ A PT 51.2 H INR 5.5 H D-Dimer Potassium 5.2 H Chloride 95 L Creatinine 2.1 H Glucose 68 L Phosphorus 5.7 H Lactate Dehydrogenase 295 H NT-Pro-B Natriuret Pep Albumin 3.1 L Urine Protein Urine Ketones Urine Occult Blood Ur Leukocyte Esterase Urine RBC Urine WBC Ur Squamous Epith Cells Urine Bacteria Hyaline Casts 10/28/17 10/28/17 10/28/17 13:30 12:29 11:45 WBC RBC Hgb Hct RDW Gran % Lymph % (Auto) Gran # Lymph # (Auto) Seg Neutrophils % Lymphocytes % RBC Morphology Polychromasia Anisocytosis PT INR D-Dimer 0.86 H Potassium Chloride Creatinine Glucose Phosphorus Lactate Dehydrogenase NT-Pro-B Natriuret Pep 6778.0 H Albumin Urine Protein 100 A Urine Ketones 5/tr A Urine Occult Blood 0.03 A Ur Leukocyte Esterase 75 A Urine RBC 17 H Urine WBC 36 H Ur Squamous Epith Cells 5 H Urine Bacteria Mod A Hyaline Casts 3 H 10/28/17 10/28/17 11:45 11:45 WBC 16.4 H RBC 3.86 L Hgb Hct RDW 19.4 H Gran % 92.7 H Lymph % (Auto) 5.8 L Gran # 15.2 H Lymph # (Auto) 1.0 L Seg Neutrophils % Lymphocytes % RBC Morphology Polychromasia Anisocytosis PT INR D-Dimer Potassium Chloride 93 L Creatinine 1.3 H Glucose Phosphorus Lactate Dehydrogenase NT-Pro-B Natriuret Pep Albumin Urine Protein Urine Ketones Urine Occult Blood Ur Leukocyte Esterase Urine RBC Urine WBC Ur Squamous Epith Cells Urine Bacteria Hyaline Casts Meds: Medications Acetaminophen (Tylenol) 650 mg PO Q4-6HP PRN PRN Reason: PAIN/FEVER > 101 Last Admin: 10/28/17 18:13 Dose: 650 mg Hydrocodone Bitart/Acetaminophen ([place] 5/325mg) 1 - 2 tab PO Q4HP PRN PRN Reason: Pain Last Admin: 10/29/17 09:38 Dose: 2 tab Albuterol/Ipratropium (Duoneb) 3 ml NEB Q4HP PRN PRN Reason: Shortness Of Breath Last Admin: 10/29/17 01:15 Dose: 3 ml Allopurinol (Zyloprim) 100 mg PO DAILY [facility] Last Admin: 10/29/17 09:39 Dose: 100 mg Aspirin (Aspirin) 81 mg PO DAILY [facility] Last Admin: 10/29/17 09:38 Dose: 81 mg Carbidopa/Levodopa (Sinemet Cr 25/100) 2 tab PO TID [facility] Last Admin: 10/29/17 09:39 Dose: 2 tab Docusate Sodium (Colace) 100 mg PO BID [facility] Last Admin: 10/29/17 09:37 Dose: 100 mg Furosemide (Lasix) 100 mg PO DAILY [facility] Last Admin: 10/29/17 09:37 Dose: 100 mg Hydromorphone HCl (Dilaudid) 0.5 mg IV Q4-6HP PRN PRN Reason: PAIN LEVEL > 6 Last Admin: 10/29/17 01:05 Dose: 0.5 mg Hydroxychloroquine Sulfate (Plaquenil) 200 mg PO BID [facility] Last Admin: 10/29/17 09:38 Dose: 200 mg Acetaminophen (Ofirmev) 1,000 mg in 100 mls @ 200 mls/hr IV Q6HP PRN PRN Reason: PAIN/FEVER > 101 Last Infusion: 10/29/17 02:25 Dose: Infused Ertapenem 1 gm/ Sodium (Chloride) 50 mls @ 100 mls/hr IV Q24H [facility] Metoprolol Tartrate (Lopressor) 75 mg PO DAILY [facility] Last Admin: 10/29/17 09:37 Dose: 75 mg Metoprolol Tartrate (Lopressor) 50 mg PO HS [facility] Montelukast Sodium (Singular) 10 mg PO HS [facility] Ondansetron HCl (Zofran) 4 mg IV Q4-6HP PRN PRN Reason: Nausea And Vomiting Pantoprazole Sodium (Protonix) 40 mg PO QAMAC [facility] Ubidecarenone [Coq- (10] 100 Mg Tab) 1 dose PO DAILY [facility] Last Admin: 10/29/17 09:39 Dose: Not Given Senna/Docusate Sodium (Senna Plus Tablet) 1 tab PO HS [facility] Last Admin: 10/28/17 20:07 Dose: 1 tab Sevelamer Carbonate (Renvela) 800 mg PO TIDCC [facility] Last Admin: 10/29/17 09:37 Dose: 800 mg Simvastatin (Zocor) 10 mg PO HS [facility] Sodium Chloride (Saline Flush) 10 ml IV Q8 [facility] Last Admin: 10/29/17 05:30 Dose: 10 ml Vancomycin HCl (Vancomycin Per Pharmacy) 1 order IV UD [facility] Warfarin Sodium (Coumadin Per Pharmacy) 1 order PO DAILY@1400 [facility] Medical - PN: A/P - Time Spent With Patient Total time spent is greater than 50% in coordination of care (as documented) at patient's floor/unit and/or counseling patient: 25 - 35 minutes (1) Nosocomial pneumonia Status: Acute Assessment and plan: * Severe sepsis with leukocytosis tachycardia-secondary to Citrobacter UTI/ nosocomial pneumonia. Continue management per guidelines. * HCAP- continue ertapenem/vancomycin for nosocomial pathogens. Immunocompromised state with underlying ESRD on HD and on Humira * Complicated Citrobacter UTI-on ertapenem * ESRD on hemodialysis managed per nephrology * Anticoagulation on Coumadin -secondary to history of CVA/mesenteric and atrial thrombus. INR 5.3 * History of chronic GI bleed- on frequent blood transfusion. Hemoglobin 8.8 * Deconditioning after recent hospitalization-continue aggressive PT OT * Severe MR-status post mitral valve repair on 09/03/17 at [facility], * History of atrial fibrillation currently rate controlled. On anticoagulation on Coumadin * History of ischemic colitis. 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
--- NOTE | 2017-10-29 14:04 | Cat Scan Report ---
CLINICAL INFORMATION: On dialysis. Right upper quadrant pain COMPARISON: Abdominal and pelvic CTs from one through 32,008 and 09/04/2017. TECHNIQUE: IV contrast was withheld because of end-stage renal failure history of contrast from prior day 0.625 mm helical slices were obtained from the mid heart through the iliac crest. Following reconstructions, sagittal, coronal and axial reformations were processed. Exam was reviewed at bone, lung and soft tissue windows Eight minutes later repeat 0.625 mm helical slices were obtained through the kidneys.The exam was performed using radiation dose optimization techniques including, but not limited to, automated exposure control, adjustment of the mA and/or kV according to patient size and use of iterative reconstruction technique. FINDINGS: Lung bases show moderate left and small right pleural effusion. There is moderate patchy airspace disease predominantly peribronchopvascular distribution in both lower lobes. The heart is moderately enlarged and there is a mitral valve prostheses in stable position. Images through the abdomen show the gallbladder is surgically absent. Common bile is normal caliber - 5 mm. The noncontrasted liver, both adrenal glands, spleen, pancreas and aorta are normal. Moderate bilateral renal atrophy palpable with end-stage renal disease seen - as before. Residual intravenous contrast, given the day before, is seen in the upper collecting system ureter which is normal caliber. A 14 mm nonobstructing seen in the mid calyx of the right kidney with a few small nonobstructing stones in the calyces of both kidneys. No obstructing stone There is no free air, free fluid or adenopathy. Stomach, visualized small last large bowel and appendix are normal. Bone windows show degenerative change in the lumbar spine IMPRESSION: 1. Moderate bilateral renal atrophy compatible with end-stage renal disease. 2. Scattered nonobstructing stones in the calyces of both kidneys which range up to 13 mm in a mid calyx of the right kidney. 3. Moderate peribronchovascular airspace disease in both lower lobes - new from previous study. This may represent edema from known CHF; however, the possibility of superimposed aspiration pneumonia should also be entertained. Moderate left and small right pleural effusions appreciated. Interpreted and Authenticated by: Naldo Fitch 10/29/17
[2017-10-29] MEDS: ERTAPENEM 0.5 GM in 0.9 % SODIUM CHLORIDE 50 ML IV SCH (16:00)
[2017-10-29 17:45] LABS: Vancomycin,Random 8.8 ug/mL
[2017-10-29] MEDS ORDERED: VANCOMYCIN 1,000 MG in 0.9 % SODIUM CHLORIDE 250 ML IV ONE (20:00)
[2017-10-29] MEDS: SENNOSIDES/DOCUSATE SODIUM 1 TAB TABLET PO SCH (20:43)
[2017-10-29] MEDS ORDERED: METOPROLOL TARTRATE 50 MG TABLET PO SCH (21:00)
[2017-10-29] MEDS ORDERED: MONTELUKAST 10 MG TABLET PO SCH (21:00)
[2017-10-29] MEDS ORDERED: SIMVASTATIN 10 MG TABLET PO SCH (21:00)
[2017-10-30] MEDS: IPRATROPIUM/ALBUTEROL 3 ML AMPUL.NEB NEB PRN (03:00)
[2017-10-30] MEDS: HYDROmorphone 2 MG/ML VIAL IV PRN (04:24)
[2017-10-30 04:35] LABS: Mean Cell Volume 94.7 fL (80.0-100.0); Mean Corpuscular HGB Conc 32.1 g/dL (31.0-36.0); Mean Corpuscular Hemoglobin 30.4 pg (26.0-34.0); Platelet Count 246 K/mcL (140-440); RBC 3.42 M/mcL (4.00-5.20); Red Cell Distribution Width 19.5 % (11.5-14.5)
[2017-10-30 05:13] LABS: ALT/SGPT < 5 U/l (0-40); Albumin/Globulin Ratio 1.1 (1.0-2.3); Alkaline Phosphatase 99 U/L (39-117); Bilirubin,Direct 0.2 mg/dL (0.0-0.3); Blood Urea Nitrogen 16 mg/dl (8-23); Gamma Glutamyl Transpeptidase 14 U/L (5-36); Uric Acid 2.5 mg/dL (2.5-8.0)
[2017-10-30] MEDS: 0.9 % SODIUM CHLORIDE 10 ML SYRINGE IV SCH ×2 (06:00→12:35)
--- NOTE | 2017-10-30 06:12 | Nephrology Progress Note ---
Subjective Patient information: Note initiated : 10/30/17 at 6:10 am Kathy Carvalho is an [id number] female with end stage renal disease on chronic hemodialysis (through tunneled hemodialysis catheter, at [facility], on MWF, followed by Dr Ureña), chronic anemia due to chronic kidney disease, secondary hyperparathyroidism, coronary artery disease, chronic atrial fibrillation on Coumadin anticoagulation and mitral valve repair on 09/03/17 at [facility], history of ischemic colitis and recurrent gastrointestinal bleeding, hypertension, hyperlipidemia, hypothyroidism, history of CVA with residual right hemiparesis, Parkinson disease, and gout being admitted on 10/28/17. Chief Complaint: Chest pain Principal diagnosis: End stage renal disease Pertinent ROS: Weakness Objective - Vital Signs Vital signs: Vital Signs Temp Pulse Pulse Resp BP Pulse Ox 10/30/17 04:00 97.5 F 102 H 12 87/47 98 10/30/17 03:15 100 H 16 10/30/17 02:43 101/56 10/30/17 00:30 93 10/30/17 00:01 87/48 96 10/30/17 00:00 94 10/29/17 23:30 101 H 94 10/29/17 23:20 95 H 109/50 96 10/29/17 22:49 92 H 103/66 100 10/29/17 22:31 87 97/51 99 10/29/17 22:01 78 105/52 92 10/29/17 21:46 91 H 98/48 98 10/29/17 21:41 95 H 103/49 98 10/29/17 21:24 91 H 94/50 94 10/29/17 20:00 109 H 98 10/29/17 18:52 95 H 18 95 10/29/17 18:51 95 H 18 10/29/17 17:08 98.7 F 116/93 10/29/17 15:01 98.1 F 99 H 110/49 10/29/17 14:58 126/68 10/29/17 14:50 102 H 110/49 10/29/17 14:46 110/49 10/29/17 14:34 100 H 109/53 10/29/17 14:31 109/53 10/29/17 14:16 99 H 98/45 10/29/17 14:09 99 H 89/45 10/29/17 14:07 88/46 07/24/18 14:05 90/59 10/29/17 14:03 89/57 10/29/17 14:01 85/65 10/29/17 13:55 95 H 110/85 10/29/17 13:46 110/85 10/29/17 13:35 94 H 110/58 10/29/17 13:31 110/58 10/29/17 13:16 101 H 121/60 10/29/17 13:01 94 H 103/57 10/29/17 12:48 122/58 95 10/29/17 12:47 94 H 122/58 10/29/17 12:46 84/64 95 10/29/17 12:33 95 H 115/54 10/29/17 12:31 115/54 95 10/29/17 12:30 95 10/29/17 12:20 83 114/58 10/29/17 12:16 114/58 95 10/29/17 12:10 85 128/58 10/29/17 12:01 128/58 95 10/29/17 12:00 98.4 F 95 10/29/17 11:55 97.5 F 82 112/58 95 10/29/17 11:52 105/49 95 10/29/17 11:30 95 10/29/17 11:00 95 10/29/17 10:30 95 10/29/17 10:00 95 10/29/17 09:30 95 10/29/17 09:00 95 10/29/17 08:30 95 10/29/17 08:01 130/77 95 10/29/17 08:00 98.1 F 122 H 18 95 10/29/17 07:30 95 10/29/17 07:01 148/131 95 10/29/17 07:00 95 10/29/17 06:30 95 Intake and Output 10/29/10/30/10/30/17 21:59 05:59 13:59 Intake Total 300 / 300 50 / 50 Output Total 0 / 0 Balance 300 / 300 50 / 50 Intake: IV 300 / 300 INVanz 0.5 GM In Sodium 50 / 50 Chloride 0.9% 50 ml @ 100 mls/ hr IV Q24H [facility] Rx#:[id number] Oral 50 / 50 Output: Hemodialysis UF 0 / 0 Other: # Voids 0 Weight 164 lb 8 oz Intake & Output: Intake & Output 10/29/17 10/30/17 10/30/17 21:59 05:59 13:59 Intake Total 300 / 300 50 / 50 Output Total 0 / 0 Balance 300 / 300 50 / 50 Weight 164 lb 8 oz Intake: IV 300 / 300 INVanz 0.5 GM In Sodium 50 / 50 Chloride 0.9% 50 ml @ 100 mls/ hr IV Q24H [facility] Rx#:[id number] Oral 50 / 50 Output: Hemodialysis UF 0 / 0 Other: # Voids 0 - General Appearance General appearance: chronically ill, fatigue EENT: mucous membranes moist Neck: supple Respiratory: course breath sounds Cardiology: edema Gastrointestinal: obese Integumentary: warm and dry Neurologic: no focal deficit, alert and oriented x3 Musculoskeletal: no deformities Psychiatric: mood/affect appropriate, cooperative - Lab 10/30/17 03:30 10/30/17 03:30 Most recent lab results Calcium 9.2 mg/dl (8.6-10.4) 10/30/17 03:30 Phosphorus 5.8 mg/dL (2.7-4.5) H 10/30/17 03:30 Magnesium 2.0 mg/dL (1.6-2.5) 10/30/17 03:30 Assessment and Plan (1) ESRD (end stage renal disease) on dialysis End stage renal disease on chronic hemodialysis (through tunneled hemodialysis catheter, at [facility], on MWF, followed by Dr Ureña), chronic anemia due to chronic kidney disease, secondary hyperparathyroidism. Progress: Last hemodialysis on 10/29/17 for 3 hours with 2 kg UF. Suspected pulmonary edema on CT Current weight 74.5 kg; dry weight 75.5 kg Plan: Next hemodialysis tomorrow or Saturday. Status: Chronic Priority: Medium
[2017-10-30] MEDS ORDERED: PANTOPRAZOLE 40 MG TABLET PO SCH (07:30)
[2017-10-30] MEDS: METOPROLOL TARTRATE 25 MG TABLET PO SCH (07:41)
[2017-10-30] MEDS: HYDROXYCHLOROQUINE 200 MG TABLET PO SCH (07:41)
[2017-10-30] MEDS: SEVELAMER 800 MG TABLET PO SCH ×2 (07:41→12:30)
[2017-10-30] MEDS: FUROSEMIDE 40 MG TABLET PO SCH (07:42)
[2017-10-30] MEDS: HYDROcodone/APAP 5/325MG TABLET PO PRN ×2 (07:42→15:15)
[2017-10-30] MEDS: ASPIRIN 81 MG TAB.CHEW PO SCH (07:42)
[2017-10-30] MEDS: CARBIDOPA/LEVODOPA CR 25/100 TABLET PO SCH ×2 (07:42→15:15)
[2017-10-30] MEDS: Ubidecarenone [Coq-10] 100 mg Tab PO SCH (07:43)
[2017-10-30] MEDS: ALLOPURINOL 100 MG TABLET PO SCH (07:49)
[2017-10-30] MEDS: DOCUSATE SODIUM 100 MG CAPSULE PO SCH (07:51)
[2017-10-30] MEDS: ERTAPENEM 0.5 GM in 0.9 % SODIUM CHLORIDE 50 ML IV SCH (07:52)
--- NOTE | 2017-10-30 07:52 | XRay Report ---
CLINICAL INFORMATION: Follow pneumonia and CHF COMPARISON: 10/28/2017 and 09/20/2017 FINDINGS: The heart is moderately enlarged but unchanged. Right IJ double-lumen catheter in stable satisfactory position. Mild mediastinal widening is stable. Pulmonary vessels remain mildly distended. Moderate interstitial disease throughout both lungs has progressed over the past two days. Small bilateral pleural effusions noted IMPRESSION: Moderate interstitial disease throughout both lungs resting the past two days. Suspect edema from CHF; however, infectious or inflammatory etiologies are also possible Interpreted and Authenticated by: Naldo Fitch 10/30/17
[2017-10-30 09:37] LABS: Anisocytosis 1+ (NONE SEEN); Band Neutrophils % 60 % (0-10); Dohle Bodies 1+ (NONE SEEN); Lymphocytes % 9 % (15-49); Metamyelocytes % 3 % (0-0); Monocytes % (Manual) 3 % (1-12); Platelet Estimate NORMAL (NORMAL); RBC Morphology ABNORM (NORMAL); Segmented Neutrophils % 25 % (38-78); Toxic Granulation 1+ (NONE SEEN)
[2017-10-30] MEDS ORDERED: 0.9 % SODIUM CHLORIDE 250 ML IV SCH (14:15)
--- NOTE | 2017-10-30 14:34 | Internal Med Progress Note ---
Medical - PN: Subj Patient information: Note initiated : 10/30/17 at 2:32 pm Service Date, if different from initiated Date: [] Patient: Kathy Carvalho a 81 y/o F admitted on 10/28/17 for Chest Pain/ Nosocomial Pneumonia. Chief Complaint: [] Interval history: Ms. Carvalho is a 81 year old F with a history of ESRD on HD, c/c anemia requiring transfusion along with atrial fibrillation comes from [place] worsening shortness of breath along with weakness that has evolved over the last 1 week. Patient has associated yellow productive sputum. Also has endorses to right upper quadrant pleuritic chest pain 6 out of 10-8 out of 10. She denies sick contacts but risk factors include recent healthcare exposure/ hemodialysis. She was at the hemodialysis this morning and wasn't feeling well and subsequently was referred to the ER for further evaluation. Initial workup was significant for white count 16,000 along with chest infiltrates suggestive for pneumonia. Patient received first dose of antibiotics and subsequently hospitalist service was consulted. At the time of evaluation patient is accompanied with daughter. She was able to answer most of the questions. She appears quite distressed but able to talk in full sentences. She denies diarrhea, dysuria, rashes or itching but endorses to chest discomfort exacerbated by movement and deep breathing located in the right lower chest upper abdomen. She also endorses to's drenching sweats but no shaking chills or fever. She has been getting blood transfusion and 65 units in the last month significant anemia of chronic disease/underlying ESRD/chronic GI bleed 10/29-patient experienced significant right subcostal pain overnight. White count up at 17,000 with left shift and bandemia. Antibiotic change from cefepime to ertapenem. Urine culture Citrobacter sensitive to ertapenem. CT abdomen in light of subcostal pain and rule out hepatic/subhepatic process. Ongoing hemodialysis. UA 36 WBCs and bacteria. No overnight telemetry events. Stable hemodynamics. Tachycardia on 114 10/30- patient clinically deteriorating. Systolics around 80-100. White count 18,000 despite broad-spectrum antibiotics. Switched to meropenem for Pseudomonas coverage. Patient unable to undergo hemodialysis run yesterday due to hypotension. Chest x-ray persistent infiltrate/pulmonary vascular congestion secondary to volume overload. Daughter at bedside. Discussed prognosis and overall clinical change since previous day and high risk mortality in light of worsening leukocytosis/hypotension/worsening infiltrates. Also case discussed with nephrology Dr. Ureña who recommends transfer to tertiary Center for further management in light of recent cardiac valvular surgery, septic shock, need for CRRT and subspecialty consult. Repeat blood cultures drawn from hemodialysis catheter and peripheral site. Repeat pro- calcitonin pending. Sputum and blood cultures negative so far - Constitutional Vitals: Vital Signs Temp Pulse Resp BP Pulse Ox 97.3 F 82 12 81/52 98 10/30/17 12:03 10/30/17 12:03 10/30/17 12:03 10/30/17 12:03 10/30/17 12:03 Period Temp Pulse Resp BP Sys/Nova Pulse Ox Last 24 Hr 97.3 F-99.0 F 78-111 12-19 81-126/47-93 92-100 Intake and Output 10/30/17 10/30/17 10/30/17 05:59 13:59 21:59 Intake Total 50 / 50 50 / 50 Balance 50 / 50 50 / 50 Weight 164 lb 8 oz Patient Weight 10/31/17 05:59 Weight 164 lb 8 oz Intake & Output: Intake & Output 10/30/17 10/30/17 10/30/17 05:59 13:59 21:59 Intake Total 50 / 50 50 / 50 Balance 50 / 50 50 / 50 Weight 164 lb 8 oz Intake: IV 50 / 50 INVanz 0.5 GM In Sodium 50 / 50 Chloride 0.9% 50 ml @ 100 mls/ hr IV Q24H [facility] Rx#:[id number] Oral 50 / 50 Other: Percent of Meal Consumed 10% Feeding Ability Total Assistance # Voids 0 General appearance: no acute distress Exam: Lethargic and fatigued minimally labored breathing No anxiety Nondistended abdomen Right subcostal pain minimal Medical - PN: Obj Da - Labs CBC & Chem 7: 10/30/17 03:30 10/30/17 03:30 Labs: Abnormal Lab Results 10/30/17 10/30/17 10/30/17 03:30 03:30 03:30 WBC 18.1 H RBC 3.42 L Hgb 10.4 L Hct 32.4 L RDW 19.5 H Gran % Lymph % (Auto) Gran # Lymph # (Auto) Seg Neutrophils % 25 L Band Neutrophils % 60 H Lymphocytes % 9 L Metamyelocytes % 3 H Nucleated RBCs 1 H WBC Morphology Abnorm A Toxic Granulation 1+ A Dohle Bodies 1+ A RBC Morphology Abnorm A Polychromasia 1+ A Anisocytosis 1+ A PT 54.2 H INR 5.9 H* D-Dimer Potassium Chloride Creatinine 2.1 H Glucose Phosphorus 5.8 H Lactate Dehydrogenase NT-Pro-B Natriuret Pep Total Protein 5.8 L Albumin 3.0 L Urine Protein Urine Ketones Urine Occult Blood Ur Leukocyte Esterase Urine RBC Urine WBC Ur Squamous Epith Cells Urine Bacteria Hyaline Casts 10/29/17 10/29/17 10/29/17 09:02 03:40 03:40 WBC 17.6 H RBC 3.55 L Hgb 10.8 L Hct 33.9 L RDW 18.9 H Gran % Lymph % (Auto) Gran # Lymph # (Auto) Seg Neutrophils % 82 H Band Neutrophils % Lymphocytes % 8 L Metamyelocytes % Nucleated RBCs WBC Morphology Toxic Granulation Dohle Bodies RBC Morphology Abnorm A Polychromasia 1+ A Anisocytosis 1+ A PT 51.2 H INR 5.5 H D-Dimer Potassium 5.2 H Chloride 95 L Creatinine 2.1 H Glucose 68 L Phosphorus 5.7 H Lactate Dehydrogenase 295 H NT-Pro-B Natriuret Pep Total Protein Albumin 3.1 L Urine Protein Urine Ketones Urine Occult Blood Ur Leukocyte Esterase Urine RBC Urine WBC Ur Squamous Epith Cells Urine Bacteria Hyaline Casts 10/28/17 10/28/17 10/28/17 13:30 12:29 11:45 WBC RBC Hgb Hct RDW Gran % Lymph % (Auto) Gran # Lymph # (Auto) Seg Neutrophils % Band Neutrophils % Lymphocytes % Metamyelocytes % Nucleated RBCs WBC Morphology Toxic Granulation Dohle Bodies RBC Morphology Polychromasia Anisocytosis PT INR D-Dimer 0.86 H Potassium Chloride Creatinine Glucose Phosphorus Lactate Dehydrogenase NT-Pro-B Natriuret Pep 6778.0 H Total Protein Albumin Urine Protein 100 A Urine Ketones 5/tr A Urine Occult Blood 0.03 A Ur Leukocyte Esterase 75 A Urine RBC 17 H Urine WBC 36 H Ur Squamous Epith Cells 5 H Urine Bacteria Mod A Hyaline Casts 3 H 10/28/17 10/28/17 11:45 11:45 WBC 16.4 H RBC 3.86 L Hgb Hct RDW 19.4 H Gran % 92.7 H Lymph % (Auto) 5.8 L Gran # 15.2 H Lymph # (Auto) 1.0 L Seg Neutrophils % Band Neutrophils % Lymphocytes % Metamyelocytes % Nucleated RBCs WBC Morphology Toxic Granulation Dohle Bodies RBC Morphology Polychromasia Anisocytosis PT INR D-Dimer Potassium Chloride 93 L Creatinine 1.3 H Glucose Phosphorus Lactate Dehydrogenase NT-Pro-B Natriuret Pep Total Protein Albumin Urine Protein Urine Ketones Urine Occult Blood Ur Leukocyte Esterase Urine RBC Urine WBC Ur Squamous Epith Cells Urine Bacteria Hyaline Casts Meds: Medications Acetaminophen (Tylenol) 650 mg PO Q4-6HP PRN PRN Reason: PAIN/FEVER > 101 Last Admin: 10/28/17 18:13 Dose: 650 mg Hydrocodone Bitart/Acetaminophen (Many 5/325mg) 1 - 2 tab PO Q4HP PRN PRN Reason: Pain Last Admin: 10/30/17 07:42 Dose: 2 tab Albuterol/Ipratropium (Duoneb) 3 ml NEB Q4HP PRN PRN Reason: Shortness Of Breath Last Admin: 10/30/17 03:00 Dose: 3 ml Allopurinol (Zyloprim) 100 mg PO DAILY [facility] Last Admin: 10/30/17 07:49 Dose: Not Given Aspirin (Aspirin) 81 mg PO DAILY [facility] Last Admin: 10/30/17 07:42 Dose: 81 mg Carbidopa/Levodopa (Sinemet Cr 25/100) 2 tab PO TID [facility] Last Admin: 10/30/17 07:42 Dose: 2 tab Docusate Sodium (Colace) 100 mg PO BID [facility] Last Admin: 10/30/17 07:51 Dose: 100 mg Furosemide (Lasix) 100 mg PO DAILY [facility] Last Admin: 10/30/17 07:42 Dose: 100 mg Hydromorphone HCl (Dilaudid) 0.5 mg IV Q4-6HP PRN PRN Reason: PAIN LEVEL > 6 Last Admin: 10/30/17 04:24 Dose: 0.5 mg Hydroxychloroquine Sulfate (Plaquenil) 200 mg PO BID [facility] Last Admin: 10/30/17 07:41 Dose: 200 mg Acetaminophen (Ofirmev) 1,000 mg in 100 mls @ 200 mls/hr IV Q6HP PRN PRN Reason: PAIN/FEVER > 101 Last Admin: 10/29/17 23:49 Dose: 200 mls/hr Norepinephrine Bitartrate 16 (mg/ Sodium Chloride) 250 mls @ 9.37 mls/hr IV Q24H [facility]; Protocol Sodium Chloride (Sodium Chloride 0.9%) 250 mls @ 20 mls/hr IV .[id number] [facility] Meropenem 0.5 gm/ Sodium (Chloride) 50 mls @ 100 mls/hr IV Q24H [facility] Metoprolol Tartrate (Lopressor) 75 mg PO DAILY [facility] Last Admin: 10/30/17 07:41 Dose: 75 mg Metoprolol Tartrate (Lopressor) 50 mg PO [facility] Last Admin: 10/29/17 20:42 Dose: 50 mg Montelukast Sodium (Singular) 10 mg PO [facility] Last Admin: 10/29/17 20:42 Dose: 10 mg Ondansetron HCl (Zofran) 4 mg IV Q4-6HP PRN PRN Reason: Nausea And Vomiting Pantoprazole Sodium (Protonix) 40 mg PO QAMAC [facility] Last Admin: 10/30/17 07:42 Dose: 40 mg Ubidecarenone [Coq- (10] 100 Mg Tab) 1 dose PO DAILY [facility] Last Admin: 10/30/17 07:43 Dose: Not Given Senna/Docusate Sodium (Senna Plus Tablet) 1 tab PO [facility] Last Admin: 10/29/17 20:43 Dose: 1 tab Sevelamer Carbonate (Renvela) 800 mg PO TIDCC [facility] Last Admin: 10/30/17 12:30 Dose: Not Given Simvastatin (Zocor) 10 mg PO [facility] Last Admin: 10/29/17 20:42 Dose: 10 mg Sodium Chloride (Saline Flush) 10 ml IV Q8 [facility] Last Admin: 10/30/17 12:35 Dose: 10 ml Vancomycin HCl (Vancomycin Per Pharmacy) 1 order IV UD [facility] Warfarin Sodium (Coumadin Per Pharmacy) 1 order PO [facility] [place] Medical - PN: A/P - Time Spent With Patient Total time spent is greater than 50% in coordination of care (as documented) at patient's floor/unit and/or counseling patient: Greater than 35 minutes (critical care time) (1) Nosocomial pneumonia Status: Acute Assessment and plan: * Septic shock with elevated white count not responding to initial antibiotics - changed to meropenem for Pseudomonas coverage. Likely cause nosocomial pneumonia/Citrobacter UTI. Continue pressors to dialysis catheter to keep map around 70. * HCAP- continue meropenem/vancomycin for nosocomial pathogens. Immunocompromised state with underlying ESRD on HD and on Humira * Complicated Citrobacter UTI- * ESRD on hemodialysis managed per nephrology. Recommend CVVT * Anticoagulation on Coumadin -secondary to history of CVA/mesenteric and atrial thrombus. INR 5.3 * History of chronic GI bleed- on frequent blood transfusion. Hemoglobin 10.4 * Mitral valve replacement on 09/03/17 at [facility], patient due for transesophageal echocardiogram 10/31 at [place]. * History of atrial fibrillation currently rate controlled. On anticoagulation on Coumadin * History of ischemic colitis May 2017. No acute changes * History of prior CVA with residual right hemiparesis- on anticoagulation * History of Parkinson's disease continue levodopa carbidopa * Hypertension -Hold metoprolol * History of gout on allopurinol * Hyperlipidemia statin * Inflammatory arthritis on prednisone/hydroxychloroquine/Humira * DNR Plan * Vasopressors * Start meropenem * ICU transfer, coordinate tertiary Center transfer * Blood Cultures * HD per nephrology * pre-existing medical condition management and home meds * Physical therapy Current Visit: Yes Medical - PN: Qual - VTE Deep Vein Thrombosis/Pulmonary Embolism Present on Admission: No
[2017-10-30] MEDS ORDERED: NOREPINEPHRINE BITARTRATE 16 MG in 0.9 % SODIUM CHLORIDE 234 ML IV SCH (15:00)
[2017-10-30] MEDS ORDERED: MEROPENEM 0.5 GM in 0.9 % SODIUM CHLORIDE 50 ML IV SCH (15:00)
--- NOTE | 2017-10-30 15:17 | Transfer Summary ---
Transfer Discharge Sum: Prov Patient information: Note initiated : 10/30/17 at 3:15 pm Service Date, if different from initiated Date: [] Patient: Kathy Carvalho 81 y/o F admitted on 10/28/17 for Chest Pain/ Nosocomial Pneumonia. Chief Complaint: [] Date of admission: 10/28/17 17:05 Discharge Date: 10/30/17 Primary care physician: Chilo Hassan Consults: 10/28/17 14:24 Consult to Physician [CONS] Stat Comment: Consulting Provider: Dennis Kitchen Reason For Exam: Physician to Consult Consult to Physician [CONS] Stat Comment: Consulting Provider: Sury Ureña Reason For Exam: Physician to Consult 10/30/17 14:42 Consult to Physician [CONS] Routine Comment: Consulting Provider: Mahesh Peraza Reason For Exam: Physician to Consult Transfer Discharge Sum: Diag - Discharge Diagnosis (1) Nosocomial pneumonia Status: Acute Transfer Discharge Sum: Med - Medications Active and Home Medications: Home Medications Adalimumab [Humira] 40 mg SQ Q2W 08/22/17 [History Confirmed 10/28/17] Allopurinol [Zyloprim] 100 mg PO DAILY 08/22/17 [History Confirmed 10/28/17] Aspirin [Jayme Chewable Aspirin] 81 mg PO DAILY 08/22/17 [History Confirmed ] Cranberry Fruit Extract [Cranberry Extract] 1 gm MC DAILY 08/22/17 [History Confirmed 10/28/17] Ferrous [facility]ulfate [facility] [place] [History Confirmed 10/28/17] Furosemide [Lasix] 100 mg PO DAILY 08/22/17 [History Confirmed 10/28/17] Hydroxychloroquine [Plaquenil] 200 mg PO BID 08/22/17 [History Confirmed ] Metoprolol Tartrate 75 mg PO DAILY 08/22/17 [History Confirmed 10/28/17] Metoprolol Tartrate [Lopressor] 50 mg PO HS 08/22/17 [History Confirmed 10/28/17 ] Montelukast [Singular] 10 mg PO HS 08/22/17 [History Confirmed 10/28/17] Pantoprazole [Protonix] 40 mg PO QAMAC 08/22/17 [History Confirmed 10/28/17] Ubidecarenone [Coq-10] 100 mg PO DAILY 08/22/17 [History Confirmed 10/28/17] Acetaminophen [Tylenol] 650 mg PO Q4-6HP PRN tab 08/26/17 [Rx Confirmed ] Carbidopa/Levodopa Cr 25/100 [Sinemet Cr 25/100] 2 tab PO TID tab.sr.12h [Rx Confirmed 10/28/17] Simvastatin [Zocor] 10 mg PO HS 08/28/17 [History Confirmed 10/28/17] Sevelamer [Renvela] 800 mg PO TIDCC tab 09/02/17 [Rx Confirmed 10/28/17] HYDROcodone/APAP 5/325MG [[place] 5-325Mg] 1 - 2 tab PO Q4HP PRN 10/04/17 [ History Confirmed 10/28/17] cefpodoxime 100 mg tablet 100 mg PO .q48 hours #5 tab 10/17/17 [Rx Confirmed ] Warfarin [Coumadin] 2.5 mg PO SUMOTUWETHFR 10/29/17 [History Confirmed 10/29/17] Warfarin [Coumadin] 5 mg PO SA 10/29/17 [History Confirmed 10/29/17] Active Medications Acetaminophen (Tylenol) 650 mg PO Q4-6HP PRN PRN Reason: PAIN/FEVER > 101 Last Admin: 10/28/17 18:13 Dose: 650 mg Hydrocodone Bitart/Acetaminophen ([place] 5/325mg) 1 - 2 tab PO Q4HP PRN PRN Reason: Pain Last Admin: 10/30/17 07:42 Dose: 2 tab Albuterol/Ipratropium (Duoneb) 3 ml NEB Q4HP PRN PRN Reason: Shortness Of Breath Last Admin: 10/30/17 03:00 Dose: 3 ml Allopurinol (Zyloprim) 100 mg PO DAILY [facility] Last Admin: 10/30/17 07:49 Dose: Not Given Aspirin (Aspirin) 81 mg PO DAILY [facility] Last Admin: 10/30/17 07:42 Dose: 81 mg Carbidopa/Levodopa (Sinemet Cr 25/100) 2 tab PO TID [facility] Last Admin: 10/30/17 07:42 Dose: 2 tab Docusate Sodium (Colace) 100 mg PO BID [facility] Last Admin: 10/30/17 07:51 Dose: 100 mg Furosemide (Lasix) 100 mg PO DAILY [facility] Last Admin: 10/30/17 07:42 Dose: 100 mg Hydromorphone HCl (Dilaudid) 0.5 mg IV Q4-6HP PRN PRN Reason: PAIN LEVEL > 6 Last Admin: 10/30/17 04:24 Dose: 0.5 mg Hydroxychloroquine Sulfate (Plaquenil) 200 mg PO BID [facility] Last Admin: 10/30/17 07:41 Dose: 200 mg Acetaminophen (Ofirmev) 1,000 mg in 100 mls @ 200 mls/hr IV Q6HP PRN PRN Reason: PAIN/FEVER > 101 Last Admin: 10/29/17 23:49 Dose: 200 mls/hr Norepinephrine Bitartrate 16 (mg/ Sodium Chloride) 250 mls @ 9.37 mls/hr IV Q24H [facility]; Protocol Last Admin: 10/30/17 15:05 Dose: 5 mcg/min, 4.68 mls/hr Sodium Chloride (Sodium Chloride 0.9%) 250 mls @ 20 mls/hr IV .[id number] [facility] Last Admin: 10/30/17 14:39 Dose: 20 mls/hr Meropenem 0.5 gm/ Sodium (Chloride) 50 mls @ 100 mls/hr IV Q24H [facility] Last Admin: 10/30/17 14:36 Dose: 100 mls/hr Metoprolol Tartrate (Lopressor) 75 mg PO DAILY [facility] Last Admin: 10/30/17 07:41 Dose: 75 mg Metoprolol Tartrate (Lopressor) 50 mg PO [facility] Last Admin: 10/29/17 20:42 Dose: 50 mg Montelukast Sodium (Singular) 10 mg PO [facility] Last Admin: 10/29/17 20:42 Dose: 10 mg Ondansetron HCl (Zofran) 4 mg IV Q4-6HP PRN PRN Reason: Nausea And Vomiting Pantoprazole Sodium (Protonix) 40 mg PO QAMAC [facility] Last Admin: 10/30/17 07:42 Dose: 40 mg Ubidecarenone [Coq- (10] 100 Mg Tab) 1 dose PO DAILY [facility] Last Admin: 10/30/17 07:43 Dose: Not Given Senna/Docusate Sodium (Senna Plus Tablet) 1 tab PO [facility] Last Admin: 10/29/17 20:43 Dose: 1 tab Sevelamer Carbonate (Renvela) 800 mg PO TIDCC [facility] Last Admin: 10/30/17 12:30 Dose: Not Given Simvastatin (Zocor) 10 mg PO [facility] Last Admin: 10/29/17 20:42 Dose: 10 mg Sodium Chloride (Saline Flush) 10 ml IV Q8 [facility] Last Admin: 10/30/17 12:35 Dose: 10 ml Vancomycin HCl (Vancomycin Per Pharmacy) 1 order IV [place] Warfarin Sodium (Coumadin Per Pharmacy) 1 order PO [place] Transfer Discharge Sum: Hosp Hospital course: Discharge Diagnoses * Septic shock with elevated white count not responding to initial antibiotics - changed to meropenem for Pseudomonas coverage. Likely cause nosocomial pneumonia/Citrobacter UTI. Continue pressors to dialysis catheter to keep map around 70. * HCAP- continue meropenem/vancomycin for nosocomial pathogen coverage. Initial Procal 0.61. Immunocompromised state with underlying ESRD on HD and on Humira for inflammatory arthritis * Complicated MDR Citrobacter UTI * ESRD on HD managed per nephrology. Recommend CVVT and transfer to tertiary center * Anticoagulation on Coumadin -secondary to history of CVA/mesenteric ischemia and atrial thrombus on CT. INR 5.9 * History of chronic GI bleed 2/2 coumadin- on frequent blood transfusion. Hemoglobin 10.4 * Mitral valve replacement on 09/03/17 at [facility], patient was due for transesophageal echocardiogram 10/31 at [place]. * History of atrial fibrillation currently rate controlled. On anticoagulation on Coumadin * History of ischemic colitis May 2017. asymptomatic * History of prior CVA with residual right hemiparesis- on anticoagulation * History of Parkinson's disease continue levodopa carbidopa * Hypertension -Held metoprolol * History of gout on allopurinol * Hyperlipidemia statin * Inflammatory arthritis on prednisone/hydroxychloroquine/Humira Brief Hospital course Ms. Carvalho is a 81 year old F with a history of ESRD on HD, c/c anemia requiring transfusion along with atrial fibrillation comes from [place] worsening shortness of breath along with weakness that has evolved over the last 1 week. Patient has associated yellow productive sputum. Also endorses to right upper quadrant pleuritic chest pain 6 out of 10-8 out of 10. She denies sick contacts but risk factors include recent healthcare exposure/ hemodialysis. She was at the hemodialysis unit this morning and wasn't feeling well and subsequently was referred to the ER for further evaluation. Initial workup was significant for white count 16,000 along with chest infiltrates suggestive for pneumonia. Patient received first dose of antibiotics flowing blood cultures and subsequently hospitalist service was consulted. At the time of evaluation patient is accompanied with daughter. She was able to answer most of the questions. She appears quite distressed but able to talk in near ull sentences. She denies diarrhea, dysuria, rashes or itching but endorses to chest discomfort exacerbated by movement and deep breathing located in the right lower chest upper abdomen. She also endorses to's drenching sweats but no shaking chills or fever. She has been getting blood transfusion -5 units in the last month for anemia of chronic disease/underlying ESRD/chronic GI bleed 2/2 coumadin (coumadin cannot be discontinued due to [place] thrombus, Recent CVA and ischemic coluitis) 10/29-patient experiencing significant right subcostal pain overnight. White count up at 17,000 with left shift and bandemia. Antibiotic change from cefepime to ertapenem. Urine culture Citrobacter sensitive to ertapenem. CT abdomen in light of subcostal pain and rule out hepatic/subhepatic process. Ongoing hemodialysis. UA 36 WBCs and bacteria. No overnight telemetry events. Stable hemodynamics. Tachycardia ~ 114 10/30- patient clinically deteriorating. Systolics around 80-100. White count 18,000 despite broad-spectrum antibiotics. Switched to meropenem for Pseudomonas coverage. Patient unable to undergo hemodialysis run yesterday due to hypotension. Interval chest x-ray persistent infiltrate/pulmonary vascular congestion secondary to volume overload. Daughter at bedside. Discussed prognosis and overall clinical change since previous day and high risk mortality in light of worsening leukocytosis/hypotension/worsening infiltrates. Also case discussed with nephrology Dr. Ureña who recommends transfer to tertiary Center for further management in light of recent cardiac valvular surgery, septic shock, need for CRRT and subspecialty consult. Repeat blood cultures drawn from hemodialysis catheter and peripheral site. Repeat pro- calcitonin pending. Sputum and blood cultures negative so far. INR 5.[address] [facility] net developer with [facility] Dr. Kathia Mcghee. Highly appreciate her help in accepting patient for transfer and further management in this critically ill and complex 81-year-old lady. Patient, patient's daughter, Dealer Card Room Dr. Ureña and infectious disease specialist Dr. Peraza agrees with the plan to transfer to tertiary Center. Patient will be transferred via air ambulance. Patient currently on Levophed at 2 mics to keep map around 70. Status post vancomycin and meropenem. - Time Spent with Patient Total time spent providing and/or coordinating transfer services: Greater than 30 minutes Transfer Discharge Sum: Exam - Constitutional Vitals: Vital Signs Temp Pulse Pulse Resp BP BP Pulse Ox 10/30/17 12:03 97.3 F 82 12 81/52 98 10/30/17 08:00 99.0 F 111 H 19 105/52 100 10/30/17 04:00 97.5 F 102 H 12 87/47 98 10/30/17 03:15 100 H 16 10/30/17 02:43 101/56 10/30/17 00:30 93 10/30/17 00:01 87/48 96 10/30/17 00:00 94 10/29/17 23:30 101 H 94 10/29/17 23:20 95 H 109/50 96 10/29/17 22:49 92 H 103/66 100 10/29/17 22:31 87 97/51 99 10/29/17 22:01 78 105/52 92 10/29/17 21:46 91 H 98/48 98 10/29/17 21:41 95 H 103/49 98 10/29/17 21:24 91 H 94/50 94 10/29/17 20:00 109 H 98 10/29/17 18:52 95 H 18 95 10/29/17 18:51 95 H 18 10/29/17 17:08 98.7 F 116/93 Intake and Output 10/30/17 10/30/17 10/30/17 05:59 13:59 21:59 Intake Total 50 / 50 50 / 50 Balance 50 / 50 50 / 50 Intake: IV 50 / 50 INVanz 0.5 GM In Sodium 50 / 50 Chloride 0.9% 50 ml @ 100 mls/ hr IV Q24H [facility] Rx#:[id number] Oral 50 / 50 Other: Percent of Meal Consumed 10% Feeding Ability Total Assistance # Voids 0 Weight 164 lb 8 oz Patient Weight 10/31/17 05:59 Weight 164 lb 8 oz Transfer Discharge Sum: A/P - Problem Maintenance (1) Nosocomial pneumonia Status: Acute - Plan Functional capacity at transfer: bed bound Overall status at transfer: patient is not back to baseline Disposition: Xfer [facility] Quality Measure Queries - VTE Deep Vein Thrombosis/Pulmonary Embolism Present on Admission: No
--- NOTE | 2017-10-30 16:01 | Internal Medicine Consult Note ---
Medical - CN: HPI - Data of Consult Consult date: 10/30/17 Requesting Physician: Dennis Kitchen Primary Care Provider: Chilo Hassan - Consult Narrative Reason for consult: Concerns for sepsis History of present illness: Ms. Carvalho is a 81 year old lady from [facility], with PMHx of: Chronic atrial fibrillation, status post lico-clip placement at [facility] in [place] in August 2017, on coumadin Ischemic colitis, last episode 2 months ago with lower GI bleed needing blood transfusions ESRD on hemodialysis through a right IJ dialysis catheter since March 2017, no infections reported Recurrent UTIs status post multiple courses of antibiotics, most recent in October 2017 for Citrobacter [ciprofloxacin, cefpodoxime] - CAD, s/p CABG - HTN HPI obtained from daughter and chart review: Patient was admitted on October 28 with complaints of chest pain, low-grade fever with chills, cough with yellowishreddish phlegm, and feeling tired. Patient has been ill for last 2 years with multiple issues going on. She broke her ribs and left toe in October after being on the wrong foot needing metallic prosthesis in her left foot. She was recently seen by her loop drier operator (Dr Ureña ) and being treated for UTI, (ur Cx growing Citrobacter). After admission patient was started on ertapenem IV. IV Vancomycin was added on 10/29. Pt's white cell count was 16.4 K with 92.7% neutrophils at admission and progressively increased to 18.1 K with 60% bands today. In addition the CBC also shows toxic granulation and Dohle bodies. Per chart review, her other parameters such as vital signs, overall clinical condition is worsening. At time of visit patient was lying down, she was awake and responsive to questions. The daughter at bedside confirmed the above history and added that her mother lives by herself in the [facility]. She has been able to take care of herself until October 28. CC: Dennis Kitchen - Constitutional Constitutional: Present: anorexia, chills, fatigue, frequent falls, lethargy, weight loss - Cardiovascular Cardiovascular: Present: chest pain, dyspnea, irregular heart rhythm - Respiratory Respiratory: Present: cough, dyspnea, change in phlegm color - Gastrointestinal Gastrointestinal: Present: abdominal pain - Hematologic/Lymphatic Hematologic/Lymphatic: Present: easy bleeding Medical - CN: PMH Family history: reviewed and not pertinent Medical - CN: Meds Home Medications Medication Instructions Recorded Confirmed Type Adalimumab [Humira] 40 mg SQ Q2W 08/22/17 10/28/17 History Allopurinol [Zyloprim] 100 mg PO DAILY 08/22/17 10/28/17 History Aspirin [Jayme Chewable Aspirin] 81 mg PO DAILY 08/22/17 10/28/17 History Cranberry Fruit Extract [Cranberry 1 gm MC DAILY 08/22/17 10/28/17 History Extract] Ferrous Sulfate 325 mg PO QAMCC 08/22/17 10/28/17 History Furosemide [Lasix] 100 mg PO DAILY 08/22/17 10/28/17 History Hydroxychloroquine [Plaquenil] 200 mg PO BID 08/22/17 10/28/17 History Metoprolol Tartrate 75 mg PO DAILY 08/22/17 10/28/17 History Metoprolol Tartrate [Lopressor] 50 mg PO HS 08/22/17 10/28/17 History Montelukast [Singular] 10 mg PO HS 08/22/17 10/28/17 History Pantoprazole [Protonix] 40 mg PO QAMAC 08/22/17 10/28/17 History Ubidecarenone [Coq-10] 100 mg PO DAILY 08/22/17 10/28/17 History Acetaminophen [Tylenol] 650 mg PO Q4-6HP PRN tab 08/26/17 10/28/17 Rx Carbidopa/Levodopa Cr 25/100 2 tab PO TID tab.sr.12h 08/26/17 10/28/17 Rx [Sinemet Cr 25/100] Simvastatin [Zocor] 10 mg PO HS 08/28/17 10/28/17 History Sevelamer [Renvela] 800 mg PO TIDCC tab 09/02/17 10/28/17 Rx HYDROcodone/APAP 5/325MG [[place] 1 - 2 tab PO Q4HP PRN 10/04/17 10/28/17 History 5-325Mg] cefpodoxime 100 mg tablet 100 mg PO .q48 hours #5 tab 10/17/17 10/28/17 Rx Warfarin [Coumadin] 2.5 mg PO SUMOTUWETHFR 10/29/17 10/29/17 History Warfarin [Coumadin] 5 mg PO SA 10/29/17 10/29/17 History Allergies Allergy/AdvReac Type Severity Reaction Status Date / Time Penicillins Allergy Mild Hives Verified 10/23/17 16:01 dofetilide [From Tikosyn] Allergy Unknown Unknown Verified 10/23/17 16:01 doxycycline Allergy Unknown Unknown Verified 10/23/17 16:01 adhesive tape AdvReac Mild Rash Verified 10/23/17 16:01 Erythromycin Base AdvReac Mild Itching Verified 10/23/17 16:01 Medical - CN: Exam - Constitutional Vitals: Temp Pulse Resp BP Pulse Ox 97.3 F 91 H 16 120/56 100 10/30/17 15:32 10/30/17 15:32 10/30/17 15:32 10/30/17 15:32 10/30/17 15:32 General appearance: moderate distress, thin - Neck Additional comments: right IJ tunneled HD catheter without any redness, swelling, tenderness - Respiratory Respiratory exam: Present: rales Additional comments: occasional rales at bases, decreased BS at bases - Cardiovascular Cardiovascular exam: Present: gallop, +S1, +S2 - GI/Abdominal GI/Abdominal exam: Present: soft, organomegaly (liver enlargement), tenderness ( right upper quadrant) Medical - CN: Result - Labs CBC & Chem 7: 10/30/17 03:30 10/30/17 03:30 Labs: Short CBC 10/30/17 Range/Units 03:30 WBC 18.1 H (4.5-11.0) K/mcL Hgb 10.4 L (12.0-15.0) g/dL Hct 32.4 L (36.0-48.0) % Plt Count 246 (140-440) K/mcL [facility] 10/30/17 03:30 Sodium 137 Potassium 4.7 Chloride 99 Carbon Dioxide 25 BUN 16 Creatinine 2.1 H Glucose 77 Calcium 9.2 Liver Function 10/30/17 Range/Units 03:30 Total Bilirubin 0.5 (0.0-1.0) mg/dL Direct Bilirubin 0.2 (0.0-0.3) mg/dL GGT 14 (5-36) U/L AST 9 (0-37) U/l ALT < 5 (0-40) U/l Alkaline Phosphatase 99 (39-117) U/L Albumin 3.0 L (3.2-5.2) gm/dL Medical - CN: A/P - Narrative A/P Narrative: Assessment: 81-year-old lady with complicated medical history which includes CAD status post CABG with recent occlusive device for left left atrial appendage for chronic atrial fibrillation, ESRD on HD, recurrent UTIs [on treatment for a UTI ] presents with clinical syndrome concerning for a respiratory infection, with subsequent progression to sepsis [qSOFA score of 2]. Her uptrending leukocytosis with increased number of bands and toxic granules and dohle bodies are suggestive of a systemic infectious process. Given the extent of her comorbidities and the fact that she is drifting into septic shock, she would need CVVH and a transesophageal echocardiogram to rule out infective endocarditis. The current differential includes: Recommendations: #1 recommend transfer to a facility with higher level of care and having the ability to do CVVH, transesophageal echocardiogram. #2 meanwhile would recommend changing ertapenem to meropenem given broader coverage of the latter for pseudomonas aeruginosa. Dose should be 500 mg every 24 with dose given after dialysis. In case patient is started on CVVH the dose should be 1 g every 12 hours IV. #3 continue vancomycin at current dosing. Check troughs every day before dialysis [target 15-20] #4 sent blood cultures, 2 sets with 1 set from the HD catheter and other from the peripheral stick. Repeat lactic acid, pro-calcitonin Infectious disease will follow if the patient is at [facility], AND also available for any questions by the accepting facility. Thank you for allowing me to participate in this interesting consult. Mahesh Peraza MD Infectious diseases
[2017-10-31] MEDS ORDERED: MEROPENEM 0.5 GM VIAL IV SCH (09:00)
== END 2017-10-30 15:46 | disposition short-term general hospital (02) | DRG 871 ==
LOC: ED 10:51 → ICU 17:05
PROVIDERS: ADMIT Internal Medicine; ATTEND Internal Medicine